=== PATIENT | male | born 1940 | race Caucasian/White ===

== ENCOUNTER 2016-12-10 05:56 | Day surgery (SDC) | payer MEDICARE, OTHER ==
[2016-12-10] MEDS ORDERED: Xopenex 1.25 MG/0.5 ML UD NEBULE IH ONE (06:27)
[2016-12-10] MEDS ORDERED: Sodium Chloride 3 ML UD NEBULES IH ONE (06:30)
[2016-12-10] MEDS ORDERED: Lactated Ringers 1,000 ML IV SCH (06:30)
[2016-12-10] MEDS ORDERED: Lactated Ringers 1,000 ML IV ONE (08:05)
[2016-12-10 08:39] VITALS: O2SAT 97
--- NOTE | 2016-12-10 09:14 | OP ---
SURGERY DATE/TIME: 12/10/2016 0700 PREOPERATIVE DIAGNOSIS: Heme-positive stool. POSTOPERATIVE DIAGNOSIS: 1) Normal EGD. 2) Colonoscopy with colon polyp removal x6 and biopsy of redundancy in splenic flexure. PROCEDURES: 1) EGD. 2) Colonoscopy. SURGEON: Carlos Rosa M.D. ANESTHESIA: MAC by Aidan Carpenter CRNA. ESTIMATED BLOOD LOSS: Minimal. SPECIMENS: Two hot snare polypectomies and four hot forceps polypectomies and two biopsies from the splenic flexure. DESCRIPTION OF PROCEDURE: After informed written consent was obtained, the patient was taken to the endoscopy suite. He underwent monitored anesthesia after a bite block was inserted. The endoscope was inserted in the posterior oropharynx. Under direct visualization the esophagus was traversed. Esophageal mucosa was normal in appearance. The gastroesophageal junction and gastric mucosa likewise were normal in appearance upon entering the stomach. The gastric antrum was free of any lesions or defects. The pylorus was traversed and the first and second portions of the duodenum were within normal limits. Upon withdrawal the mucosal structures appeared to be free of any lesions or defects. The scope was removed and the scopes were switched. A digital rectal exam showed normal sphincter tone and no internal lesions. The scope was inserted in the rectum and sequentially the entire colonic mucosa was traversed. The level of cecum was reached and verified with direct visualization of ileocecal valve. A large polyp was present in the pericecal region which was removed in piecemeal fashion with hot forceps with good removal and good hemostasis following removal. Upon withdrawal there were two large lesions in the transverse colon which were removed with snares with cautery with good hemostasis and removal of the entire lesion. There was another small polypoid lesion at the distal transverse colon which was removed with hot forceps as well. The splenic flexure was noted to have some redundancy and abnormal mucosal appearance, this was indistinct and broad based so two cold forceps biopsies were taken from security systems sales representative areas and sent for pathology testing. Pictures were also taken from this region. Upon further withdrawal there were two more small polypoid lesions in the descending colon which were removed with hot forceps in their entirety. The sigmoid colon and rectum were noted to be within normal limits upon withdrawal. No other lesions were encountered. Retroflexion showed no internal lesions. The scope was removed and the patient was transferred to the recovery room in excellent condition.
[2016-12-10 09:49] VITALS: BP 159/71; PULSE 66
[2016-12-10] MEDS ORDERED: Versed 2 MG/2 ML Injection IV ONE (14:30)
[2016-12-10] MEDS ORDERED: DIPRIVAN 200 MG/20 ML IV ONE (14:30)
[2016-12-10] MEDS ORDERED: SUBLIMAZE 100 MCG/2 ML IV ONE (14:30)
== END 2016-12-10 09:20 | disposition home or self-care (01) ==
LOC: SDC 05:56
PROVIDERS: ATTEND Family Medicine
PROC: 0DBL8ZX Excision of Transverse Colon, Via Natural or Artificial Opening Endoscopic, Diagnostic (ICD-10-PCS; principal; 2016-12-10)
PROC: 0DBH8ZX Excision of Cecum, Via Natural or Artificial Opening Endoscopic, Diagnostic (ICD-10-PCS; 2016-12-10)
PROC: 0DBM8ZX Excision of Descending Colon, Via Natural or Artificial Opening Endoscopic, Diagnostic (ICD-10-PCS; 2016-12-10)
DX: D12.3 Benign neoplasm of transverse colon (principal); D12.0 Benign neoplasm of cecum; R19.5 Other fecal abnormalities; E11.9 Type 2 diabetes mellitus without complications; I10 Essential (primary) hypertension
CPT/HCPCS: 00740; 00810; 36415; 82962; 88305; 94640; 99100; J2250; J2704; J3010

== ENCOUNTER 2019-02-03 16:26 | Emergency (ER) | payer MEDICARE ==
--- NOTE | 2019-02-03 16:31 | ERPHSYRPT ---
- History of Present Illness Time Seen by Provider: 02/03/19 16:30 Source: patient, family Exam Limitations: no limitations Physician History: 78 y/o diabeticv white male with h/o copd on neb tx with albuterol but does not use it, presents with coughing since last pm. pt wears a sleep apnea machine just at night. pt has noticed sinus drainage. denies cp. 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 cough is nonproductive. Timing/Duration: hour(s) (less than 24 hours) Cough Quality/Degree: mild, dry cough Possible Cause: occasional episodes Associated Symptoms: cough, nasal drainage, shortness of breath (mild with exertion), No fever, No chest pain/soreness Allergies/Adverse Reactions: gabapentin Allergy (Mild, Verified 12/10/16 06:17) Penicillins Allergy (Mild, Verified 12/10/16 06:17) Antihistamines - Alkylamine Allergy (Verified 12/10/16 06:17) pt unsure what antihistaine name was Antihistamines - Ethanolamine Allergy (Verified 12/10/16 06:17) pt unsure of name of antihistamine Antihistamines - Ethylenediamine Allergy (Verified 12/10/16 06:17) pt unsure of name of antihistamine Antihistamines - Piperazine Allergy (Verified 12/10/16 06:17) pt unsure of name of antihistamine Antihistamines - Piperidine Allergy (Verified 12/10/16 06:17) pt unsure of name of antihistamine Home Medications: Albuterol 2.5 mg/3 ml Neb [Proventil 2.5 mg/3 ml Neb] 2.5 mg IH QID [History] Aspirin EC 325 mg [Ecotrin 325 MG] 325 mg PO DAILY 07/11/13 [History] Gemfibrozil 600 mg [Lopid 600 mg] 600 mg PO BID 07/11/13 [History] Insulin Aspart [NovoLOG Insulin] 16 unit SQ TID 07/11/13 [History] Insulin Glargine [Lantus Insulin] 36 unit SQ HS 07/11/13 [History] Pantoprazole Sodium [Protonix] 40 mg PO DAILY 07/11/13 [History] Sotalol HCl [Betapace] 120 mg PO TID 07/11/13 [History] Verapamil HCl [Verapamil ER] 120 mg PO DAILY 07/11/13 [History] Albuterol 8 gm Mdi Hfa [Ventolin Hfa MDI] 8 gm IH UD PRN 07/12/13 [History ] Carvedilol 6.25 mg [Coreg 6.25 MG] 6.25 mg PO BID 11/16/13 [History] Atorvastatin Calcium 80 mg PO HS 12/04/16 [History] Glipizide 5 mg [Glucotrol 5 MG] 5 mg PO DAILY 12/04/16 [History] Potassium Chloride 20 Meq Tab [Potassium Chloride 20 MEQ TABLET] 20 meq PO DAILY 12/04/16 [History] Triamterene/Hydrochlorothiazid [Triamterene-Hctz 37.5-25 mg Tb] 1 each PO DAILY 12/04/16 [History] Hx Influenza Vaccination/Date Given: Yes (2012) Hx Pneumococcal Vaccination/Date Given: Yes (2007) - Review of Systems Constitutional: No Symptoms Eyes: No Symptoms Ears, Nose, & Throat: Sinus Drainage, No Stridor Respiratory: Cough, No Stridor, No Wheezing Cardiac: No Symptoms Abdominal/Gastrointestinal: No Symptoms Genitourinary Symptoms: No Symptoms Musculoskeletal: No Symptoms Skin: No Symptoms Neurological: No Symptoms Psychological: No Symptoms Endocrine: No Symptoms Hematologic/Lymphatic: No Symptoms Immunological/Allergic: No Symptoms All Other Systems: Reviewed and Negative - Past Medical History Pertinent Past Medical History: Yes Neurological History: TIA ENT History: No Pertinent History Cardiac History: Arrhythmia, Congestive Heart Failure, High Cholesterol, Hypertension Respiratory History: COPD, Sleep Apnea Endocrine Medical History: Diabetes Type II Musculoskeletal History: Arthritis GI Medical History: GERD History: No Pertinent History Psycho-Social History: No Pertinent History Male Reproductive Disorders: No Pertinent History Other Medical History: pt had 6 teeth extracted in 12/03/16 - Past Surgical History Past Surgical History: Yes Neuro Surgical History: No Pertinent History Cardiac: Cardiac Catheterization, Cardiac Stent, Pacemaker Respiratory: No Pertinent History Gastrointestinal: No Pertinent History Genitourinary: No Pertinent History Musculoskeletal: Orthopedic Surgery Male Surgical History: No Pertinent History Other Surgical History: toe reattached, lip cancer removed, 6 teeth extracted 1/ 02/2017 - Social History Smoking Status: Former smoker Exposure to second hand smoke: No Drug Use: none Patient Lives Alone: No Significant Family History: heart disease - Nursing Vital Signs Nursing Vital Signs: Initial Vital Signs Temperature 98.8 F 02/03/19 16:43 Pulse Rate 69 02/03/19 16:43 Respiratory Rate 20 02/03/19 16:43 Blood Pressure 139/67 02/03/19 16:43 O2 Sat by Pulse Oximetry 89 L 02/03/19 16:43 Pain Scale Pain Intensity 0 - Physical Exam General Appearance: no apparent distress, alert, anxiety Eye Exam: PERRL/EOMI, eyes nml inspection Ears, Nose, Throat Exam: normal ENT inspection, TMs normal, moist mucous membranes Neck Exam: normal inspection, non-tender, supple, full range of motion Respiratory Exam: airway intact, rhonchi (mild), No chest tenderness, No respiratory distress, No accessory muscle use, No wheezing, No stridor Cardiovascular Exam: regular rate/rhythm, normal heart sounds, normal peripheral pulses Gastrointestinal/Abdomen Exam: soft, normal bowel sounds, No tenderness, No guarding, No rebound Rectal Exam: not done Back Exam: normal inspection, normal range of motion, No CVA tenderness, No vertebral tenderness Extremity Exam: normal inspection, normal range of motion, pelvis stable Neurologic Exam: alert, oriented x 3, cooperative, chip drier II-XII nml as tested Skin Exam: normal color, warm, dry Lymphatic Exam: No adenopathy SpO2 Interpretation: borderline oxygenation - Course Nursing assessment & vital signs reviewed: Yes Ordered Tests: Active Orders 24 hr Category Date Time Status Slurry Plant Operator STAT Care 02/03/19 16:49 Active Pulse Oximetry (ED) STAT Care 02/03/19 16:48 Active CHEST 1 VIEW (PORTABLE) Stat Exams 02/03/19 16:48 Completed Peak Expiratory Flow Rate ONCE RT 02/03/19 16:54 Active Respiratory Nebulizer STAT RT 02/03/19 16:47 Completed Respiratory Therapy Assessment DAILY RT 02/03/19 16:47 Active Medication Summary Discontinued Medications Generic Name Dose Route Start Last Admin Trade Name Freq PRN Reason Stop Dose Admin Albuterol/Ipratropium Confirm 02/03/19 16:45 Duoneb 0.5-3 Mg/3 Ml Neb Administered 02/03/19 16:46 Dose 3 ml IH .STK-MED ONE Albuterol/Ipratropium 3 ml 02/03/19 16:46 02/03/19 16:50 Duoneb 0.5-3 Mg/3 Ml Neb IH 02/03/19 16:47 3 ml STAT ONE Administration Methylprednisolone Sodium Succinate 125 mg 02/03/19 16:48 02/03/19 16:57 Solu-Medrol 125 Mg IM 02/03/19 16:49 125 mg STAT ONE Administration Methylprednisolone Sodium Succinate Confirm 02/03/19 16:56 Solu-Medrol 125 Mg Administered 02/03/19 16:57 Dose 125 mg .ROUTE .STK-MED ONE - Progress Progress: improved, re-examined Air Movement: good Progress Note: 02/03/19 17:16 cxr-new right infrahilar infiltrate Blood Culture(s) Obtained: No Antibiotics given: Yes Counseled pt/family regarding: diagnosis, need for follow-up, rad results - Departure Time of Disposition: 17:17 Departure Disposition: Home Clinical Impression: Right pulmonary infiltrate on CXR Condition: Stable Critical Care Time: No Referrals: STEVIE KHAN [Primary Care Provider] - Additional Instructions: drink plenty of fluids. use your nebulizer every 4 hours while awake for next 48 hours. Prescriptions: Azithromycin 250 mg [Zithromax 250 MG TABLET] 250 mg PO ZPACK #6 tablet Hydrocodone Bit/Acetaminophen [Hydrocodone-Acetaminophen Soln] 10 ml PO Q6H # 120 ml
[2019-02-03] MEDS ORDERED: DUONEB 0.5-3 MG/3 ml Neb IH ONE ×2 (16:45→16:46)
[2019-02-03] MEDS ORDERED: solu-MEDROL 125 MG IM ONE (16:48)
[2019-02-03] MEDS ORDERED: solu-MEDROL 125 MG ONE (16:56)
[2019-02-03 16:59] VITALS: O2SAT 97
--- NOTE | 2019-02-03 17:12 | XRAY ---
Indication: Cough. Comparison: July 11, 2013. Portable chest demonstrates new right infrahilar infiltrate versus atelectasis. Remaining lungs clear. Stable cardiomegaly, left-sided dual-lead pacemaker, and left suprahilar calcified node. Bony thorax intact. Impression: New right infrahilar infiltrate/atelectasis. Correlate clinically. Stable cardiomegaly.
[2019-02-03] MEDS ORDERED: Levofloxacin 250MG Tablet PO ONE (17:26)
[2019-02-03] MEDS ORDERED: HYDROCODONE-ACETAMIN 2.5-108/5 ML SOLUTION PO STA (17:27)
[2019-02-03] MEDS ORDERED: HYDROCODONE-ACETAMIN 2.5-108/5 ML SOLUTION ONE (17:31)
[2019-02-03] MEDS ORDERED: Levofloxacin 500 MG Tablet ONE (17:31)
[2019-02-03 17:36] VITALS: BP 131/56; PULSE 64
== END 2019-02-03 17:43 | disposition home or self-care (01) ==
LOC: ED 16:26
DX: R91.8 Other nonspecific abnormal finding of lung field (principal); I50.9 Heart failure, unspecified; E78.00 Pure hypercholesterolemia, unspecified; I10 Essential (primary) hypertension; J44.9 Chronic obstructive pulmonary disease, unspecified; G47.30 Sleep apnea, unspecified; F51.9 Sleep disorder not due to a substance or known physiological condition, unspecified; Z95.0 Presence of cardiac pacemaker; K21.9 Gastro-esophageal reflux disease without esophagitis; M19.90 Unspecified osteoarthritis, unspecified site; Z79.899 Other long term (current) drug therapy
CPT/HCPCS: 71045; 93041; 94150; 94640; 94660; 96372; 99284; Z8673; J2930; A9270-GY

== ENCOUNTER 2019-03-25 14:58 | Emergency (ER) | payer MEDICARE ==
[2019-03-25] MEDS ORDERED: DUONEB 0.5-3 MG/3 ml Neb IH ONE ×4 (15:10→19:15)
[2019-03-25] MEDS ORDERED: solu-MEDROL 125 MG IV ONE (15:10)
[2019-03-25] MEDS ORDERED: Lasix 40 MG/4 ML IV ONE (15:12)
[2019-03-25] MEDS ORDERED: Lasix 40 MG/4 ML ONE (15:23)
[2019-03-25] MEDS ORDERED: solu-MEDROL 125 MG ONE (15:23)
[2019-03-25 15:36] LABS: BASOPHIL % 0.8 % (0.0-0.4); Basophil (Absolute #) 0.05 (0-0.4); Eosinophil % 4.4 % (0.00-5.0); Eosinophil (Absolute #) 0.26 (0-0.5); Granulocyte Absolute (ANC) 3.14 (1.4-6.9); Granulocytes % 53.2 % (36.0-66.0); Hematocrit 47.9 % (42-50); Hemoglobin 15.9 gm/dl (12.5-18.0); Lymphocyte (Absolute #) 1.29 (1.0-4.6); Lymphocytes % 21.9 % (24.0-44.0); Mean Cell Volume 100.6 fl (78-100); Mean Corpuscular Hemoglobin 33.4 pg (26-32); Mean Corpuscular Hgb Concent. 33.2 g/dl (32-36); Mean Platelet Volume 10.3 fl (6-9.5); Monocyte (Absolute #) 1.16 (0.0-1.3); Monocytes % 19.7 % (0.0-12.0); Platelet Count 176 K/mm3 (150-450); Red Blood Count 4.76 M/mm3 (4.1-5.6); Red Cell Distribution Width 13.5 % (11.5-14.0); White Blood Count 5.9 K/mm3 (4.0-10.5)
[2019-03-25 16:05] LABS: INFLUENZA A NEGATIVE (NEGATIVE); INFLUENZA B NEGATIVE (NEGATIVE); RESPIRATORY SYNCTIAL VIRUS NEGATIVE (Negative)
[2019-03-25 16:33] LABS: ALBUMIN 4.1 g/dL (3.5-5.0); ALKALINE PHOSPHATASE 80 U/L (38-126); ANION GAP 14.4 MEQ/L (5-15); BLOOD UREA NITROGEN 23 mg/dL (9-20); CHLORIDE 98 mmol/L (98-107); Calcium 9.3 mg/dL (8.4-10.2); Carbon Dioxide 30 mmol/L (22-30); Creatinine 1 1.11 mg/dL (0.66-1.25); Glucose 237 mg/dL (74-106); MAGNESIUM 1.9 mg/dL (1.6-2.3); NT PRO BNP 617 pg/mL (0-1800); Potassium 4.2 mmol/L (3.5-5.1); SGOT/AST 36 U/L (17-59); SGPT/ALT 25 U/L (0-50); SODIUM 139 mmol/L (137-145); Total Protein 7.7 g/dL (6.3-8.2)
[2019-03-25 19:32] VITALS: PULSE 68
--- NOTE | 2019-03-25 19:58 | ERPHSYRPT ---
- History of Present Illness Source: patient Exam Limitations: no limitations Patient Subjective Stated Complaint: shortness of breath, states that he has nasal drainage and that causes his throat to close off Triage Nursing Assessment: Pt presented to the ER with shortness of breath and a pulse ox of 86% on room air, placed on 3L NC and it is now 98%, cough, mild edema on bilateral lower extremities, expiratory wheeze Physician History: Pt is a 78 y/o male that presented to the ED, complaining of SOB. Pt states, had SOB for a couple of days, and got worse now. He is using only Albuterol neb at home. Had h/o CHF in the past, but states, he keeps low salt diet. Pt denies F/C/S. No sick contacts. No chest pain or palpitations. No N/V/D or abdominal pain. Timing/Duration: day(s) Activities at Onset: none Severity of Dyspnea-Max: mild Severity of Dyspnea-Current: none Possible Cause: occasional episodes Modifying Factors: Improves With: albuterol nebulizer, oxygen, rest Allergies/Adverse Reactions: gabapentin Allergy (Mild, Verified 03/25/19 15:15) Penicillins Allergy (Mild, Verified 03/25/19 15:15) Antihistamines - Alkylamine Allergy (Verified 03/25/19 15:15) pt unsure what antihistaine name was Antihistamines - Ethanolamine Allergy (Verified 03/25/19 15:15) pt unsure of name of antihistamine Antihistamines - Ethylenediamine Allergy (Verified 03/25/19 15:15) pt unsure of name of antihistamine Antihistamines - Piperazine Allergy (Verified 03/25/19 15:15) pt unsure of name of antihistamine Antihistamines - Piperidine Allergy (Verified 03/25/19 15:15) pt unsure of name of antihistamine Home Medications: Albuterol 2.5 mg/3 ml Neb [Proventil 2.5 mg/3 ml Neb] 2.5 mg IH QID [History] Aspirin EC 325 mg [Ecotrin 325 MG] 325 mg PO DAILY 07/11/13 [History] Gemfibrozil 600 mg [Lopid 600 mg] 600 mg PO BID 07/11/13 [History] Insulin Aspart [NovoLOG Insulin] 16 unit SQ TID 07/11/13 [History] Insulin Glargine [Lantus Insulin] 30 unit SQ HS 07/11/13 [History] Pantoprazole Sodium [Protonix] 40 mg PO DAILY 07/11/13 [History] Sotalol HCl [Betapace] 120 mg PO TID 07/11/13 [History] Verapamil HCl [Verapamil ER] 120 mg PO DAILY 07/11/13 [History] Carvedilol 6.25 mg [Coreg 6.25 MG] 6.25 mg PO BID 11/16/13 [History] Atorvastatin Calcium 80 mg PO HS 12/04/16 [History] Glipizide 5 mg [Glucotrol 5 MG] 5 mg PO DAILY 12/04/16 [History] Potassium Chloride 20 Meq Tab [Potassium Chloride 20 MEQ TABLET] 20 meq PO DAILY 12/04/16 [History] Triamterene/Hydrochlorothiazid [Triamterene-Hctz 37.5-25 mg Tb] 1 each PO DAILY 12/04/16 [History] Ipratropium/Albuterol Sulfate [Combivent Inhaler] 1 gm IH QID 03/25/19 [History] Hx Influenza Vaccination/Date Given: Yes (2012) Hx Pneumococcal Vaccination/Date Given: Yes (2007) - Review of Systems Constitutional: No Fever, No Chills Eyes: No Symptoms Ears, Nose, & Throat: No Symptoms Respiratory: Cough, Dyspnea, Dyspnea on Exertion (MANDEL), Wheezing Cardiac: No Chest Pain, No Edema, No Syncope Abdominal/Gastrointestinal: No Abdominal Pain, No Nausea, No Vomiting, No Diarrhea Genitourinary Symptoms: No Dysuria Musculoskeletal: No Back Pain, No Neck Pain Neurological: No Dizziness, No Focal Weakness, No Sensory Changes - Past Medical History Pertinent Past Medical History: Yes Neurological History: TIA ENT History: No Pertinent History Cardiac History: Arrhythmia, Congestive Heart Failure, High Cholesterol, Hypertension Respiratory History: COPD, Sleep Apnea Endocrine Medical History: Diabetes Type II Musculoskeletal History: Arthritis GI Medical History: GERD History: No Pertinent History Psycho-Social History: No Pertinent History Male Reproductive Disorders: No Pertinent History Other Medical History: pt had 6 teeth extracted in 12/03/16 - Past Surgical History Past Surgical History: Yes Neuro Surgical History: No Pertinent History Cardiac: Cardiac Catheterization, Cardiac Stent, Pacemaker Respiratory: No Pertinent History Gastrointestinal: No Pertinent History Genitourinary: No Pertinent History Musculoskeletal: Orthopedic Surgery Male Surgical History: No Pertinent History Other Surgical History: toe reattached, lip cancer removed, 6 teeth extracted 02/2017 - Social History Smoking Status: Former smoker Exposure to second hand smoke: No Drug Use: none Patient Lives Alone: No Significant Family History: heart disease - Nursing Vital Signs Nursing Vital Signs: Initial Vital Signs Temperature 98.6 F 03/25/19 15:00 Pulse Rate 65 03/25/19 15:00 Blood Pressure 160/56 03/25/19 15:00 O2 Sat by Pulse Oximetry 86 L 03/25/19 15:00 Pain Scale Pain Intensity 0 - Physical Exam General Appearance: mild distress Eye Exam: PERRL/EOMI Neck Exam: normal inspection, supple Respiratory Exam: prolonged expirations, crackles/rales, wheezing Cardiovascular/Chest Exam: normal heart sounds, regular rate/rhythm Abdominal/Gastrointestinal Exam: soft, No tenderness, No distention, No mass Extremity Exam: non-tender, normal range of motion, normal inspection, no calf tenderness, no pedal edema Neurologic Exam: alert, oriented x 3, cooperative, marketing finance manager II-XII nml as tested, sensation nml, No motor deficits Skin Exam: normal color, warm, No dry SpO2 Interpretation: hypoxic SpO2: 96 O2 Delivery: Nasal Cannula - Course Nursing assessment & vital signs reviewed: Yes EKG Interpreted by Me: Other (paced) - CT Exams Chest CT Interpretation: Negative (No PE. Cardiomegaly. Low density lesions in liver 1.2 and 1.8cm. Cholelithiasis), Tele-radiologist Report Ordered Tests: Active Orders 24 hr Category Date Time Status CHEST 2 VIEWS (PA AND LAT) Stat Exams 03/25/19 15:11 Taken CHEST WITH CONTRAST [CT] Stat Exams 03/25/19 17:11 Taken CBC W DIFF Stat Lab 03/25/19 15:15 Completed CMP Stat Lab 03/25/19 15:15 Completed D-DIMER QUANTITATION Stat Lab 03/25/19 15:15 Completed MAGNESIUM Stat Lab 03/25/19 15:15 Completed NT PRO BNP Stat Lab 03/25/19 15:15 Completed TROPONIN Q3H Lab 03/25/19 15:15 Completed TROPONIN Q3H Lab 03/25/19 18:31 Completed TROPONIN Q3H Lab 03/25/19 21:15 Ordered TROPONIN Q3H Lab 03/26/19 00:15 Ordered TROPONIN Q3H Lab 03/26/19 03:15 Ordered Peak Expiratory Flow Rate ONCE RT 03/25/19 15:24 Completed Respiratory Nebulizer STAT RT 03/25/19 19:11 Completed Respiratory Therapy Assessment ASORD RT 03/25/19 19:29 Completed Respiratory Therapy Assessment DAILY RT 03/25/19 15:23 Completed Medication Summary Discontinued Medications Generic Name Dose Route Start Last Admin Trade Name Freq PRN Reason Stop Dose Admin Albuterol/Ipratropium Confirm 03/25/19 15:10 Duoneb 0.5-3 Mg/3 Ml Neb Administered 03/25/19 15:11 Dose 3 ml IH .STK-MED ONE Albuterol/Ipratropium 3 ml 03/25/19 15:10 03/25/19 15:21 Duoneb 0.5-3 Mg/3 Ml Neb IH 03/25/19 15:11 3 ml STAT ONE Administration Albuterol/Ipratropium 3 ml 03/25/19 19:11 03/25/19 19:20 Duoneb 0.5-3 Mg/3 Ml Neb IH 03/25/19 19:12 3 ml STAT ONE Administration Albuterol/Ipratropium Confirm 03/25/19 19:15 Duoneb 0.5-3 Mg/3 Ml Neb Administered 03/25/19 19:16 Dose 3 ml IH .STK-MED ONE Furosemide 40 mg 03/25/19 15:12 03/25/19 15:26 Lasix 40 Mg/4 Ml IV 03/25/19 15:13 40 mg STAT ONE Administration Furosemide Confirm 03/25/19 15:23 Lasix 40 Mg/4 Ml Administered 03/25/19 15:24 Dose 40 mg .ROUTE .STK-MED ONE Methylprednisolone Sodium Succinate 125 mg 03/25/19 15:10 03/25/19 15:26 Solu-Medrol 125 Mg IV 03/25/19 15:11 125 mg STAT ONE Administration Methylprednisolone Sodium Succinate Confirm 03/25/19 15:23 Solu-Medrol 125 Mg Administered 03/25/19 15:24 Dose 125 mg .ROUTE .STK-MED ONE Lab/Rad Data: Laboratory Result Diagrams 03/25/19 15:15 03/25/19 15:15 Laboratory Results 03/25/19 03/25/19 03/25/19 Range/Units 18:31 15:15 15:15 WBC (4.0-10.5) K/mm3 RBC (4.1-5.6) M/mm3 Hgb (12.5-18.0) gm/dl Hct (42-50) % MCV (78-100) fl MCH (26-32) pg MCHC (32-36) g/dl RDW (11.5-14.0) % Plt Count (150-450) K/mm3 MPV (6-9.5) fl Gran % (36.0-66.0) % Eos # (Auto) (0-0.5) Absolute Lymphs (auto) (1.0-4.6) Absolute Monos (auto) (0.0-1.3) Lymphocytes % (24.0-44.0) % Monocytes % (0.0-12.0) % Eosinophils % (0.00-5.0) % Basophils % (0.0-0.4) % Absolute Granulocytes (1.4-6.9) Basophils # (0-0.4) D-Dimer (215-500) ng/mL Sodium (137-145) mmol/L Potassium (3.5-5.1) mmol/L Chloride (98-107) mmol/L Carbon Dioxide (22-30) mmol/L Anion Gap (5-15) MEQ/L BUN (9-20) mg/dL Creatinine (0.66-1.25) mg/dL Estimated GFR ML/MIN Glucose (74-106) mg/dL Calcium (8.4-10.2) mg/dL Magnesium (1.6-2.3) mg/dL Total Bilirubin (0.2-1.3) mg/dL AST (17-59) U/L ALT (0-50) U/L Alkaline Phosphatase (38-126) U/L Troponin I 0.042 H* 0.041 H* (0.000-0.034) ng/mL NT-Pro-B Natriuret Pep (0-1800) pg/mL Serum Total Protein (6.3-8.2) g/dL Albumin (3.5-5.0) g/dL Influenza Type A Ag NEGATIVE (NEGATIVE) Influenza Type B Ag NEGATIVE (NEGATIVE) RSV (PCR) NEGATIVE (Negative) 03/25/19 03/25/19 03/25/19 Range/Units 15:15 15:15 15:15 WBC 5.9 (4.0-10.5) K/mm3 RBC 4.76 (4.1-5.6) M/mm3 Hgb 15.9 (12.5-18.0) gm/dl Hct 47.9 (42-50) % MCV 100.6 H (78-100) fl MCH 33.4 H (26-32) pg MCHC 33.2 (32-36) g/dl RDW 13.5 (11.5-14.0) % Plt Count 176 (150-450) K/mm3 MPV 10.3 H (6-9.5) fl Gran % 53.2 (36.0-66.0) % Eos # (Auto) 0.26 (0-0.5) Absolute Lymphs (auto) 1.29 (1.0-4.6) Absolute Monos (auto) 1.16 (0.0-1.3) Lymphocytes % 21.9 L (24.0-44.0) % Monocytes % 19.7 H (0.0-12.0) % Eosinophils % 4.4 (0.00-5.0) % Basophils % 0.8 (0.0-0.4) % Absolute Granulocytes 3.14 (1.4-6.9) Basophils # 0.05 (0-0.4) D-Dimer 821 H* (215-500) ng/mL Sodium 139 (137-145) mmol/L Potassium 4.2 (3.5-5.1) mmol/L Chloride 98 (98-107) mmol/L Carbon Dioxide 30 (22-30) mmol/L Anion Gap 14.4 (5-15) MEQ/L BUN 23 H (9-20) mg/dL Creatinine 1.11 (0.66-1.25) mg/dL Estimated GFR > 60.0 ML/MIN Glucose 237 H (74-106) mg/dL Calcium 9.3 (8.4-10.2) mg/dL Magnesium 1.9 (1.6-2.3) mg/dL Total Bilirubin 0.70 (0.2-1.3) mg/dL AST 36 (17-59) U/L ALT 25 (0-50) U/L Alkaline Phosphatase 80 (38-126) U/L Troponin I (0.000-0.034) ng/mL NT-Pro-B Natriuret Pep 617 (0-1800) pg/mL Serum Total Protein 7.7 (6.3-8.2) g/dL Albumin 4.1 (3.5-5.0) g/dL Influenza Type A Ag (NEGATIVE) Influenza Type B Ag (NEGATIVE) RSV (PCR) (Negative) - Progress Progress: improved Air Movement: fair Progress Note: 03/25/19 20:[address] Pt [address] labs and CT for PE study done. He got Solu Medrol 125mg IV, 2 treatments with Duo nebs, and a dose of Lasix IV 40mg. Pt improved quickly. He has no PE, and does not show any emphysema or COPD. He does have Cardiomegaly. Pt should f/u with his Telephone Station Repairer for echo and evaluation of medical management. Blood Culture(s) Obtained: No Antibiotics given: No Discussed with : Rick Will see patient in: office Counseled pt/family regarding: need for follow-up - Departure Departure Disposition: Home Clinical Impression: CHF with unknown LVEF Condition: Stable Critical Care Time: No Referrals: STEVIE KHAN [Primary Care Provider] - Instructions: Heart Failure Additional Instructions: F/U with PCP next week, and with Telephone Station Repairer for Echo and evaluation of medical management.
[2019-03-25 20:16] VITALS: BP 148/72; O2SAT 92
--- NOTE | 2019-03-25 22:00 | XRAY ---
Indication: Short of breath. Elevated d-dimer. Bilateral lower extremity edema. Multiple contiguous axial images obtained through the chest using 80 cc Isovue 370 contrast and PE protocol. Comparison: None There is good opacification of the pulmonary arteries to include the lobar and segmental branches. No filling defect or pulmonary embolus. Heart is enlarged with left-sided dual-lead pacemaker. Thoracic aorta mildly arteriosclerotic without aneurysm/dissection. A few small mediastinal and left hilar calcified nodes. No pathologic mediastinal/hilar lymphadenopathy. Examination of the lung parenchyma demonstrates mild bilateral dependent atelectasis. No suspicious pulmonary mass, infiltrate, or effusion. Bony thorax intact with mild degenerative changes throughout the spine. Limited upper abdomen demonstrates fatty liver with 2 round low-density lesions either cysts versus hemangiomas, largest in the right lobe measuring 1.7 cm. Multiple tiny gallstones. Right upper pole renal cysts, largest 1.1 cm. Impression: 1. Negative pulmonary embolus. 2. Cardiomegaly. Negative acute pneumonic process or CHF. 3. Incidental fatty liver, hepatic cysts versus hemangiomas, right renal cysts, and gallstones. Comment: Preliminary interpretation was made by [facility]. No critical discrepancy. CTDI 23.69
--- NOTE | 2019-03-25 22:02 | XRAY ---
Indication: Short of breath. Comparison: February 03, 2019. PA/lateral chest is clear. Heart remains enlarged with left-sided dual-lead pacemaker. Bony thorax intact again with mild osteopenia and degenerative changes. Impression: Stable cardiomegaly. No new or acute findings.
== END 2019-03-25 20:20 | disposition home or self-care (01) ==
LOC: ED 14:58
DX: I50.9 Heart failure, unspecified (principal); Z79.899 Other long term (current) drug therapy
CPT/HCPCS: 36415; 71046; 71260; 80053; 83735; 83880; 84484; 85025; 85379; 87631; 94150; 94640; 96374; 96375; 99284; J1940; J2930; A9270-GY

== ENCOUNTER 2019-05-15 21:54 | Emergency (ER) | payer MEDICARE ==
[2019-05-15] MEDS ORDERED: DUONEB 0.5-3 MG/3 ml Neb IH ONE ×2 (22:11→22:17)
--- NOTE | 2019-05-15 22:17 | ERPHSYRPT ---
- History of Present Illness Time Seen by Provider: 05/15/19 22:04 Source: patient Exam Limitations: no limitations Patient Subjective Stated Complaint: pt is alert and oriented. pt comes in via wheelchair. pt is able to ambulate to the bed. pt comes in with c/o shortness of breath epigastric pain. pt states the pain started at 1400 after a big meal and it got "really bad" at 2000. pt has fine crackles in the left base of lung. pt denies n/v/d, lightheadedness, dizziness, diaphoresis. pt heart sounds strong. pt states the SOB is in his throat. no stridor noted. pt bowel sounds normoactive x4. pt radial pulses strong and equal. pt skin pwd. Triage Nursing Assessment: see above Physician History: C/o: upper abdominal pain, pressure since 14:00 PM, after meals, nausea and increasing SOB, denies productive cough, cold symptoms, no chest pain, fever, chills, sore throat, other complaints. He states, he took 325 mg Aspirin this morning. Timing/Duration: hour(s) (8) Activities at Onset: none Severity of Dyspnea-Max: moderate Severity of Dyspnea-Current: moderate Possible Cause: occasional episodes Modifying Factors: Improves With: nothing Associated Symptoms: loss of appetite, heaviness, No edema, No fever, No calf pain, No leg swelling Allergies/Adverse Reactions: gabapentin Allergy (Mild, Verified 03/25/19 15:15) Penicillins Allergy (Mild, Verified 03/25/19 15:15) Antihistamines - Alkylamine Allergy (Verified 03/25/19 15:15) pt unsure what antihistaine name was Antihistamines - Ethanolamine Allergy (Verified 03/25/19 15:15) pt unsure of name of antihistamine Antihistamines - Ethylenediamine Allergy (Verified 03/25/19 15:15) pt unsure of name of antihistamine Antihistamines - Piperazine Allergy (Verified 03/25/19 15:15) pt unsure of name of antihistamine Antihistamines - Piperidine Allergy (Verified 03/25/19 15:15) pt unsure of name of antihistamine Home Medications: Albuterol 2.5 mg/3 ml Neb [Proventil 2.5 mg/3 ml Neb] 2.5 mg IH QID [History] Aspirin EC 325 mg [Ecotrin 325 MG] 325 mg PO DAILY 07/11/13 [History] Gemfibrozil 600 mg [Lopid 600 mg] 600 mg PO BID 07/11/13 [History] Insulin Aspart [NovoLOG Insulin] 16 unit SQ TID 07/11/13 [History] Insulin Glargine [Lantus Insulin] 30 unit SQ HS 07/11/13 [History] Pantoprazole Sodium [Protonix] 40 mg PO DAILY 07/11/13 [History] Sotalol HCl [Betapace] 120 mg PO TID 07/11/13 [History] Verapamil HCl [Verapamil ER] 120 mg PO DAILY 07/11/13 [History] Carvedilol 6.25 mg [Coreg 6.25 MG] 6.25 mg PO BID 11/16/13 [History] Atorvastatin Calcium 80 mg PO HS 12/04/16 [History] Glipizide 5 mg [Glucotrol 5 MG] 5 mg PO DAILY 12/04/16 [History] Potassium Chloride 20 Meq Tab [Potassium Chloride 20 MEQ TABLET] 20 meq PO DAILY 12/04/16 [History] Triamterene/Hydrochlorothiazid [Triamterene-Hctz 37.5-25 mg Tb] 1 each PO DAILY 12/04/16 [History] Ipratropium/Albuterol Sulfate [Combivent Inhaler] 1 gm IH QID 03/25/19 [History] Hx Influenza Vaccination/Date Given: Yes (2012) Hx Pneumococcal Vaccination/Date Given: Yes (2007) Immunizations Up to Date: Yes - Review of Systems Constitutional: No Symptoms Ears, Nose, & Throat: No Symptoms Respiratory: Dyspnea Cardiac: No Chest Pain, No Edema Abdominal/Gastrointestinal: Abdominal Pain, Nausea, No Vomiting, No Diarrhea Skin: No Symptoms Neurological: No Symptoms All Other Systems: Reviewed and Negative - Past Medical History Pertinent Past Medical History: Yes Neurological History: TIA ENT History: No Pertinent History Cardiac History: Arrhythmia, Congestive Heart Failure, High Cholesterol, Hypertension Respiratory History: COPD, Sleep Apnea Endocrine Medical History: Diabetes Type II Musculoskeletal History: Arthritis GI Medical History: GERD History: No Pertinent History Psycho-Social History: No Pertinent History Male Reproductive Disorders: No Pertinent History Other Medical History: pt had 6 teeth extracted in 12/03/16 - Past Surgical History Past Surgical History: Yes Neuro Surgical History: No Pertinent History Cardiac: Cardiac Catheterization, Cardiac Stent, Pacemaker Respiratory: No Pertinent History Gastrointestinal: No Pertinent History Genitourinary: No Pertinent History Musculoskeletal: Orthopedic Surgery Male Surgical History: No Pertinent History Other Surgical History: toe reattached, lip cancer removed, 6 teeth extracted 02/2017 - Social History Smoking Status: Former smoker Exposure to second hand smoke: No Drug Use: none Patient Lives Alone: No Significant Family History: heart disease - Nursing Vital Signs Nursing Vital Signs: Initial Vital Signs Pulse Rate 70 05/15/19 22:02 Respiratory Rate 24 05/15/19 22:02 Blood Pressure 152/78 05/15/19 22:02 O2 Sat by Pulse Oximetry 95 05/15/19 22:02 Pain Scale Pain Intensity 6 - Physical Exam General Appearance: no apparent distress Eye Exam: eyes nml inspection Ears, Nose, Throat Exam: normal pharynx Neck Exam: normal inspection, non-tender, supple, No carotid bruit, No JVD Respiratory Exam: normal breath sounds, airway intact, No chest tenderness, No respiratory distress Cardiovascular/Chest Exam: normal heart sounds, regular rate/rhythm, normal peripheral pulses, No murmur, No edema, No JVD Abdominal/Gastrointestinal Exam: soft, normal bowel sounds, tenderness (diffuse , upper abdomen) Extremity Exam: non-tender, No no calf tenderness, No no pedal edema, No laura' s sign Peripheral Pulses Exam: dorsalis-pedis (R): 2+, dorsalis-pedis (L): 2+ Neurologic Exam: alert, oriented x 3, cooperative, normal mood/affect Skin Exam: normal color, warm, dry, No rash, No petechiae, No cyanosis Lymphatic Exam: No adenopathy SpO2 Interpretation: normal SpO2: 95 O2 Delivery: Room Air - Course Nursing assessment & vital signs reviewed: Yes EKG Interpreted by Me: RATE (78/min), Other (paced) - Radiology Exams Chest X-ray Interpretation: Interpreted by me, Negative, Other (cardiomegaly) Ordered Tests: Active Orders 24 hr Category Date Time Status Medical Technologist Generalist STAT Care 05/15/19 22:12 Active EKG-ER Only STAT Care 05/15/19 22:11 Active IV Insertion STAT Care 05/15/19 22:11 Active CHEST 2 VIEWS (PA AND LAT) Stat Exams 05/15/19 22:12 Taken CBC W DIFF Stat Lab 05/15/19 22:20 Completed CMP Stat Lab 05/15/19 22:20 Completed LIPASE Stat Lab 05/15/19 22:20 Completed Lactic Acid Stat Lab 05/15/19 22:17 Completed MAGNESIUM Stat Lab 05/15/19 22:20 Completed NT PRO BNP Stat Lab 05/15/19 22:20 Completed PROTIME WITH INR Stat Lab 05/15/19 22:20 Completed PTT Stat Lab 05/15/19 22:20 Completed TROPONIN Q3H Lab 05/15/19 22:20 Completed TROPONIN Q3H Lab 05/16/19 01:15 Ordered TROPONIN Q3H Lab 05/16/19 04:15 Ordered TROPONIN Q3H Lab 05/16/19 07:15 Ordered TROPONIN Q3H Lab 05/16/19 10:15 Ordered Peak Expiratory Flow Rate ONCE RT 05/15/19 22:31 Active Respiratory Therapy Assessment DAILY RT 05/15/19 22:31 Active Medication Summary Discontinued Medications Generic Name Dose Route Start Last Admin Trade Name Freq PRN Reason Stop Dose Admin Albuterol/Ipratropium 3 ml 05/15/19 22:11 05/15/19 22:25 Duoneb 0.5-3 Mg/3 Ml Neb IH 05/15/19 22:12 3 ml STAT ONE Administration Albuterol/Ipratropium Confirm 05/15/19 22:17 Duoneb 0.5-3 Mg/3 Ml Neb Administered 05/15/19 22:18 Dose 3 ml IH .STK-MED ONE Enoxaparin Sodium 120 mg 05/15/19 23:18 05/15/19 23:25 Enoxaparin Sodium SQ 05/15/19 23:19 120 mg STAT STA Administration Enoxaparin Sodium Confirm 05/15/19 23:24 Enoxaparin Sodium Administered 05/15/19 23:25 Dose 120 mg SQ .STK-MED ONE Nitroglycerin 1 gm 05/15/19 23:12 05/15/19 23:19 Nitro-Bid 2% Ud Packets TOP 05/15/19 23:13 1 gm STAT ONE Administration Nitroglycerin Confirm 05/15/19 23:19 Nitro-Bid 2% Ud Packets Administered 05/15/19 23:20 Dose 1 gm .ROUTE .STK-MED ONE Lab/Rad Data: Laboratory Result Diagrams 05/15/19 22:20 05/15/19 22:20 Laboratory Results 05/15/19 05/15/19 05/15/19 Range/Units 22:20 22:20 22:20 WBC (4.0-10.5) K/mm3 RBC (4.1-5.6) M/mm3 Hgb (12.5-18.0) gm/dl Hct (42-50) % MCV (78-100) fl MCH (26-32) pg MCHC (32-36) g/dl RDW (11.5-14.0) % Plt Count (150-450) K/mm3 MPV (6-9.5) fl Gran % (36.0-66.0) % Eos # (Auto) (0-0.5) Absolute Lymphs (auto) (1.0-4.6) Absolute Monos (auto) (0.0-1.3) Lymphocytes % (24.0-44.0) % Monocytes % (0.0-12.0) % Eosinophils % (0.00-5.0) % Basophils % (0.0-0.4) % Absolute Granulocytes (1.4-6.9) Basophils # (0-0.4) PT 12.8 (8.83-12.87) SECONDS INR 1.13 (0.8-3.0) APTT 33.1 (24.1-36.1) SECONDS Sodium 137 (137-145) mmol/L Potassium 4.2 (3.5-5.1) mmol/L Chloride 96 L (98-107) mmol/L Carbon Dioxide 30 (22-30) mmol/L Anion Gap 15.6 H (5-15) MEQ/L BUN 24 H (9-20) mg/dL Creatinine 1.12 (0.66-1.25) mg/dL Estimated GFR > 60.0 ML/MIN Glucose 244 H (74-106) mg/dL Lactic Acid (0.4-2.0) Calcium 9.3 (8.4-10.2) mg/dL Magnesium 1.8 (1.6-2.3) mg/dL Total Bilirubin 1.00 (0.2-1.3) mg/dL AST 36 (17-59) U/L ALT 25 (0-50) U/L Alkaline Phosphatase 93 (38-126) U/L Troponin I 0.040 H* (0.000-0.034) ng/mL NT-Pro-B Natriuret Pep 838 (0-1800) pg/mL Serum Total Protein 8.1 (6.3-8.2) g/dL Albumin 4.2 (3.5-5.0) g/dL Lipase 117 (23-300) U/L 05/15/19 05/15/19 Range/Units 22:20 22:17 WBC 12.2 H (4.0-10.5) K/mm3 RBC 5.00 (4.1-5.6) M/mm3 Hgb 16.7 (12.5-18.0) gm/dl Hct 49.4 (42-50) % MCV 98.8 (78-100) fl MCH 33.4 H (26-32) pg MCHC 33.8 (32-36) g/dl RDW 13.1 (11.5-14.0) % Plt Count 245 (150-450) K/mm3 MPV 10.3 H (6-9.5) fl Gran % 67.9 H (36.0-66.0) % Eos # (Auto) 0.28 (0-0.5) Absolute Lymphs (auto) 1.90 (1.0-4.6) Absolute Monos (auto) 1.68 H (0.0-1.3) Lymphocytes % 15.6 L (24.0-44.0) % Monocytes % 13.8 H (0.0-12.0) % Eosinophils % 2.3 (0.00-5.0) % Basophils % 0.4 (0.0-0.4) % Absolute Granulocytes 8.30 H (1.4-6.9) Basophils # 0.05 (0-0.4) PT (8.83-12.87) SECONDS INR (0.8-3.0) APTT (24.1-36.1) SECONDS Sodium (137-145) mmol/L Potassium (3.5-5.1) mmol/L Chloride (98-107) mmol/L Carbon Dioxide (22-30) mmol/L Anion Gap (5-15) MEQ/L BUN (9-20) mg/dL Creatinine (0.66-1.25) mg/dL Estimated GFR ML/MIN Glucose (74-106) mg/dL Lactic Acid 1.5 (0.4-2.0) Calcium (8.4-10.2) mg/dL Magnesium (1.6-2.3) mg/dL Total Bilirubin (0.2-1.3) mg/dL AST (17-59) U/L ALT (0-50) U/L Alkaline Phosphatase (38-126) U/L Troponin I (0.000-0.034) ng/mL NT-Pro-B Natriuret Pep (0-1800) pg/mL Serum Total Protein (6.3-8.2) g/dL Albumin (3.5-5.0) g/dL Lipase (23-300) U/L - Progress Progress: improved Air Movement: fair Progress Note: 05/15/19 23:42 Pt was given Duoneb treatment, Nitroglycerin ( he took regular ASA his morning ) 2 inches to cw. pain improved, no severe dyspnea or distress. After reviewing his labs and Chest X ray, called [facility] in [place], discussed his results and current condition, Dr Rodríguez accepted patient to be transferred there. Patient was informed, and agreed, he understood all risks and benefits of this transfer, and agreed. He has been stable for the transport. Blood Culture(s) Obtained: No Antibiotics given: No Counseled pt/family regarding: lab results, diagnosis, rad results - Departure Departure Disposition: Transfer ([facility]) Clinical Impression: Non-ST elevation (NSTEMI) myocardial infarction Condition: Stable Critical Care Time: No Referrals: STEVIE KHAN [Primary Care Provider] -
[2019-05-15 22:25] LABS: BASOPHIL % 0.4 % (0.0-0.4); Basophil (Absolute #) 0.05 (0-0.4); Eosinophil % 2.3 % (0.00-5.0); Eosinophil (Absolute #) 0.28 (0-0.5); Granulocytes % 67.9 % (36.0-66.0); Hematocrit 49.4 % (42-50); Hemoglobin 16.7 gm/dl (12.5-18.0); Lymphocytes % 15.6 % (24.0-44.0); Mean Cell Volume 98.8 fl (78-100); Mean Corpuscular Hemoglobin 33.4 pg (26-32); Mean Corpuscular Hgb Concent. 33.8 g/dl (32-36); Mean Platelet Volume 10.3 fl (6-9.5); Monocytes % 13.8 % (0.0-12.0); Platelet Count 245 K/mm3 (150-450); Red Cell Distribution Width 13.1 % (11.5-14.0); White Blood Count 12.2 K/mm3 (4.0-10.5)
[2019-05-15 22:31] LABS: INR 1.13 (0.8-3.0); PROTIME 12.8 SECONDS (8.83-12.87)
[2019-05-15 22:34] LABS: PTT 33.1 SECONDS (24.1-36.1)
[2019-05-15 22:44] LABS: ALBUMIN 4.2 g/dL (3.5-5.0); ALKALINE PHOSPHATASE 93 U/L (38-126); ANION GAP 15.6 MEQ/L (5-15); BLOOD UREA NITROGEN 24 mg/dL (9-20); CHLORIDE 96 mmol/L (98-107); Calcium 9.3 mg/dL (8.4-10.2); Carbon Dioxide 30 mmol/L (22-30); Creatinine 1 1.12 mg/dL (0.66-1.25); Glucose 244 mg/dL (74-106); LIPASE 117 U/L (23-300); MAGNESIUM 1.8 mg/dL (1.6-2.3); NT PRO BNP 838 pg/mL (0-1800); Potassium 4.2 mmol/L (3.5-5.1); SGOT/AST 36 U/L (17-59); SGPT/ALT 25 U/L (0-50); SODIUM 137 mmol/L (137-145); Total Protein 8.1 g/dL (6.3-8.2)
[2019-05-15] MEDS ORDERED: NITRO-BID 2% UD PACKETS TOP ONE (23:12)
[2019-05-15 23:14] VITALS: O2SAT 95
[2019-05-15] MEDS ORDERED: ENOXAPARIN SODIUM SQ STA (23:18)
[2019-05-15] MEDS ORDERED: NITRO-BID 2% UD PACKETS ONE (23:19)
[2019-05-15] MEDS ORDERED: ENOXAPARIN SODIUM SQ ONE (23:24)
[2019-05-15 23:41] VITALS: BP 136/75
[2019-05-16 00:02] VITALS: PULSE 69
--- NOTE | 2019-05-16 09:00 | XRAY ---
Indication: Dyspnea. Comparison: March 25, 2019. PA/lateral chest demonstrates minimal bibasilar atelectasis/scarring again with borderline cardiomegaly and left-sided dual-lead pacemaker. Remaining heart, lungs, and bony thorax unremarkable.
== END 2019-05-16 00:20 | disposition short-term general hospital (02) ==
LOC: ED 21:54
DX: I21.4 Non-ST elevation (NSTEMI) myocardial infarction (principal); I10 Essential (primary) hypertension; I50.9 Heart failure, unspecified; E78.00 Pure hypercholesterolemia, unspecified; J44.9 Chronic obstructive pulmonary disease, unspecified; E11.9 Type 2 diabetes mellitus without complications; Z79.4 Long term (current) use of insulin; G47.30 Sleep apnea, unspecified; K21.9 Gastro-esophageal reflux disease without esophagitis; M19.90 Unspecified osteoarthritis, unspecified site; Z86.73 Personal history of transient ischemic attack (TIA), and cerebral infarction without residual deficits; Z79.899 Other long term (current) drug therapy
CPT/HCPCS: 36000; 36415; 71046; 80053; 83605; 83690; 83735; 83880; 84484; 85025; 85610; 85730; 93005; 93041; 94150; 94640; 96372; 99285; J1650; A9270-GY

== ENCOUNTER 2021-06-13 09:44 | Emergency (ER) | payer MEDICARE ==
[2021-06-13] MEDS ORDERED: Racepinephrine INH Solution 2.25% IH ONE ×2 (09:55→09:57)
[2021-06-13] MEDS ORDERED: Sodium Chloride 3 ML UD NEBULES IH ONE (09:57)
--- NOTE | 2021-06-13 10:06 | ERPHSYRPT ---
- History of Present Illness Time Seen by Provider: 06/13/21 09:55 Source: patient, family Exam Limitations: no limitations Patient Subjective Stated Complaint: SOB x 3 days. hx with vocal cord stenosis - recieves botox to loosen them and open airway. Triage Nursing Assessment: pt to ED c/o SOB x 3-4 days. stridor noted and pt voice sounds tight when speaking. pt also has hx of CHF which caused him to be intubated years ago, complications from that caused his stenosis. pt denies pain now. difficulty with exertion and unable to lie flat at this time. Physician History: This is a 80-year-old white male who is a patient of Dr. Stevie Salcedo who presents with 3 to 4-day history of worsening shortness of breath. Patient is obese, he has insulin-dependent diabetes, hypertension, COPD, CHF, sleep apnea and atrial fibrillation. He is on Xarelto. His only diuretic is a combination hypertensive which contains hydrochlorothiazide. Patient has had a cardiac catheterization, cardiac stent placed and a pacemaker placed in the past. Patient has a history of vocal cord stenosis and receives Botox injections every 3 months. His last injection was on May 31, 2021. After this past injection, he did notice different sensation in the area of the vocal cords. Patient has an appointment with the physician who injected the Botox into his vocal cords tomorrow. Patient denies chest pain. Timing/Duration: day(s) (3 to 4) Activities at Onset: none Severity of Dyspnea-Max: mild Severity of Dyspnea-Current: mild Possible Cause: occasional episodes Modifying Factors: Improves With: activity Associated Symptoms: wheezing (Mild), ankle swelling (Swelling of bilateral feet and ankles), No chest pain/discomfort Allergies/Adverse Reactions: gabapentin Allergy (Mild, Verified 06/13/21 09:55) Penicillins Allergy (Mild, Verified 06/13/21 09:55) Antihistamines - Alkylamine Allergy (Verified 06/13/21 09:55) pt unsure what antihistaine name was Antihistamines - Ethanolamine Allergy (Verified 06/13/21 09:55) pt unsure of name of antihistamine Antihistamines - Ethylenediamine Allergy (Verified 06/13/21 09:55) pt unsure of name of antihistamine Antihistamines - Piperazine Allergy (Verified 06/13/21 09:55) pt unsure of name of antihistamine Antihistamines - Piperidine Allergy (Verified 06/13/21 09:55) pt unsure of name of antihistamine Home Medications: Albuterol 2.5 mg/3 ml Neb [Proventil 2.5 mg/3 ml Neb] 2.5 mg IH QID 07/11/13 [History] Gemfibrozil 600 mg [Lopid 600 mg] 600 mg PO BID 07/11/13 [History] Insulin Aspart [NovoLOG Insulin] 16 unit SQ TID 07/11/13 [History] Insulin Glargine [Lantus Insulin] 30 unit SQ HS 07/11/13 [History] Pantoprazole Sodium [Protonix] 40 mg PO DAILY 07/11/13 [History] Sotalol HCl [Betapace] 120 mg PO TID 07/11/13 [History] Verapamil HCl [Verapamil ER] 120 mg PO DAILY 07/11/13 [History] Carvedilol 6.25 mg [Coreg 6.25 MG] 6.25 mg PO BID 11/16/13 [History] Atorvastatin Calcium 80 mg PO HS 12/04/16 [History] Glipizide 5 mg [Glucotrol 5 MG] 5 mg PO DAILY 12/04/16 [History] Potassium Chloride 20 Meq Tab [Potassium Chloride 20 MEQ TABLET] 20 meq PO DAILY 12/04/16 [History] Triamterene/Hydrochlorothiazid [Triamterene-Hctz 37.5-25 mg Tb] 1 each PO DAILY 12/04/16 [History] Ipratropium/Albuterol Sulfate [Combivent Inhaler] 1 gm IH QID 03/25/19 [History] Rivaroxaban [Xarelto] 40 mg PO HS 06/13/21 [History] Hx Tetanus, Diphtheria Vaccination/Date Given: No Hx Influenza Vaccination/Date Given: Yes Hx Pneumococcal Vaccination/Date Given: No Immunizations Up to Date: Yes Travel Risk - International Travel Have you traveled outside of the country in past 3 weeks: No - Coronavirus Screening Are you exhibiting any of the following symptoms?: No Close contact with a COVID-19 positive Pt in past 14-21 Days: No - Vaccine Status Have you recieved a Covid-19 vaccination: Yes Solution Architect: Pfizer - Vaccination Dates Date of 2cond Vaccination (if applicable): Dec - Review of Systems Constitutional: No Symptoms Eyes: No Symptoms Ears, Nose, & Throat: No Symptoms Respiratory: Dyspnea on Exertion (MANDEL), Wheezing (Mild wheezing) Cardiac: Edema (Bilateral feet and ankles) Abdominal/Gastrointestinal: No Symptoms Genitourinary Symptoms: No Symptoms Musculoskeletal: No Symptoms Skin: No Symptoms Neurological: No Symptoms Psychological: No Symptoms Endocrine: No Symptoms Hematologic/Lymphatic: No Symptoms Immunological/Allergic: No Symptoms All Other Systems: Reviewed and Negative - Past Medical History Pertinent Past Medical History: Yes Neurological History: TIA ENT History: No Pertinent History Cardiac History: Arrhythmia, Congestive Heart Failure, High Cholesterol, Hypertension Respiratory History: COPD, Sleep Apnea Endocrine Medical History: Diabetes Type II Musculoskeletal History: Arthritis GI Medical History: GERD History: No Pertinent History Psycho-Social History: No Pertinent History Male Reproductive Disorders: No Pertinent History Other Medical History: pt had 6 teeth extracted in 12/03/16 - Past Surgical History Past Surgical History: Yes Neuro Surgical History: No Pertinent History Cardiac: Cardiac Catheterization, Cardiac Stent, Pacemaker Respiratory: No Pertinent History Gastrointestinal: No Pertinent History Genitourinary: No Pertinent History Musculoskeletal: Orthopedic Surgery Male Surgical History: No Pertinent History Other Surgical History: toe reattached, lip cancer removed, 6 teeth extracted 12/03/2016 - Social History Smoking Status: Former smoker Exposure to second hand smoke: No Drug Use: none Patient Lives Alone: No Significant Family History: heart disease - Nursing Vital Signs Nursing Vital Signs: Initial Vital Signs Temperature 98.3 F 06/13/21 09:45 Pulse Rate 70 06/13/21 09:45 Respiratory Rate 20 06/13/21 09:45 O2 Sat by Pulse Oximetry 93 L 06/13/21 09:45 Pain Scale Pain Intensity 0 - Physical Exam General Appearance: no apparent distress, alert, anxiety, obese Eye Exam: PERRL/EOMI, eyes nml inspection Ears, Nose, Throat Exam: hearing grossly normal, normal ENT inspection, normal pharynx Neck Exam: normal inspection, non-tender, supple, full range of motion, other (No stridor) Respiratory Exam: airway intact, wheezing (Mild upper airway bilateral expiratory wheezing), No chest tenderness, No respiratory distress, No stridor Cardiovascular/Chest Exam: normal heart sounds, regular rate/rhythm, normal peripheral pulses, No murmur Abdominal/Gastrointestinal Exam: soft, normal bowel sounds, No tenderness Rectal Exam: not done Extremity Exam: non-tender, normal range of motion, pedal edema (Bilateral feet and ankles) Neurologic Exam: alert, oriented x 3, cooperative, straightener hand II-XII nml as tested, normal mood/affect, nml cerebellar function, nml station & gait, sensation nml Skin Exam: normal color, warm, dry Lymphatic Exam: No adenopathy SpO2 Interpretation: normal SpO2: 95 O2 Delivery: Room Air - Course Nursing assessment & vital signs reviewed: Yes EKG Interpreted by Me: RATE (70), A-fib, NORMAL INTERVALS, Left Bundle Branch Block, NORMAL ST-T, Other (Today's EKG shows A. fib/a flutter. Comparison EKG (05/15/2019) showed a paced rhythm.) Ordered Tests: Active Orders 24 hr Category Date Time Status EKG-ER Only STAT Care 06/13/21 10:19 Active IV Insertion STAT Care 06/13/21 10:19 Active Pulse Oximetry (ED) STAT Care 06/13/21 10:19 Active CHEST 1 VIEW (PORTABLE) Stat Exams 06/13/21 10:20 Completed CBC W DIFF Stat Lab 06/13/21 10:00 Completed CMP Stat Lab 06/13/21 10:00 Completed D-DIMER QUANTITATIVE Stat Lab 06/13/21 10:00 Completed Lactic Acid Stat Lab 06/13/21 10:00 Completed MAGNESIUM Stat Lab 06/13/21 10:00 Completed NT PRO BNP Stat Lab 06/13/21 10:00 Completed POCT GLUCOSE Stat Lab 06/13/21 10:01 Completed POCT GLUCOSE Stat Lab 06/13/21 13:03 Completed PROTIME WITH INR Stat Lab 06/13/21 10:00 Completed TROPONIN Q3H Lab 06/13/21 10:00 Completed TROPONIN Q3H Lab 06/13/21 13:30 Ordered TROPONIN Q3H Lab 06/13/21 16:30 Ordered TROPONIN Q3H Lab 06/13/21 19:30 Ordered TROPONIN Q3H Lab 06/13/21 22:30 Ordered Respiratory Therapy Assessment ONCE RT 06/13/21 10:17 Completed Medication Summary Discontinued Medications Generic Name Dose Route Start Last Admin Trade Name Freq PRN Reason Stop Dose Admin Methylprednisolone Sodium 0 mg 06/13/21 10:23 06/13/21 10:29 Succinate 125 mg/ Sterile IV 06/13/21 10:24 125 mg Water 2 ml STAT ONE Administration Epinephrine Confirm 06/13/21 09:57 Racepinephrine Inh Solution 2.25% Administered 06/13/21 09:58 Dose 0.5 ml IH .STK-MED ONE Epinephrine 0.5 ml 06/13/21 09:55 06/13/21 10:22 Racepinephrine Inh Solution 2.25% IH 06/13/21 09:56 0.5 ml STAT ONE Administration Furosemide 40 mg 06/13/21 10:19 06/13/21 10:29 Lasix 40 Mg/4 Ml IV 06/13/21 10:20 40 mg STAT ONE Administration Furosemide Confirm 06/13/21 10:27 Lasix 40 Mg/4 Ml Administered 06/13/21 10:28 Dose 40 mg .ROUTE .STK-MED ONE Methylprednisolone Sodium Succinate Confirm 06/13/21 10:27 Solu-Medrol Administered 06/13/21 10:28 Dose 125 mg .ROUTE .STK-MED ONE Sodium Chloride Confirm 06/13/21 09:57 Sodium Chloride 3 Ml Ud Nebules Administered 06/13/21 09:58 Dose 3 ml IH .STK-MED ONE Sterile Water Confirm 06/13/21 10:27 Sterile H2o 10 Ml Administered 06/13/21 10:28 Dose 10 ml IJ .STK-MED ONE Lab/Rad Data: Laboratory Result Diagrams 06/13/21 10:00 06/13/21 10:00 Laboratory Results 06/13/21 06/13/21 06/13/21 Range/Units 13:03 10:01 10:00 WBC (4.0-10.5) K/mm3 RBC (4.1-5.6) M/mm3 Hgb (12.5-18.0) gm/dl Hct (42-50) % MCV (78-100) fl MCH (26-32) pg MCHC (32-36) g/dl RDW (11.5-14.0) % Plt Count (150-450) K/mm3 MPV (7.5-11.0) fl Gran % (36.0-66.0) % Eos # (Auto) (0-0.5) Absolute Lymphs (auto) (1.0-4.6) Absolute Monos (auto) (0.0-1.3) Lymphocytes % (24.0-44.0) % Monocytes % (0.0-12.0) % Eosinophils % (0.00-5.0) % Basophils % (0.0-0.4) % Absolute Granulocytes (1.4-6.9) Basophils # (0-0.4) PT (9.4-12.5) SECONDS INR (0.8-3.0) D-Dimer (215-500) ng/mL Sodium (137-145) mmol/L Potassium (3.5-5.1) mmol/L Chloride (98-107) mmol/L Carbon Dioxide (22-30) mmol/L Anion Gap (5-15) MEQ/L BUN (9-20) mg/dL Creatinine (0.66-1.25) mg/dL Estimated GFR ML/MIN Glucose (74-106) mg/dL POC Glucometer 104 111 H (74 to 106) mg/dL Lactic Acid (0.4-2.0) Calcium (8.4-10.2) mg/dL Magnesium (1.6-2.3) mg/dL Total Bilirubin (0.2-1.3) mg/dL AST (17-59) U/L ALT (0-50) U/L Alkaline Phosphatase (38-126) U/L Troponin I 0.038 H* (0.000-0.034) ng/mL NT-Pro-B Natriuret Pep (0-1800) pg/mL Serum Total Protein (6.3-8.2) g/dL Albumin (3.5-5.0) g/dL 06/13/21 06/13/21 06/13/21 Range/Units 10:00 10:00 10:00 WBC (4.0-10.5) K/mm3 RBC (4.1-5.6) M/mm3 Hgb (12.5-18.0) gm/dl Hct (42-50) % MCV (78-100) fl MCH (26-32) pg MCHC (32-36) g/dl RDW (11.5-14.0) % Plt Count (150-450) K/mm3 MPV (7.5-11.0) fl Gran % (36.0-66.0) % Eos # (Auto) (0-0.5) Absolute Lymphs (auto) (1.0-4.6) Absolute Monos (auto) (0.0-1.3) Lymphocytes % (24.0-44.0) % Monocytes % (0.0-12.0) % Eosinophils % (0.00-5.0) % Basophils % (0.0-0.4) % Absolute Granulocytes (1.4-6.9) Basophils # (0-0.4) PT 24.0 H (9.4-12.5) SECONDS INR 2.03 (0.8-3.0) D-Dimer < 215 L (215-500) ng/mL Sodium 141 (137-145) mmol/L Potassium 3.8 (3.5-5.1) mmol/L Chloride 98 (98-107) mmol/L Carbon Dioxide 38 H (22-30) mmol/L Anion Gap 9.3 (5-15) MEQ/L BUN 27 H (9-20) mg/dL Creatinine 1.20 (0.66-1.25) mg/dL Estimated GFR > 60.0 ML/MIN Glucose 108 H (74-106) mg/dL POC Glucometer (74 to 106) mg/dL Lactic Acid 1.6 (0.4-2.0) Calcium 8.8 (8.4-10.2) mg/dL Magnesium 2.1 (1.6-2.3) mg/dL Total Bilirubin 1.00 (0.2-1.3) mg/dL AST 29 (17-59) U/L ALT 13 (0-50) U/L Alkaline Phosphatase 77 (38-126) U/L Troponin I (0.000-0.034) ng/mL NT-Pro-B Natriuret Pep 2770 H (0-1800) pg/mL Serum Total Protein 7.0 (6.3-8.2) g/dL Albumin 3.7 (3.5-5.0) g/dL 06/13/21 Range/Units 10:00 WBC 8.1 (4.0-10.5) K/mm3 RBC 4.87 (4.1-5.6) M/mm3 Hgb 14.7 (12.5-18.0) gm/dl Hct 47.3 (42-50) % MCV 97.1 (78-100) fl MCH 30.2 (26-32) pg MCHC 31.1 L (32-36) g/dl RDW 15.2 H (11.5-14.0) % Plt Count 221 (150-450) K/mm3 MPV 10.8 (7.5-11.0) fl Gran % 68.3 H (36.0-66.0) % Eos # (Auto) 0.09 (0-0.5) Absolute Lymphs (auto) 1.38 (1.0-4.6) Absolute Monos (auto) 1.09 (0.0-1.3) Lymphocytes % 17.0 L (24.0-44.0) % Monocytes % 13.4 H (0.0-12.0) % Eosinophils % 1.1 (0.00-5.0) % Basophils % 0.2 (0.0-0.4) % Absolute Granulocytes 5.56 (1.4-6.9) Basophils # 0.02 (0-0.4) PT (9.4-12.5) SECONDS INR (0.8-3.0) D-Dimer (215-500) ng/mL Sodium (137-145) mmol/L Potassium (3.5-5.1) mmol/L Chloride (98-107) mmol/L Carbon Dioxide (22-30) mmol/L Anion Gap (5-15) MEQ/L BUN (9-20) mg/dL Creatinine (0.66-1.25) mg/dL Estimated GFR ML/MIN Glucose (74-106) mg/dL POC Glucometer (74 to 106) mg/dL Lactic Acid (0.4-2.0) Calcium (8.4-10.2) mg/dL Magnesium (1.6-2.3) mg/dL Total Bilirubin (0.2-1.3) mg/dL AST (17-59) U/L ALT (0-50) U/L Alkaline Phosphatase (38-126) U/L Troponin I (0.000-0.034) ng/mL NT-Pro-B Natriuret Pep (0-1800) pg/mL Serum Total Protein (6.3-8.2) g/dL Albumin (3.5-5.0) g/dL - Progress Progress: improved, re-examined Air Movement: good Progress Note: 06/13/21 10:34 Clinically, the patient states that after receiving the epinephrine medication/nebulizer treatment he is breathing better. His room air oxygenation went from 95% to 98%. 06/13/21 10:44 Chest x-ray shows borderline cardiomegaly. 06/13/21 12:[address] Jose Ramon Hurst who is the patient's customer operations manager. He evaluated the patient yesterday including doing a echocardiogram. Dr. Hurst stated to attempt to transfer the patient to [facility] in [place]. The patient does have an appointment to see Alton Perez his masticator. We contacted [facility] in [place]. There is a 5 to 7-day wait for transfer of patient to a specialist. 06/13/21 13:[address] Recio, the masticator at [facility]. She called back and we discussed this patient's history, complaint, physical findings, and results of the EKG and laboratory data. She is excepting this patient to be transferred to the emergency department where they will evaluate his vocal cords. They will also determine his final disposition regarding his cardiac issues. These were also discussed with her prior to transferring the patient. Phone number to give report is [phone] extension [phone] Blood Culture(s) Obtained: Yes Antibiotics given: No Counseled pt/family regarding: lab results, diagnosis, need for follow-up, rad results - Departure Departure Disposition: Transfer Clinical Impression: Throat tightness, Elevated troponin, Congestive heart failure Condition: Stable Critical Care Time: Yes Critical Care Time(excluding separately billable procedures): Critical 30-74 mins Referrals: STEVIE SALCEDO [Primary Care Provider] - Instructions: Heart Failure
[2021-06-13] MEDS ORDERED: Lasix 40 MG/4 ML IV ONE (10:19)
[2021-06-13] MEDS ORDERED: solu-MEDROL 125 MG, Sterile H2O 10 ml 2 ML IV ONE ×2 (10:23)
[2021-06-13] MEDS ORDERED: Sterile H2O 10 ml IJ ONE (10:27)
[2021-06-13] MEDS ORDERED: Lasix 40 MG/4 ML ONE (10:27)
[2021-06-13] MEDS ORDERED: solu-MEDROL ONE (10:27)
--- NOTE | 2021-06-13 10:42 | XRAY ---
Indication: Short of breath. Comparison: May 15, 2019. Portable apical lordotic chest again demonstrates borderline cardiomegaly obscuring left lung base. Stable minimal right base atelectasis/scarring and left dual-lead pacemaker. Bony thorax intact. No new cardiopulmonary abnormalities.
[2021-06-13 10:44] LABS: Absolute Neutrophil Ct (ANC) 5.56 (1.4-6.9); BASOPHIL % 0.2 % (0.0-0.4); Basophil (Absolute #) 0.02 (0-0.4); Eosinophil % 1.1 % (0.00-5.0); Eosinophil (Absolute #) 0.09 (0-0.5); Hematocrit 47.3 % (42-50); Hemoglobin 14.7 gm/dl (12.5-18.0); INR 2.03 (0.8-3.0); Lymphocyte (Absolute #) 1.38 (1.0-4.6); Mean Cell Volume 97.1 fl (78-100); Mean Corpuscular Hemoglobin 30.2 pg (26-32); Mean Corpuscular Hgb Concent. 31.1 g/dl (32-36); Mean Platelet Volume 10.8 fl (7.5-11.0); Monocyte (Absolute #) 1.09 (0.0-1.3); Monocytes % 13.4 % (0.0-12.0); Neutrophil % 68.3 % (36.0-66.0); Platelet Count 221 K/mm3 (150-450); Red Blood Count 4.87 M/mm3 (4.1-5.6); Red Cell Distribution Width 15.2 % (11.5-14.0); White Blood Count 8.1 K/mm3 (4.0-10.5)
[2021-06-13 10:59] LABS: D-DIMER QUANTITATIVE < 215 ng/mL (215-500)
[2021-06-13 11:06] LABS: ALBUMIN 3.7 g/dL (3.5-5.0); ALKALINE PHOSPHATASE 77 U/L (38-126); ANION GAP 9.3 MEQ/L (5-15); BLOOD UREA NITROGEN 27 mg/dL (9-20); CHLORIDE 98 mmol/L (98-107); Calcium 8.8 mg/dL (8.4-10.2); Carbon Dioxide 38 mmol/L (22-30); EST GLOMERULAR FILTRATION RATE > 60.0 ML/MIN; Glucose 108 mg/dL (74-106); MAGNESIUM 2.1 mg/dL (1.6-2.3); NT PRO BNP 2770 pg/mL (0-1800); Potassium 3.8 mmol/L (3.5-5.1); SGOT/AST 29 U/L (17-59); SGPT/ALT 13 U/L (0-50); SODIUM 141 mmol/L (137-145)
[2021-06-13 11:30] VITALS: PULSE 70
[2021-06-13 12:18] VITALS: O2SAT 95
[2021-06-13 13:48] VITALS: BP 138/73
== END 2021-06-13 13:48 ==
LOC: ED 09:44
DX: J39.2 Other diseases of pharynx (principal); I50.9 Heart failure, unspecified; E11.9 Type 2 diabetes mellitus without complications; R74.8 Abnormal levels of other serum enzymes; I10 Essential (primary) hypertension; J44.9 Chronic obstructive pulmonary disease, unspecified; I48.91 Unspecified atrial fibrillation; Z79.01 Long term (current) use of anticoagulants; G47.30 Sleep apnea, unspecified; M25.472 Effusion, left ankle; M25.471 Effusion, right ankle; Z79.899 Other long term (current) drug therapy
CPT/HCPCS: 36000; 36415; 71045; 80053; 82947; 83605; 83735; 83880; 84484; 85025; 85379; 85610; 93005; 94640; 94760; 96374; 99285; 99291; J1940; J2930

== ENCOUNTER 2021-06-30 23:42 | Observation (INO) | payer MEDICARE ==
[2021-07-01] MEDS ORDERED: Lasix 40 MG/4 ML IV ONE (00:06)
--- NOTE | 2021-07-01 00:06 | ERPHSYRPT ---
- History of Present Illness Time Seen by Provider: 06/30/21 23:44 Source: patient, EMS Exam Limitations: no limitations Physician History: 80 years old male with history of COPD, congestive heart failure, atrial fibrillation on Xarelto, pacemaker placement, diabetes mellitus insulin- dependent, vocal card malfunction needing Botox injection, morbidly obese who was recently admitted at [facility] for CHF exacerbation presented back with increasing shortness of breath for a couple of days with bilateral lower extremity swelling. Patient report initially shortness of breath with activity and now even at resting with some tightness and pressure in the center of the c hest which is aggravated with activity and partially relieved with rest. Patient oxygen saturation was in upper 90s, placed on 4 L oxygen and currently around 96%. Denies any fever or chills but has generalized weakness and fatigue. Did receive both Covid vaccine shots. Timing/Duration: day(s) (2), gradual onset, worse Activities at Onset: activity, rest Severity of Dyspnea-Max: severe Severity of Dyspnea-Current: severe Possible Cause: occasional episodes Modifying Factors: Improves With: oxygen. Worsens With: exertion Associated Symptoms: cough, chest pain/discomfort, edema, wheezing, ankle swelling, heaviness, leg swelling, tightness, No fever, No loss of appetite Allergies/Adverse Reactions: gabapentin Allergy (Mild, Verified 07/01/21 00:20) Penicillins Allergy (Mild, Verified 07/01/21 00:20) Antihistamines - Alkylamine Allergy (Verified 07/01/21 00:20) pt unsure what antihistaine name was Antihistamines - Ethanolamine Allergy (Verified 07/01/21 00:20) pt unsure of name of antihistamine Antihistamines - Ethylenediamine Allergy (Verified 07/01/21 00:20) pt unsure of name of antihistamine Antihistamines - Piperazine Allergy (Verified 07/01/21 00:20) pt unsure of name of antihistamine Antihistamines - Piperidine Allergy (Verified 07/01/21 00:20) pt unsure of name of antihistamine Home Medications: Albuterol 2.5 mg/3 ml Neb [Proventil 2.5 mg/3 ml Neb] 2.5 mg IH QID 07/11/13 [History] Gemfibrozil 600 mg [Lopid 600 mg] 600 mg PO BID 07/11/13 [History] Insulin Aspart [NovoLOG Insulin] 16 unit SQ TID 07/11/13 [History] Insulin Glargine [Lantus Insulin] 36 unit SQ HS 07/11/13 [History] Pantoprazole Sodium [Protonix] 40 mg PO DAILY 07/11/13 [History] Sotalol HCl [Betapace] 120 mg PO BID 07/11/13 [History] Carvedilol 6.25 mg [Coreg 6.25 MG] 6.25 mg PO BID 11/16/13 [History] Atorvastatin Calcium 80 mg PO HS 12/04/16 [History] Glipizide 5 mg [Glucotrol 5 MG] 5 mg PO DAILY 12/04/16 [History] Triamterene/Hydrochlorothiazid [Triamterene-Hctz 37.5-25 mg Tb] 37.5 mg PO DAILY 12/04/16 [History] Ipratropium/Albuterol Sulfate [Combivent Inhaler] 1 gm IH QID 03/25/19 [History] Rivaroxaban [Xarelto] 20 mg PO HS 06/13/21 [History] Aspirin EC 81 mg [Ecotrin 81 mg] 81 mg PO BID 07/01/21 [History] Multivitamin 1 tab PO DAILY 07/01/21 [History] Mv-Mn/Iron/Folic Acid/Herb 190 [Vitamin D3 Complete Caplet] 1 tablet PO DAILY 07/01/21 [History] Vitamin E 400 Units [Vitamin E 400 UNIT SOFTGEL] 1 cap PO DAILY 07/01/21 [History] Hx Tetanus, Diphtheria Vaccination/Date Given: No Hx Influenza Vaccination/Date Given: Yes Hx Pneumococcal Vaccination/Date Given: No Travel Risk - Vaccine Status Have you recieved a Covid-19 vaccination: Yes 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: [employer] - Vaccination Dates Date of 2cond Vaccination (if applicable): Dec - Review of Systems Constitutional: Fatigue, Weakness Eyes: No Symptoms Ears, Nose, & Throat: No Symptoms Respiratory: Cough, Dyspnea, Dyspnea on Exertion (MANDEL), Wheezing Cardiac: Edema, Orthopnea Abdominal/Gastrointestinal: No Symptoms Genitourinary Symptoms: No Symptoms Musculoskeletal: No Symptoms Skin: No Symptoms Psychological: No Symptoms Endocrine: No Symptoms Hematologic/Lymphatic: No Symptoms Immunological/Allergic: No Symptoms - Past Medical History Pertinent Past Medical History: Yes Neurological History: TIA ENT History: No Pertinent History Cardiac History: Arrhythmia, Congestive Heart Failure, High Cholesterol, Hypertension Respiratory History: COPD, Sleep Apnea Endocrine Medical History: Diabetes Type II Musculoskeletal History: Arthritis GI Medical History: GERD History: No Pertinent History Psycho-Social History: No Pertinent History Male Reproductive Disorders: No Pertinent History Other Medical History: pt had 6 teeth extracted in 12/03/16 - Past Surgical History Past Surgical History: Yes Neuro Surgical History: No Pertinent History Cardiac: Cardiac Catheterization, Cardiac Stent, Pacemaker Respiratory: No Pertinent History Gastrointestinal: No Pertinent History Genitourinary: No Pertinent History Musculoskeletal: Orthopedic Surgery Male Surgical History: No Pertinent History Other Surgical History: toe reattached, lip cancer removed, 6 teeth extracted 12/03/2016 - Social History Smoking Status: Former smoker Exposure to second hand smoke: No Drug Use: none Patient Lives Alone: No Significant Family History: heart disease - Nursing Vital Signs Nursing Vital Signs: Initial Vital Signs Temperature 97.8 F 06/30/21 23:54 Pulse Rate 70 06/30/21 23:54 Respiratory Rate 18 06/30/21 23:54 Blood Pressure 118/60 06/30/21 23:54 O2 Sat by Pulse Oximetry 96 06/30/21 23:54 Pain Scale Pain Intensity 0 - Physical Exam General Appearance: mild distress, alert Eye Exam: PERRL/EOMI, eyes nml inspection Ears, Nose, Throat Exam: hearing grossly normal, pharyngeal erythema Neck Exam: normal inspection, non-tender, full range of motion Respiratory Exam: diminished breath sounds, rhonchi, wheezing, No respiratory distress Cardiovascular/Chest Exam: normal heart sounds, regular rate/rhythm Abdominal/Gastrointestinal Exam: soft, normal bowel sounds, No tenderness Extremity Exam: non-tender, normal range of motion, normal inspection, pedal edema, swelling Neurologic Exam: alert, oriented x 3, cooperative, 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 Paced rhythm.) Ordered Tests: Active Orders 24 hr Category Date Time Status CBC W DIFF AM.LAB Lab 07/02/21 04:00 Completed CMP AM.LAB Lab 07/02/21 04:34 Completed TROPONIN Q3H Lab 07/01/21 12:15 Completed Medication Summary Generic Name Dose Route Start Last Admin Trade Name Freq PRN Reason Stop Dose Admin Acetaminophen 650 mg 07/01/21 05:09 Tylenol 325 Mg PO 07/31/21 05:08 Q4H PRN PRN PAIN AND/OR FEVER Albuterol/Ipratropium 3 ml 07/01/21 07:00 07/02/21 11:22 Duoneb 0.5-3 Mg/3 Ml Neb IH 07/31/21 06:59 3 ml QIDRT HONEY Administration Aspirin 81 mg 07/01/21 10:00 07/02/21 09:57 Ecotrin 81 Mg PO 07/31/21 09:59 81 mg BID HONEY Administration Carvedilol 6.25 mg 07/01/21 10:00 07/02/21 10:00 Coreg 6.25 Mg PO 07/31/21 09:59 6.25 mg BID HONEY Administration Famotidine 20 mg 07/01/21 10:00 07/02/21 09:58 Pepcid 20 Mg Vial IV 07/31/21 09:59 20 mg Q12HT HONEY Administration Furosemide 40 mg 07/01/21 10:00 07/02/21 09:59 Lasix 40 Mg/4 Ml IV 07/31/21 09:59 40 mg BID DIURETIC HONEY Administration Gemfibrozil 600 mg 07/01/21 10:00 07/02/21 10:01 Lopid 600 Mg PO 07/31/21 09:59 600 mg BID HONEY Administration Insulin Glargine 36 unit 07/01/21 22:00 07/01/21 21:46 Lantus Insulin SQ 07/31/21 21:59 36 unit HS HONEY Administration Insulin Human Lispro 0 unit 07/01/21 05:09 07/02/21 08:33 Humalog SQ 07/31/21 05:08 3 unit UD PRN Administration HYPERGLYCEMIA Morphine Sulfate 2 mg 07/01/21 05:09 Morphine Sulfate 2 Mg Inj IV 07/06/21 05:08 Q4H PRN PRN PAIN Multivitamins Therapeutic 1 tab 07/02/21 10:00 07/02/21 09:58 Theragran Multivitamin PO 08/01/21 09:59 1 tab DAILY HONEY Administration Ondansetron HCl 4 mg 07/01/21 05:09 Zofran 4 Mg/2 Ml Vial IV 07/31/21 05:08 Q6H PRN PRN NAUSEA/VOMITING Pantoprazole Sodium 40 mg 07/01/21 10:00 07/02/21 09:59 Protonix 40mg Tablet PO 07/31/21 09:59 40 mg DAILY HONEY Administration Potassium Chloride 20 meq 07/02/21 10:00 07/02/21 09:57 Klor Con 10 Meq PO 08/01/21 09:59 20 meq BID HONEY Administration Rivaroxaban 20 mg 07/01/21 22:00 07/01/21 21:39 Xarelto 10 Mg Tablet PO 07/31/21 21:59 20 mg HS HONEY Administration Simvastatin 40 mg 07/01/21 22:00 07/01/21 21:40 Zocor 20mg PO 07/31/21 21:59 40 mg HS HONEY Administration Sotalol HCl 120 mg 07/01/21 22:00 07/02/21 09:55 Betapace 80 Mg PO 07/31/21 21:59 120 mg BID HONEY Administration Triamterene/Hydrochlorothiazide 1 tab 07/01/21 11:00 07/02/21 09:56 Maxzide-25mg Tablet PO 07/31/21 10:59 1 tab DAILY HONEY Administration Discontinued Medications Generic Name Dose Route Start Last Admin Trade Name Freq PRN Reason Stop Dose Admin Albuterol Sulfate 2.5 mg 07/01/21 10:00 07/01/21 21:13 Proventil 2.5 Mg/3 Ml Neb IH 07/31/21 09:59 Not Given QIDRT HONEY Albuterol/Ipratropium 3 ml 07/01/21 00:00 07/01/21 00:18 Duoneb 0.5-3 Mg/3 Ml Neb IH 07/01/21 00:01 3 ml STAT ONE Administration Albuterol/Ipratropium Confirm 07/01/21 00:14 Duoneb 0.5-3 Mg/3 Ml Neb Administered 07/01/21 00:15 Dose 3 ml IH .STK-MED ONE Albuterol/Ipratropium 2 puff 07/01/21 10:00 Combivent Inhaler Common Canister IH 07/31/21 09:59 QID [facility] Albuterol/Ipratropium 2 puff 07/01/21 11:00 07/01/21 21:13 Combivent Inhaler Common Canister IH 07/31/21 09:59 Not Given QIDRT [facility] Aspirin 324 mg 07/01/21 10:00 07/01/21 01:56 Ecotrin 81 Mg PO 07/31/21 09:59 Not Given DAILY [facility] Aspirin 162 mg 07/01/21 01:56 07/01/21 01:57 Baby Aspirin 81 Mg Chew PO 07/01/21 01:57 162 mg STAT ONE Administration Aspirin 325 mg 07/01/21 10:00 Ecotrin 325 Mg PO 07/31/21 09:59 DAILY [facility] Methylprednisolone Sodium 0 mg 07/01/21 01:23 07/01/21 01:32 Succinate 125 mg/ Sterile IV 07/01/21 01:24 125 mg Water 2 ml STAT ONE Administration Furosemide 40 mg 07/01/21 00:06 07/01/21 00:22 Lasix 40 Mg/4 Ml IV 07/01/21 00:07 40 mg STAT ONE Administration Furosemide Confirm 07/01/21 00:21 Lasix 40 Mg/4 Ml Administered 07/01/21 00:22 Dose 40 mg .ROUTE .STK-MED ONE Levofloxacin/Dextrose 750 mg in 150 mls @ 100 mls/hr 07/01/21 01:23 07/01/21 02:13 Levofloxacin 750mg/150ml D5w IV 07/01/21 02:52 0 mls/hr STAT STA 0 mls/hr Infusion Levofloxacin/Dextrose Confirm 07/01/21 01:30 Levofloxacin 750mg/150ml D5w Administered 07/01/21 01:31 Dose 750 mg in 150 mls @ ud IV .STK-MED ONE Methylprednisolone Sodium Succinate Confirm 07/01/21 01:29 Solu-Medrol Administered 07/01/21 01:30 Dose 125 mg .ROUTE .STK-MED ONE Potassium Chloride 20 meq 07/01/21 10:00 07/01/21 09:59 Klor Con 10 Meq PO 07/31/21 09:59 20 meq DAILY HONEY Administration Sterile Water Confirm 07/01/21 01:30 Sterile H2o 10 Ml Administered 07/01/21 01:31 Dose 10 ml IJ .STK-MED ONE Triamterene/Hydrochlorothiazide 1 07/01/21 10:15 07/01/21 21:12 Maxzide 25mg PO 07/31/21 10:14 Not Given DAILY HONEY Lab/Rad Data: Laboratory Result Diagrams 07/01/21 00:30 07/01/21 00:30 Laboratory Results 07/01/21 07/01/21 07/01/21 Range/Units 03:18 02:47 01:05 WBC (4.0-10.5) K/mm3 RBC (4.1-5.6) M/mm3 Hgb (12.5-18.0) gm/dl Hct (42-50) % MCV (78-100) fl MCH (26-32) pg MCHC (32-36) g/dl RDW (11.5-14.0) % Plt Count (150-450) K/mm3 MPV (7.5-11.0) fl Gran % (36.0-66.0) % Eos # (Auto) (0-0.5) Absolute Lymphs (auto) (1.0-4.6) Absolute Monos (auto) (0.0-1.3) Lymphocytes % (24.0-44.0) % Monocytes % (0.0-12.0) % Eosinophils % (0.00-5.0) % Basophils % (0.0-0.4) % Absolute Granulocytes (1.4-6.9) Basophils # (0-0.4) Puncture Site pCO2 (35-45) mmHg pO2 (75-100) mmHg Base Excess (-2.0-2.0) O2 Saturation (94-100) g/dF ABG pH (7.35-7.45) ABG HCO3 (22-28) ABG O2 Sat (Measured) (95-100) % Jose Test A-a Gradient a/A Ratio Hemoglobin Carboxyhemoglobin (0.0-6.9) % THgb Methemoglobin (1.4-1.5) % Temperature C POC O2 Flow Rate % Sodium (137-145) mmol/L Potassium (3.5-5.1) mmol/L Chloride (98-107) mmol/L Carbon Dioxide (22-30) mmol/L Anion Gap (5-15) MEQ/L BUN (9-20) mg/dL Creatinine (0.66-1.25) mg/dL Estimated GFR ML/MIN Glucose (74-106) mg/dL Hemoglobin A1c (4.5-6.0) % Lactic Acid (0.4-2.0) Calcium (8.4-10.2) mg/dL Magnesium (1.6-2.3) mg/dL Total Bilirubin (0.2-1.3) mg/dL AST (17-59) U/L ALT (0-50) U/L Alkaline Phosphatase (38-126) U/L Troponin I 0.065 H* (0.000-0.034) ng/mL NT-Pro-B Natriuret Pep (0-1800) pg/mL Serum Total Protein (6.3-8.2) g/dL Albumin (3.5-5.0) g/dL Urine Color YELLOW (YELLOW) Urine Appearance CLEAR (CLEAR) Urine pH 5.0 (5-6) Ur Specific [place] 1.018 (1.005-1.025) Urine Protein NEGATIVE (Negative) Urine Ketones NEGATIVE (NEGATIVE) Urine Blood NEGATIVE (0-5) Andrew/ul Urine Nitrite NEGATIVE (NEGATIVE) Urine Bilirubin NEGATIVE (NEGATIVE) Urine Urobilinogen NEGATIVE (0-1) mg/dL Ur Leukocyte Esterase NEGATIVE (NEGATIVE) Urine WBC (Auto) NONE (0-5) /HPF Urine RBC (Auto) 0-2 (0-2) /HPF U Epithel Cells (Auto) NONE (FEW) /HPF Urine Bacteria (Auto) NONE (NEGATIVE) /HPF Urine Culture Reflexed NO (NO) Urine Glucose NEGATIVE (NEGATIVE) mg/dL SARS-CoV-2 (PCR) NEGATIVE (NEGATIVE) 07/01/21 07/01/21 07/01/21 Range/Units 00:31 00:30 00:30 WBC (4.0-10.5) K/mm3 RBC (4.1-5.6) M/mm3 Hgb (12.5-18.0) gm/dl Hct (42-50) % MCV (78-100) fl MCH (26-32) pg MCHC (32-36) g/dl RDW (11.5-14.0) % Plt Count (150-450) K/mm3 MPV (7.5-11.0) fl Gran % (36.0-66.0) % Eos # (Auto) (0-0.5) Absolute Lymphs (auto) (1.0-4.6) Absolute Monos (auto) (0.0-1.3) Lymphocytes % (24.0-44.0) % Monocytes % (0.0-12.0) % Eosinophils % (0.00-5.0) % Basophils % (0.0-0.4) % Absolute Granulocytes (1.4-6.9) Basophils # (0-0.4) Puncture Site LEFT BRACHIAL pCO2 49 H (35-45) mmHg pO2 138 H* (75-100) mmHg Base Excess 9.4 H (-2.0-2.0) O2 Saturation 95.5 (94-100) g/dF ABG pH 7.46 H (7.35-7.45) ABG HCO3 34.8 H* (22-28) ABG O2 Sat (Measured) 99.2 (95-100) % Jose Test NOT APPLICABLE A-a Gradient 0 a/A Ratio 1.00 Hemoglobin 14.0 Carboxyhemoglobin 3.0 (0.0-6.9) % THgb Methemoglobin 0.7 L (1.4-1.5) % Temperature 37.0 C POC O2 Flow Rate 28 % Sodium (137-145) mmol/L Potassium 4.0 (3.5-5.1) mmol/L Chloride (98-107) mmol/L Carbon Dioxide (22-30) mmol/L Anion Gap (5-15) MEQ/L BUN (9-20) mg/dL Creatinine (0.66-1.25) mg/dL Estimated GFR ML/MIN Glucose (74-106) mg/dL Hemoglobin A1c 6.94 H (4.5-6.0) % Lactic Acid 0.9 (0.4-2.0) Calcium (8.4-10.2) mg/dL Magnesium (1.6-2.3) mg/dL Total Bilirubin (0.2-1.3) mg/dL AST (17-59) U/L ALT (0-50) U/L Alkaline Phosphatase (38-126) U/L Troponin I 0.060 H* (0.000-0.034) ng/mL NT-Pro-B Natriuret Pep (0-1800) pg/mL Serum Total Protein (6.3-8.2) g/dL Albumin (3.5-5.0) g/dL Urine Color (YELLOW) Urine Appearance (CLEAR) Urine pH (5-6) Ur Specific [place] (1.005-1.025) Urine Protein (Negative) Urine Ketones (NEGATIVE) Urine Blood (0-5) Andrew/ul Urine Nitrite (NEGATIVE) Urine Bilirubin (NEGATIVE) Urine Urobilinogen (0-1) mg/dL Ur Leukocyte Esterase (NEGATIVE) Urine WBC (Auto) (0-5) /HPF Urine RBC (Auto) (0-2) /HPF U Epithel Cells (Auto) (FEW) /HPF Urine Bacteria (Auto) (NEGATIVE) /HPF Urine Culture Reflexed (NO) Urine Glucose (NEGATIVE) mg/dL SARS-CoV-2 (PCR) (NEGATIVE) 07/01/21 07/01/21 Range/Units 00:30 00:30 WBC 6.9 (4.0-10.5) K/mm3 RBC 4.51 (4.1-5.6) M/mm3 Hgb 13.9 (12.5-18.0) gm/dl Hct 42.8 (42-50) % MCV 94.9 (78-100) fl MCH 30.8 (26-32) pg MCHC 32.5 (32-36) g/dl RDW 14.9 H (11.5-14.0) % Plt Count 237 (150-450) K/mm3 MPV 10.5 (7.5-11.0) fl Gran % 57.5 (36.0-66.0) % Eos # (Auto) 0.22 (0-0.5) Absolute Lymphs (auto) 1.61 (1.0-4.6) Absolute Monos (auto) 1.07 (0.0-1.3) Lymphocytes % 23.4 L (24.0-44.0) % Monocytes % 15.5 H (0.0-12.0) % Eosinophils % 3.2 (0.00-5.0) % Basophils % 0.4 (0.0-0.4) % Absolute Granulocytes 3.96 (1.4-6.9) Basophils # 0.03 (0-0.4) Puncture Site pCO2 (35-45) mmHg pO2 (75-100) mmHg Base Excess (-2.0-2.0) O2 Saturation (94-100) g/dF ABG pH (7.35-7.45) ABG HCO3 (22-28) ABG O2 Sat (Measured) (95-100) % Jose Test A-a Gradient a/A Ratio Hemoglobin Carboxyhemoglobin (0.0-6.9) % THgb Methemoglobin (1.4-1.5) % Temperature C POC O2 Flow Rate % Sodium 136 L (137-145) mmol/L Potassium 4.1 (3.5-5.1) mmol/L Chloride 94 L (98-107) mmol/L Carbon Dioxide 34 H (22-30) mmol/L Anion Gap 11.9 (5-15) MEQ/L BUN 21 H (9-20) mg/dL Creatinine 1.15 (0.66-1.25) mg/dL Estimated GFR > 60.0 ML/MIN Glucose 210 H (74-106) mg/dL Hemoglobin A1c (4.5-6.0) % Lactic Acid (0.4-2.0) Calcium 8.5 (8.4-10.2) mg/dL Magnesium 1.9 (1.6-2.3) mg/dL Total Bilirubin 0.50 (0.2-1.3) mg/dL AST 38 (17-59) U/L ALT 24 (0-50) U/L Alkaline Phosphatase 77 (38-126) U/L Troponin I (0.000-0.034) ng/mL NT-Pro-B Natriuret Pep 1790 (0-1800) pg/mL Serum Total Protein 6.2 L (6.3-8.2) g/dL Albumin 3.3 L (3.5-5.0) g/dL Urine Color (YELLOW) Urine Appearance (CLEAR) Urine pH (5-6) Ur Specific [place] (1.005-1.025) Urine Protein (Negative) Urine Ketones (NEGATIVE) Urine Blood (0-5) Andrew/ul Urine Nitrite (NEGATIVE) Urine Bilirubin (NEGATIVE) Urine Urobilinogen (0-1) mg/dL Ur Leukocyte Esterase (NEGATIVE) Urine WBC (Auto) (0-5) /HPF Urine RBC (Auto) (0-2) /HPF U Epithel Cells (Auto) (FEW) /HPF Urine Bacteria (Auto) (NEGATIVE) /HPF Urine Culture Reflexed (NO) Urine Glucose (NEGATIVE) mg/dL SARS-CoV-2 (PCR) (NEGATIVE) - Progress Progress: improved Air Movement: fair Progress Note: 07/01/21 01:54 80 years old with multiple medical problems and cardiac issues is evaluated for increasing shortness of breath. Patient was initially on 5 L and then on 3 L oxygen while in the ER, given neb treatment and Lasix and also a dose of Solu- Medrol. Patient is feeling better on reevaluation but still on oxygen which he normally does not use at home. ABG did not show hypoxemia or acidosis. Patient is fully anticoagulated with Xarelto. Chest x-ray did not show any new findings but has some congestion which is probably chronic. EKG is paced rhythm and initial troponins are mildly elevated but with patient's longstanding history of CHF and increasing shortness of breath I believe it is from CHF causing strain on the heart. I have d/w , patient is admitted, will do diuresis, trend cardiac enzyme and gradually wean off from oxygen. Blood Culture(s) Obtained: Yes Antibiotics given: Yes Discussed with : Blair Will see patient in: hospital (observation) Counseled pt/family regarding: lab results, diagnosis, rad results - Departure Departure Disposition: Observation Clinical Impression: Non-ST elevation (NSTEMI) myocardial infarction Congestive heart failure Qualifiers: Heart failure type: unspecified Heart failure chronicity: acute on chronic Qualified Code(s): I50.9 - Heart failure, unspecified COPD (chronic obstructive pulmonary disease) Qualifiers: COPD type: unspecified COPD Qualified Code(s): J44.9 - Chronic obstructive p ulmonary disease, unspecified Condition: Stable Critical Care Time: No
[2021-07-01] MEDS ORDERED: DUONEB 0.5-3 MG/3 ml Neb IH ONE ×2 (00:14)
[2021-07-01] MEDS ORDERED: Lasix 40 MG/4 ML ONE (00:21)
[2021-07-01 00:39] LABS: A-aADO2 0; ARTERIAL BLD GAS O2 SATURATION 99.2 % (95-100); ARTERIAL BLOOD GAS BASE EXCESS 9.4 (-2.0-2.0); ARTERIAL BLOOD GAS FIO2 28 %; ARTERIAL BLOOD GAS PCO2 49 mmHg (35-45); ARTERIAL BLOOD GAS PO2 138 mmHg (75-100); ARTERIAL BLOOD GAS pH 7.46 (7.35-7.45); HCO3- 34.8 (22-28); HGB O2 SAT 95.5 g/dF (94-100); Lactic Acid 0.9 (0.4-2.0); Methhemoglobin 0.7 % (1.4-1.5)
[2021-07-01 00:40] LABS: ABG SITE LEFT BRACHIAL
[2021-07-01 00:51] LABS: Absolute Neutrophil Ct (ANC) 3.96 (1.4-6.9); BASOPHIL % 0.4 % (0.0-0.4); Basophil (Absolute #) 0.03 (0-0.4); Eosinophil % 3.2 % (0.00-5.0); Eosinophil (Absolute #) 0.22 (0-0.5); Hematocrit 42.8 % (42-50); Hemoglobin 13.9 gm/dl (12.5-18.0); Lymphocyte (Absolute #) 1.61 (1.0-4.6); Lymphocytes % 23.4 % (24.0-44.0); Mean Cell Volume 94.9 fl (78-100); Mean Corpuscular Hemoglobin 30.8 pg (26-32); Mean Corpuscular Hgb Concent. 32.5 g/dl (32-36); Mean Platelet Volume 10.5 fl (7.5-11.0); Monocyte (Absolute #) 1.07 (0.0-1.3); Monocytes % 15.5 % (0.0-12.0); Neutrophil % 57.5 % (36.0-66.0); Platelet Count 237 K/mm3 (150-450); Red Blood Count 4.51 M/mm3 (4.1-5.6); Red Cell Distribution Width 14.9 % (11.5-14.0); White Blood Count 6.9 K/mm3 (4.0-10.5)
[2021-07-01 01:09] LABS: ALBUMIN 3.3 g/dL (3.5-5.0); ALKALINE PHOSPHATASE 77 U/L (38-126); ANION GAP 11.9 MEQ/L (5-15); BLOOD UREA NITROGEN 21 mg/dL (9-20); CHLORIDE 94 mmol/L (98-107); Calcium 8.5 mg/dL (8.4-10.2); Carbon Dioxide 34 mmol/L (22-30); Creatinine 1 1.15 mg/dL (0.66-1.25); EST GLOMERULAR FILTRATION RATE > 60.0 ML/MIN; Glucose 210 mg/dL (74-106); MAGNESIUM 1.9 mg/dL (1.6-2.3); NT PRO BNP 1790 pg/mL (0-1800); Potassium 4.1 mmol/L (3.5-5.1); SGOT/AST 38 U/L (17-59); SGPT/ALT 24 U/L (0-50); SODIUM 136 mmol/L (137-145); Total Protein 6.2 g/dL (6.3-8.2)
[2021-07-01 01:15] LABS: Appearance CLEAR (CLEAR); Bilirubin NEGATIVE (NEGATIVE); Blood NEGATIVE Ery/ul (0-5); Glucose NEGATIVE (NEGATIVE); Ketones NEGATIVE (NEGATIVE); Leukocyte Esterase NEGATIVE (NEGATIVE); Nitrite NEGATIVE (NEGATIVE); Protein,Urine Dip NEGATIVE (Negative); RBC 0-2 /HPF (0-2); Specific Gravity 1.018 (1.005-1.025); Urobilinogen NEGATIVE mg/dL (0-1)
[2021-07-01] MEDS ORDERED: LEVOFLOXACIN 750MG/150ML D5W 750 MG/150 ML BAG IV STA (01:23)
[2021-07-01] MEDS ORDERED: solu-MEDROL 125 MG, Sterile H2O 10 ml 2 ML IV ONE ×2 (01:23)
[2021-07-01] MEDS ORDERED: solu-MEDROL ONE (01:29)
[2021-07-01] MEDS ORDERED: LEVOFLOXACIN 750MG/150ML D5W 750 MG/150 ML BAG IV ONE (01:30)
[2021-07-01] MEDS ORDERED: Sterile H2O 10 ml IJ ONE (01:30)
[2021-07-01] MEDS ORDERED: BABY ASPIRIN 81 MG CHEW PO ONE (01:56)
[2021-07-01] MEDS ORDERED: Zofran 4 MG/2 ML VIAL IV PRN (05:09)
[2021-07-01] MEDS ORDERED: TYLENOL 325 MG PO PRN (05:09)
[2021-07-01] MEDS ORDERED: MORPHINE SULFATE 2 MG INJ IV PRN (05:09)
[2021-07-01] MEDS: DUONEB 0.5-3 MG/3 ml Neb IH SCH ×4 (07:05→18:52)
--- NOTE | 2021-07-01 08:46 | PCM.HP ---
History of Present Illness - Chief Complaint Chief Complaint: chf, copd exacerbation, non STEMI History of Present Illness: is a 80 year old male with a history of a fib, CAD and is normally followed by Dr Pena and Dr Hurst, however I saw him last week in followup as his usual primary care physician was unavailable and apparently he has decided to follow with me, he also goes to the [place] clinic in [place], in any event he was recently in [facility] with chf, he was more short of breath so came to ER last night, he was admitted here in spite of a positive troponin, recent hospitalization at [facility] and plastics scientist in [place] does not consult here, he denies chest pain or palpitations. he is visibly short of breath talking this morning while eating biscuits and gravy and sausage, he is on oxygen here but does not wear it at home. he states he feels pretty good today in spite of visible dyspnea. - Review of Systems Constitutional: No Fever, No Chills Respiratory: Short Of Breath, No Cough Cardiac: Edema, No Chest Pain, No Palpitations, No Syncope Abdominal/Gastrointestinal: No Abdominal Pain, No Nausea, No Vomiting, No Diarrhea Genitourinary Symptoms: No Dysuria All Other Systems: Reviewed and Negative Medications & Allergies Home Medications: Home Medication List Albuterol 2.5 mg/3 ml Neb [Proventil 2.5 mg/3 ml Neb] 2.5 mg IH QID 07/11/13 [History Confirmed 07/01/21] Gemfibrozil 600 mg [Lopid 600 mg] 600 mg PO BID 07/11/13 [History Confirmed 07/01/21] Insulin Aspart [NovoLOG Insulin] 16 unit SQ TID 07/11/13 [History Confirmed 07/01/21] Insulin Glargine [Lantus Insulin] 36 unit SQ HS 07/11/13 [History Confirmed 07/01/21] Pantoprazole Sodium [Protonix] 40 mg PO DAILY 07/11/13 [History Confirmed 07/01/21] Sotalol HCl [Betapace] 120 mg PO BID 07/11/13 [History Confirmed 07/01/21] Carvedilol 6.25 mg [Coreg 6.25 MG] 6.25 mg PO BID 11/16/13 [History Confirmed 07/01/21] Atorvastatin Calcium 80 mg PO HS 12/04/16 [History Confirmed 07/01/21] Glipizide 5 mg [Glucotrol 5 MG] 5 mg PO DAILY 12/04/16 [History Confirmed 07/01/21] Triamterene/Hydrochlorothiazid [Triamterene-Hctz 37.5-25 mg Tb] 37.5 mg PO DAILY 12/04/16 [History Confirmed 07/01/21] Ipratropium/Albuterol Sulfate [Combivent Inhaler] 1 gm IH QID 03/25/19 [History Confirmed 07/01/21] Rivaroxaban [Xarelto] 20 mg PO HS 06/13/21 [History Confirmed 07/01/21] Aspirin EC 81 mg [Ecotrin 81 mg] 81 mg PO BID 07/01/21 [History Confirmed 07/01/21] Multivitamin 1 tab PO DAILY 07/01/21 [History Confirmed 07/01/21] Mv-Mn/Iron/Folic Acid/Herb 190 [Vitamin D3 Complete Caplet] 1 tablet PO DAILY 07/01/21 [History Confirmed 07/01/21] Vitamin E 400 Units [Vitamin E 400 UNIT SOFTGEL] 1 cap PO DAILY 07/01/21 [History Confirmed 07/01/21] Allergies/Adverse Reactions: Allergies Allergy/AdvReac Type Severity Reaction Status Date / Time gabapentin Allergy Mild Verified 07/01/21 00:20 Penicillins Allergy Mild Verified 07/01/21 00:20 Antihistamines - Alkylamine Allergy Verified 07/01/21 00:20 Antihistamines - Ethanolamine Allergy Verified 07/01/21 00:20 Antihistamines - Allergy Verified 07/01/21 00:20 Ethylenediamine Antihistamines - Piperazine Allergy Verified 07/01/21 00:20 Antihistamines - Piperidine Allergy Verified 07/01/21 00:20 - Past Medical History Past Medical History: Yes Neurological History: TIA ENT History: Other Cardiac History: Coronary Artery Disease, Hypertension, Myocardial Infarction ([place]) Respiratory History: CHF, COPD Endocrine Medical History: Diabetes Type I Musculoskelatal History: Arthritis GI Medical History: GERD History: No Pertinent History Pyscho-Social History: No Pertinent History Male Reproductive Disorders: No Pertinent History Comment: pt had 6 teeth extracted in 12/03/16 - Past Surgical History Past Surgical History: Yes Neuro Surgical History: No Pertinent History Cardiac History: Cardiac Catheterization, Cardiac Stent, Other Respiratory Surgery: No Pertinent History GI Surgical History: No Pertinent History Genitourinary Surgical Hx: No Pertinent History Musculskeletal Surgical Hx: No Pertinent History Male Surgical History: No Pertinent History Other Surgical History: toe reattached, lip cancer removed, 6 teeth extracted 12/03/2016 - Social History Smoking Status: Former smoker Exposure to second hand smoke: No Alcohol: None Drug Use: none Significant Family History: heart disease - Physical Exam Vital Signs: Vital Signs - 24 hr Temp Pulse Resp BP Pulse Ox 07/01/21 07:10 70 20 95 07/01/21 05:57 70 24 93 L 07/01/21 05:09 97.6 F 70 22 139/65 96 07/01/21 04:11 70 15 144/69 99 07/01/21 03:04 70 22 127/53 97 07/01/21 02:04 72 22 129/68 99 07/01/21 01:56 96 07/01/21 01:03 70 19 125/55 99 07/01/21 00:59 70 113/54 98 07/01/21 00:18 70 18 95 06/30/21 23:54 97.8 F 70 18 118/60 97 General Appearance: mild distress, obese Neurologic Exam: alert, oriented x 3 Respiratory Exam: crackles/rales Cardiovascular Exam: irregular, No murmur Gastrointestinal/Abdomen Exam: soft, normal bowel sounds, No tenderness, No mass Extremity Exam: pedal edema, swelling (2+ pitting edema BLE) Skin Exam: normal color, warm, dry, No rash Results - Labs Lab/Micro Results: Lab Results-Last 24 Hours 07/01/21 07/01/21 07/01/21 Range/Units 00:30 00:30 00:30 WBC 6.9 (4.0-10.5) K/mm3 RBC 4.51 (4.1-5.6) M/mm3 Hgb 13.9 (12.5-18.0) gm/dl Hct 42.8 (42-50) % MCV 94.9 (78-100) fl MCH 30.8 (26-32) pg MCHC 32.5 (32-36) g/dl RDW 14.9 H (11.5-14.0) % Plt Count 237 (150-450) K/mm3 MPV 10.5 (7.5-11.0) fl Gran % 57.5 (36.0-66.0) % Eos # (Auto) 0.22 (0-0.5) Absolute Lymphs (auto) 1.61 (1.0-4.6) Absolute Monos (auto) 1.07 (0.0-1.3) Lymphocytes % 23.4 L (24.0-44.0) % Monocytes % 15.5 H (0.0-12.0) % Eosinophils % 3.2 (0.00-5.0) % Basophils % 0.4 (0.0-0.4) % Absolute Granulocytes 3.96 (1.4-6.9) Basophils # 0.03 (0-0.4) Puncture Site pCO2 (35-45) mmHg pO2 (75-100) mmHg Base Excess (-2.0-2.0) O2 Saturation (94-100) g/dF ABG pH (7.35-7.45) ABG HCO3 (22-28) ABG O2 Sat (Measured) (95-100) % Jose Test A-a Gradient a/A Ratio Hemoglobin Carboxyhemoglobin (0.0-6.9) % THgb Methemoglobin (1.4-1.5) % Temperature C POC O2 Flow Rate % Sodium 136 L (137-145) mmol/L Potassium 4.1 (3.5-5.1) mmol/L Chloride 94 L (98-107) mmol/L Carbon Dioxide 34 H (22-30) mmol/L Anion Gap 11.9 (5-15) MEQ/L BUN 21 H (9-20) mg/dL Creatinine 1.15 (0.66-1.25) mg/dL Estimated GFR > 60.0 ML/MIN Glucose 210 H (74-106) mg/dL POC Glucometer (74 to 106) mg/dL Lactic Acid (0.4-2.0) Calcium 8.5 (8.4-10.2) mg/dL Magnesium 1.9 (1.6-2.3) mg/dL Total Bilirubin 0.50 (0.2-1.3) mg/dL AST 38 (17-59) U/L ALT 24 (0-50) U/L Alkaline Phosphatase 77 (38-126) U/L Troponin I 0.060 H* (0.000-0.034) ng/mL NT-Pro-B Natriuret Pep 1790 (0-1800) pg/mL Serum Total Protein 6.2 L (6.3-8.2) g/dL Albumin 3.3 L (3.5-5.0) g/dL Urine Color (YELLOW) Urine Appearance (CLEAR) Urine pH (5-6) Ur Specific [place] (1.005-1.025) Urine Protein (Negative) Urine Ketones (NEGATIVE) Urine Blood (0-5) Andrew/ul Urine Nitrite (NEGATIVE) Urine Bilirubin (NEGATIVE) Urine Urobilinogen (0-1) mg/dL Ur Leukocyte Esterase (NEGATIVE) Urine WBC (Auto) (0-5) /HPF Urine RBC (Auto) (0-2) /HPF U Epithel Cells (Auto) (FEW) /HPF Urine Bacteria (Auto) (NEGATIVE) /HPF Urine Culture Reflexed (NO) Urine Glucose (NEGATIVE) mg/dL SARS-CoV-2 (PCR) (NEGATIVE) 07/01/21 07/01/21 07/01/21 Range/Units 00:31 01:05 02:47 WBC (4.0-10.5) K/mm3 RBC (4.1-5.6) M/mm3 Hgb (12.5-18.0) gm/dl Hct (42-50) % MCV (78-100) fl MCH (26-32) pg MCHC (32-36) g/dl RDW (11.5-14.0) % Plt Count (150-450) K/mm3 MPV (7.5-11.0) fl Gran % (36.0-66.0) % Eos # (Auto) (0-0.5) Absolute Lymphs (auto) (1.0-4.6) Absolute Monos (auto) (0.0-1.3) Lymphocytes % (24.0-44.0) % Monocytes % (0.0-12.0) % Eosinophils % (0.00-5.0) % Basophils % (0.0-0.4) % Absolute Granulocytes (1.4-6.9) Basophils # (0-0.4) Puncture Site LEFT BRACHIAL pCO2 49 H (35-45) mmHg pO2 138 H* (75-100) mmHg Base Excess 9.4 H (-2.0-2.0) O2 Saturation 95.5 (94-100) g/dF ABG pH 7.46 H (7.35-7.45) ABG HCO3 34.8 H* (22-28) ABG O2 Sat (Measured) 99.2 (95-100) % Jose Test NOT APPLICABLE A-a Gradient 0 a/A Ratio 1.00 Hemoglobin 14.0 Carboxyhemoglobin 3.0 (0.0-6.9) % THgb Methemoglobin 0.7 L (1.4-1.5) % Temperature 37.0 C POC O2 Flow Rate 28 % Sodium (137-145) mmol/L Potassium 4.0 (3.5-5.1) mmol/L Chloride (98-107) mmol/L Carbon Dioxide (22-30) mmol/L Anion Gap (5-15) MEQ/L BUN (9-20) mg/dL Creatinine (0.66-1.25) mg/dL Estimated GFR ML/MIN Glucose (74-106) mg/dL POC Glucometer (74 to 106) mg/dL Lactic Acid 0.9 (0.4-2.0) Calcium (8.4-10.2) mg/dL Magnesium (1.6-2.3) mg/dL Total Bilirubin (0.2-1.3) mg/dL AST (17-59) U/L ALT (0-50) U/L Alkaline Phosphatase (38-126) U/L Troponin I (0.000-0.034) ng/mL NT-Pro-B Natriuret Pep (0-1800) pg/mL Serum Total Protein (6.3-8.2) g/dL Albumin (3.5-5.0) g/dL Urine Color YELLOW (YELLOW) Urine Appearance CLEAR (CLEAR) Urine pH 5.0 (5-6) Ur Specific [place] 1.018 (1.005-1.025) Urine Protein NEGATIVE (Negative) Urine Ketones NEGATIVE (NEGATIVE) Urine Blood NEGATIVE (0-5) Andrew/ul Urine Nitrite NEGATIVE (NEGATIVE) Urine Bilirubin NEGATIVE (NEGATIVE) Urine Urobilinogen NEGATIVE (0-1) mg/dL Ur Leukocyte Esterase NEGATIVE (NEGATIVE) Urine WBC (Auto) NONE (0-5) /HPF Urine RBC (Auto) 0-2 (0-2) /HPF U Epithel Cells (Auto) NONE (FEW) /HPF Urine Bacteria (Auto) NONE (NEGATIVE) /HPF Urine Culture Reflexed NO (NO) Urine Glucose NEGATIVE (NEGATIVE) mg/dL SARS-CoV-2 (PCR) NEGATIVE (NEGATIVE) 07/01/21 07/01/21 07/01/21 Range/Units 03:18 05:39 06:05 WBC (4.0-10.5) K/mm3 RBC (4.1-5.6) M/mm3 Hgb (12.5-18.0) gm/dl Hct (42-50) % MCV (78-100) fl MCH (26-32) pg MCHC (32-36) g/dl RDW (11.5-14.0) % Plt Count (150-450) K/mm3 MPV (7.5-11.0) fl Gran % (36.0-66.0) % Eos # (Auto) (0-0.5) Absolute Lymphs (auto) (1.0-4.6) Absolute Monos (auto) (0.0-1.3) Lymphocytes % (24.0-44.0) % Monocytes % (0.0-12.0) % Eosinophils % (0.00-5.0) % Basophils % (0.0-0.4) % Absolute Granulocytes (1.4-6.9) Basophils # (0-0.4) Puncture Site pCO2 (35-45) mmHg pO2 (75-100) mmHg Base Excess (-2.0-2.0) O2 Saturation (94-100) g/dF ABG pH (7.35-7.45) ABG HCO3 (22-28) ABG O2 Sat (Measured) (95-100) % Jose Test A-a Gradient a/A Ratio Hemoglobin Carboxyhemoglobin (0.0-6.9) % THgb Methemoglobin (1.4-1.5) % Temperature C POC O2 Flow Rate % Sodium (137-145) mmol/L Potassium (3.5-5.1) mmol/L Chloride (98-107) mmol/L Carbon Dioxide (22-30) mmol/L Anion Gap (5-15) MEQ/L BUN (9-20) mg/dL Creatinine (0.66-1.25) mg/dL Estimated GFR ML/MIN Glucose (74-106) mg/dL POC Glucometer 180 H (74 to 106) mg/dL Lactic Acid (0.4-2.0) Calcium (8.4-10.2) mg/dL Magnesium (1.6-2.3) mg/dL Total Bilirubin (0.2-1.3) mg/dL AST (17-59) U/L ALT (0-50) U/L Alkaline Phosphatase (38-126) U/L Troponin I 0.065 H* 0.065 H* (0.000-0.034) ng/mL NT-Pro-B Natriuret Pep (0-1800) pg/mL Serum Total Protein (6.3-8.2) g/dL Albumin (3.5-5.0) g/dL Urine Color (YELLOW) Urine Appearance (CLEAR) Urine pH (5-6) Ur Specific [place] (1.005-1.025) Urine Protein (Negative) Urine Ketones (NEGATIVE) Urine Blood (0-5) Andrew/ul Urine Nitrite (NEGATIVE) Urine Bilirubin (NEGATIVE) Urine Urobilinogen (0-1) mg/dL Ur Leukocyte Esterase (NEGATIVE) Urine WBC (Auto) (0-5) /HPF Urine RBC (Auto) (0-2) /HPF U Epithel Cells (Auto) (FEW) /HPF Urine Bacteria (Auto) (NEGATIVE) /HPF Urine Culture Reflexed (NO) Urine Glucose (NEGATIVE) mg/dL SARS-CoV-2 (PCR) (NEGATIVE) 07/01/21 Range/Units 08:17 WBC (4.0-10.5) K/mm3 RBC (4.1-5.6) M/mm3 Hgb (12.5-18.0) gm/dl Hct (42-50) % MCV (78-100) fl MCH (26-32) pg MCHC (32-36) g/dl RDW (11.5-14.0) % Plt Count (150-450) K/mm3 MPV (7.5-11.0) fl Gran % (36.0-66.0) % Eos # (Auto) (0-0.5) Absolute Lymphs (auto) (1.0-4.6) Absolute Monos (auto) (0.0-1.3) Lymphocytes % (24.0-44.0) % Monocytes % (0.0-12.0) % Eosinophils % (0.00-5.0) % Basophils % (0.0-0.4) % Absolute Granulocytes (1.4-6.9) Basophils # (0-0.4) Puncture Site pCO2 (35-45) mmHg pO2 (75-100) mmHg Base Excess (-2.0-2.0) O2 Saturation (94-100) g/dF ABG pH (7.35-7.45) ABG HCO3 (22-28) ABG O2 Sat (Measured) (95-100) % Jose Test A-a Gradient a/A Ratio Hemoglobin Carboxyhemoglobin (0.0-6.9) % THgb Methemoglobin (1.4-1.5) % Temperature C POC O2 Flow Rate % Sodium (137-145) mmol/L Potassium (3.5-5.1) mmol/L Chloride (98-107) mmol/L Carbon Dioxide (22-30) mmol/L Anion Gap (5-15) MEQ/L BUN (9-20) mg/dL Creatinine (0.66-1.25) mg/dL Estimated GFR ML/MIN Glucose (74-106) mg/dL POC Glucometer 246 H (74 to 106) mg/dL Lactic Acid (0.4-2.0) Calcium (8.4-10.2) mg/dL Magnesium (1.6-2.3) mg/dL Total Bilirubin (0.2-1.3) mg/dL AST (17-59) U/L ALT (0-50) U/L Alkaline Phosphatase (38-126) U/L Troponin I (0.000-0.034) ng/mL NT-Pro-B Natriuret Pep (0-1800) pg/mL Serum Total Protein (6.3-8.2) g/dL Albumin (3.5-5.0) g/dL Urine Color (YELLOW) Urine Appearance (CLEAR) Urine pH (5-6) Ur Specific [place] (1.005-1.025) Urine Protein (Negative) Urine Ketones (NEGATIVE) Urine Blood (0-5) Andrew/ul Urine Nitrite (NEGATIVE) Urine Bilirubin (NEGATIVE) Urine Urobilinogen (0-1) mg/dL Ur Leukocyte Esterase (NEGATIVE) Urine WBC (Auto) (0-5) /HPF Urine RBC (Auto) (0-2) /HPF U Epithel Cells (Auto) (FEW) /HPF Urine Bacteria (Auto) (NEGATIVE) /HPF Urine Culture Reflexed (NO) Urine Glucose (NEGATIVE) mg/dL SARS-CoV-2 (PCR) (NEGATIVE) - Radiology Impressions Radiology Exams & Impressions: Radiology Procedures Category Date Time Status CHEST 1 VIEW (PORTABLE) Stat Exams 07/01/21 00:01 Taken - Other Procedures and Tests Respiratory Therapy 07/01/21 00:23 Respiratory Therapy Assessment DAILY 07/01/21 05:09 Oxygen Nasal Cannula 2 lpm 07/01/21 07:03 BiPap/CPAP ROUTINE Assessment/Plan (1) Congestive heart failure Current Visit: Yes Status: Acute Qualifiers: Heart failure type: unspecified Heart failure chronicity: acute on chronic Qualified Code(s): I50.9 - Heart failure, unspecified Assessment & Plan: needs diuresed, continue xarelto and other home meds Code(s): I50.9 - HEART FAILURE, UNSPECIFIED (2) Elevated troponin Current Visit: Yes Status: Acute Assessment & Plan: strain from CHF, mild elevation is stable and not trending up Code(s): R77.8 - OTHER SPECIFIED ABNORMALITIES OF PLASMA PROTEINS (3) A-fib Current Visit: Yes Status: Acute Code(s): I48.91 - UNSPECIFIED ATRIAL FIBRILLATION (4) DM type 2 (diabetes mellitus, type 2) Current Visit: Yes Status: Acute
--- NOTE | 2021-07-01 09:15 | XRAY ---
Indication: Short of breath and chest pain. Comparison: June 13, 2021. Portable chest unchanged again demonstrating borderline cardiomegaly with left pacemaker and minimal right base atelectasis/scarring. Vascularity normal. No new/acute abnormalities.
[2021-07-01] MEDS ORDERED: SOTALOL HCL 120 MG PO SCH (10:00)
[2021-07-01] MEDS ORDERED: Combivent Inhaler COMMON CANISTER IH SCH (10:00)
[2021-07-01] MEDS ORDERED: Klor Con 10 MEQ PO SCH (10:00)
[2021-07-01] MEDS: Lasix 40 MG/4 ML IV SCH ×2 (10:00→16:59)
[2021-07-01] MEDS ORDERED: Ecotrin 325 MG PO SCH (10:00)
[2021-07-01] MEDS ORDERED: NON-FORMULARY ITEM (Multivitamin [Multivitamin] 1 TAB) PO SCH (10:00)
[2021-07-01] MEDS ORDERED: ECOTRIN 81 MG PO SCH (10:00)
[2021-07-01] MEDS: HUMALOG SQ PRN ×4 (10:10→21:45)
[2021-07-01] MEDS ORDERED: Maxzide 25MG PO SCH (10:15)
[2021-07-01] MEDS: Coreg 6.25 MG PO SCH ×2 (10:56→21:40)
[2021-07-01] MEDS: Maxzide-25MG Tablet PO SCH (10:56)
[2021-07-01] MEDS: Protonix 40MG Tablet PO SCH (10:56)
[2021-07-01] MEDS: ECOTRIN 81 MG PO SCH ×2 (10:56→21:40)
[2021-07-01] MEDS: LOPID 600 MG PO SCH ×2 (10:57→21:41)
[2021-07-01] MEDS: Pepcid 20 MG VIAL IV SCH ×2 (10:57→21:45)
[2021-07-01] MEDS: PROVENTIL 2.5 MG/3 ML NEB IH SCH ×2 (21:09→21:13)
[2021-07-01] MEDS: Combivent Inhaler COMMON CANISTER IH SCH ×2 (21:12→21:13)
[2021-07-01] MEDS: XARELTO 10 MG TABLET PO SCH (21:39)
[2021-07-01] MEDS: ZOCOR 20MG PO SCH (21:40)
[2021-07-01] MEDS: Betapace 80 MG PO SCH (21:41)
[2021-07-01] MEDS: Lantus Insulin SQ SCH (21:46)
[2021-07-01] MEDS ORDERED: NON-FORMULARY ITEM (Rivaroxaban [Xarelto] 20 MG) PO SCH (22:00)
[2021-07-01] MEDS ORDERED: NON-FORMULARY ITEM (Atorvastatin Calcium [Atorvastatin Calcium] 80 MG) PO SCH (22:00)
[2021-07-02 05:03] LABS: Absolute Neutrophil Ct (ANC) 8.31 (1.4-6.9); BASOPHIL % 0.2 % (0.0-0.4); Basophil (Absolute #) 0.02 (0-0.4); Eosinophil % 0.3 % (0.00-5.0); Eosinophil (Absolute #) 0.03 (0-0.5); Hematocrit 45.4 % (42-50); Hemoglobin 14.1 gm/dl (12.5-18.0); Lymphocyte (Absolute #) 1.52 (1.0-4.6); Lymphocytes % 13.2 % (24.0-44.0); Mean Cell Volume 96.6 fl (78-100); Mean Corpuscular Hgb Concent. 31.1 g/dl (32-36); Mean Platelet Volume 10.4 fl (7.5-11.0); Monocyte (Absolute #) 1.63 (0.0-1.3); Monocytes % 14.2 % (0.0-12.0); Neutrophil % 72.1 % (36.0-66.0); Platelet Count 263 K/mm3 (150-450); Red Cell Distribution Width 14.9 % (11.5-14.0); White Blood Count 11.5 K/mm3 (4.0-10.5)
[2021-07-02 05:32] LABS: Slide Review 1 YES
[2021-07-02 06:07] LABS: ALBUMIN 3.3 g/dL (3.5-5.0); ANION GAP 10.5 MEQ/L (5-15); BILIRUBIN,TOTAL 0.4 mg/dL (0.2-1.3); Calcium 8.2 mg/dL (8.4-10.2); Creatinine 1 1.27 mg/dL (0.66-1.25); EST GLOMERULAR FILTRATION RATE 58.3 ML/MIN; Potassium 3.4 mmol/L (3.5-5.1); Total Protein 6.2 g/dL (6.3-8.2)
[2021-07-02] MEDS: DUONEB 0.5-3 MG/3 ml Neb IH SCH ×4 (07:19→18:43)
--- NOTE | 2021-07-02 08:32 | PCM.NOTE ---
Date and Time: 07/02/21829 Subjective Assessment: Pt is still SOB and on 2L NC (not on O2 at home). Todd po. Would like heart healthy diet. - Review of Systems Constitutional: No Fever Respiratory: Short Of Breath Objective Exam General Appearance: no apparent distress, alert, obese Neurologic Exam: oriented x 3, cooperative Skin Exam: normal color, warm, dry, No rash Eye Exam: eyes nml inspection Ears, Nose, Throat Exam: moist mucous membranes Neck Exam: normal inspection Respiratory Exam: lungs clear, diminished breath sounds (good air exchange), No crackles/rales, No rhonchi, No wheezing Cardiovascular Exam: regular rate/rhythm, normal heart sounds, No murmur Extremity Exam: swelling (2+ pretibial edema LE bilat) Back Exam: normal inspection, No rash OBJECTIVE DATA Vital Signs: Vital Signs - 24 hr Temp Pulse Resp BP Pulse Ox 07/02/21 07:13 94 H 18 95 07/02/21 04:00 96.9 F 68 18 102/54 96 07/01/21 23:48 97.2 F 69 20 143/67 94 L 07/01/21 19:08 97.6 F 67 18 119/56 93 L 07/01/21 18:57 70 18 95 07/01/21 16:00 97.4 F 71 20 114/58 96 07/01/21 15:29 73 20 94 L 07/01/21 12:00 97.7 F 73 20 139/73 94 L Pain Assessment - Last Documented Pain Intensity 0 Intake and Output: Intake & Output 06/29/21 06/30/21 07/01/21 07/02/21 11:59 11:59 11:59 11:59 Intake Total 240 1080 Output Total 700 2550 Balance -460 -1470 Weight 123.2 kg 122.4 kg Lab Results: Lab Results-Last 24 Hours 07/01/21 07/01/21 07/01/21 Range/Units 00:30 09:04 11:35 WBC (4.0-10.5) K/mm3 RBC (4.1-5.6) M/mm3 Hgb (12.5-18.0) gm/dl Hct (42-50) % MCV (78-100) fl MCH (26-32) pg MCHC (32-36) g/dl RDW (11.5-14.0) % Plt Count (150-450) K/mm3 MPV (7.5-11.0) fl Gran % (36.0-66.0) % Eos # (Auto) (0-0.5) Absolute Lymphs (auto) (1.0-4.6) Absolute Monos (auto) (0.0-1.3) Lymphocytes % (24.0-44.0) % Monocytes % (0.0-12.0) % Eosinophils % (0.00-5.0) % Basophils % (0.0-0.4) % Absolute Granulocytes (1.4-6.9) Basophils # (0-0.4) Sodium (137-145) mmol/L Potassium (3.5-5.1) mmol/L Chloride (98-107) mmol/L Carbon Dioxide (22-30) mmol/L Anion Gap (5-15) MEQ/L BUN (9-20) mg/dL Creatinine (0.66-1.25) mg/dL Estimated GFR ML/MIN Glucose (74-106) mg/dL POC Glucometer 306 H (74 to 106) mg/dL Hemoglobin A1c 6.94 H (4.5-6.0) % Calcium (8.4-10.2) mg/dL Total Bilirubin (0.2-1.3) mg/dL AST (17-59) U/L ALT (0-50) U/L Alkaline Phosphatase (38-126) U/L Troponin I 0.047 H* (0.000-0.034) ng/mL NT-Pro-B Natriuret Pep (0-1800) pg/mL Serum Total Protein (6.3-8.2) g/dL Albumin (3.5-5.0) g/dL Slides for Path Review 07/01/21 07/01/21 07/01/21 Range/Units 12:15 16:01 20:31 WBC (4.0-10.5) K/mm3 RBC (4.1-5.6) M/mm3 Hgb (12.5-18.0) gm/dl Hct (42-50) % MCV (78-100) fl MCH (26-32) pg MCHC (32-36) g/dl RDW (11.5-14.0) % Plt Count (150-450) K/mm3 MPV (7.5-11.0) fl Gran % (36.0-66.0) % Eos # (Auto) (0-0.5) Absolute Lymphs (auto) (1.0-4.6) Absolute Monos (auto) (0.0-1.3) Lymphocytes % (24.0-44.0) % Monocytes % (0.0-12.0) % Eosinophils % (0.00-5.0) % Basophils % (0.0-0.4) % Absolute Granulocytes (1.4-6.9) Basophils # (0-0.4) Sodium (137-145) mmol/L Potassium (3.5-5.1) mmol/L Chloride (98-107) mmol/L Carbon Dioxide (22-30) mmol/L Anion Gap (5-15) MEQ/L BUN (9-20) mg/dL Creatinine (0.66-1.25) mg/dL Estimated GFR ML/MIN Glucose (74-106) mg/dL POC Glucometer 328 H 342 H (74 to 106) mg/dL Hemoglobin A1c (4.5-6.0) % Calcium (8.4-10.2) mg/dL Total Bilirubin (0.2-1.3) mg/dL AST (17-59) U/L ALT (0-50) U/L Alkaline Phosphatase (38-126) U/L Troponin I 0.038 H* (0.000-0.034) ng/mL NT-Pro-B Natriuret Pep (0-1800) pg/mL Serum Total Protein (6.3-8.2) g/dL Albumin (3.5-5.0) g/dL Slides for Path Review 07/02/21 07/02/21 07/02/21 Range/Units 04:00 04:34 04:34 WBC 11.5 H (4.0-10.5) K/mm3 RBC 4.70 (4.1-5.6) M/mm3 Hgb 14.1 (12.5-18.0) gm/dl Hct 45.4 (42-50) % MCV 96.6 (78-100) fl MCH 30.0 (26-32) pg MCHC 31.1 L (32-36) g/dl RDW 14.9 H (11.5-14.0) % Plt Count 263 (150-450) K/mm3 MPV 10.4 (7.5-11.0) fl Gran % 72.1 H (36.0-66.0) % Eos # (Auto) 0.03 (0-0.5) Absolute Lymphs (auto) 1.52 (1.0-4.6) Absolute Monos (auto) 1.63 H (0.0-1.3) Lymphocytes % 13.2 L (24.0-44.0) % Monocytes % 14.2 H (0.0-12.0) % Eosinophils % 0.3 (0.00-5.0) % Basophils % 0.2 (0.0-0.4) % Absolute Granulocytes 8.31 H (1.4-6.9) Basophils # 0.02 (0-0.4) Sodium 136 L (137-145) mmol/L Potassium 3.4 L (3.5-5.1) mmol/L Chloride 93 L (98-107) mmol/L Carbon Dioxide 36 H (22-30) mmol/L Anion Gap 10.5 (5-15) MEQ/L BUN 33 H (9-20) mg/dL Creatinine 1.27 H (0.66-1.25) mg/dL Estimated GFR 58.3 ML/MIN Glucose 234 H (74-106) mg/dL POC Glucometer (74 to 106) mg/dL Hemoglobin A1c (4.5-6.0) % Calcium 8.2 L (8.4-10.2) mg/dL Total Bilirubin 0.40 (0.2-1.3) mg/dL AST 36 (17-59) U/L ALT 23 (0-50) U/L Alkaline Phosphatase 77 (38-126) U/L Troponin I (0.000-0.034) ng/mL NT-Pro-B Natriuret Pep 2640 H (0-1800) pg/mL Serum Total Protein 6.2 L (6.3-8.2) g/dL Albumin 3.3 L (3.5-5.0) g/dL Slides for Path Review YES 07/02/21 Range/Units 07:24 WBC (4.0-10.5) K/mm3 RBC (4.1-5.6) M/mm3 Hgb (12.5-18.0) gm/dl Hct (42-50) % MCV (78-100) fl MCH (26-32) pg MCHC (32-36) g/dl RDW (11.5-14.0) % Plt Count (150-450) K/mm3 MPV (7.5-11.0) fl Gran % (36.0-66.0) % Eos # (Auto) (0-0.5) Absolute Lymphs (auto) (1.0-4.6) Absolute Monos (auto) (0.0-1.3) Lymphocytes % (24.0-44.0) % Monocytes % (0.0-12.0) % Eosinophils % (0.00-5.0) % Basophils % (0.0-0.4) % Absolute Granulocytes (1.4-6.9) Basophils # (0-0.4) Sodium (137-145) mmol/L Potassium (3.5-5.1) mmol/L Chloride (98-107) mmol/L Carbon Dioxide (22-30) mmol/L Anion Gap (5-15) MEQ/L BUN (9-20) mg/dL Creatinine (0.66-1.25) mg/dL Estimated GFR ML/MIN Glucose (74-106) mg/dL POC Glucometer 170 H (74 to 106) mg/dL Hemoglobin A1c (4.5-6.0) % Calcium (8.4-10.2) mg/dL Total Bilirubin (0.2-1.3) mg/dL AST (17-59) U/L ALT (0-50) U/L Alkaline Phosphatase (38-126) U/L Troponin I (0.000-0.034) ng/mL NT-Pro-B Natriuret Pep (0-1800) pg/mL Serum Total Protein (6.3-8.2) g/dL Albumin (3.5-5.0) g/dL Slides for Path Review Radiology Exams: Radiology Procedures Category Date Time Status CHEST 1 VIEW (PORTABLE) Stat Exams 07/01/21 00:01 Completed Assessment/Plan (1) Congestive heart failure Current Visit: Yes Status: Acute Qualifiers: Heart failure type: unspecified Heart failure chronicity: acute on chronic Qualified Code(s): I50.9 - Heart failure, unspecified Assessment & Plan: some improvement, still on O2 with LE edema. Continue diuresis. Code(s): I50.9 - HEART FAILURE, UNSPECIFIED (2) A-fib Current Visit: Yes Status: Chronic Code(s): I48.91 - UNSPECIFIED ATRIAL FIBRILLATION (3) DM type 2 (diabetes mellitus, type 2) Current Visit: Yes Status: Chronic (4) Elevated troponin Current Visit: Yes Status: Acute Assessment & Plan: was trending down when last checked Code(s): R77.8 - OTHER SPECIFIED ABNORMALITIES OF PLASMA PROTEINS
[2021-07-02] MEDS: HUMALOG SQ PRN ×4 (08:33→21:11)
[2021-07-02] MEDS: Betapace 80 MG PO SCH ×2 (09:55→21:10)
[2021-07-02] MEDS: Maxzide-25MG Tablet PO SCH (09:56)
[2021-07-02] MEDS: Klor Con 10 MEQ PO SCH ×2 (09:57→21:10)
[2021-07-02] MEDS: ECOTRIN 81 MG PO SCH ×2 (09:57→21:10)
[2021-07-02] MEDS: THERAGRAN MULTIVITAMIN PO SCH (09:58)
[2021-07-02] MEDS: Pepcid 20 MG VIAL IV SCH ×2 (09:58→21:11)
[2021-07-02] MEDS: Lasix 40 MG/4 ML IV SCH ×2 (09:59→16:48)
[2021-07-02] MEDS: Protonix 40MG Tablet PO SCH (09:59)
[2021-07-02] MEDS: Coreg 6.25 MG PO SCH ×2 (10:00→21:10)
[2021-07-02] MEDS: LOPID 600 MG PO SCH ×2 (10:01→21:11)
[2021-07-02] MEDS: XARELTO 10 MG TABLET PO SCH (21:10)
[2021-07-02] MEDS: ZOCOR 20MG PO SCH (21:11)
[2021-07-02] MEDS: Lantus Insulin SQ SCH (21:11)
[2021-07-03] MEDS: DUONEB 0.5-3 MG/3 ml Neb IH SCH (06:40)
[2021-07-03] MEDS: HUMALOG SQ PRN (07:33)
[2021-07-03 07:59] VITALS: BP 117/54; PULSE 91; O2SAT 92
[2021-07-03] MEDS: Betapace 80 MG PO SCH (09:25)
[2021-07-03] MEDS: Maxzide-25MG Tablet PO SCH (09:30)
[2021-07-03] MEDS: Klor Con 10 MEQ PO SCH (09:31)
[2021-07-03] MEDS: ECOTRIN 81 MG PO SCH (09:32)
[2021-07-03] MEDS: THERAGRAN MULTIVITAMIN PO SCH (09:32)
[2021-07-03] MEDS: Protonix 40MG Tablet PO SCH (09:32)
[2021-07-03] MEDS: Coreg 6.25 MG PO SCH (09:33)
--- NOTE | 2021-07-03 09:35 | PCM.DS ---
Discharge Summary Date of Admission: 07/01/21 05:03 Admitting Physician: ADELE GREEN Primary Care Provider: MARIELOS SMALL Allergies Allergies gabapentin Allergy (Mild, Verified 07/01/21 00:20) Penicillins Allergy (Mild, Verified 07/01/21 00:20) Antihistamines - Alkylamine Allergy (Verified 07/01/21 00:20) pt unsure what antihistaine name was Antihistamines - Ethanolamine Allergy (Verified 07/01/21 00:20) pt unsure of name of antihistamine Antihistamines - Ethylenediamine Allergy (Verified 07/01/21 00:20) pt unsure of name of antihistamine Antihistamines - Piperazine Allergy (Verified 07/01/21 00:20) pt unsure of name of antihistamine Antihistamines - Piperidine Allergy (Verified 07/01/21 00:20) pt unsure of name of antihistamine Hospital Summary - Hospital Course Hospital Course: patient was admitted with acute on chronic heart failure, he is now on room air. 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 he has some swelling in lower legs but is able to ambulate to the restroom and care for himself. - Vitals & Intake/Output Vital Signs: Vital Signs Temperature 97.6 F 07/03/21 07:58 Pulse Rate 91 H 07/03/21 07:58 Respiratory Rate 18 07/03/21 07:58 Blood Pressure 117/54 07/03/21 07:58 O2 Sat by Pulse Oximetry 92 L 07/03/21 07:58 Intake & Output: Intake & Output 06/30/21 07/01/21 07/02/21 07/03/21 11:59 11:59 11:59 11:59 Intake Total 240 1080 540 Output Total 700 2550 1800 Balance -460 -7960 -1260 Weight 123.2 kg 122.4 kg 122.6 kg - Lab Result Diagrams: 07/02/21 04:00 07/02/21 04:34 Lab Results-Last 24 Hrs: Lab Results-Last 24 Hours 07/02/21 07/02/21 07/02/21 Range/Units 11:43 15:55 21:03 POC Glucometer 217 H 164 H 208 H (74 to 106) mg/dL 07/03/21 Range/Units 07:07 POC Glucometer 161 H (74 to 106) mg/dL Micro Results-Entire Visit: Microbiology 07/01/21 00:35 Blood Culture - Preliminary Blood NO GROWTH TO DATE 07/01/21 00:30 Blood Culture - Preliminary Blood NO GROWTH TO DATE Accuchecks Date 07/03/21 Date 07/02/21 Time 12:24 - Procedures and Test Procedures and Tests throughout Hospitalization: Therapy Orders & Screens 07/01/21 00:23 Respiratory Therapy Assessment DAILY Comment: 07/01/21 05:09 Oxygen Nasal Cannula 2 lpm Comment: 07/01/21 07:02 Oxygen Nasal Cannula 2 lpm Comment: Diagnosis: chf, copd exacerbation, non STEMI 07/01/21 07:03 BiPap/CPAP ROUTINE Comment: Diagnosis: chf, copd exacerbation, non STEMI 07/02/21 09:13 RT Miscellaneous Order ROUTINE Comment: Physician Instructions: Reason For Exam: Diagnosis: chf, copd exacerbation, non STEMI Discharge Exam General Appearance: no apparent distress, obese Neurologic Exam: alert, oriented x 3 Respiratory Exam: lungs clear Cardiovascular Exam: regular rate/rhythm, normal heart sounds Gastrointestinal/Abdomen Exam: soft, No tenderness, No mass Extremity Exam: pedal edema, swelling Final Diagnosis/Problem List - Final Discharge Diagnosis/Problem (1) Congestive heart failure Current Visit: Yes Status: Acute Code(s): I50.9 - HEART FAILURE, UNSPECIFIED (2) Elevated troponin Current Visit: Yes Status: Acute Code(s): R77.8 - OTHER SPECIFIED ABNORMALITIES OF PLASMA PROTEINS (3) A-fib Current Visit: Yes Status: Chronic Code(s): I48.91 - UNSPECIFIED ATRIAL FIBR ILLATION (4) DM type 2 (diabetes mellitus, type 2) Current Visit: Yes Status: Chronic - Discharge Disposition: Home, Self-Care Condition: Stable Prescriptions: New Furosemide 40 mg [Lasix 40 MG] 40 mg PO DAILY #30 tablet Potassium Chloride 20 meq PO DAILY #30 tab.er.prt Continue Pantoprazole Sodium [Protonix] 40 mg PO DAILY Insulin Glargine [Lantus Insulin] 36 unit SQ HS Gemfibrozil 600 mg [Lopid 600 mg] 600 mg PO BID Sotalol HCl [Betapace] 120 mg PO BID Insulin Aspart [NovoLOG Insulin] 16 unit SQ TID Albuterol 2.5 mg/3 ml Neb [Proventil 2.5 mg/3 ml Neb] 2.5 mg IH QID Carvedilol 6.25 mg [Coreg 6.25 MG] 6.25 mg PO BID Triamterene/Hydrochlorothiazid [Triamterene-Hctz 37.5-25 mg Tb] 37.5 mg PO DAILY Glipizide 5 mg [Glucotrol 5 MG] 5 mg PO DAILY Atorvastatin Calcium 80 mg PO HS Ipratropium/Albuterol Sulfate [Combivent Inhaler] 1 gm IH QID Rivaroxaban [Xarelto] 20 mg PO HS Multivitamin 1 tab PO DAILY Aspirin EC 81 mg [Ecotrin 81 mg] 81 mg PO BID Vitamin E 400 Units [Vitamin E 400 UNIT SOFTGEL] 1 cap PO DAILY Mv-Mn/Iron/Folic Acid/Herb 190 [Vitamin D3 Complete Caplet] 1 tablet PO DAILY Outpatient Orders: BMP Time Frame: 1 Week, Facility: [facility], Location: LABORATORY Additional Instructions: take meds as directed, have bmp drawn in 1 week. see cardiology at [facility] as directed Follow up with: MARIELOS SMALL MD [Primary Care Provider] -
[2021-07-03] MEDS: LOPID 600 MG PO SCH (09:36)
[2021-07-03] MEDS: Lasix 40 MG/4 ML IV SCH (09:37)
[2021-07-03] MEDS: Pepcid 20 MG VIAL IV SCH (09:42)
== END 2021-07-03 10:35 | disposition home or self-care (01) ==
LOC: ED 23:42 → MED SURG 07-01 05:03
PROVIDERS: ADMIT General Practice; ATTEND Family Medicine
DX: I11.0 Hypertensive heart disease with heart failure (principal); I50.9 Heart failure, unspecified; I48.91 Unspecified atrial fibrillation; E11.9 Type 2 diabetes mellitus without complications; R77.8 Other specified abnormalities of plasma proteins; J38.3 Other diseases of vocal cords; Z79.01 Long term (current) use of anticoagulants; Z79.899 Other long term (current) drug therapy; R53.1 Weakness; R53.83 Other fatigue; E78.00 Pure hypercholesterolemia, unspecified; Z20.828 Contact with and (suspected) exposure to other viral communicable diseases; J44.9 Chronic obstructive pulmonary disease, unspecified; G47.30 Sleep apnea, unspecified
CPT/HCPCS: 36000; 36415; 36600; 71045; 80053; 81001; 82375; 82803; 82947; 83036; 83605; 83735; 83880; 84484; 85025; 87040; 93005; 93041; 93268; 94640; 94760; 96365; 96374; 96375; 99285; G0378; U0003; J1817; J1940; J1956; J2930; A9270-GY

== ENCOUNTER 2021-11-25 11:26 | Emergency (ER) | payer MEDICARE, OTHER ==
--- NOTE | 2021-11-25 11:31 | ERPHSYRPT ---
- History of Present Illness Time Seen by Provider: 11/25/21 11:30 Source: patient Exam Limitations: no limitations Physician History: This is a 80-year-old obese white male patient of Dr. Small who presents with 1 week history of cough congestion runny nose decreased appetite, muscle aches and pains and shortness of breath. Patient denies chest pain. He has no abdominal pain. He has no nausea vomiting or diarrhea. Patient has a history of hypertension, insulin-dependent diabetes, peripheral neuropathy, congestive heart failure, coronary artery disease, TIAs, elevated cholesterol, COPD. He has a history of pacemaker placed in the past, cardiac catheterization with cardiac stents. Patient uses BiPAP machine for sleep apnea. Patient was hypoxic upon entrance into the emergency room with a room air oxygenation of 88%. Timing/Duration: week(s) (1) Severity of Dyspnea-Max: moderate Severity of Dyspnea-Current: mild Possible Cause: occasional episodes (To moderate) Modifying Factors: Improves With: coughing, oxygen Associated Symptoms: cough, loss of appetite, wheezing, weakness, productive cough Allergies/Adverse Reactions: gabapentin Allergy (Mild, Verified 11/25/21 11:37) Penicillins Allergy (Mild, Verified 11/25/21 11:37) Antihistamines - Alkylamine Allergy (Verified 11/25/21 11:37) pt unsure what antihistaine name was Antihistamines - Ethanolamine Allergy (Verified 11/25/21 11:37) pt unsure of name of antihistamine Antihistamines - Ethylenediamine Allergy (Verified 11/25/21 11:37) pt unsure of name of antihistamine Antihistamines - Piperazine Allergy (Verified 11/25/21 11:37) pt unsure of name of antihistamine Antihistamines - Piperidine Allergy (Verified 11/25/21 11:37) pt unsure of name of antihistamine Home Medications: Albuterol 2.5 mg/3 ml Neb [Proventil 2.5 mg/3 ml Neb] 2.5 mg IH QID 06/30 01/12 [History] Gemfibrozil 600 mg [Lopid 600 mg] 600 mg PO BID 07/11/13 [History] Insulin Aspart [NovoLOG Insulin] 16 unit SQ TID 07/11/13 [History] Insulin Glargine [Lantus Insulin] 36 unit SQ HS 07/11/13 [History] Pantoprazole Sodium [Protonix] 40 mg PO DAILY 07/11/13 [History] Sotalol HCl [Betapace] 120 mg PO BID 07/11/13 [History] Atorvastatin Calcium 80 mg PO HS 12/04/16 [History] Glipizide 5 mg [Glucotrol 5 MG] 5 mg PO DAILY 12/04/16 [History] Triamterene/Hydrochlorothiazid [Triamterene-Hctz 37.5-25 mg Tb] 37.5 mg PO DAILY 12/04/16 [History] Ipratropium/Albuterol Sulfate [Combivent Inhaler] 1 gm IH QID 03/25/19 [History] Rivaroxaban [Xarelto] 20 mg PO HS 06/13/21 [History] Aspirin EC 81 mg [Ecotrin 81 mg] 81 mg PO BID 07/01/21 [History] Multivitamin 1 tab PO DAILY 07/01/21 [History] Mv-Mn/Iron/Folic Acid/Herb 190 [Vitamin D3 Complete Caplet] 1 tablet PO DAILY 07/01/21 [History] Vitamin E 400 Units [Vitamin E 400 UNIT SOFTGEL] 1 cap PO DAILY 07/01/21 [History] Hx Tetanus, Diphtheria Vaccination/Date Given: No Hx Influenza Vaccination/Date Given: Yes Hx Pneumococcal Vaccination/Date Given: No Travel Risk - International Travel Have you traveled outside of the country in past 3 weeks: No - Coronavirus Screening Are you exhibiting any of the following symptoms?: Yes Symptoms: Cough: New Onset, Shortness of Breath, Headaches/Body Aches/Fatigue Close contact with a COVID-19 positive Pt in past 14-21 Days: No - Vaccine Status Have you recieved a Covid-19 vaccination: Yes 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: [email or web address] - Vaccination Dates Date of 2cond Vaccination (if applicable): Dec - Review of Systems Constitutional: Weakness Eyes: No Symptoms Ears, Nose, & Throat: No Symptoms Respiratory: Cough, Dyspnea Cardiac: No Symptoms Abdominal/Gastrointestinal: No Symptoms Genitourinary Symptoms: No Symptoms Musculoskeletal: Arthralgias, Myalgias Skin: No Symptoms Neurological: No Symptoms Psychological: No Symptoms Endocrine: No Symptoms Hematologic/Lymphatic: No Symptoms Immunological/Allergic: No Symptoms All Other Systems: Reviewed and Negative - Past Medical History Pertinent Past Medical History: Yes Neurological History: Peripheral Neuropathy, TIA ENT History: No Pertinent History Cardiac History: Arrhythmia, Congestive Heart Failure, Coronary Artery Disease, High Cholesterol, Hypertension Respiratory History: CHF, COPD, Sleep Apnea Endocrine Medical History: Diabetes Type II Musculoskeletal History: No Pertinent History GI Medical History: GERD History: No Pertinent History Psycho-Social History: No Pertinent History Male Reproductive Disorders: No Pertinent History Other Medical History: GERD. SX HX: PACEMAKER 2010, CARDIAC STENTS X 2 1996 AND 2007. USES BIPAP - Past Surgical History Past Surgical History: Yes Neuro Surgical History: No Pertinent History Cardiac: Cardiac Catheterization, Cardiac Stent, Pacemaker Respiratory: No Pertinent History Gastrointestinal: No Pertinent History Genitourinary: No Pertinent History Musculoskeletal: Orthopedic Surgery Male Surgical History: No Pertinent History Other Surgical History: toe reattached, lip cancer removed, 6 teeth extracted 12/03/2016 - Social History Smoking Status: Former smoker Exposure to second hand smoke: No Drug Use: none Patient Lives Alone: No Significant Family History: heart disease - Nursing Vital Signs Nursing Vital Signs: Initial Vital Signs Temperature 96.9 F 11/25/21 11:27 Pulse Rate 70 11/25/21 11:27 Respiratory Rate 24 11/25/21 11:27 Blood Pressure 123/45 11/25/21 11:27 O2 Sat by Pulse Oximetry 87 L 11/25/21 11:27 Pain Scale Pain Intensity 0 - Physical Exam General Appearance: mild distress, alert, anxiety, obese Eye Exam: PERRL/EOMI, eyes nml inspection Ears, Nose, Throat Exam: hearing grossly normal, normal ENT inspection, normal pharynx Neck Exam: normal inspection, non-tender, supple, full range of motion Respiratory Exam: airway intact, wheezing, No respiratory distress, No accessory muscle use, No stridor Cardiovascular/Chest Exam: normal heart sounds, regular rate/rhythm, normal peripheral pulses Abdominal/Gastrointestinal Exam: soft, normal bowel sounds, No tenderness Rectal Exam: not done Extremity Exam: non-tender, normal range of motion, normal inspection, no calf tenderness, pelvis stable Neurologic Exam: alert, oriented x 3, cooperative, ginning operator II-XII nml as tested, normal mood/affect, sensation nml Skin Exam: normal color, warm, dry Lymphatic Exam: No adenopathy SpO2 Interpretation: hypoxic O2 Delivery: Room Air - Course Nursing assessment & vital signs reviewed: Yes EKG Interpreted by Me: RATE (70), A-fib (/Flutter ventricularly paced rhythm. No acute ischemic changes. There are no changes when compared to EKG dated 07/01/2021) Ordered Tests: Active Orders 24 hr Category Date Time Status EKG-ER Only STAT Care 11/25/21 11:37 Active IV Insertion STAT Care 11/25/21 11:37 Active Oxygen-ED Only Nasal Cannula 2 lpm Care 11/25/21 11:58 Active Pulse Oximetry (ED) STAT Care 11/25/21 11:37 Active CHEST 1 VIEW (PORTABLE) Stat Exams 11/25/21 11:38 Completed BLOOD CULTURE Stat Lab 11/25/21 12:05 Received CBC W DIFF Stat Lab 11/25/21 12:05 Completed CMP Stat Lab 11/25/21 12:05 Completed D-DIMER QUANTITATIVE Stat Lab 11/25/21 12:05 Completed INFLUENZA A+B ABNER Stat Lab 11/25/21 12:05 Completed MAGNESIUM Stat Lab 11/25/21 12:05 Completed NT PRO BNP Stat Lab 11/25/21 12:05 Completed POCT GLUCOSE Stat Lab 11/25/21 15:56 Completed PROTIME WITH INR Stat Lab 11/25/21 12:05 Completed TROPONIN Q3H Lab 11/25/21 12:05 Completed TROPONIN Q3H Lab 11/25/21 14:57 Completed TROPONIN Q3H Lab 11/25/21 17:45 Ordered TROPONIN Q3H Lab 11/25/21 20:45 Ordered TROPONIN Q3H Lab 11/25/21 23:45 Ordered Respiratory Therapy Assessment DAILY RT 11/25/21 16:15 Active Transfer Order Routine Transfer 11/25/21 Ordered Medication Summary Discontinued Medications Generic Name Dose Route Start Last Admin Trade Name Freq PRN Reason Stop Dose Admin Hydrocodone Bitart/Acetaminophen 10 ml 11/25/21 12:19 11/25/21 12:29 Hydrocodone/Acetaminophen 5 Ml Udcup PO 11/25/21 12:20 10 ml STAT STA Administration Albuterol/Ipratropium 3 ml 11/25/21 16:12 11/25/21 16:14 Ipratropium/Albuterol Sulfate 3 Ml Ampul.Neb IH 11/25/21 16:13 3 ml STAT ONE Administration Albuterol/Ipratropium Confirm 11/25/21 16:13 Ipratropium/Albuterol Sulfate 3 Ml Ampul.Neb Administered 11/25/21 16:14 Dose 3 ml IH .STK-MED ONE Methylprednisolone Sodium 0 mg 11/25/21 12:19 11/25/21 12:22 Succinate 125 mg/ Sterile IV 11/25/21 12:20 125 mg Water 2 ml STAT ONE Administration Furosemide 40 mg 11/25/21 12:57 11/25/21 13:42 Furosemide 40 Mg/4 Ml Vial IV 11/25/21 12:58 40 mg STAT ONE Administration Furosemide Confirm 11/25/21 13:41 Furosemide 40 Mg/4 Ml Vial Administered 11/25/21 13:42 Dose 40 mg .ROUTE .STK-MED ONE Methylprednisolone Sodium Succinate Confirm 11/25/21 12:21 Methylprednis Sod Succ 125 Mg/2 Ml Vial Administered 11/25/21 12:22 Dose 125 mg .ROUTE .STK-MED ONE Lab/Rad Data: Laboratory Result Diagrams 11/25/21 12:05 11/25/21 12:05 Laboratory Results 11/25/21 11/25/21 11/25/21 Range/Units 16:15 15:56 14:57 WBC (4.0-10.5) K/mm3 RBC (4.1-5.6) M/mm3 Hgb (12.5-18.0) gm/dl Hct (42-50) % MCV (78-100) fl MCH (26-32) pg MCHC (32-36) g/dl RDW (11.5-14.0) % Plt Count (150-450) K/mm3 MPV (7.5-11.0) fl Gran % (36.0-66.0) % Eos # (Auto) (0-0.5) Absolute Lymphs (auto) (1.0-4.6) Absolute Monos (auto) (0.0-1.3) Lymphocytes % (24.0-44.0) % Monocytes % (0.0-12.0) % Eosinophils % (0.00-5.0) % Basophils % (0.0-0.4) % Absolute Granulocytes (1.4-6.9) Basophils # (0-0.4) PT (9.4-12.5) SECONDS INR (0.8-3.0) D-Dimer (215-500) ng/mL Sodium (137-145) mmol/L Potassium (3.5-5.1) mmol/L Chloride (98-107) mmol/L Carbon Dioxide (22-30) mmol/L Anion Gap (5-15) MEQ/L BUN (9-20) mg/dL Creatinine (0.66-1.25) mg/dL Estimated GFR ML/MIN Glucose (74-106) mg/dL POC Glucometer 113 H (74 to 106) mg/dL Calcium (8.4-10.2) mg/dL Magnesium (1.6-2.3) mg/dL Total Bilirubin (0.2-1.3) mg/dL AST (17-59) U/L ALT (0-50) U/L Alkaline Phosphatase (38-126) U/L Troponin I 0.058 H* (0.000-0.034) ng/mL NT-Pro-B Natriuret Pep (0-1800) pg/mL Serum Total Protein (6.3-8.2) g/dL Albumin (3.5-5.0) g/dL Influenza Type A Ag NEGATIVE (NEGATIVE) Influenza Type B Ag NEGATIVE (NEGATIVE) RSV (PCR) POSITIVE (Negative) SARS-CoV-2 (PCR) NEGATIVE (NEGATIVE) 11/25/21 11/25/21 11/25/21 Range/Units 12:05 12:05 12:05 WBC (4.0-10.5) K/mm3 RBC (4.1-5.6) M/mm3 Hgb (12.5-18.0) gm/dl Hct (42-50) % MCV (78-100) fl MCH (26-32) pg MCHC (32-36) g/dl RDW (11.5-14.0) % Plt Count (150-450) K/mm3 MPV (7.5-11.0) fl Gran % (36.0-66.0) % Eos # (Auto) (0-0.5) Absolute Lymphs (auto) (1.0-4.6) Absolute Monos (auto) (0.0-1.3) Lymphocytes % (24.0-44.0) % Monocytes % (0.0-12.0) % Eosinophils % (0.00-5.0) % Basophils % (0.0-0.4) % Absolute Granulocytes (1.4-6.9) Basophils # (0-0.4) PT 19.8 H (9.4-12.5) SECONDS INR 1.68 (0.8-3.0) D-Dimer 229 (215-500) ng/mL Sodium (137-145) mmol/L Potassium (3.5-5.1) mmol/L Chloride (98-107) mmol/L Carbon Dioxide (22-30) mmol/L Anion Gap (5-15) MEQ/L BUN (9-20) mg/dL Creatinine (0.66-1.25) mg/dL Estimated GFR ML/MIN Glucose (74-106) mg/dL POC Glucometer (74 to 106) mg/dL Calcium (8.4-10.2) mg/dL Magnesium (1.6-2.3) mg/dL Total Bilirubin (0.2-1.3) mg/dL AST (17-59) U/L ALT (0-50) U/L Alkaline Phosphatase (38-126) U/L Troponin I 0.052 H* (0.000-0.034) ng/mL NT-Pro-B Natriuret Pep (0-1800) pg/mL Serum Total Protein (6.3-8.2) g/dL Albumin (3.5-5.0) g/dL Influenza Type A Ag NEGATIVE (NEGATIVE) Influenza Type B Ag NEGATIVE (NEGATIVE) RSV (PCR) (Negative) SARS-CoV-2 (PCR) (NEGATIVE) 11/25/21 11/25/21 Range/Units 12:05 12:05 WBC 6.1 (4.0-10.5) K/mm3 RBC 4.75 (4.1-5.6) M/mm3 Hgb 13.8 (12.5-18.0) gm/dl Hct 45.7 (42-50) % MCV 96.2 (78-100) fl MCH 29.1 (26-32) pg MCHC 30.2 L (32-36) g/dl RDW 15.5 H (11.5-14.0) % Plt Count 233 (150-450) K/mm3 MPV 10.7 (7.5-11.0) fl Gran % 59.2 (36.0-66.0) % Eos # (Auto) 0.16 (0-0.5) Absolute Lymphs (auto) 1.03 (1.0-4.6) Absolute Monos (auto) 1.25 (0.0-1.3) Lymphocytes % 16.9 L (24.0-44.0) % Monocytes % 20.5 H (0.0-12.0) % Eosinophils % 2.6 (0.00-5.0) % Basophils % 0.8 (0.0-0.4) % Absolute Granulocytes 3.62 (1.4-6.9) Basophils # 0.05 (0-0.4) PT (9.4-12.5) SECONDS INR (0.8-3.0) D-Dimer (215-500) ng/mL Sodium 137 (137-145) mmol/L Potassium 3.8 (3.5-5.1) mmol/L Chloride 93 L (98-107) mmol/L Carbon Dioxide 35 H (22-30) mmol/L Anion Gap 13.0 (5-15) MEQ/L BUN 32 H (9-20) mg/dL Creatinine 1.48 H (0.66-1.25) mg/dL Estimated GFR 48.9 ML/MIN Glucose 126 H (74-106) mg/dL POC Glucometer (74 to 106) mg/dL Calcium 8.7 (8.4-10.2) mg/dL Magnesium 2.2 (1.6-2.3) mg/dL Total Bilirubin 0.50 (0.2-1.3) mg/dL AST 36 (17-59) U/L ALT 16 (0-50) U/L Alkaline Phosphatase 103 (38-126) U/L Troponin I (0.000-0.034) ng/mL NT-Pro-B Natriuret Pep 2140 H (0-1800) pg/mL Serum Total Protein 6.7 (6.3-8.2) g/dL Albumin 3.6 (3.5-5.0) g/dL Influenza Type A Ag (NEGATIVE) Influenza Type B Ag (NEGATIVE) RSV (PCR) (Negative) SARS-CoV-2 (PCR) (NEGATIVE) - Progress Progress: improved, re-examined Air Movement: fair Progress Note: 11/25/21 12:42 Chest x-ray shows chronic degenerative changes. There is no acute cardio pulmonary process. 11/25/21 16:11 Medical decision making: This patient presented to the emergency department with shortness of breath and was hypoxic on room air. His work-up shows that he has COPD exacerbation, congestive heart failure, elevated troponin, renal insufficiency and hypoxia. The patient has chronically elevated troponin levels ranging between 0.038 and 0.065. Patient has no complaints of any chest pain at this time. The [facility] is not excepting any emergency room tra nsfers. [facility] emergency room is boarding approximately 20 patients and there is a list 7 patient's long. I spoke with Dr. Small explained to him the situation and he agrees that we can place this patient in observation and follow serial troponin levels and provide the patient with diuretics oxygen supplementation, respiratory therapy evaluation and management as well as steroids and nebulizer treatments. Blood Culture(s) Obtained: Yes Discussed with .: Maribel Will see patient in: hospital (observation) Counseled pt/family regarding: lab results, diagnosis, need for follow-up, rad results - Departure Departure Disposition: Observation Clinical Impression: COPD exacerbation, CHF (congestive heart failure), Bronchitis, Elevated troponin, Acute renal insufficiency, Hypoxia Condition: Fair Critical Care Time: Yes Critical Care Time(excluding separately billable procedures): Critical 30-74 mins (45) Referrals: MARIELOS SMALL MD [Primary Care Provider] - Follow up/PCP as directed Instructions: Heart Failure, Chronic Obstructive Pulmonary Disease
[2021-11-25] MEDS ORDERED: solu-MEDROL 125 MG, Sterile H2O 10 ml 2 ML IV ONE ×2 (12:19)
[2021-11-25] MEDS ORDERED: HYDROCODONE-ACETAMIN 2.5-108/5 ML SOLUTION PO STA (12:19)
[2021-11-25] MEDS ORDERED: solu-MEDROL ONE (12:21)
[2021-11-25 12:25] LABS: Absolute Neutrophil Ct (ANC) 3.62 (1.4-6.9); Basophil (Absolute #) 0.05 (0-0.4); Eosinophil % 2.6 % (0.00-5.0); Eosinophil (Absolute #) 0.16 (0-0.5); Hematocrit 45.7 % (42-50); Hemoglobin 13.8 gm/dl (12.5-18.0); Lymphocyte (Absolute #) 1.03 (1.0-4.6); Lymphocytes % 16.9 % (24.0-44.0); Mean Cell Volume 96.2 fl (78-100); Mean Corpuscular Hemoglobin 29.1 pg (26-32); Mean Corpuscular Hgb Concent. 30.2 g/dl (32-36); Mean Platelet Volume 10.7 fl (7.5-11.0); Monocyte (Absolute #) 1.25 (0.0-1.3); Monocytes % 20.5 % (0.0-12.0); Neutrophil % 59.2 % (36.0-66.0); Platelet Count 233 K/mm3 (150-450); Red Blood Count 4.75 M/mm3 (4.1-5.6); Red Cell Distribution Width 15.5 % (11.5-14.0); White Blood Count 6.1 K/mm3 (4.0-10.5)
[2021-11-25 12:28] LABS: INR 1.68 (0.8-3.0); PROTIME 19.8 SECONDS (9.4-12.5)
--- NOTE | 2021-11-25 12:34 | XRAY ---
Indication: Cough and short of breath. Comparison: July 01, 2021. Portable chest clear. Heart not enlarged with again left pacemaker. Bony thorax intact again with mild osteopenia and degenerative changes. No new/acute findings.
[2021-11-25] MEDS ORDERED: Lasix 40 MG/4 ML IV ONE (12:57)
[2021-11-25 13:02] LABS: INFLUENZA A NEGATIVE (NEGATIVE); INFLUENZA B NEGATIVE (NEGATIVE)
[2021-11-25 13:08] LABS: BILIRUBIN,TOTAL 0.5 mg/dL (0.2-1.3); Calcium 8.7 mg/dL (8.4-10.2); Creatinine 1 1.48 mg/dL (0.66-1.25); EST GLOMERULAR FILTRATION RATE 48.9 ML/MIN; MAGNESIUM 2.2 mg/dL (1.6-2.3); Potassium 3.8 mmol/L (3.5-5.1); Total Protein 6.7 g/dL (6.3-8.2)
[2021-11-25 13:10] LABS: ALBUMIN 3.6 g/dL (3.5-5.0)
[2021-11-25] MEDS ORDERED: Lasix 40 MG/4 ML ONE (13:41)
[2021-11-25] MEDS ORDERED: DUONEB 0.5-3 MG/3 ml Neb IH ONE ×2 (16:12→16:13)
[2021-11-25 16:59] LABS: INFLUENZA A NEGATIVE (NEGATIVE); INFLUENZA B NEGATIVE (NEGATIVE); SARS-CoV-2 Xpert Express NEGATIVE (NEGATIVE)
[2021-11-25 17:03] LABS: RESPIRATORY SYNCTIAL VIRUS POSITIVE (Negative)
[2021-11-25] MEDS ORDERED: TYLENOL 325 MG PO PRN (18:08)
[2021-11-25] MEDS: DUONEB 0.5-3 MG/3 ml Neb IH SCH (18:48)
[2021-11-25] MEDS ORDERED: ZOCOR 20MG PO ONE (20:00)
[2021-11-25] MEDS ORDERED: XARELTO 10 MG TABLET PO ONE (20:00)
[2021-11-25] MEDS ORDERED: Lantus Insulin SQ ONE (20:00)
[2021-11-25] MEDS ORDERED: LOPID 600 MG PO ONE (20:00)
[2021-11-25] MEDS ORDERED: Betapace 80 MG PO ONE (20:00)
[2021-11-25] MEDS ORDERED: ECOTRIN 81 MG PO ONE (20:00)
[2021-11-25] MEDS ORDERED: Klor Con 10 MEQ PO ONE (20:02)
[2021-11-25] MEDS: HYDROCODONE-CHLORPHEN ER SUSP PO PRN (20:28)
[2021-11-25] MEDS ORDERED: solu-MEDROL 125 MG, Sterile H2O 10 ml 2 ML IV SCH ×2 (22:00)
[2021-11-25] MEDS: solu-MEDROL IV SCH (22:00)
[2021-11-25] MEDS: HUMALOG SQ PRN (23:03)
[2021-11-25] MEDS: Lasix 40 MG/4 ML IV SCH (23:22)
[2021-11-26 06:04] LABS: Absolute Neutrophil Ct (ANC) 4.93 (1.4-6.9); Basophil (Absolute #) 0 (0-0.4); Eosinophil (Absolute #) 0 (0-0.5); Hemoglobin 13.7 gm/dl (12.5-18.0); Lymphocyte (Absolute #) 0.57 (1.0-4.6); Lymphocytes % 9.7 % (24.0-44.0); Mean Cell Volume 93.9 fl (78-100); Mean Corpuscular Hemoglobin 28.6 pg (26-32); Mean Corpuscular Hgb Concent. 30.4 g/dl (32-36); Mean Platelet Volume 10.6 fl (7.5-11.0); Monocyte (Absolute #) 0.39 (0.0-1.3); Monocytes % 6.6 % (0.0-12.0); Neutrophil % 83.7 % (36.0-66.0); Platelet Count 265 K/mm3 (150-450); Red Blood Count 4.79 M/mm3 (4.1-5.6); Red Cell Distribution Width 15.5 % (11.5-14.0); White Blood Count 5.9 K/mm3 (4.0-10.5)
[2021-11-26 06:34] LABS: ANION GAP 14.7 MEQ/L (5-15); BILIRUBIN,TOTAL 0.6 mg/dL (0.2-1.3); Calcium 8.5 mg/dL (8.4-10.2); Creatinine 1 1.52 mg/dL (0.66-1.25); EST GLOMERULAR FILTRATION RATE 47.4 ML/MIN; Potassium 3.7 mmol/L (3.5-5.1); Total Protein 7.5 g/dL (6.3-8.2)
[2021-11-26] MEDS: DUONEB 0.5-3 MG/3 ml Neb IH SCH ×4 (07:00→18:47)
[2021-11-26 07:05] LABS: Slide Review 1 YES
[2021-11-26] MEDS: HUMALOG SQ PRN ×4 (08:24→21:35)
--- NOTE | 2021-11-26 10:23 | PCM.HP ---
History of Present Illness - Chief Complaint Chief Complaint: CHF, RSV+ History of Present Illness: is a 80 year old male who presented to the ER with increasing shortness of breath with orthopnea, he has a longstanding history of chf and has had multiple admissions for exacerbation, he is currently on room air but still feels more short of breath than usual, he does have some cough, was rsv+. no chest pain, mild swelling in feet. - Review of Systems Constitutional: No Fever, No Chills Respiratory: No Cough, No Short Of Breath Cardiac: Orthopnea Abdominal/Gastrointestinal: No Abdominal Pain, No Nausea, No Vomiting, No Diarrhea Genitourinary Symptoms: No Dysuria Skin: No Rash All Other Systems: Reviewed and Negative Medications & Allergies Home Medications: Home Medication List Albuterol 2.5 mg/3 ml Neb [Proventil 2.5 mg/3 ml Neb] 2.5 mg IH QHS 07/11/13 [History Confirmed 11/25/21] Gemfibrozil 600 mg [Lopid 600 mg] 600 mg PO BID 07/11/13 [History Confirmed 11/25/21] Insulin Aspart [NovoLOG Insulin] 16 unit SQ TID 07/11/13 [History Confirmed 11/25/21] Insulin Glargine [Lantus Insulin] 36 unit SQ HS 07/11/13 [History Confirmed 11/25/21] Pantoprazole Sodium [Protonix] 40 mg PO DAILY 07/11/13 [History Confirmed 11/25/21] Sotalol HCl [Betapace] 120 mg PO BID 07/11/13 [History Confirmed 11/25/21] Atorvastatin Calcium 80 mg PO HS 12/04/16 [History Confirmed 11/25/21] Glipizide 5 mg [Glucotrol 5 MG] 5 mg PO DAILY 12/04/16 [History Confirmed 11/25/21] Triamterene/Hydrochlorothiazid [Triamterene-Hctz 37.5-25 mg Tb] 37.5 mg PO DAILY 12/04/16 [History Confirmed 11/25/21] Ipratropium/Albuterol Sulfate [Combivent Inhaler] 1 gm IH QID 03/25/19 [History Confirmed 11/25/21] Rivaroxaban [Xarelto] 20 mg PO HS 06/13/21 [History Confirmed 11/25/21] Aspirin EC 81 mg [Ecotrin 81 mg] 81 mg PO BID 07/01/21 [History Confirmed 11/25/21] Mv-Mn/Iron/Folic Acid/Herb 190 [Vitamin D3 Complete Caplet] 1 tablet PO DAILY 07/01/21 [History Confirmed 11/25/21] Vitamin E 400 Units [Vitamin E 400 UNIT SOFTGEL] 1 cap PO DAILY 07/01/21 [History Confirmed 11/25/21] Furosemide 40 mg [Lasix 40 MG] 40 mg PO DAILY #30 tablet 07/03/21 [Rx Confirmed 11/25/21] Potassium Chloride 20 meq PO DAILY #30 tab.er.prt 07/03/21 [Rx Confirmed 11/25/21] Potassium Chloride [Klor-Con 10] 10 meq PO QHS 11/25/21 [History Confirmed 11/25/21] Propylene Glycol/Peg 400 [Systane 0.3-0.4% Eye Drops] 1 drop OP QID 11/25/21 [History Confirmed 11/25/21] Allergies/Adverse Reactions: Allergies Allergy/AdvReac Type Severity Reaction Status Date / Time gabapentin Allergy Mild Verified 11/25/21 11:37 Penicillins Allergy Mild Verified 11/25/21 11:37 Antihistamines - Alkylamine Allergy Verified 11/25/21 11:37 Antihistamines - Ethanolamine Allergy Verified 11/25/21 11:37 Antihistamines - Allergy Verified 11/25/21 11:37 Ethylenediamine Antihistamines - Piperazine Allergy Verified 11/25/21 11:37 Antihistamines - Piperidine Allergy Verified 11/25/21 11:37 - Past Medical History Past Medical History: Yes Neurological History: Peripheral Neuropathy, TIA ENT History: No Pertinent History Cardiac History: Arrhythmia, Congestive Heart Failure, Coronary Artery Disease, High Cholesterol, Hypertension Respiratory History: CHF, COPD, Sleep Apnea Endocrine Medical History: Diabetes Type II Musculoskelatal History: No Pertinent History GI Medical History: GERD History: No Pertinent History Pyscho-Social History: No Pertinent History Male Reproductive Disorders: No Pertinent History Comment: GERD. SX HX: PACEMAKER 2010, CARDIAC STENTS X 2 1996 AND 2007. USES BIPAP - Past Surgical History Past Surgical History: Yes Neuro Surgical History: No Pertinent History Cardiac History: Cardiac Catheterization, Cardiac Stent, Pacemaker Respiratory Surgery: No Pertinent History GI Surgical History: No Pertinent History Genitourinary Surgical Hx: No Pertinent History Musculskeletal Surgical Hx: Orthopedic Surgery Male Surgical History: No Pertinent History Other Surgical History: toe reattached, lip cancer removed, 6 teeth extracted 12/03/2016 - Social History Smoking Status: Former smoker Exposure to second hand smoke: No Alcohol: None Drug Use: none Significant Family History: heart disease - Physical Exam Vital Signs: Vital Signs - 24 hr Temp Pulse Resp BP Pulse Ox 11/26/21 07:57 98.4 F 88 20 136/76 98 11/26/21 04:00 97.7 F 82 17 136/69 95 11/25/21 23:54 97.3 F 70 18 142/74 93 L 11/25/21 19:53 97.6 F 70 20 133/68 82 L 11/25/21 18:36 97.6 F 70 20 133/68 82 L 11/25/21 18:35 70 18 92 L 11/25/21 17:00 70 18 96/64 94 L 11/25/21 16:16 70 20 92 L 11/25/21 15:00 70 18 117/68 95 11/25/21 14:00 70 22 139/51 93 L 11/25/21 13:18 70 20 135/55 96 11/25/21 12:25 70 20 103/62 97 11/25/21 11:57 88 L 11/25/21 11:27 96.9 F 70 24 123/45 87 L General Appearance: no apparent distress, alert, obese Neurologic Exam: alert, oriented x 3, cooperative Respiratory Exam: crackles/rales Cardiovascular Exam: regular rate/rhythm, normal heart sounds, normal peripheral pulses Gastrointestinal/Abdomen Exam: soft, normal bowel sounds, No tenderness, No mass Extremity Exam: swelling Skin Exam: normal color, warm, dry, No rash Results - Labs Lab/Micro Results: Lab Results-Last 24 Hours 11/25/21 11/25/21 11/25/21 Range/Units 12:05 12:05 12:05 WBC 6.1 (4.0-10.5) K/mm3 RBC 4.75 (4.1-5.6) M/mm3 Hgb 13.8 (12.5-18.0) gm/dl Hct 45.7 (42-50) % MCV 96.2 (78-100) fl MCH 29.1 (26-32) pg MCHC 30.2 L (32-36) g/dl RDW 15.5 H (11.5-14.0) % Plt Count 233 (150-450) K/mm3 MPV 10.7 (7.5-11.0) fl Gran % 59.2 (36.0-66.0) % Eos # (Auto) 0.16 (0-0.5) Absolute Lymphs (auto) 1.03 (1.0-4.6) Absolute Monos (auto) 1.25 (0.0-1.3) Lymphocytes % 16.9 L (24.0-44.0) % Monocytes % 20.5 H (0.0-12.0) % Eosinophils % 2.6 (0.00-5.0) % Basophils % 0.8 (0.0-0.4) % Absolute Granulocytes 3.62 (1.4-6.9) Basophils # 0.05 (0-0.4) PT 19.8 H (9.4-12.5) SECONDS INR 1.68 (0.8-3.0) D-Dimer 229 (215-500) ng/mL Sodium 137 (137-145) mmol/L Potassium 3.8 (3.5-5.1) mmol/L Chloride 93 L (98-107) mmol/L Carbon Dioxide 35 H (22-30) mmol/L Anion Gap 13.0 (5-15) MEQ/L BUN 32 H (9-20) mg/dL Creatinine 1.48 H (0.66-1.25) mg/dL Estimated GFR 48.9 ML/MIN Glucose 126 H (74-106) mg/dL POC Glucometer (74 to 106) mg/dL Calcium 8.7 (8.4-10.2) mg/dL Magnesium 2.2 (1.6-2.3) mg/dL Total Bilirubin 0.50 (0.2-1.3) mg/dL AST 36 (17-59) U/L ALT 16 (0-50) U/L Alkaline Phosphatase 103 (38-126) U/L Troponin I (0.000-0.034) ng/mL NT-Pro-B Natriuret Pep 2140 H (0-1800) pg/mL Serum Total Protein 6.7 (6.3-8.2) g/dL Albumin 3.6 (3.5-5.0) g/dL Influenza Type A Ag (NEGATIVE) Influenza Type B Ag (NEGATIVE) RSV (PCR) (Negative) SARS-CoV-2 (PCR) (NEGATIVE) Slides for Path Review 11/25/21 11/25/21 11/25/21 Range/Units 12:05 12:05 14:57 WBC (4.0-10.5) K/mm3 RBC (4.1-5.6) M/mm3 Hgb (12.5-18.0) gm/dl Hct (42-50) % MCV (78-100) fl MCH (26-32) pg MCHC (32-36) g/dl RDW (11.5-14.0) % Plt Count (150-450) K/mm3 MPV (7.5-11.0) fl Gran % (36.0-66.0) % Eos # (Auto) (0-0.5) Absolute Lymphs (auto) (1.0-4.6) Absolute Monos (auto) (0.0-1.3) Lymphocytes % (24.0-44.0) % Monocytes % (0.0-12.0) % Eosinophils % (0.00-5.0) % Basophils % (0.0-0.4) % Absolute Granulocytes (1.4-6.9) Basophils # (0-0.4) PT (9.4-12.5) SECONDS INR (0.8-3.0) D-Dimer (215-500) ng/mL Sodium (137-145) mmol/L Potassium (3.5-5.1) mmol/L Chloride (98-107) mmol/L Carbon Dioxide (22-30) mmol/L Anion Gap (5-15) MEQ/L BUN (9-20) mg/dL Creatinine (0.66-1.25) mg/dL Estimated GFR ML/MIN Glucose (74-106) mg/dL POC Glucometer (74 to 106) mg/dL Calcium (8.4-10.2) mg/dL Magnesium (1.6-2.3) mg/dL Total Bilirubin (0.2-1.3) mg/dL AST (17-59) U/L ALT (0-50) U/L Alkaline Phosphatase (38-126) U/L Troponin I 0.052 H* 0.058 H* (0.000-0.034) ng/mL NT-Pro-B Natriuret Pep (0-1800) pg/mL Serum Total Protein (6.3-8.2) g/dL Albumin (3.5-5.0) g/dL Influenza Type A Ag NEGATIVE (NEGATIVE) Influenza Type B Ag NEGATIVE (NEGATIVE) RSV (PCR) (Negative) SARS-CoV-2 (PCR) (NEGATIVE) Slides for Path Review 11/25/21 11/25/21 11/25/21 Range/Units 15:56 16:15 17:58 WBC (4.0-10.5) K/mm3 RBC (4.1-5.6) M/mm3 Hgb (12.5-18.0) gm/dl Hct (42-50) % MCV (78-100) fl MCH (26-32) pg MCHC (32-36) g/dl RDW (11.5-14.0) % Plt Count (150-450) K/mm3 MPV (7.5-11.0) fl Gran % (36.0-66.0) % Eos # (Auto) (0-0.5) Absolute Lymphs (auto) (1.0-4.6) Absolute Monos (auto) (0.0-1.3) Lymphocytes % (24.0-44.0) % Monocytes % (0.0-12.0) % Eosinophils % (0.00-5.0) % Basophils % (0.0-0.4) % Absolute Granulocytes (1.4-6.9) Basophils # (0-0.4) PT (9.4-12.5) SECONDS INR (0.8-3.0) D-Dimer (215-500) ng/mL Sodium (137-145) mmol/L Potassium (3.5-5.1) mmol/L Chloride (98-107) mmol/L Carbon Dioxide (22-30) mmol/L Anion Gap (5-15) MEQ/L BUN (9-20) mg/dL Creatinine (0.66-1.25) mg/dL Estimated GFR ML/MIN Glucose (74-106) mg/dL POC Glucometer 113 H (74 to 106) mg/dL Calcium (8.4-10.2) mg/dL Magnesium (1.6-2.3) mg/dL Total Bilirubin (0.2-1.3) mg/dL AST (17-59) U/L ALT (0-50) U/L Alkaline Phosphatase (38-126) U/L Troponin I 0.049 H* (0.000-0.034) ng/mL NT-Pro-B Natriuret Pep (0-1800) pg/mL Serum Total Protein (6.3-8.2) g/dL Albumin (3.5-5.0) g/dL Influenza Type A Ag NEGATIVE (NEGATIVE) Influenza Type B Ag NEGATIVE (NEGATIVE) RSV (PCR) POSITIVE (Negative) SARS-CoV-2 (PCR) NEGATIVE (NEGATIVE) Slides for Path Review 11/25/21 11/25/21 11/25/21 Range/Units 20:45 22:04 23:45 WBC (4.0-10.5) K/mm3 RBC (4.1-5.6) M/mm3 Hgb (12.5-18.0) gm/dl Hct (42-50) % MCV (78-100) fl MCH (26-32) pg MCHC (32-36) g/dl RDW (11.5-14.0) % Plt Count (150-450) K/mm3 MPV (7.5-11.0) fl Gran % (36.0-66.0) % Eos # (Auto) (0-0.5) Absolute Lymphs (auto) (1.0-4.6) Absolute Monos (auto) (0.0-1.3) Lymphocytes % (24.0-44.0) % Monocytes % (0.0-12.0) % Eosinophils % (0.00-5.0) % Basophils % (0.0-0.4) % Absolute Granulocytes (1.4-6.9) Basophils # (0-0.4) PT (9.4-12.5) SECONDS INR (0.8-3.0) D-Dimer (215-500) ng/mL Sodium (137-145) mmol/L Potassium (3.5-5.1) mmol/L Chloride (98-107) mmol/L Carbon Dioxide (22-30) mmol/L Anion Gap (5-15) MEQ/L BUN (9-20) mg/dL Creatinine (0.66-1.25) mg/dL Estimated GFR ML/MIN Glucose (74-106) mg/dL POC Glucometer 313 H (74 to 106) mg/dL Calcium (8.4-10.2) mg/dL Magnesium (1.6-2.3) mg/dL Total Bilirubin (0.2-1.3) mg/dL AST (17-59) U/L ALT (0-50) U/L Alkaline Phosphatase (38-126) U/L Troponin I 0.045 H* 0.045 H* (0.000-0.034) ng/mL NT-Pro-B Natriuret Pep (0-1800) pg/mL Serum Total Protein (6.3-8.2) g/dL Albumin (3.5-5.0) g/dL Influenza Type A Ag (NEGATIVE) Influenza Type B Ag (NEGATIVE) RSV (PCR) (Negative) SARS-CoV-2 (PCR) (NEGATIVE) Slides for Path Review 11/26/21 11/26/21 11/26/21 Range/Units 05:50 05:50 07:26 WBC 5.9 (4.0-10.5) K/mm3 RBC 4.79 (4.1-5.6) M/mm3 Hgb 13.7 (12.5-18.0) gm/dl Hct 45.0 (42-50) % MCV 93.9 (78-100) fl MCH 28.6 (26-32) pg MCHC 30.4 L (32-36) g/dl RDW 15.5 H (11.5-14.0) % Plt Count 265 (150-450) K/mm3 MPV 10.6 (7.5-11.0) fl Gran % 83.7 H (36.0-66.0) % Eos # (Auto) 0 (0-0.5) Absolute Lymphs (auto) 0.57 L (1.0-4.6) Absolute Monos (auto) 0.39 (0.0-1.3) Lymphocytes % 9.7 L (24.0-44.0) % Monocytes % 6.6 (0.0-12.0) % Eosinophils % 0.0 (0.00-5.0) % Basophils % 0.0 (0.0-0.4) % Absolute Granulocytes 4.93 (1.4-6.9) Basophils # 0 (0-0.4) PT (9.4-12.5) SECONDS INR (0.8-3.0) D-Dimer (215-500) ng/mL Sodium 135 L (137-145) mmol/L Potassium 3.7 (3.5-5.1) mmol/L Chloride 91 L (98-107) mmol/L Carbon Dioxide 33 H (22-30) mmol/L Anion Gap 14.7 (5-15) MEQ/L BUN 44 H (9-20) mg/dL Creatinine 1.52 H (0.66-1.25) mg/dL Estimated GFR 47.4 ML/MIN Glucose 282 H (74-106) mg/dL POC Glucometer 275 H (74 to 106) mg/dL Calcium 8.5 (8.4-10.2) mg/dL Magnesium (1.6-2.3) mg/dL Total Bilirubin 0.60 (0.2-1.3) mg/dL AST 37 (17-59) U/L ALT 17 (0-50) U/L Alkaline Phosphatase 104 (38-126) U/L Troponin I (0.000-0.034) ng/mL NT-Pro-B Natriuret Pep 2750 H (0-1800) pg/mL Serum Total Protein 7.5 (6.3-8.2) g/dL Albumin 4.0 (3.5-5.0) g/dL Influenza Type A Ag (NEGATIVE) Influenza Type B Ag (NEGATIVE) RSV (PCR) (Negative) SARS-CoV-2 (PCR) (NEGATIVE) Slides for Path Review YES Microbiology 11/25/21 12:05 Blood Culture - Preliminary Blood NO GROWTH TO DATE 11/25/21 11:55 Blood Culture - Preliminary Blood NO GROWTH TO DATE Accuchecks Date 11/25/21 Time 22:15 - Radiology Impressions Radiology Exams & Impressions: Radiology Procedures Category Date Time Status CHEST 1 VIEW (PORTABLE) Stat Exams 11/25/21 11:38 Completed - Other Procedures and Tests Respiratory Therapy 11/25/21 18:08 Oxygen Nasal Cannula 2 lpm 11/25/21 18:48 Respiratory Therapy Assessment DAILY 11/25/21 23:36 BiPap/CPAP ROUTINE Assessment/Plan (1) Congestive heart failure Current Visit: Yes Status: Acute Assessment & Plan: diurese, currently stable on room air. continue lasix 40mg IV q12 hrs Code(s): I50.9 - HEART FAILURE, UNSPECIFIED (2) COPD (chronic obstructive pulmonary disease) Current Visit: No Status: Acute Assessment & Plan: stable, no wheezing. d/c steroids (3) A-fib Current Visit: No Status: Chronic Code(s): I48.91 - UNSPECIFIED ATRIAL FIBRILLATION (4) DM type 2 (diabetes mellitus, type 2) Current Visit: No Status: Chronic (5) Bronchitis Current Visit: Yes Status: Acute Assessment & Plan: rsv+ treat symptoms at this time. Code(s): J40 - BRONCHITIS, NOT SPECIFIED ACUTE OR CHRONIC
[2021-11-26] MEDS: Klor Con 10 MEQ PO SCH ×2 (11:29→21:37)
[2021-11-26] MEDS: THERAGRAN MULTIVITAMIN PO SCH (11:29)
[2021-11-26] MEDS: Maxzide-25MG Tablet PO SCH (11:29)
[2021-11-26] MEDS: Betapace 80 MG PO SCH ×2 (11:29→21:36)
[2021-11-26] MEDS: ECOTRIN 81 MG PO SCH ×2 (11:29→21:37)
[2021-11-26] MEDS: Protonix 40MG Tablet PO SCH (11:29)
[2021-11-26] MEDS: Vitamin E 400 UNIT SOFTGEL PO SCH (11:31)
[2021-11-26] MEDS: Lasix 40 MG/4 ML IV SCH ×2 (11:32→22:20)
[2021-11-26] MEDS: LOPID 600 MG PO SCH ×2 (11:32→21:38)
[2021-11-26] MEDS: HUMALOG SQ SCH ×2 (11:46→16:33)
[2021-11-26] MEDS: Artificial Tears 15 ML OP SCH ×3 (11:48→21:34)
[2021-11-26] MEDS ORDERED: NON-FORMULARY ITEM (Propylene Glycol/Peg 400 [Systane 0.3-0.4% Eye Drops] 15 ML Drops) OP SCH (13:00)
[2021-11-26] MEDS: HYDROCODONE-CHLORPHEN ER SUSP PO PRN (14:18)
[2021-11-26] MEDS ORDERED: NON-FORMULARY ITEM (Insulin Aspart** [Novolog Insulin**] 1 UNIT Unit) SQ SCH (15:00)
[2021-11-26] MEDS: solu-MEDROL IV SCH (16:47)
[2021-11-26] MEDS: Lantus Insulin SQ SCH (21:35)
[2021-11-26] MEDS: ZOCOR 20MG PO SCH (21:37)
[2021-11-26] MEDS: XARELTO 10 MG TABLET PO SCH (21:37)
[2021-11-26] MEDS ORDERED: NON-FORMULARY ITEM (Atorvastatin Calcium [Atorvastatin Calcium] 80 MG Tablet) PO SCH (22:00)
[2021-11-26] MEDS ORDERED: PROVENTIL 2.5 MG/3 ML NEB IH SCH (22:00)
[2021-11-26] MEDS ORDERED: NON-FORMULARY ITEM (Rivaroxaban [Xarelto] 20 MG Tablet) PO SCH (22:00)
[2021-11-26] MEDS ORDERED: SOTALOL HCL 120 MG PO SCH (22:00)
[2021-11-27] MEDS: HYDROCODONE-CHLORPHEN ER SUSP PO PRN (02:18)
[2021-11-27 06:28] LABS: Absolute Neutrophil Ct (ANC) 8.88 (1.4-6.9); Basophil (Absolute #) 0.05 (0-0.4); Eosinophil % 0.2 % (0.00-5.0); Eosinophil (Absolute #) 0.02 (0-0.5); Hematocrit 50.5 % (42-50); Hemoglobin 15.2 gm/dl (12.5-18.0); Lymphocyte (Absolute #) 1.09 (1.0-4.6); Mean Cell Volume 94.9 fl (78-100); Mean Corpuscular Hemoglobin 28.6 pg (26-32); Mean Corpuscular Hgb Concent. 30.1 g/dl (32-36); Mean Platelet Volume 10.7 fl (7.5-11.0); Monocytes % 17.3 % (0.0-12.0); Neutrophil % 73.1 % (36.0-66.0); Platelet Count 274 K/mm3 (150-450); Red Blood Count 5.32 M/mm3 (4.1-5.6); Red Cell Distribution Width 15.9 % (11.5-14.0); White Blood Count 12.1 K/mm3 (4.0-10.5)
[2021-11-27] MEDS: DUONEB 0.5-3 MG/3 ml Neb IH SCH ×4 (06:44→19:26)
[2021-11-27 06:54] LABS: ANION GAP 16.6 MEQ/L (5-15); Calcium 8.9 mg/dL (8.4-10.2); Creatinine 1 1.78 mg/dL (0.66-1.25); EST GLOMERULAR FILTRATION RATE 39.5 ML/MIN; MAGNESIUM 2.4 mg/dL (1.6-2.3); Potassium 3.5 mmol/L (3.5-5.1)
[2021-11-27 08:21] LABS: Slide Review 1 YES
[2021-11-27] MEDS: HUMALOG SQ SCH ×3 (08:23→16:45)
[2021-11-27] MEDS ORDERED: DULCOLAX 5 MG PO PRN (08:35)
--- NOTE | 2021-11-27 08:35 | PCM.NOTE ---
Date and Time: 11/27/21833 Subjective Assessment: patient is feeling some better, currently requiring oxygen. does not wear oxygen at home Objective Exam General Appearance: no apparent distress, obese Neurologic Exam: alert, oriented x 3 Respiratory Exam: rhonchi Cardiovascular Exam: regular rate/rhythm, normal heart sounds Gastrointestinal/Abdomen Exam: soft, No tenderness, No mass Extremity Exam: normal inspection, normal range of motion OBJECTIVE DATA Vital Signs: Vital Signs - 24 hr Temp Pulse Resp BP Pulse Ox 11/27/21 07:56 97.9 F 93 H 24 120/86 94 L 11/27/21 06:52 70 16 94 L 11/27/21 03:56 97.7 F 70 20 153/73 94 L 11/27/21 03:49 97.7 F 70 20 153/73 94 L 11/26/21 23:46 97.7 F 70 20 141/57 92 L 11/26/21 19:55 98.6 F 70 18 115/56 94 L 11/26/21 18:55 96 11/26/21 18:53 71 24 96 11/26/21 17:26 95 11/26/21 16:30 88 L 11/26/21 16:00 98.4 F 56 L 19 134/76 93 L 11/26/21 15:06 88 20 97 11/26/21 12:00 98.2 F 89 20 149/89 98 11/26/21 11:21 70 18 91 L Pain Assessment - Last Documented Pain Intensity 0 Pain Scale Used 0-10 Pain Scale Intake and Output: Intake & Output 11/24/21 11/25/21 11/26/21 11/27/21 11:59 11:59 11:59 11:59 Intake Total 360 Output Total 400 900 Balance -400 -540 Weight 118.5 kg 119.4 kg 120.1 kg Lab Results: Lab Results-Last 24 Hours 11/26/21 11/26/21 11/26/21 Range/Units 11:37 16:18 21:06 WBC (4.0-10.5) K/mm3 RBC (4.1-5.6) M/mm3 Hgb (12.5-18.0) gm/dl Hct (42-50) % MCV (78-100) fl MCH (26-32) pg MCHC (32-36) g/dl RDW (11.5-14.0) % Plt Count (150-450) K/mm3 MPV (7.5-11.0) fl Gran % (36.0-66.0) % Eos # (Auto) (0-0.5) Absolute Lymphs (auto) (1.0-4.6) Absolute Monos (auto) (0.0-1.3) Lymphocytes % (24.0-44.0) % Monocytes % (0.0-12.0) % Eosinophils % (0.00-5.0) % Basophils % (0.0-0.4) % Absolute Granulocytes (1.4-6.9) Basophils # (0-0.4) Sodium (137-145) mmol/L Potassium (3.5-5.1) mmol/L Chloride (98-107) mmol/L Carbon Dioxide (22-30) mmol/L Anion Gap (5-15) MEQ/L BUN (9-20) mg/dL Creatinine (0.66-1.25) mg/dL Estimated GFR ML/MIN Glucose (74-106) mg/dL POC Glucometer 256 H 202 H 240 H (74 to 106) mg/dL Calcium (8.4-10.2) mg/dL Magnesium (1.6-2.3) mg/dL NT-Pro-B Natriuret Pep (0-1800) pg/mL Slides for Path Review 11/27/21 11/27/21 11/27/21 Range/Units 06:00 06:00 07:13 WBC 12.1 H (4.0-10.5) K/mm3 RBC 5.32 (4.1-5.6) M/mm3 Hgb 15.2 (12.5-18.0) gm/dl Hct 50.5 H (42-50) % MCV 94.9 (78-100) fl MCH 28.6 (26-32) pg MCHC 30.1 L (32-36) g/dl RDW 15.9 H (11.5-14.0) % Plt Count 274 (150-450) K/mm3 MPV 10.7 (7.5-11.0) fl Gran % 73.1 H (36.0-66.0) % Eos # (Auto) 0.02 (0-0.5) Absolute Lymphs (auto) 1.09 (1.0-4.6) Absolute Monos (auto) 2.10 H (0.0-1.3) Lymphocytes % 9.0 L (24.0-44.0) % Monocytes % 17.3 H (0.0-12.0) % Eosinophils % 0.2 (0.00-5.0) % Basophils % 0.4 (0.0-0.4) % Absolute Granulocytes 8.88 H (1.4-6.9) Basophils # 0.05 (0-0.4) Sodium 137 (137-145) mmol/L Potassium 3.5 (3.5-5.1) mmol/L Chloride 89 L (98-107) mmol/L Carbon Dioxide 36 H (22-30) mmol/L Anion Gap 16.6 H (5-15) MEQ/L BUN 56 H (9-20) mg/dL Creatinine 1.78 H (0.66-1.25) mg/dL Estimated GFR 39.5 ML/MIN Glucose 118 H (74-106) mg/dL POC Glucometer 102 (74 to 106) mg/dL Calcium 8.9 (8.4-10.2) mg/dL Magnesium 2.4 H (1.6-2.3) mg/dL NT-Pro-B Natriuret Pep 2410 H (0-1800) pg/mL Slides for Path Review YES Radiology Exams: Radiology Procedures Category Date Time Status CHEST 1 VIEW (PORTABLE) Stat Exams 11/25/21 11:38 Completed Assessment/Plan (1) Congestive heart failure Current Visit: Yes Status: Acute Assessment & Plan: diuresing some, appears close to euvolemic at this time, discussed likely home tomorrow. might need qualified for home oxygen Code(s): I50.9 - HEART FAILURE, UNSPECIFIED (2) COPD (chronic obstructive pulmonary disease) Current Visit: No Status: Acute (3) A-fib Current Visit: No Status: Chronic Code(s): I48.91 - UNSPECIFIED ATRIAL FIBRILLATION (4) DM type 2 (diabetes mellitus, type 2) Current Visit: No Status: Chronic (5) Bronchitis Current Visit: Yes Status: Acute Code(s): J40 - BRONCHITIS, NOT SPECIFIED ACUTE OR CHRONIC
[2021-11-27] MEDS: Artificial Tears 15 ML OP SCH ×4 (09:25→21:25)
[2021-11-27] MEDS: Betapace 80 MG PO SCH ×2 (09:32→21:26)
[2021-11-27] MEDS: ECOTRIN 81 MG PO SCH ×2 (09:33→21:27)
[2021-11-27] MEDS: Klor Con 10 MEQ PO SCH ×2 (09:34→21:27)
[2021-11-27] MEDS: LOPID 600 MG PO SCH ×2 (09:34→21:28)
[2021-11-27] MEDS: Maxzide-25MG Tablet PO SCH (09:35)
[2021-11-27] MEDS: THERAGRAN MULTIVITAMIN PO SCH (09:37)
[2021-11-27] MEDS: Vitamin E 400 UNIT SOFTGEL PO SCH (09:37)
[2021-11-27] MEDS: Protonix 40MG Tablet PO SCH (09:37)
[2021-11-27] MEDS ORDERED: NON-FORMULARY ITEM (Mv-Mn/Iron/Folic Acid/Herb 190 [Vitamin D3 Complete Caplet] 1 EACH Tab PO SCH (10:00)
[2021-11-27] MEDS ORDERED: NON-FORMULARY ITEM (Potassium Chloride [Potassium Chloride] 20 MEQ Tab.Er.Prt) PO SCH (10:00)
[2021-11-27] MEDS: Lasix 40 MG/4 ML IV SCH ×2 (10:54→21:29)
[2021-11-27] MEDS: XARELTO 10 MG TABLET PO SCH (21:28)
[2021-11-27] MEDS: ZOCOR 20MG PO SCH (21:28)
[2021-11-27] MEDS: Lantus Insulin SQ SCH (21:48)
[2021-11-28 05:47] LABS: Absolute Neutrophil Ct (ANC) 6.44 (1.4-6.9); Basophil (Absolute #) 0.03 (0-0.4); Eosinophil % 0.3 % (0.00-5.0); Eosinophil (Absolute #) 0.03 (0-0.5); Hematocrit 46.3 % (42-50); Hemoglobin 14.3 gm/dl (12.5-18.0); Lymphocyte (Absolute #) 1.45 (1.0-4.6); Lymphocytes % 14.5 % (24.0-44.0); Mean Cell Volume 93.3 fl (78-100); Mean Corpuscular Hemoglobin 28.8 pg (26-32); Mean Corpuscular Hgb Concent. 30.9 g/dl (32-36); Mean Platelet Volume 10.3 fl (7.5-11.0); Monocyte (Absolute #) 2.03 (0.0-1.3); Monocytes % 20.3 % (0.0-12.0); Neutrophil % 64.6 % (36.0-66.0); Platelet Count 237 K/mm3 (150-450); Red Blood Count 4.96 M/mm3 (4.1-5.6); Red Cell Distribution Width 15.8 % (11.5-14.0)
[2021-11-28 07:12] LABS: Slide Review 1 YES
[2021-11-28] MEDS: DUONEB 0.5-3 MG/3 ml Neb IH SCH ×2 (07:25→10:40)
[2021-11-28] MEDS: HUMALOG SQ SCH (08:17)
[2021-11-28 08:26] VITALS: BP 148/67
--- NOTE | 2021-11-28 08:44 | PCM.DS ---
Discharge Summary Date of Admission: 11/25/21 18:05 Admitting Physician: MARIELOS SMALL Primary Care Provider: MARIELOS SMALL Allergies Allergies gabapentin Allergy (Mild, Verified 11/25/21 11:37) Penicillins Allergy (Mild, Verified 11/25/21 11:37) Antihistamines - Alkylamine Allergy (Verified 11/25/21 11:37) pt unsure what antihistaine name was Antihistamines - Ethanolamine Allergy (Verified 11/25/21 11:37) pt unsure of name of antihistamine Antihistamines - Ethylenediamine Allergy (Verified 11/25/21 11:37) pt unsure of name of antihistamine Antihistamines - Piperazine Allergy (Verified 11/25/21 11:37) pt unsure of name of antihistamine Antihistamines - Piperidine Allergy (Verified 11/25/21 11:37) pt unsure of name of antihistamine Hospital Summary - Hospital Course Hospital Course: patient admitted with cough and increasing shortness of breath, mild exacerbation of chf and rsv bronchitis noted. he has diuresed and is doing well. still requires oxygen so will qualify for home oxygen at 2L, patient agrees. - Vitals & Intake/Output Vital Signs: Vital Signs Temperature 98.9 F 11/28/21 08:00 Pulse Rate 70 11/28/21 08:30 Respiratory Rate 20 11/28/21 08:30 Blood Pressure 148/67 11/28/21 08:00 O2 Sat by Pulse Oximetry 91 L 11/28/21 08:30 Intake & Output: Intake & Output 11/25/21 11/26/21 11/27/21 11/28/21 11:59 11:59 11:59 11:59 Intake Total 360 340 Output Total 400 900 500 Balance -400 -540 -160 Weight 118.5 kg 119.4 kg 120.1 kg - Lab Result Diagrams: 11/28/21 05:25 11/27/21 06:00 Lab Results-Last 24 Hrs: Lab Results-Last 24 Hours 11/27/21 11/27/21 11/27/21 Range/Units 11:45 16:23 21:38 WBC (4.0-10.5) K/mm3 RBC (4.1-5.6) M/mm3 Hgb (12.5-18.0) gm/dl Hct (42-50) % MCV (78-100) fl MCH (26-32) pg MCHC (32-36) g/dl RDW (11.5-14.0) % Plt Count (150-450) K/mm3 MPV (7.5-11.0) fl Gran % (36.0-66.0) % Eos # (Auto) (0-0.5) Absolute Lymphs (auto) (1.0-4.6) Absolute Monos (auto) (0.0-1.3) Lymphocytes % (24.0-44.0) % Monocytes % (0.0-12.0) % Eosinophils % (0.00-5.0) % Basophils % (0.0-0.4) % Absolute Granulocytes (1.4-6.9) Basophils # (0-0.4) POC Glucometer 109 H 103 150 H (74 to 106) mg/dL Slides for Path Review 11/28/21 11/28/21 Range/Units 05:25 07:34 WBC 10.0 (4.0-10.5) K/mm3 RBC 4.96 (4.1-5.6) M/mm3 Hgb 14.3 (12.5-18.0) gm/dl Hct 46.3 (42-50) % MCV 93.3 (78-100) fl MCH 28.8 (26-32) pg MCHC 30.9 L (32-36) g/dl RDW 15.8 H (11.5-14.0) % Plt Count 237 (150-450) K/mm3 MPV 10.3 (7.5-11.0) fl Gran % 64.6 (36.0-66.0) % Eos # (Auto) 0.03 (0-0.5) Absolute Lymphs (auto) 1.45 (1.0-4.6) Absolute Monos (auto) 2.03 H (0.0-1.3) Lymphocytes % 14.5 L (24.0-44.0) % Monocytes % 20.3 H (0.0-12.0) % Eosinophils % 0.3 (0.00-5.0) % Basophils % 0.3 (0.0-0.4) % Absolute Granulocytes 6.44 (1.4-6.9) Basophils # 0.03 (0-0.4) POC Glucometer 183 H (74 to 106) mg/dL Slides for Path Review YES Micro Results-Entire Visit: Microbiology 11/25/21 12:05 Blood Culture - Preliminary Blood NO GROWTH TO DATE 11/25/21 11:55 Blood Culture - Preliminary Blood NO GROWTH TO DATE Accuchecks Date 11/27/21 Time 21:45 - Procedures and Test Procedures and Tests throughout Hospitalization: Therapy Orders & Screens 11/25/21 16:15 Respiratory Therapy Assessment DAILY Comment: 11/25/21 18:08 EKG REPEAT IN AM Comment: Oxygen Nasal Cannula 2 lpm Comment: Respiratory Therapy Consult ROUTINE Comment: Reason For Exam: 11/25/21 18:48 Respiratory Therapy Assessment DAILY Comment: 11/25/21 18:51 RT Screen per Nursing Assess ONCE Comment: Protocol Order Physician Instructions: Greater than 3 points order RT Admission Screen Reason For Exam: Triggered on Admission Diagnosis: CHF, RSV+ Diagnosis: CHF, RSV+ Pneumonia: No Home O2: No Asthma: No CHF: Yes Home CPAP/BIPAP: Yes Home Nebs/MDI: Yes Total Points: 13 11/25/21 23:36 BiPap/CPAP ROUTINE Comment: Diagnosis: CHF, RSV+ Discharge Exam General Appearance: no apparent distress, obese Neurologic Exam: alert, oriented x 3, cooperative Respiratory Exam: crackles/rales, rhonchi, No respiratory distress, No accessory muscle use Cardiovascular Exam: regular rate/rhythm, normal heart sounds Gastrointestinal/Abdomen Exam: soft, No tenderness, No mass Extremity Exam: normal inspection, normal range of motion Final Diagnosis/Problem List - Final Discharge Diagnosis/Problem (1) Congestive heart failure Current Visit: Yes Status: Acute Assessment & Plan: home on usual meds, qualify for home oxygen and will need to 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 Code(s): I50.9 - HEART FAILURE, UNSPECIFIED (2) COPD (chronic obstructive pulmonary disease) Current Visit: No Status: Acute (3) A-fib Current Visit: No Status: Chronic Code(s): I48.91 - UNSPECIFIED ATRIAL FIBRILLATION (4) DM type 2 (diabetes mellitus, type 2) Current Visit: No Status: Chronic (5) Hypoxemia requiring supplemental oxygen Current Visit: Yes Status: Acute Code(s): R09.02 - HYPOXEMIA; Z99.81 - DEPENDENCE ON SUPPLEMENTAL OXYGEN - Discharge Disposition: Home, Self-Care Condition: Fair Prescriptions: Continue Pantoprazole Sodium [Protonix] 40 mg PO DAILY Insulin Glargine [Lantus Insulin] 36 unit SQ HS Gemfibrozil 600 mg [Lopid 600 mg] 600 mg PO BID Sotalol HCl [Betapace] 120 mg PO BID Insulin Aspart [NovoLOG Insulin] 16 unit SQ TID Albuterol 2.5 mg/3 ml Neb [Proventil 2.5 mg/3 ml Neb] 2.5 mg IH QHS Triamterene/Hydrochlorothiazid [Triamterene-Hctz 37.5-25 mg Tb] 37.5 mg PO DAILY Glipizide 5 mg [Glucotrol 5 MG] 5 mg PO DAILY Atorvastatin Calcium 80 mg PO HS Ipratropium/Albuterol Sulfate [Combivent Inhaler] 1 gm IH QID Rivaroxaban [Xarelto] 20 mg PO HS Aspirin EC 81 mg [Ecotrin 81 mg] 81 mg PO BID Vitamin E 400 Units [Vitamin E 400 UNIT SOFTGEL] 1 cap PO DAILY Mv-Mn/Iron/Folic Acid/Herb 190 [Vitamin D3 Complete Caplet] 1 tablet PO DAILY Furosemide 40 mg [Lasix 40 MG] 40 mg PO DAILY #30 tablet Potassium Chloride 20 meq PO DAILY #30 tab.er.prt Potassium Chloride [Klor-Con 10] 10 meq PO QHS Propylene Glycol/Peg 400 [Systane 0.3-0.4% Eye Drops] 1 drop OP QID Follow up with: MARIELOS SMALL MD [Primary Care Provider] - MARÍA VANESSA [CONSULTING PHYSICIAN] - Call for Appointment
[2021-11-28 09:24] LABS: ANION GAP 13.4 MEQ/L (5-15); Calcium 8.4 mg/dL (8.4-10.2); Creatinine 1 1.68 mg/dL (0.66-1.25); EST GLOMERULAR FILTRATION RATE 42.2 ML/MIN; Potassium 3.1 mmol/L (3.5-5.1)
[2021-11-28] MEDS: THERAGRAN MULTIVITAMIN PO SCH (10:24)
[2021-11-28] MEDS: Klor Con 10 MEQ PO SCH (10:24)
[2021-11-28] MEDS: Protonix 40MG Tablet PO SCH (10:24)
[2021-11-28] MEDS: Betapace 80 MG PO SCH (10:24)
[2021-11-28] MEDS: ECOTRIN 81 MG PO SCH (10:24)
[2021-11-28] MEDS: Maxzide-25MG Tablet PO SCH (10:24)
[2021-11-28] MEDS: Vitamin E 400 UNIT SOFTGEL PO SCH (10:25)
[2021-11-28] MEDS: LOPID 600 MG PO SCH (10:25)
[2021-11-28] MEDS: Artificial Tears 15 ML OP SCH (10:25)
[2021-11-28] MEDS: Lasix 40 MG/4 ML IV SCH (10:28)
[2021-11-28 11:19] VITALS: PULSE 73; O2SAT 93
== END 2021-11-28 12:20 | disposition home or self-care (01) ==
LOC: ED 11:26 → ICU 18:05 → MED SURG 11-27 16:20
PROVIDERS: ADMIT Family Medicine; ATTEND Family Medicine
DX: I11.0 Hypertensive heart disease with heart failure (principal); I50.9 Heart failure, unspecified; J44.9 Chronic obstructive pulmonary disease, unspecified; I48.91 Unspecified atrial fibrillation; E11.9 Type 2 diabetes mellitus without complications; R09.02 Hypoxemia; E78.00 Pure hypercholesterolemia, unspecified; I25.10 Atherosclerotic heart disease of native coronary artery without angina pectoris; J20.5 Acute bronchitis due to respiratory syncytial virus; R77.8 Other specified abnormalities of plasma proteins; R60.9 Edema, unspecified; E66.9 Obesity, unspecified; Z99.81 Dependence on supplemental oxygen; Z79.899 Other long term (current) drug therapy; Z20.828 Contact with and (suspected) exposure to other viral communicable diseases
CPT/HCPCS: 0241U; 36000; 36415; 71045; 80048; 80053; 82947; 83735; 83880; 84484; 85025; 85379; 85610; 87040; 87400; 93005; 93268; 94640; 94760; 94762; 96374; 96375; 99285; 99291; G0378; J1817; J1940; J2930; A9270-GY

== ENCOUNTER 2022-03-27 15:01 | Emergency (ER) | payer MEDICARE ==
--- NOTE | 2022-03-27 15:06 | ERPHSYRPT ---
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 He states he definitely does not want to have to fight off pneumonia again. Therefore, he had contacted EMS service who brought him into the emergency department and asked that he be evaluated with a chest x-ray. He has no chest pain. He is not short of breath. He has no abdominal pain. Timing/Duration: day(s) (A few days prior) Severity: mild Associated Symptoms: other (Mild aspiration today.) Allergies/Adverse Reactions: gabapentin Allergy (Mild, Verified 03/27/22 15:23) Penicillins Allergy (Mild, Verified 03/27/22 15:23) Antihistamines - Alkylamine Allergy (Verified 03/27/22 15:23) pt unsure what antihistaine name was Antihistamines - Ethanolamine Allergy (Verified 03/27/22 15:23) pt unsure of name of antihistamine Antihistamines - Ethylenediamine Allergy (Verified 03/27/22 15:23) pt unsure of name of antihistamine Antihistamines - Piperazine Allergy (Verified 03/27/22 15:23) pt unsure of name of antihistamine Antihistamines - Piperidine Allergy (Verified 03/27/22 15:23) pt unsure of name of antihistamine Home Medications: Albuterol 2.5 mg/3 ml Neb [Proventil 2.5 mg/3 ml Neb] 2.5 mg IH Q6HPRN PRN 07/11/13 [History] Gemfibrozil 600 mg [Lopid 600 mg] 600 mg PEG BID 07/11/13 [History] Insulin Aspart [NovoLOG Insulin] 0 unit SQ TID 07/11/13 [History] Insulin Glargine [Lantus Insulin] 36 unit SQ HS 07/11/13 [History] Pantoprazole Sodium [Protonix] 40 mg PEG DAILY 07/11/13 [History] Sotalol HCl [Betapace] 120 mg PEG BID 07/11/13 [History] Atorvastatin Calcium 80 mg PEG HS 12/04/16 [History] Glipizide 5 mg [Glucotrol 5 MG] 5 mg PEG DAILY 12/04/16 [History] Triamterene/Hydrochlorothiazid [Triamterene-Hctz 37.5-25 mg Tb] 37.5 mg PEG DAILY 12/04/16 [History] Ipratropium/Albuterol Sulfate [Combivent Inhaler] 1 gm IH QID 03/25/19 [History] Rivaroxaban [Xarelto] 20 mg PEG HS 06/13/21 [History] Aspirin EC 81 mg [Ecotrin 81 mg] 81 mg PEG BID 07/01/21 [History] Potassium Chloride [Klor-Con 10] 10 meq PEG QHS 11/25/21 [History] Propylene Glycol/Peg 400 [Systane 0.3-0.4% Eye Drops] 1 drop OP QID 11/25/21 [History] Furosemide 40 mg [Lasix 40 MG] 40 mg PEG DAILY 03/27/22 [History] Potassium Chloride 20 meq PEG DAILY 03/27/22 [History] Hx Tetanus, Diphtheria Vaccination/Date Given: No Hx Influenza Vaccination/Date Given: Yes Hx Pneumococcal Vaccination/Date Given: No Travel Risk - International Travel Have you traveled outside of the country in past 3 weeks: No - Coronavirus Screening Are you exhibiting any of the following symptoms?: No Close contact with a COVID-19 positive Pt in past 14-21 Days: No - Vaccine Status Have you recieved a Covid-19 vaccination: Yes 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[employer] - Vaccination Dates Date of 2cond Vaccination (if applicable): Dec - Review of Systems Constitutional: No Symptoms Eyes: No Symptoms Ears, Nose, & Throat: No Symptoms Respiratory: Cough Cardiac: No Symptoms Abdominal/Gastrointestinal: No Symptoms Genitourinary Symptoms: No Symptoms Musculoskeletal: No Symptoms Skin: No Symptoms Neurological: No Symptoms Psychological: No Symptoms Endocrine: No Symptoms Hematologic/Lymphatic: No Symptoms Immunological/Allergic: No Symptoms All Other Systems: Reviewed and Negative - Past Medical History Pertinent Past Medical History: Yes Neurological History: Peripheral Neuropathy, TIA ENT History: No Pertinent History Cardiac History: Arrhythmia, Congestive Heart Failure, Coronary Artery Disease, High Cholesterol, Hypertension Respiratory History: CHF, COPD, Sleep Apnea Endocrine Medical History: Diabetes Type II Musculoskeletal History: No Pertinent History GI Medical History: GERD History: No Pertinent History Psycho-Social History: No Pertinent History Male Reproductive Disorders: No Pertinent History Other Medical History: GERD. SX HX: PACEMAKER 2010, CARDIAC STENTS X 2 1996 AND 2007. USES BIPAP - Past Surgical History Past Surgical History: Yes Neuro Surgical History: No Pertinent History Cardiac: Cardiac Catheterization, Cardiac Stent, Pacemaker Respiratory: No Pertinent History Gastrointestinal: No Pertinent History Genitourinary: No Pertinent History Musculoskeletal: Orthopedic Surgery Male Surgical History: No Pertinent History Other Surgical History: toe reattached, lip cancer removed, 6 teeth extracted 12/03/2016 - Social History Smoking Status: Former smoker Exposure to second hand smoke: No Drug Use: none Patient Lives Alone: No Significant Family History: heart disease - Nursing Vital Signs Nursing Vital Signs: Initial Vital Signs Temperature 97.5 F 03/27/22 15:03 Pulse Rate 60 03/27/22 15:03 Respiratory Rate 13 03/27/22 15:03 Blood Pressure 91/59 03/27/22 15:03 O2 Sat by Pulse Oximetry 94 L 03/27/22 15:03 Pain Scale Pain Intensity 0 - Physical Exam General Appearance: no apparent distress, alert, obese Eye Exam: PERRL/EOMI, eyes nml inspection Ears, Nose, Throat Exam: normal ENT inspection, moist mucous membranes, other (Tracheostomy site is intact without evidence of infection or drainage present) Neck Exam: normal inspection, non-tender, supple, full range of motion Respiratory Exam: normal breath sounds, lungs clear, airway intact, No chest tenderness, No respiratory distress Cardiovascular Exam: regular rate/rhythm, normal heart sounds, normal peripheral pulses Gastrointestinal/Abdomen Exam: soft, normal bowel sounds, No tenderness Rectal Exam: not done Back Exam: normal inspection, normal range of motion, No CVA tenderness, No vertebral tenderness Extremity Exam: normal inspection, normal range of motion, pelvis stable Neurologic Exam: alert, oriented x 3, 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, 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, normal mood/affect, nml cerebellar function, nml station & gait, sensation nml Skin Exam: normal color, warm, dry Lymphatic Exam: No adenopathy SpO2 Interpretation: normal O2 Delivery: Room Air - Course Nursing assessment & vital signs reviewed: Yes Ordered Tests: Active Orders 24 hr Category Date Time Status CHEST 1 VIEW (PORTABLE) Stat Exams 03/27/22 15:10 Taken - Progress Progress: unchanged Counseled pt/family regarding: diagnosis, need for follow-up, rad results - Departure Departure Disposition: Home Clinical Impression: Aspiration pneumonia due to food (regurgitated) Condition: Stable Critical Care Time: No Referrals: MARIELOS SMALL MD [Primary Care Provider] - Follow up/PCP as directed Additional Instructions: take medications per feeding tube. Prescriptions: Clindamycin Palmitate HCl [Clindamycin Pediatric] 300 mg PEG QID #560 ml
[2022-03-27] MEDS ORDERED: Cleocin Phosphate IV 600 MG/4 ML IM ONE (15:49)
[2022-03-27] MEDS ORDERED: Cleocin Phosphate IV 600 MG/4 ML ONE (16:04)
[2022-03-27 16:13] VITALS: BP 106/57; PULSE 62; O2SAT 94
--- NOTE | 2022-03-27 16:21 | XRAY ---
Indication: Coughing and choking on food. Comparison: November 25, 2021. Portable chest demonstrates new mild left base infiltrate/atelectasis/effusion silhouetting hemidiaphragm and new tracheostomy cannula. Remaining heart and right lung unremarkable again with left pacemaker. Bony thorax intact again with osteopenia and degenerative changes.
== END 2022-03-27 16:36 | disposition home or self-care (01) ==
LOC: ED 15:01
DX: J69.0 Pneumonitis due to inhalation of food and vomit (principal); J95.09 Other tracheostomy complication; R05.9 Cough, unspecified; E78.5 Hyperlipidemia, unspecified; I11.0 Hypertensive heart disease with heart failure; I50.9 Heart failure, unspecified; J44.9 Chronic obstructive pulmonary disease, unspecified; E11.42 Type 2 diabetes mellitus with diabetic polyneuropathy; Z79.4 Long term (current) use of insulin; Z79.01 Long term (current) use of anticoagulants; Z79.899 Other long term (current) drug therapy
CPT/HCPCS: 71045; 96372; 99284

== ENCOUNTER 2022-04-22 11:05 | Emergency (ER) | payer MEDICARE ==
--- NOTE | 2022-04-22 11:12 | ERPHSYRPT ---
- History of Present Illness Time Seen by Provider: 04/22/22 11:05 Source: patient Exam Limitations: no limitations Physician History: Patient is a 81-year-old male presents to the emergency department via EMS for evaluation of increased mucus production coming from his trach. Patient has had his trach for approximately 6 years. Patient also has a PEG tube. Patient states the trach was inserted 6 years ago at which time he was intubated for CHF exacerbation. Patient's normally cares for his trach but states that there was an excessive amount of mucus this morning and wanted him evaluated. Patient otherwise feels well. No chest pain. No shortness of breath. No nausea or vomiting or diaphoresis. Symptoms are mild in intensity. No specific worsening or improving factors. Patient voices no other complaints or concerns at this time. Timing/Duration: today Severity: mild Modifying Factors: Improves With: nothing Associated Symptoms: denies symptoms Allergies/Adverse Reactions: gabapentin Allergy (Mild, Verified 03/27/22 15:23) Penicillins Allergy (Mild, Verified 03/27/22 15:23) Antihistamines - Alkylamine Allergy (Verified 03/27/22 15:23) pt unsure what antihistaine name was Antihistamines - Ethanolamine Allergy (Verified 03/27/22 15:23) pt unsure of name of antihistamine Antihistamines - Ethylenediamine Allergy (Verified 03/27/22 15:23) pt unsure of name of antihistamine Antihistamines - Piperazine Allergy (Verified 03/27/22 15:23) pt unsure of name of antihistamine Antihistamines - Piperidine Allergy (Verified 03/27/22 15:23) pt unsure of name of antihistamine Home Medications: Albuterol 2.5 mg/3 ml Neb [Proventil 2.5 mg/3 ml Neb] 2.5 mg IH Q6HPRN PRN 07/11/13 [History] Gemfibrozil [Lopid] 600 mg PEG BID 07/11/13 [History] Insulin Aspart [NovoLOG Insulin] 0 unit SQ TID 07/11/13 [History] Insulin Glargine [Lantus Insulin] 36 unit SQ HS 07/11/13 [History] Pantoprazole Sodium [Protonix] 40 mg PEG DAILY 07/11/13 [History] Sotalol HCl [Betapace] 120 mg PEG BID 07/11/13 [History] Atorvastatin Calcium 80 mg PEG HS 12/04/16 [History] Glipizide 5 mg [Glucotrol 5 MG] 5 mg PEG DAILY 12/04/16 [History] Triamterene/Hydrochlorothiazid [Triamterene-Hctz 37.5-25 mg Tb] 37.5 mg PEG DAILY 12/04/16 [History] Ipratropium/Albuterol Sulfate [Combivent Inhaler] 1 gm IH QID 03/25/19 [History] Rivaroxaban [Xarelto] 20 mg PEG HS 06/13/21 [History] Aspirin EC 81 mg [Ecotrin 81 mg] 81 mg PEG BID 07/01/21 [History] Potassium Chloride [Klor-Con 10] 10 meq PEG QHS 11/25/21 [History] Propylene Glycol/Peg 400 [Systane 0.3-0.4% Eye Drops] 1 drop OP QID 11/25/21 [History] Furosemide 40 mg [Lasix 40 MG] 40 mg PEG DAILY 03/27/22 [History] Potassium Chloride 20 meq PEG DAILY 03/27/22 [History] Hx Tetanus, Diphtheria Vaccination/Date Given: No Hx Influenza Vaccination/Date Given: Yes Hx Pneumococcal Vaccination/Date Given: No Travel Risk - Vaccine Status Have you recieved a Covid-19 vaccination: Yes 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[employer] - Vaccination Dates Date of 2cond Vaccination (if applicable): Dec - Review of Systems Constitutional: No Symptoms, No Fever, No Chills Eyes: No Symptoms Ears, Nose, & Throat: No Symptoms Respiratory: No Symptoms, No Cough, No Dyspnea Cardiac: No Symptoms, No Chest Pain, No Edema, No Syncope Abdominal/Gastrointestinal: No Symptoms, No Abdominal Pain, No Nausea, No Vomiting, No Diarrhea Genitourinary Symptoms: No Symptoms, No Dysuria Musculoskeletal: No Symptoms, No Back Pain, No Neck Pain Skin: No Symptoms, No Rash Neurological: No Symptoms, No Dizziness, No Focal Weakness, No Sensory Changes Psychological: No Symptoms Endocrine: No Symptoms Hematologic/Lymphatic: No Symptoms Immunological/Allergic: No Symptoms All Other Systems: Reviewed and Negative - Past Medical History Pertinent Past Medical History: Yes Neurological History: Peripheral Neuropathy, TIA ENT History: No Pertinent History Cardiac History: Arrhythmia, Congestive Heart Failure, Coronary Artery Disease, High Cholesterol, Hypertension Respiratory History: CHF, COPD, Sleep Apnea Endocrine Medical History: Diabetes Type II Musculoskeletal History: No Pertinent History GI Medical History: GERD History: No Pertinent History Psycho-Social History: No Pertinent History Male Reproductive Disorders: No Pertinent History Other Medical History: GERD. SX HX: PACEMAKER 2010, CARDIAC STENTS X 2 1996 AND 2007. USES BIPAP - Past Surgical History Past Surgical History: Yes Neuro Surgical History: No Pertinent History Cardiac: Cardiac Catheterization, Cardiac Stent, Pacemaker Respiratory: No Pertinent History Gastrointestinal: No Pertinent History Genitourinary: No Pertinent History Musculoskeletal: Orthopedic Surgery Male Surgical History: No Pertinent History Other Surgical History: toe reattached, lip cancer removed, 6 teeth extracted 12/03/2016 - Social History Smoking Status: Former smoker Exposure to second hand smoke: No Drug Use: none Patient Lives Alone: No Significant Family History: heart disease - Nursing Vital Signs Nursing Vital Signs: Initial Vital Signs Temperature 97.7 F 04/22/22 11:06 Pulse Rate 61 04/22/22 11:06 Respiratory Rate 24 04/22/22 11:06 Blood Pressure 125/60 04/22/22 11:06 O2 Sat by Pulse Oximetry 94 L 04/22/22 11:06 Pain Scale Pain Intensity 0 - Physical Exam General Appearance: no apparent distress, alert Eye Exam: PERRL/EOMI, eyes nml inspection Ears, Nose, Throat Exam: normal ENT inspection, TMs normal, pharynx normal, moist mucous membranes Neck Exam: normal inspection, non-tender, supple, full range of motion Respiratory Exam: normal breath sounds, lungs clear, airway intact, No respiratory distress Cardiovascular Exam: regular rate/rhythm, normal heart sounds, normal peripheral pulses Gastrointestinal/Abdomen Exam: soft, normal bowel sounds, No tenderness, No mass Back Exam: normal inspection, normal range of motion, No CVA tenderness, No vertebral tenderness Extremity Exam: normal inspection, normal range of motion, pelvis stable Neurologic Exam: alert, oriented x 3, cooperative, normal mood/affect, nml cerebellar function, nml station & gait, sensation nml, No motor deficits Skin Exam: normal color, warm, dry, No rash Lymphatic Exam: No adenopathy SpO2 Interpretation: normal SpO2: 98 O2 Delivery: Room Air - Course Nursing assessment & vital signs reviewed: Yes - Radiology Exams Chest X-ray Interpretation: Teleradiologist Report (Left base infiltrate atelectasis or effusion somewhat worse. Mitral valve calcification. Left pacemaker and tracheostomy cannula observed) Ordered Tests: Active Orders 24 hr Category Date Time Status CHEST 1 VIEW (PORTABLE) Stat Exams 04/22/22 11:08 Completed - Progress Progress: improved Progress Note: Patient reassessed. He feels much better. Patient states he is ready for discharge. Plan of care discussed with respiratory therapy who agrees that patient is ready for discharge. Chest x-ray reveals possible infiltrate. We will treat patient with azithromycin. Patient agrees to follow-up with primary care doctor within 48 hours for evaluation. Portions of this note were created with voice recognition technology. There may be grammatical, spelling, punctuation or sound alike errors 04/22/22 12:28 Counseled pt/family regarding: diagnosis, need for follow-up, rad results - Departure Departure Disposition: Home Clinical Impression: Tracheostomy care, Possible lung infiltrate Condition: Stable Critical Care Time: No Referrals: MARIELOS SMALL MD [Primary Care Provider] - Follow up/PCP as directed Instructions: How to Care for a Tracheostomy Additional Instructions: Discharge/Care Plan LUKE EASON was seen on 04/22/22 in the Emergency Room. The patient was counseled regarding Diagnosis,Lab results, Imaging studies, need for follow up and when to return to the Emergency Room. Prescriptions given: Discharge Note I have spoken with the patient and/or caregivers. I have explained the patient's condition, diagnosis and treatment plan based on the information available to me at this time. I have answered the patient's and/or caregiver's questions and addressed any concerns. The patient and/or caregivers have as good understanding of the patient's diagnosis, condition and treatment plan as can be expected at this point. The vital signs have been stable. The patient's condition is stable and appropriate for discharge from the emergency department. The patient will pursue further outpatient evaluation with the primary care physician or other designated or consulting physician as outlined in the discharge instructions. The patient and/or caregivers are agreeable to this plan of care and follow-up instructions have been explained in detail. The patient and/or caregivers have received these instruction. The patient/and or caregivers are aware that any significant change in condition or worsening of symptoms should prompt an immediate return to this or the closest emergency department or call 911. Prescriptions: Doxycycline Hyclate 100 mg [Vibramycin 100 MG] 100 mg PO BID 7 Days #14 tab
--- NOTE | 2022-04-22 12:02 | XRAY ---
Indication: Pneumonia. Comparison: March 27, 2022. Portable chest demonstrates minimally worsening left base infiltrate/atelectasis/effusion. Remaining heart and lungs unremarkable again with incidental mitral valve calcifications, left pacemaker, and tracheostomy cannula.
[2022-04-22 12:10] VITALS: BP 124/52; PULSE 60
[2022-04-22 12:19] VITALS: O2SAT 98
== END 2022-04-22 12:41 | disposition home or self-care (01) ==
LOC: ED 11:05
DX: Z43.0 Encounter for attention to tracheostomy (principal); R91.8 Other nonspecific abnormal finding of lung field; E78.5 Hyperlipidemia, unspecified; I11.0 Hypertensive heart disease with heart failure; I50.9 Heart failure, unspecified; J44.9 Chronic obstructive pulmonary disease, unspecified; E11.42 Type 2 diabetes mellitus with diabetic polyneuropathy; Z79.01 Long term (current) use of anticoagulants; Z79.4 Long term (current) use of insulin; Z79.899 Other long term (current) drug therapy
CPT/HCPCS: 71045; 99283

== ENCOUNTER 2022-04-23 11:05 | Emergency (ER) | payer MEDICARE ==
[2022-04-23 11:11] VITALS: BP 127/60; PULSE 62; O2SAT 97
--- NOTE | 2022-04-23 11:43 | ERPHSYRPT ---
- History of Present Illness Time Seen by Provider: 04/23/22 11:10 Source: patient, family, EMS Exam Limitations: no limitations Patient Subjective Stated Complaint: PT states "My feeding tube came out at 1030 this morning." Triage Nursing Assessment: Pt presented alert and oriented X 3, skin pwd Pt able to speak in clear full sentences pt in no apparent respiratory distress. Pt 18 telugu feeding tube out, Dr. Larose put in a 20 telugu feeding tube. Physician History: Patient is a 81-year-old male who presents with a feeding tube that has dislodged. Apparently he was at and was intubated at some point and managed to remove his ET tube while the cuff was inflated causing damage and has had a feeding tube since that time. He has had the feeding tube and a tracheostomy for several months. He expects that he will have to go back to to get his swallowing test done. Timing/Duration: today Modifying Factors: Improves With: nothing Allergies/Adverse Reactions: gabapentin Allergy (Mild, Verified 03/27/22 15:23) Penicillins Allergy (Mild, Verified 03/27/22 15:23) Antihistamines - Alkylamine Allergy (Verified 03/27/22 15:23) pt unsure what antihistaine name was Antihistamines - Ethanolamine Allergy (Verified 03/27/22 15:23) pt unsure of name of antihistamine Antihistamines - Ethylenediamine Allergy (Verified 03/27/22 15:23) pt unsure of name of antihistamine Antihistamines - Piperazine Allergy (Verified 03/27/22 15:23) pt unsure of name of antihistamine Antihistamines - Piperidine Allergy (Verified 03/27/22 15:23) pt unsure of name of antihistamine Home Medications: Albuterol 2.5 mg/3 ml Neb [Proventil 2.5 mg/3 ml Neb] 2.5 mg IH Q6HPRN PRN 07/11/13 [History] Gemfibrozil [Lopid] 600 mg PEG BID 07/11/13 [History] Insulin Aspart [NovoLOG Insulin] 0 unit SQ TID 07/11/13 [History] Insulin Glargine [Lantus Insulin] 36 unit SQ HS 07/11/13 [History] Pantoprazole Sodium [Protonix] 40 mg PEG DAILY 07/11/13 [History] Sotalol HCl [Betapace] 120 mg PEG BID 07/11/13 [History] Atorvastatin Calcium 80 mg PEG HS 12/04/16 [History] Glipizide 5 mg [Glucotrol 5 MG] 5 mg PEG DAILY 12/04/16 [History] Triamterene/Hydrochlorothiazid [Triamterene-Hctz 37.5-25 mg Tb] 37.5 mg PEG DAILY 12/04/16 [History] Ipratropium/Albuterol Sulfate [Combivent Inhaler] 1 gm IH QID 03/25/19 [History] Rivaroxaban [Xarelto] 20 mg PEG HS 06/13/21 [History] Aspirin EC 81 mg [Ecotrin 81 mg] 81 mg PEG BID 07/01/21 [History] Potassium Chloride [Klor-Con 10] 10 meq PEG QHS 11/25/21 [History] Propylene Glycol/Peg 400 [Systane 0.3-0.4% Eye Drops] 1 drop OP QID 11/25/21 [History] Furosemide 40 mg [Lasix 40 MG] 40 mg PEG DAILY 03/27/22 [History] Potassium Chloride 20 meq PEG DAILY 03/27/22 [History] Hx Tetanus, Diphtheria Vaccination/Date Given: No Hx Influenza Vaccination/Date Given: Yes Hx Pneumococcal Vaccination/Date Given: No Immunizations Up to Date: Yes Travel Risk - International Travel Have you traveled outside of the country in past 3 weeks: No - Coronavirus Screening Are you exhibiting any of the following symptoms?: No Close contact with a COVID-19 positive Pt in past 14-21 Days: No - Vaccine Status Have you recieved a Covid-19 vaccination: Yes 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[employer] - Vaccination Dates Date of 2cond Vaccination (if applicable): Dec - Review of Systems Constitutional: No Fever, No Chills Eyes: No Symptoms Ears, Nose, & Throat: No Symptoms Respiratory: No Cough, No Dyspnea Cardiac: No Chest Pain, No Edema, No Syncope Abdominal/Gastrointestinal: No Abdominal Pain, No Nausea, No Vomiting, No Diarrhea Genitourinary Symptoms: No Dysuria Musculoskeletal: No Back Pain, No Neck Pain Skin: No Rash Neurological: No Dizziness, No Focal Weakness, No Sensory Changes Psychological: No Symptoms Endocrine: No Symptoms All Other Systems: Reviewed and Negative - Past Medical History Pertinent Past Medical History: Yes Neurological History: Peripheral Neuropathy, TIA ENT History: No Pertinent History Cardiac History: Arrhythmia, Congestive Heart Failure, Coronary Artery Disease, High Cholesterol, Hypertension Respiratory History: CHF, COPD, Sleep Apnea Endocrine Medical History: Diabetes Type II Musculoskeletal History: No Pertinent History GI Medical History: GERD History: No Pertinent History Psycho-Social History: No Pertinent History Male Reproductive Disorders: No Pertinent History Other Medical History: GERD. SX HX: PACEMAKER 2010, CARDIAC STENTS X 2 1996 AND 2007. USES BIPAP - Past Surgical History Past Surgical History: Yes Neuro Surgical History: No Pertinent History Cardiac: Cardiac Catheterization, Cardiac Stent, Pacemaker Respiratory: No Pertinent History Gastrointestinal: No Pertinent History Genitourinary: No Pertinent History Musculoskeletal: Orthopedic Surgery Male Surgical History: No Pertinent History Other Surgical History: toe reattached, lip cancer removed, 6 teeth extracted 12/03/2016 - Social History Smoking Status: Former smoker Exposure to second hand smoke: No Drug Use: none Patient Lives Alone: No Significant Family History: heart disease - Nursing Vital Signs Nursing Vital Signs: Initial Vital Signs Temperature 97.4 F 04/23/22 11:06 Pulse Rate 62 04/23/22 11:06 Respiratory Rate 20 04/23/22 11:06 Blood Pressure 127/60 04/23/22 11:06 O2 Sat by Pulse Oximetry 97 04/23/22 11:06 Pain Scale Pain Intensity 0 - Physical Exam General Appearance: no apparent distress, alert Eye Exam: PERRL/EOMI, eyes nml inspection Ears, Nose, Throat Exam: normal ENT inspection, TMs normal, pharynx normal, moist mucous membranes Neck Exam: normal inspection, non-tender, supple, full range of motion, other (Tracheostomy is noted) Respiratory Exam: normal breath sounds, lungs clear, No respiratory distress Cardiovascular Exam: regular rate/rhythm, normal heart sounds, normal peripheral pulses Gastrointestinal/Abdomen Exam: soft, normal bowel sounds, other (Feeding tube is dislodged replaced with a 20 Armenian balloon inflated to 20 mL without difficulty), No tenderness, No mass Back Exam: normal inspection, normal range of motion, No CVA tenderness, No vertebral tenderness Extremity Exam: normal inspection, normal range of motion, pelvis stable Neurologic Exam: alert, oriented x 3, cooperative, normal mood/affect, nml cerebellar function, nml station & gait, sensation nml, No motor deficits Skin Exam: normal color, warm, dry, No rash Lymphatic Exam: No adenopathy SpO2: 97 - Course Nursing assessment & vital signs reviewed: Yes - Progress Progress: improved Progress Note: 04/23/22 11:41 Feeding tube replaced without difficulty - Departure Departure Disposition: Home Clinical Impression: Encounter for feeding tube placement Condition: Stable Critical Care Time: No Referrals: MARIELOS SMALL MD [Primary Care Provider] - Follow up/PCP as directed Instructions: Enteral Feeding, Gastrostomy, Permanent and Temporary (DC)
== END 2022-04-23 12:04 | disposition home or self-care (01) ==
LOC: ED 11:05
DX: Z46.59 Encounter for fitting and adjustment of other gastrointestinal appliance and device (principal); Z43.0 Encounter for attention to tracheostomy; E78.5 Hyperlipidemia, unspecified; I11.0 Hypertensive heart disease with heart failure; I50.9 Heart failure, unspecified; J44.9 Chronic obstructive pulmonary disease, unspecified; E11.42 Type 2 diabetes mellitus with diabetic polyneuropathy; Z79.01 Long term (current) use of anticoagulants; Z79.4 Long term (current) use of insulin; Z79.899 Other long term (current) drug therapy
CPT/HCPCS: 99283

== ENCOUNTER 2022-04-27 22:42 | Emergency (ER) | payer MEDICARE, OTHER ==
[2022-04-27] MEDS ORDERED: Sodium Chloride 3 ML UD NEBULES IH ONE (23:01)
--- NOTE | 2022-04-27 23:06 | ERPHSYRPT ---
- History of Present Illness Time Seen by Provider: 04/27/22 23:05 Source: patient, EMS Exam Limitations: no limitations Physician History: pt had mucous plug in trach and did eventually get it out, but wants recheck - he has no symptoms now . will do CXR and have resp suction trach and recheck. Timing/Duration: today Severity: moderate Associated Symptoms: denies symptoms Allergies/Adverse Reactions: gabapentin Allergy (Mild, Verified 04/27/22 23:13) Penicillins Allergy (Mild, Verified 04/27/22 23:13) Antihistamines - Alkylamine Allergy (Verified 04/27/22 23:13) pt unsure what antihistaine name was Antihistamines - Ethanolamine Allergy (Verified 04/27/22 23:13) pt unsure of name of antihistamine Antihistamines - Ethylenediamine Allergy (Verified 04/27/22 23:13) pt unsure of name of antihistamine Antihistamines - Piperazine Allergy (Verified 04/27/22 23:13) pt unsure of name of antihistamine Antihistamines - Piperidine Allergy (Verified 04/27/22 23:13) pt unsure of name of antihistamine Home Medications: Albuterol 2.5 mg/3 ml Neb [Proventil 2.5 mg/3 ml Neb] 2.5 mg IH Q6HPRN PRN 07/11/13 [History] Gemfibrozil [Lopid] 600 mg PEG BID 07/11/13 [History] Insulin Aspart [NovoLOG Insulin] 0 unit SQ TID 07/11/13 [History] Insulin Glargine [Lantus Insulin] 36 unit SQ HS 07/11/13 [History] Pantoprazole Sodium [Protonix] 40 mg PEG DAILY 07/11/13 [History] Sotalol HCl [Betapace] 120 mg PEG BID 07/11/13 [History] Atorvastatin Calcium 80 mg PEG HS 12/04/16 [History] Glipizide 5 mg [Glucotrol 5 MG] 5 mg PEG DAILY 12/04/16 [History] Triamterene/Hydrochlorothiazid [Triamterene-Hctz 37.5-25 mg Tb] 37.5 mg PEG DAILY 12/04/16 [History] Ipratropium/Albuterol Sulfate [Combivent Inhaler] 1 gm IH QID 03/25/19 [History] Rivaroxaban [Xarelto] 20 mg PEG HS 06/13/21 [History] Aspirin EC 81 mg [Ecotrin 81 mg] 81 mg PEG BID 07/01/21 [History] Potassium Chloride [Klor-Con 10] 10 meq PEG QHS 11/25/21 [History] Propylene Glycol/Peg 400 [Systane 0.3-0.4% Eye Drops] 1 drop OP QID 11/25/21 [History] Furosemide 40 mg [Lasix 40 MG] 40 mg PEG DAILY 03/27/22 [History] Potassium Chloride 20 meq PEG DAILY 03/27/22 [History] Hx Tetanus, Diphtheria Vaccination/Date Given: No Hx Influenza Vaccination/Date Given: Yes Hx Pneumococcal Vaccination/Date Given: No Travel Risk - Vaccine Status Have you recieved a Covid-19 vaccination: Yes 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[employer] - Vaccination Dates Date of 2cond Vaccination (if applicable): Dec - Review of Systems Constitutional: No Fever, No Chills Eyes: No Symptoms Ears, Nose, & Throat: No Symptoms Respiratory: No Cough, No Dyspnea Cardiac: No Chest Pain, No Edema, No Syncope Abdominal/Gastrointestinal: No Abdominal Pain, No Nausea, No Vomiting, No Diarrhea Genitourinary Symptoms: No Dysuria Musculoskeletal: No Back Pain, No Neck Pain Skin: No Rash Neurological: No Dizziness, No Focal Weakness, No Sensory Changes Psychological: No Symptoms Endocrine: No Symptoms All Other Systems: Reviewed and Negative - Past Medical History Pertinent Past Medical History: Yes Neurological History: Peripheral Neuropathy, TIA ENT History: No Pertinent History Cardiac History: Arrhythmia, Congestive Heart Failure, Coronary Artery Disease, High Cholesterol, Hypertension Respiratory History: CHF, COPD, Sleep Apnea Endocrine Medical History: Diabetes Type II Musculoskeletal History: No Pertinent History GI Medical History: GERD History: No Pertinent History Psycho-Social History: No Pertinent History Male Reproductive Disorders: No Pertinent History Other Medical History: GERD. SX HX: PACEMAKER 2010, CARDIAC STENTS X 2 1996 AND 2007. USES BIPAP - Past Surgical History Past Surgical History: Yes Neuro Surgical History: No Pertinent History Cardiac: Cardiac Catheterization, Cardiac Stent, Pacemaker Respiratory: No Pertinent History Gastrointestinal: No Pertinent History Genitourinary: No Pertinent History Musculoskeletal: Orthopedic Surgery Male Surgical History: No Pertinent History Other Surgical History: toe reattached, lip cancer removed, 6 teeth extracted 12/03/2016 - Social History Smoking Status: Former smoker Exposure to second hand smoke: No Drug Use: none Patient Lives Alone: No Significant Family History: heart disease - Nursing Vital Signs Nursing Vital Signs: Initial Vital Signs Temperature 97.4 F 04/27/22 22:45 Pulse Rate 62 04/27/22 22:45 Respiratory Rate 18 04/27/22 22:45 Blood Pressure 113/42 04/27/22 22:45 O2 Sat by Pulse Oximetry 96 04/27/22 22:45 Pain Scale Pain Intensity 0 - Physical Exam General Appearance: no apparent distress, alert Eye Exam: PERRL/EOMI, eyes nml inspection Ears, Nose, Throat Exam: normal ENT inspection, TMs normal, pharynx normal, moist mucous membranes Neck Exam: normal inspection, non-tender, supple, full range of motion Respiratory Exam: normal breath sounds, lungs clear, No respiratory distress Cardiovascular Exam: regular rate/rhythm, normal heart sounds, normal peripheral pulses Gastrointestinal/Abdomen Exam: soft, normal bowel sounds, No tenderness, No mass Rectal Exam: deferred Back Exam: normal inspection, normal range of motion, No CVA tenderness, No vertebral tenderness Extremity Exam: normal inspection, normal range of motion, pelvis stable Neurologic Exam: alert, oriented x 3, cooperative, normal mood/affect, nml cerebellar function, nml station & gait, sensation nml, No motor deficits Skin Exam: normal color, warm, dry, No rash Lymphatic Exam: No adenopathy - Course Nursing assessment & vital signs reviewed: Yes - Radiology Exams Chest X-ray Interpretation: Reviewed by me, Infiltrates, Other (pacer) Ordered Tests: Active Orders 24 hr Category Date Time Status CHEST 2 VIEWS (PA AND LAT) Stat Exams 04/27/22 22:56 Taken Respiratory Therapy Assessment STAT RT 04/27/22 22:57 Active Medication Summary Discontinued Medications Generic Name Dose Route Start Last Admin Trade Name Freq PRN Reason Stop Dose Admin Sodium Chloride Confirm 04/27/22 23:01 Sodium Cl For Inhalation 3 Ml Ud Nebule Administered 04/27/22 23:02 Dose 3 ml IH .STK-MED ONE - Progress Progress: improved, re-examined Progress Note: 04/28/22 00:41 got large plug out by resp therapy suction and pt feel better. Counseled pt/family regarding: diagnosis, need for follow-up - Departure Departure Disposition: Home Clinical Impression: Multiple tracheobronchial mucus plugs Condition: Good Critical Care Time: No Referrals: MARIELOS SMALL MD [Primary Care Provider] - Follow up/PCP as directed Instructions: Exacerbation of COPD (DC) Additional Instructions: continue tracheal cleaning/suctioning. plenty of fluids follow-up with your Dr. return meantime if any concerns.
[2022-04-28 00:59] VITALS: BP 150/70; PULSE 64; O2SAT 97
--- NOTE | 2022-04-28 07:58 | XRAY ---
Indication: Short of breath and coughing. Mucus plugging tracheostomy cannula. Comparison: April 22, 2022. PA/lateral chest better inflated with new mild right infrahilar interstitial alveolar opacities. Remaining heart and lungs unremarkable again with incidental left pacemaker and tracheostomy cannula. Bony thorax intact again with mild osteopenia and degenerative changes.
== END 2022-04-28 01:00 | disposition home or self-care (01) ==
LOC: ED 22:42
DX: J95.03 Malfunction of tracheostomy stoma (principal); E78.5 Hyperlipidemia, unspecified; I11.0 Hypertensive heart disease with heart failure; I50.9 Heart failure, unspecified; J44.9 Chronic obstructive pulmonary disease, unspecified; E11.42 Type 2 diabetes mellitus with diabetic polyneuropathy; Z79.4 Long term (current) use of insulin; Z79.899 Other long term (current) drug therapy
CPT/HCPCS: 71046; 99284

== ENCOUNTER 2022-04-29 17:59 | Emergency (ER) | payer OTHER ==
[2022-04-29 18:10] VITALS: BP 109/62; PULSE 100; O2SAT 94
--- NOTE | 2022-04-29 18:17 | ERPHSYRPT ---
- History of Present Illness Time Seen by Provider: 04/29/22 18:17 Source: patient Exam Limitations: no limitations Patient Subjective Stated Complaint: PT states "My feeding tube came out again." Triage Nursing Assessment: Pt presented alert and oriented X 3, skin pwd. Pt ambulates with assistance, able to speak in clear full sentences pt in no apaprent respiratory distress. Physician History: This is a 81-year-old white male who has a feeding gastrostomy tube in place and just prior to arrival the tube caught on the patient's shirt and was pulled out accidentally. Timing/Duration: today Severity: mild Associated Symptoms: denies symptoms Allergies/Adverse Reactions: gabapentin Allergy (Mild, Verified 04/27/22 23:13) Penicillins Allergy (Mild, Verified 04/27/22 23:13) Antihistamines - Alkylamine Allergy (Verified 04/27/22 23:13) pt unsure what antihistaine name was Antihistamines - Ethanolamine Allergy (Verified 04/27/22 23:13) pt unsure of name of antihistamine Antihistamines - Ethylenediamine Allergy (Verified 04/27/22 23:13) pt unsure of name of antihistamine Antihistamines - Piperazine Allergy (Verified 04/27/22 23:13) pt unsure of name of antihistamine Antihistamines - Piperidine Allergy (Verified 04/27/22 23:13) pt unsure of name of antihistamine Home Medications: Albuterol 2.5 mg/3 ml Neb [Proventil 2.5 mg/3 ml Neb] 2.5 mg IH Q6HPRN PRN 07/11/13 [History] Gemfibrozil [Lopid] 600 mg PEG BID 07/11/13 [History] Insulin Aspart [NovoLOG Insulin] 0 unit SQ TID 07/11/13 [History] Insulin Glargine [Lantus Insulin] 36 unit SQ HS 07/11/13 [History] Pantoprazole Sodium [Protonix] 40 mg PEG DAILY 07/11/13 [History] Sotalol HCl [Betapace] 120 mg PEG BID 07/11/13 [History] Atorvastatin Calcium 80 mg PEG HS 12/04/16 [History] Glipizide 5 mg [Glucotrol 5 MG] 5 mg PEG DAILY 12/04/16 [History] Triamterene/Hydrochlorothiazid [Triamterene-Hctz 37.5-25 mg Tb] 37.5 mg PEG DAILY 12/04/16 [History] Ipratropium/Albuterol Sulfate [Combivent Inhaler] 1 gm IH QID 03/25/19 [History] Rivaroxaban [Xarelto] 20 mg PEG HS 06/13/21 [History] Aspirin EC 81 mg [Ecotrin 81 mg] 81 mg PEG BID 07/01/21 [History] Potassium Chloride [Klor-Con 10] 10 meq PEG QHS 11/25/21 [History] Propylene Glycol/Peg 400 [Systane 0.3-0.4% Eye Drops] 1 drop OP QID 11/25/21 [History] Furosemide 40 mg [Lasix 40 MG] 40 mg PEG DAILY 03/27/22 [History] Potassium Chloride 20 meq PEG DAILY 03/27/22 [History] Hx Tetanus, Diphtheria Vaccination/Date Given: No Hx Influenza Vaccination/Date Given: Yes Hx Pneumococcal Vaccination/Date Given: No Immunizations Up to Date: Yes Travel Risk - International Travel Have you traveled outside of the country in past 3 weeks: No - Coronavirus Screening Are you exhibiting any of the following symptoms?: No Close contact with a COVID-19 positive Pt in past 14-21 Days: No - Vaccine Status Have you recieved a Covid-19 vaccination: Yes 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[employer] - Vaccination Dates Date of 2cond Vaccination (if applicable): Dec - Review of Systems Constitutional: No Symptoms Eyes: No Symptoms Ears, Nose, & Throat: No Symptoms Respiratory: No Symptoms Cardiac: No Symptoms Abdominal/Gastrointestinal: Other Genitourinary Symptoms: No Symptoms (Eating tube fell out) Musculoskeletal: No Symptoms Skin: No Symptoms Neurological: No Symptoms Psychological: No Symptoms Endocrine: No Symptoms Hematologic/Lymphatic: No Symptoms Immunological/Allergic: No Symptoms All Other Systems: Reviewed and Negative - Past Medical History Pertinent Past Medical History: Yes Neurological History: Peripheral Neuropathy, TIA ENT History: No Pertinent History Cardiac History: Arrhythmia, Congestive Heart Failure, Coronary Artery Disease, High Cholesterol, Hypertension Respiratory History: CHF, COPD, Sleep Apnea Endocrine Medical History: Diabetes Type II Musculoskeletal History: No Pertinent History GI Medical History: GERD History: No Pertinent History Psycho-Social History: No Pertinent History Male Reproductive Disorders: No Pertinent History Other Medical History: GERD. SX HX: PACEMAKER 2010, CARDIAC STENTS X 2 1996 AND 2007. USES BIPAP - Past Surgical History Past Surgical History: Yes Neuro Surgical History: No Pertinent History Cardiac: Cardiac Catheterization, Cardiac Stent, Pacemaker Respiratory: No Pertinent History Gastrointestinal: No Pertinent History Genitourinary: No Pertinent History Musculoskeletal: Orthopedic Surgery Male Surgical History: No Pertinent History Other Surgical History: toe reattached, lip cancer removed, 6 teeth extracted 12/03/2016 - Social History Smoking Status: Former smoker Exposure to second hand smoke: No Drug Use: none Patient Lives Alone: No Significant Family History: heart disease - Nursing Vital Signs Nursing Vital Signs: Initial Vital Signs Temperature 97.6 F 04/29/22 18:06 Pulse Rate 100 H 04/29/22 18:06 Respiratory Rate 04/29/22 18:06 Blood Pressure 109/62 04/29/22 18:06 O2 Sat by Pulse Oximetry 94 L 04/29/22 18:06 Pain Scale Pain Intensity 0 - Physical Exam General Appearance: no apparent distress, alert Eye Exam: PERRL/EOMI, eyes nml inspection Ears, Nose, Throat Exam: normal ENT inspection, moist mucous membranes Neck Exam: normal inspection, non-tender, supple, full range of motion Respiratory Exam: airway intact, No chest tenderness, No respiratory distress Gastrointestinal/Abdomen Exam: soft, normal bowel sounds, other (Ostomy open not draining. 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 The balloon was inflated with 20 mL of normal saline. No complications. - Course Nursing assessment & vital signs reviewed: Yes - Progress Progress: improved - Departure Departure Disposition: Home Clinical Impression: Visit for feeding tube placement Condition: Stable Critical Care Time: No Referrals: MARIELOS SMALL MD [Primary Care Provider] - Follow up/PCP as directed
== END 2022-04-29 18:56 | disposition home or self-care (01) ==
LOC: ED 17:59
DX: Z43.1 Encounter for attention to gastrostomy (principal); I11.0 Hypertensive heart disease with heart failure; I50.9 Heart failure, unspecified; J44.9 Chronic obstructive pulmonary disease, unspecified; E11.42 Type 2 diabetes mellitus with diabetic polyneuropathy; Z79.4 Long term (current) use of insulin; Z79.01 Long term (current) use of anticoagulants; Z79.899 Other long term (current) drug therapy
CPT/HCPCS: 99283

== ENCOUNTER 2022-05-01 04:17 | Emergency (ER) | payer OTHER ==
--- NOTE | 2022-05-01 04:20 | ERPHSYRPT ---
- History of Present Illness Time Seen by Provider: 05/01/22 04:19 Source: patient, EMS Exam Limitations: no limitations Physician History: This is a 81-year-old white male who has a tracheostomy in place. He has had several visits in the last week for various issues with cough, shortness of breath and tracheostomy issues. Early this morning he had a coughing spell and coughed up, on 2 different occasions, some blood-tinged sputum. He is concerned because he is on anticoagulation therapy. He denies shortness of breath. He denies chest pain. He recently was in this emergency department for suctioning out of mucous plugs from the tracheostomy tube. Timing/Duration: today Severity: mild Associated Symptoms: denies symptoms Allergies/Adverse Reactions: gabapentin Allergy (Mild, Verified 05/01/22 04:28) Penicillins Allergy (Mild, Verified 05/01/22 04:28) Antihistamines - Alkylamine Allergy (Verified 05/01/22 04:28) pt unsure what antihistaine name was Antihistamines - Ethanolamine Allergy (Verified 05/01/22 04:28) pt unsure of name of antihistamine Antihistamines - Ethylenediamine Allergy (Verified 05/01/22 04:28) pt unsure of name of antihistamine Antihistamines - Piperazine Allergy (Verified 05/01/22 04:28) pt unsure of name of antihistamine Antihistamines - Piperidine Allergy (Verified 05/01/22 04:28) pt unsure of name of antihistamine Home Medications: Albuterol 2.5 mg/3 ml Neb [Proventil 2.5 mg/3 ml Neb] 2.5 mg IH Q6HPRN PRN 07/11/13 [History] Gemfibrozil [Lopid] 600 mg PEG BID 07/11/13 [History] Insulin Aspart [NovoLOG Insulin] 0 unit SQ TID 07/11/13 [History] Insulin Glargine [Lantus Insulin] 36 unit SQ HS 07/11/13 [History] Pantoprazole Sodium [Protonix] 40 mg PEG DAILY 07/11/13 [History] Sotalol HCl [Betapace] 120 mg PEG BID 07/11/13 [History] Atorvastatin Calcium 80 mg PEG HS 12/04/16 [History] Glipizide 5 mg [Glucotrol 5 MG] 5 mg PEG DAILY 12/04/16 [History] Triamterene/Hydrochlorothiazid [Triamterene-Hctz 37.5-25 mg Tb] 37.5 mg PEG DAILY 12/04/16 [History] Ipratropium/Albuterol Sulfate [Combivent Inhaler] 1 gm IH QID 03/25/19 [History] Rivaroxaban [Xarelto] 20 mg PEG HS 06/13/21 [History] Aspirin EC 81 mg [Ecotrin 81 mg] 81 mg PEG BID 07/01/21 [History] Potassium Chloride [Klor-Con 10] 10 meq PEG QHS 11/25/21 [History] Propylene Glycol/Peg 400 [Systane 0.3-0.4% Eye Drops] 1 drop OP QID 11/25/21 [History] Furosemide 40 mg [Lasix 40 MG] 40 mg PEG DAILY 03/27/22 [History] Potassium Chloride 20 meq PEG DAILY 03/27/22 [History] Hx Tetanus, Diphtheria Vaccination/Date Given: No Hx Influenza Vaccination/Date Given: Yes Hx Pneumococcal Vaccination/Date Given: No Travel Risk - International Travel Have you traveled outside of the country in past 3 weeks: No - Coronavirus Screening Are you exhibiting any of the following symptoms?: No Close contact with a COVID-19 positive Pt in past 14-21 Days: No - Vaccine Status Have you recieved a Covid-19 vaccination: Yes 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[employer] - Vaccination Dates Date of 2cond Vaccination (if applicable): Dec - Review of Systems Constitutional: No Symptoms Eyes: No Symptoms Ears, Nose, & Throat: No Symptoms Respiratory: Cough Cardiac: No Symptoms Abdominal/Gastrointestinal: No Symptoms Genitourinary Symptoms: No Symptoms Musculoskeletal: No Symptoms Skin: No Symptoms Neurological: No Symptoms Psychological: No Symptoms Endocrine: No Symptoms Hematologic/Lymphatic: No Symptoms Immunological/Allergic: No Symptoms All Other Systems: Reviewed and Negative - Past Medical History Pertinent Past Medical History: Yes Neurological History: Peripheral Neuropathy, TIA ENT History: No Pertinent History Cardiac History: Arrhythmia, Congestive Heart Failure, Coronary Artery Disease, High Cholesterol, Hypertension Respiratory History: CHF, COPD, Sleep Apnea Endocrine Medical History: Diabetes Type II Musculoskeletal History: No Pertinent History GI Medical History: GERD History: No Pertinent History Psycho-Social History: No Pertinent History Male Reproductive Disorders: No Pertinent History Other Medical History: GERD. SX HX: PACEMAKER 2010, CARDIAC STENTS X 2 1996 AND 2007. USES BIPAP - Past Surgical History Past Surgical History: Yes Neuro Surgical History: No Pertinent History Cardiac: Cardiac Catheterization, Cardiac Stent, Pacemaker Respiratory: No Pertinent History Gastrointestinal: No Pertinent History Genitourinary: No Pertinent History Musculoskeletal: Orthopedic Surgery Male Surgical History: No Pertinent History Other Surgical History: toe reattached, lip cancer removed, 6 teeth extracted 12/03/2016 - Social History Smoking Status: Former smoker Exposure to second hand smoke: No Drug Use: none Patient Lives Alone: No Significant Family History: heart disease - Nursing Vital Signs Nursing Vital Signs: Initial Vital Signs Temperature 97.5 F 05/01/22 04:19 Pulse Rate 62 05/01/22 04:19 Respiratory Rate 24 05/01/22 04:19 Blood Pressure 101/52 05/01/22 04:19 O2 Sat by Pulse Oximetry 96 05/01/22 04:19 Pain Scale Pain Intensity 0 - Physical Exam General Appearance: no apparent distress, alert, anxiety Eye Exam: PERRL/EOMI, eyes nml inspection Ears, Nose, Throat Exam: normal ENT inspection, moist mucous membranes Neck Exam: non-tender, supple, full range of motion, other (Colostomy tube site shows no active bleeding present.) Respiratory Exam: airway intact, rhonchi (Mild bilateral), No chest tenderness, No respiratory distress, No accessory muscle use Cardiovascular Exam: regular rate/rhythm, normal heart sounds, normal peripheral pulses Gastrointestinal/Abdomen Exam: soft, normal bowel sounds, No tenderness Back Exam: normal inspection, normal range of motion, No CVA tenderness, No vertebral tenderness Extremity Exam: normal inspection, normal range of motion, pelvis stable Neurologic Exam: alert, oriented x 3, cooperative, 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 Counseled pt/family regarding: diagnosis, need for follow-up, rad results - Departure Departure Disposition: Home Clinical Impression: Atelectasis of left lung, Cough with hemoptysis, Mucus plugging of bronchi Condition: Stable Critical Care Time: No Referrals: MARIELOS SMALL MD [Primary Care Provider] - Follow up/PCP as directed Additional Instructions: Take all your medications as prescribed except hold your Xarelto (blood thinning) medication until the evening of 05/02/2022.
[2022-05-01 05:19] VITALS: BP 126/58; PULSE 60; O2SAT 97
[2022-05-01] MEDS ORDERED: Rocephin 1000 MG INJ IM ONE (05:26)
[2022-05-01] MEDS ORDERED: Rocephin 1000 MG INJ ONE (05:30)
[2022-05-01] MEDS ORDERED: XYLOCAINE 1% HCL 20 ML MDV ONE (05:33)
--- NOTE | 2022-05-01 09:07 | XRAY ---
Indication: Hemoptysis. Rhonchi. Comparison: April 27, 2022. Portable apical lordotic chest demonstrates new mild left base infiltrate/atelectasis/effusion. Remaining heart and right lung unremarkable again with incidental left pacemaker and tracheotomy cannula. Comment: Preliminary interpretation made by [facility]. No critical discrepancy.
== END 2022-05-01 05:47 | disposition home or self-care (01) ==
LOC: ED 04:17
DX: J98.11 Atelectasis (principal); R04.2 Hemoptysis; T17.590A Other foreign object in bronchus causing asphyxiation, initial encounter; Z93.0 Tracheostomy status; E78.5 Hyperlipidemia, unspecified; I11.0 Hypertensive heart disease with heart failure; I50.9 Heart failure, unspecified; J44.9 Chronic obstructive pulmonary disease, unspecified; E11.42 Type 2 diabetes mellitus with diabetic polyneuropathy; Z79.4 Long term (current) use of insulin; Z79.01 Long term (current) use of anticoagulants; Z79.899 Other long term (current) drug therapy
CPT/HCPCS: 71045; 87070; 87077; 87186; 96372; 99284; J0696

== ENCOUNTER 2022-05-10 13:47 | Emergency (ER) | payer OTHER ==
--- NOTE | 2022-05-10 14:17 | ERPHSYRPT ---
- History of Present Illness Time Seen by Provider: 05/10/22 14:11 Source: patient, family Exam Limitations: no limitations Patient Subjective Stated Complaint: Pt states "I slipped and fell over and hit my head on the door. I am on xarelto." Triage Nursing Assessment: pt presented alert and oriented X3, skin pwd. pt ambulates with a slow upright gait. pt resting comfortably on the bed. Pt has no swelling or tenderness noted to the right side of his head where he hit the door. Physician History: Pt states "I slipped and fell over and hit my head on the door. I am on xarelto." Pt has no swelling or tenderness noted to the right side of his head where he hit the door. Occurred: just prior to arrival Reason for Fall: tripped Injuries/Pain Location: head Loss of Consciousness: no loss of consciousness Severity of Pain-Max: mild Severity of Pain-Current: mild Modifying Factors: Improves With: nothing Allergies/Adverse Reactions: gabapentin Allergy (Mild, Verified 05/01/22 04:28) Penicillins Allergy (Mild, Verified 05/01/22 04:28) Antihistamines - Alkylamine Allergy (Verified 05/01/22 04:28) pt unsure what antihistaine name was Antihistamines - Ethanolamine Allergy (Verified 05/01/22 04:28) pt unsure of name of antihistamine Antihistamines - Ethylenediamine Allergy (Verified 05/01/22 04:28) pt unsure of name of antihistamine Antihistamines - Piperazine Allergy (Verified 05/01/22 04:28) pt unsure of name of antihistamine Antihistamines - Piperidine Allergy (Verified 05/01/22 04:28) pt unsure of name of antihistamine Home Medications: Albuterol 2.5 mg/3 ml Neb [Proventil 2.5 mg/3 ml Neb] 2.5 mg IH Q6HPRN PRN 07/11/13 [History] Gemfibrozil [Lopid] 600 mg PEG BID 07/11/13 [History] Insulin Aspart [NovoLOG Insulin] 0 unit SQ TID 07/11/13 [History] Insulin Glargine [Lantus Insulin] 36 unit SQ HS 07/11/13 [History] Pantoprazole Sodium [Protonix] 40 mg PEG DAILY 07/11/13 [History] Sotalol HCl [Betapace] 120 mg PEG BID 07/11/13 [History] Atorvastatin Calcium 80 mg PEG HS 12/04/16 [History] Glipizide 5 mg [Glucotrol 5 MG] 5 mg PEG DAILY 12/04/16 [History] Triamterene/Hydrochlorothiazid [Triamterene-Hctz 37.5-25 mg Tb] 37.5 mg PEG DAILY 12/04/16 [History] Ipratropium/Albuterol Sulfate [Combivent Inhaler] 1 gm IH QID 03/25/19 [History] Rivaroxaban [Xarelto] 20 mg PEG HS 06/13/21 [History] Aspirin EC 81 mg [Ecotrin 81 mg] 81 mg PEG BID 07/01/21 [History] Potassium Chloride [Klor-Con 10] 10 meq PEG QHS 11/25/21 [History] Propylene Glycol/Peg 400 [Systane 0.3-0.4% Eye Drops] 1 drop OP QID 11/25/21 [History] Furosemide 40 mg [Lasix 40 MG] 40 mg PEG DAILY 03/27/22 [History] Potassium Chloride 20 meq PEG DAILY 03/27/22 [History] Hx Tetanus, Diphtheria Vaccination/Date Given: No Hx Influenza Vaccination/Date Given: Yes Hx Pneumococcal Vaccination/Date Given: No Immunizations Up to Date: Yes Travel Risk - International Travel Have you traveled outside of the country in past 3 weeks: No - Coronavirus Screening Are you exhibiting any of the following symptoms?: No Close contact with a COVID-19 positive Pt in past 14-21 Days: No - Vaccine Status Have you recieved a Covid-19 vaccination: Yes 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: [employer] - Vaccination Dates Date of 2cond Vaccination (if applicable): Dec - Review of Systems Constitutional: No Fever, No Chills Eyes: No Symptoms Ears, Nose, & Throat: No Symptoms Respiratory: No Cough, No Dyspnea Cardiac: No Chest Pain, No Edema, No Syncope Abdominal/Gastrointestinal: No Abdominal Pain, No Nausea, No Vomiting, No Diarrhea Genitourinary Symptoms: No Dysuria Musculoskeletal: No Back Pain, No Neck Pain Skin: No Rash Neurological: No Dizziness, No Focal Weakness, No Sensory Changes Psychological: No Symptoms Endocrine: No Symptoms All Other Systems: Reviewed and Negative - Past Medical History Pertinent Past Medical History: Yes Neurological History: Peripheral Neuropathy, TIA ENT History: No Pertinent History Cardiac History: Arrhythmia, Congestive Heart Failure, Coronary Artery Disease, High Cholesterol, Hypertension Respiratory History: CHF, COPD, Sleep Apnea Endocrine Medical History: Diabetes Type II Musculoskeletal History: No Pertinent History GI Medical History: GERD History: No Pertinent History Psycho-Social History: No Pertinent History Male Reproductive Disorders: No Pertinent History Other Medical History: GERD. SX HX: PACEMAKER 2010, CARDIAC STENTS X 2 1996 AND 2007. USES BIPAP - Past Surgical History Past Surgical History: Yes Neuro Surgical History: No Pertinent History Cardiac: Cardiac Catheterization, Cardiac Stent, Pacemaker Respiratory: No Pertinent History Gastrointestinal: No Pertinent History Genitourinary: No Pertinent History Musculoskeletal: Orthopedic Surgery Male Surgical History: No Pertinent History Other Surgical History: toe reattached, lip cancer removed, 6 teeth extracted 12/03/2016 - Social History Smoking Status: Former smoker Exposure to second hand smoke: No Drug Use: none Patient Lives Alone: No Significant Family History: heart disease - Nursing Vital Signs Nursing Vital Signs: Initial Vital Signs Temperature 97.6 F 05/10/22 13:53 Pulse Rate 60 05/10/22 13:53 Respiratory Rate 20 05/10/22 13:53 Blood Pressure 114/41 05/10/22 13:53 O2 Sat by Pulse Oximetry 94 L 05/10/22 13:53 Pain Scale Pain Intensity 0 - Lauren Coma Score Best Eye Response (Lauren): (4) open spontaneously Best Verbal Response ([place]): (5) oriented Best Motor Response ([place]): (6) obeys commands Lauren Total: 15 - Physical Exam General Appearance: no apparent distress, alert Head Injury: no evidence of injury Eye Exam: PERRL/EOMI ENT Exam: airway nml Neck Exam: normal inspection, No tenderness Respiratory/Chest Exam: normal breath sounds, No chest tenderness, No respiratory distress Cardiovascular Exam: normal heart sounds, regular rate/rhythm Gastrointestinal Exam: soft, No tenderness, No distention, No guarding, No ecchymosis Back Exam: normal inspection, No vertebral tenderness Extremity Exam: normal inspection, normal range of motion, pelvis stable, No deformities Neurologic Exam: alert, oriented x 3, cooperative, sensation nml, No motor deficits Skin Exam: normal color, warm, dry SpO2: 94 - Course Nursing assessment & vital signs reviewed: Yes - CT Exams Head CT Interpretation: Tele-radiologist Report Ordered Tests: Active Orders 24 hr Category Date Time Status HEAD WITHOUT CONTRAST [CT] Stat Exams 05/10/22 14:05 Taken POCT GLUCOSE Stat Lab 05/10/22 13:56 Completed Lab/Rad Data: Laboratory Results 05/10/22 Range/Units 13:56 POC Glucometer 106 (74 to 106) mg/dL - Departure Departure Disposition: Home Clinical Impression: Fall (on) (from) other stairs and steps, initial encounter Head injury due to trauma Qualifiers: Encounter type: initial encounter Qualified Code(s): S09.90XA - Unspecified injury of head, initial encounter Condition: Stable Critical Care Time: Yes Critical Care Time(excluding separately billable procedures): Critical 30-74 mins Referrals: MARIELOS SMALL MD [Primary Care Provider] - Follow Up with PCP/3 days Instructions: Minor Head Injury (DC), Preventing Falls ED Additional Instructions: Discharge/Care Plan YUMILUKE DOMINGO was seen on 05/10/22 in the Emergency Room. The patient was counseled regarding Diagnosis,Lab results, Imaging studies, need for follow up and when to return to the Emergency Room. Prescriptions given: Discharge Note I have spoken with the patient and/or caregivers. I have explained the patient's condition, diagnosis and treatment plan based on the information available to me at this time. I have answered the patient's and/or caregiver's questions and addressed any concerns. The patient and/or caregivers have as good understanding of the patient's diagnosis, condition and treatment plan as can be expected at this point. The vital signs have been stable. The patient's condition is stable and appropriate for discharge from the emergency department. The patient will pursue further outpatient evaluation with the primary care physician or other designated or consulting physician as outlined in the discharge instructions. The patient and/or caregivers are agreeable to this plan of care and follow-up instructions have been explained in detail. The patient and/or caregivers have received these instruction. The patient/and or caregivers are aware that any significant change in condition or worsening of symptoms should prompt an immediate return to this or the closest emergency department or call 911. LUKE EASON was seen on 05/10/22 n the Emergency Room. At that time you were treated for an emergent condition, during your visit Laboratory, Radiology and/or other procedures may have been ordered. It is very important that you follow-up with your Primary Care Physician MARIELOS SMALL within the next 24- 48 hours to review your Emergency Room visit and the final results of testing that was ordered. Some test results such as Urine Cultures, Blood Cultures, and other cultures if ordered will not be finalized for 24-48 hours. If you do not have a Primary Care Provider please call the medical records department at [phone] ext [phone] to obtain a copy of your results or you may sign into our patient portal to obtain these results by visiting us @ [email or web address] and completing the following steps: 1. Click on the Patient Portal link 2. Click the Patient Self Enrollment Link to complete the enrollment form and entering your 3. Once the enrollment form is completed you will receive an email with a temporary ID and password at the email address you provided. 4. Next choose a user name and password. Your user name must be at least 4 characters long and your password must be at least 4 characters long. 5. Choose a security question from the list and provide your answer to the question. If you already have signed into the Health Portal you may access your Health Care Information 22/06 by the following steps: 1. Login to our website @ [email or web address] 2. Enter your original user name and password. FAQS The [facility] Health Portal is an online tool that contains your Lab Results, Radiology Reports, Visit History, Discharge Instructions and Health Summary Lab and Radiology Results will not be available for 72 hours on the portal. The Portal is a secure site, passwords are encryted and URLs are re-written so they cannot be copied and pasted. You and authorized family members are the only ones who can access your Portal. Also there is a timeout feature that protects your information if you leave the Portal page open. If you have technical difficulty please use the Contact Us link on the page this will allow you to submit any questions you have regarding the Portal or you may contact the Medical Record Department at [phone] ext [phone].
[2022-05-10 14:51] VITALS: BP 130/60
[2022-05-10 15:03] VITALS: PULSE 64
[2022-05-10 15:05] VITALS: O2SAT 94
--- NOTE | 2022-05-10 20:01 | XRAY ---
Indication: Head injury following fall. Blood thinner therapy. Multiple contiguous axial images obtained through the head without contrast. Comparison: None Age-appropriate global atrophy and moderate periventricular degenerative micro-ischemia bilaterally. Small bifrontal lobe remote infarcts. No acute intracranial hemorrhage, hydrocephalus, or mass effect. Fourth ventricle is midline. Bony calvarium intact. Near-complete opacification right maxillary sinus. Remaining paranasal sinuses and mastoid air cells are clear. Impression: 1. 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 2. Right maxillary sinus disease. Comment: Preliminary interpretation made by [facility]. No critical discrepancy.
== END 2022-05-10 15:15 | disposition home or self-care (01) ==
LOC: ED 13:47
DX: S09.90XA Unspecified injury of head, initial encounter (principal); W10.9XXA Fall (on) (from) unspecified stairs and steps, initial encounter; I11.0 Hypertensive heart disease with heart failure; I50.9 Heart failure, unspecified; E78.5 Hyperlipidemia, unspecified; J44.9 Chronic obstructive pulmonary disease, unspecified; E11.42 Type 2 diabetes mellitus with diabetic polyneuropathy; Z79.4 Long term (current) use of insulin; Z79.01 Long term (current) use of anticoagulants
CPT/HCPCS: 70450; 82947; 99283

== ENCOUNTER 2022-05-17 11:58 | Emergency (ER) | payer OTHER ==
--- NOTE | 2022-05-17 12:29 | ERPHSYRPT ---
- History of Present Illness Source: patient Exam Limitations: no limitations Patient Subjective Stated Complaint: Back pain-fall Triage Nursing Assessment: Patient brought back to ED per w/c and transferred to bed per self. Patient A+O X 3. Patient's skin pink, warm and dry. Patient complains of fall while ambulating to restroom while using walker. Patient currently denies pain while sitting, but has pain when moving. Patient denies hitting head. No visible injuries or bruising noted. Physician History: 81 yo debilitated WM w Lumbar pain after losing his balance and falling. He denies LOC/head injury/Cervical pain/chest pain/abdominal pain/New hip pain/Upper or LE pain. He did not have syncope, chest pain, or dyspnea before the fall. Pt has frequent falls. Occurred: this morning Reason for Fall: lost balance Loss of Consciousness: no loss of consciousness Quality: aching Severity of Pain-Max: moderate Severity of Pain-Current: moderate Modifying Factors: Improves With: movement Associated Symptoms (Fall): back pain, No abdominal pain, No confusion, No chest pain, No dizziness, No extremity injury, No headache, No lightheadedness, No muscle spasms, No nausea, No neck pain, No ringing in ears, No seizures, No shortness of breath, No slurred speech, No trouble walking, No vomiting, No vision changes Allergies/Adverse Reactions: gabapentin Allergy (Mild, Verified 05/17/22 12:13) Penicillins Allergy (Mild, Verified 05/17/22 12:13) Antihistamines - Alkylamine Allergy (Verified 05/17/22 12:13) pt unsure what antihistaine name was Antihistamines - Ethanolamine Allergy (Verified 05/17/22 12:13) pt unsure of name of antihistamine Antihistamines - Ethylenediamine Allergy (Verified 05/17/22 12:13) pt unsure of name of antihistamine Antihistamines - Piperazine Allergy (Verified 05/17/22 12:13) pt unsure of name of antihistamine Antihistamines - Piperidine Allergy (Verified 05/17/22 12:13) pt unsure of name of antihistamine Home Medications: Albuterol 2.5 mg/3 ml Neb [Proventil 2.5 mg/3 ml Neb] 2.5 mg IH Q6HPRN PRN 07/11/13 [History] Gemfibrozil [Lopid] 600 mg PEG BID 07/11/13 [History] Insulin Aspart [NovoLOG Insulin] 0 unit SQ TID 07/11/13 [History] Insulin Glargine [Lantus Insulin] 36 unit SQ HS 07/11/13 [History] Pantoprazole Sodium [Protonix] 40 mg PEG DAILY 07/11/13 [History] Sotalol HCl [Betapace] 120 mg PEG BID 07/11/13 [History] Atorvastatin Calcium 80 mg PEG HS 12/04/16 [History] Glipizide 5 mg [Glucotrol 5 MG] 5 mg PEG DAILY 12/04/16 [History] Triamterene/Hydrochlorothiazid [Triamterene-Hctz 37.5-25 mg Tb] 37.5 mg PEG DAILY 12/04/16 [History] Ipratropium/Albuterol Sulfate [Combivent Inhaler] 1 gm IH QID 03/25/19 [History] Rivaroxaban [Xarelto] 20 mg PEG HS 06/13/21 [History] Aspirin EC 81 mg [Ecotrin 81 mg] 81 mg PEG BID 07/01/21 [History] Potassium Chloride [Klor-Con 10] 10 meq PEG QHS 11/25/21 [History] Propylene Glycol/Peg 400 [Systane 0.3-0.4% Eye Drops] 1 drop OP QID 11/25/21 [Hi story] Furosemide 40 mg [Lasix 40 MG] 40 mg PEG DAILY 03/27/22 [History] Potassium Chloride 20 meq PEG DAILY 03/27/22 [History] Hx Tetanus, Diphtheria Vaccination/Date Given: No Hx Influenza Vaccination/Date Given: Yes Hx Pneumococcal Vaccination/Date Given: No Immunizations Up to Date: Yes Travel Risk - International Travel Have you traveled outside of the country in past 3 weeks: No - Coronavirus Screening Are you exhibiting any of the following symptoms?: No Close contact with a COVID-19 positive Pt in past 14-21 Days: No - Vaccine Status Have you recieved a Covid-19 vaccination: Yes 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[employer] - Vaccination Dates Date of 2cond Vaccination (if applicable): 2020 - Review of Systems Constitutional: No Symptoms Eyes: No Symptoms Ears, Nose, & Throat: No Symptoms Respiratory: No Symptoms Cardiac: No Symptoms Abdominal/Gastrointestinal: No Symptoms Musculoskeletal: No Symptoms, Back Pain Skin: No Symptoms Neurological: No Symptoms Psychological: No Symptoms Endocrine: No Symptoms Hematologic/Lymphatic: No Symptoms Immunological/Allergic: No Symptoms - Past Medical History Pertinent Past Medical History: Yes Neurological History: Peripheral Neuropathy, TIA ENT History: No Pertinent History Cardiac History: Arrhythmia, Congestive Heart Failure, Coronary Artery Disease, High Cholesterol, Hypertension Respiratory History: CHF, COPD, Sleep Apnea Endocrine Medical History: Diabetes Type II Musculoskeletal History: No Pertinent History GI Medical History: GERD History: No Pertinent History Psycho-Social History: No Pertinent History Male Reproductive Disorders: No Pertinent History Other Medical History: GERD. SX HX: PACEMAKER 2010, CARDIAC STENTS X 2 1996 AND 2007. USES BIPAP - Past Surgical History Past Surgical History: Yes Neuro Surgical History: No Pertinent History Cardiac: Cardiac Catheterization, Cardiac Stent, Pacemaker Respiratory: No Pertinent History Gastrointestinal: No Pertinent History Genitourinary: No Pertinent History Musculoskeletal: Orthopedic Surgery Male Surgical History: No Pertinent History Other Surgical History: toe reattached, lip cancer removed, 6 teeth extracted 12/03/2016 - Social History Smoking Status: Former smoker Exposure to second hand smoke: No Drug Use: none Patient Lives Alone: No Significant Family History: heart disease - Nursing Vital Signs Nursing Vital Signs: Initial Vital Signs Temperature 97.8 F 05/17/22 12:14 Pulse Rate 57 L 05/17/22 12:14 Respiratory Rate 19 05/17/22 12:14 Blood Pressure 112/40 05/17/22 12:14 O2 Sat by Pulse Oximetry 97 05/17/22 12:14 Pain Scale Pain Intensity 4 Mild bradycardia - Lauren Coma Score Best Eye Response (Lauren): (4) open spontaneously Best Verbal Response (Lauren): (5) oriented Best Motor Response (Lauren): (6) obeys commands [place] Total: 15 - Physical Exam General Appearance: no apparent distress Head Injury: no evidence of injury Eye Exam: PERRL/EOMI, eyes nml inspection ENT Exam: other (+ trach/airway good), No evidence of ENT injury Neck Exam: supple, trachea midline, full range of motion, normal inspection (C- spine NTTP) Respiratory/Chest Exam: normal breath sounds, No chest tenderness, No respiratory distress, No decreased breath sounds Cardiovascular Exam: murmur (2/6 RENATO), bradycardia Gastrointestinal Exam: soft, normal bowel sounds, No tenderness Back Exam: vertebral tenderness (L-spine TTP), No CVA tenderness Extremity Exam: normal inspection, normal range of motion, capillary refill <3 sec, pelvis stable Peripheral Pulses: carotid (R): 2+, carotid (L): 2+ Neurologic Exam: alert, oriented x 3, 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, 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, normal mood/affect, sensation nml Skin Exam: normal color, warm, dry SpO2 Interpretation: normal SpO2: 97 O2 Delivery: Room Air - Course Nursing assessment & vital signs reviewed: Yes - CT Exams Lumbar Spine CT Interpretation: Tele-radiologist Report (Superior L3 endplate fx) Ordered Tests: Active Orders 24 hr Category Date Time Status LUMBAR SPINE W/O [CT] Stat Exams 05/17/22 13:24 Taken POCT GLUCOSE Stat Lab 05/17/22 13:31 Completed Medication Summary Discontinued Medications Generic Name Dose Route Start Last Admin Trade Name Terrance PRN Reason Stop Dose Admin Ketorolac Tromethamine 15 mg 05/17/22 12:45 05/17/22 12:52 Ketorolac Tromethamine 30 Mg/Ml Inj IM 05/17/22 12:46 15 mg STAT ONE Administration Ketorolac Tromethamine Confirm 05/17/22 12:50 Ketorolac Tromethamine 30 Mg/Ml Inj Administered 05/17/22 12:51 Dose 30 mg .ROUTE .STK-MED ONE Lab/Rad Data: Laboratory Results 05/17/22 Range/Units 13:31 POC Glucometer 52 L (74 to 106) mg/dL - Progress Progress: improved Progress Note: 05/17/22 13:45 15mg IM Toradol Counseled pt/family regarding: diagnosis, need for follow-up, rad results - Departure Departure Disposition: Home Clinical Impression: Compression fracture Condition: Stable Critical Care Time: No Referrals: MARIELOS SMALL MD [Primary Care Provider] - Follow up/PCP as directed Instructions: Low Back Pain (DC), Vertebral Compression Fracture (DC) Additional Instructions: Ice to back for 12-24 hours Pain meds as needed Use a stool softener with pain meds Follow up with your family MD for continued pain Prescriptions: Hydrocodone/Acetaminophen [Hydrocodone-Acetamin 5-325 mg] 1 tab PO Q6HPRN PRN #7 tablet MDD 4 PRN Reason: Pain
[2022-05-17] MEDS ORDERED: TORAdol 30 mg Injection IM ONE (12:45)
[2022-05-17] MEDS ORDERED: TORAdol 30 mg Injection ONE (12:50)
[2022-05-17 13:50] VITALS: O2SAT 97
[2022-05-17 14:10] VITALS: BP 104/47; PULSE 76
--- NOTE | 2022-05-17 20:31 | XRAY ---
Indication: Low back pain following fall. Multiple contiguous axial images obtained through the lumbar spine. Sagittal and coronal reformatted images obtained. Comparison: None Osseous structures are demineralized consistent with patient's age. L3 superior endplate demonstrates acute fracture with less than 25% height loss. No spinal canal or foraminal encroachment. Moderate L5-S1 degenerative disc bulge with vacuum disc phenomena. Remaining levels demonstrates minimal/mild multilevel anterior endplate spurring. 8 mm L1 sclerotic lesion, probable bone island. Sagittal and coronal reformatted images demonstrates normal alignment with L5-S1 disc space loss. Remaining visualized noncontrasted soft tissues demonstrates nonobstructing left renal punctate calculus and moderate aortoiliac calcifications. Impression: 1. L3 superior endplate acute fracture as detailed. 2. Osteopenia, multilevel degenerative changes, probable L1 bone island, not inserting left renal micro-calculus, and arteriosclerotic disease. Comment: Preliminary interpretation made by C. No critical discrepancy.
== END 2022-05-17 14:10 | disposition home or self-care (01) ==
LOC: ED 11:58
DX: S32.030A Wedge compression fracture of third lumbar vertebra, initial encounter for closed fracture (principal); W18.39XA Other fall on same level, initial encounter; Z91.81 History of falling; Y93.01 Activity, walking, marching and hiking; M54.50 Low back pain, unspecified; I11.0 Hypertensive heart disease with heart failure; I50.9 Heart failure, unspecified; E78.5 Hyperlipidemia, unspecified; J44.9 Chronic obstructive pulmonary disease, unspecified; E11.42 Type 2 diabetes mellitus with diabetic polyneuropathy; Z79.4 Long term (current) use of insulin; Z79.84 Long term (current) use of oral hypoglycemic drugs; Z79.01 Long term (current) use of anticoagulants; Z79.899 Other long term (current) drug therapy; Z79.891 Long term (current) use of opiate analgesic
CPT/HCPCS: 72131; 82947; 96372; 99284; J1885

== ENCOUNTER 2022-07-20 20:59 | Emergency (ER) | payer MEDICARE, OTHER ==
[2022-07-20] MEDS ORDERED: TYLENOL EXTRA STRENGTH 500 MG PO STA (21:16)
[2022-07-20] MEDS ORDERED: TYLENOL EXTRA STRENGTH 500 MG ONE (21:21)
--- NOTE | 2022-07-20 21:38 | ERPHSYRPT ---
- History of Present Illness Time Seen by Provider: 07/20/22 20:59 Source: patient, EMS Exam Limitations: no limitations Patient Subjective Stated Complaint: fall around 2014 Triage Nursing Assessment: Pt presents to ED via [facility] from [facility]. Per EMS & pt, pt fell attempting to get out of bed to go to the bathroom. Pt reports he stood up, "lost balance", and fell. States hit L ear & head. Small abrasions noted L ear. No active bleeding. Ear cleaned with gauze & saline. No injuries noted to head, pt takes Xarelto. C/o R hip pain. States this is a chronic issue, no worsened pain since the fall. Denies any other injuries. Denies LOC, nausea, dizziness, or vision changes. Skin PWD. VSS. Reports pain 5/10 to R hip. Denies pain to head/ear. Small skin tear noted to top of R wrist. 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 No active bleeding. Pt denies pain to the site. Pt has trach, is on RA. A &Ox3, answers questions appropriately. Physician History: Patient here with fall. States that he is usually off balance and usually needs someone to help him to the bathroom. Tonight he stated he try to go to the bathroom by himself. He lost his balance and fell. Patient has a left head contusion, left auricle hematoma. Therefore, brought to the emergency department. He is on Xarelto for his A. fib. He has no chest pain. Patient has some abrasions over his right hand. He has chronic right hip tenderness. With no new or different pain there. Timing/Duration: today Severity: mild Modifying Factors: Improves With: nothing Associated Symptoms: denies symptoms Allergies/Adverse Reactions: gabapentin Allergy (Mild, Verified 07/20/22 21:17) Penicillins Allergy (Mild, Verified 07/20/22 21:17) Antihistamines - Alkylamine Allergy (Verified 07/20/22 21:17) pt unsure what antihistaine name was Antihistamines - Ethanolamine Allergy (Verified 07/20/22 21:17) pt unsure of name of antihistamine Antihistamines - Ethylenediamine Allergy (Verified 07/20/22 21:17) pt unsure of name of antihistamine Antihistamines - Piperazine Allergy (Verified 07/20/22 21:17) pt unsure of name of antihistamine Antihistamines - Piperidine Allergy (Verified 07/20/22 21:17) pt unsure of name of antihistamine Home Medications: Albuterol 2.5 mg/3 ml Neb [Proventil 2.5 mg/3 ml Neb] 2.5 mg IH Q6HPRN PRN 07/11/13 [History] Gemfibrozil [Lopid] 600 mg PEG BID 07/11/13 [History] Insulin Aspart [NovoLOG Insulin] 0 unit SQ TID 07/11/13 [History] Insulin Glargine [Lantus Insulin] 36 unit SQ HS 07/11/13 [History] Pantoprazole Sodium [Protonix] 40 mg PEG DAILY 07/11/13 [History] Sotalol HCl [Betapace] 120 mg PEG BID 07/11/13 [History] Atorvastatin Calcium 80 mg PEG HS 12/04/16 [History] Glipizide 5 mg [Glucotrol 5 MG] 5 mg PEG DAILY 12/04/16 [History] Triamterene/Hydrochlorothiazid [Triamterene-Hctz 37.5-25 mg Tb] 37.5 mg PEG DAILY 12/04/16 [History] Ipratropium/Albuterol Sulfate [Combivent Inhaler] 1 gm IH QID 03/25/19 [History] Rivaroxaban [Xarelto] 20 mg PEG HS 06/13/21 [History] Aspirin EC 81 mg [Ecotrin 81 mg] 81 mg PEG BID 07/01/21 [History] Potassium Chloride [Klor-Con 10] 10 meq PEG QHS 11/25/21 [History] Propylene Glycol/Peg 400 [Systane 0.3-0.4% Eye Drops] 1 drop OP QID 11/25/21 [H istory] Furosemide 40 mg [Lasix 40 MG] 40 mg PEG DAILY 03/27/22 [History] Potassium Chloride 20 meq PEG DAILY 03/27/22 [History] Hx Tetanus, Diphtheria Vaccination/Date Given: No Hx Influenza Vaccination/Date Given: Yes Hx Pneumococcal Vaccination/Date Given: No Travel Risk - International Travel Have you traveled outside of the country in past 3 weeks: No - Coronavirus Screening Are you exhibiting any of the following symptoms?: No - Vaccine Status Have you recieved a Covid-19 vaccination: Yes 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 - Vaccination Dates Date of 2cond Vaccination (if applicable): unknown - Review of Systems Constitutional: Other (Left head contusion), No Fever, No Chills Eyes: No Symptoms Ears, Nose, & Throat: No Symptoms, Other (Left ear hematoma.) Respiratory: No Cough, No Dyspnea Cardiac: No Chest Pain, No Edema, No Syncope Abdominal/Gastrointestinal: No Abdominal Pain, No Nausea, No Vomiting, No Diarrhea Genitourinary Symptoms: No Dysuria Musculoskeletal: No Back Pain, No Neck Pain Skin: No Rash Neurological: No Dizziness, No Focal Weakness, No Sensory Changes Psychological: No Symptoms Endocrine: No Symptoms All Other Systems: Reviewed and Negative - Past Medical History Pertinent Past Medical History: Yes Neurological History: Peripheral Neuropathy, TIA ENT History: No Pertinent History Cardiac History: Arrhythmia, Congestive Heart Failure, Coronary Artery Disease, High Cholesterol, Hypertension Respiratory History: CHF, COPD, Sleep Apnea Endocrine Medical History: Diabetes Type II Musculoskeletal History: No Pertinent History GI Medical History: GERD History: No Pertinent History Psycho-Social History: No Pertinent History Male Reproductive Disorders: No Pertinent History Other Medical History: GERD. SX HX: PACEMAKER 2010, CARDIAC STENTS X 2 1996 AND 2007. USES BIPAP - Past Surgical History Past Surgical History: Yes Neuro Surgical History: No Pertinent History Cardiac: Cardiac Catheterization, Cardiac Stent, Pacemaker Respiratory: No Pertinent History Gastrointestinal: No Pertinent History Genitourinary: No Pertinent History Musculoskeletal: Orthopedic Surgery Male Surgical History: No Pertinent History Other Surgical History: toe reattached, lip cancer removed, 6 teeth extracted 12/03/2016 - Social History Smoking Status: Former smoker Exposure to second hand smoke: No Drug Use: none Patient Lives Alone: No Significant Family History: heart disease - Nursing Vital Signs Nursing Vital Signs: Initial Vital Signs Temperature 97.9 F 07/20/22 21:01 Pulse Rate 82 07/20/22 21:01 Respiratory Rate 18 07/20/22 21:01 Blood Pressure 117/54 07/20/22 21:01 O2 Sat by Pulse Oximetry 93 L 07/20/22 21:01 Pain Scale Pain Intensity 5 - Physical Exam General Appearance: no apparent distress, alert, other (Left scalp hematoma, contusion. Slight abrasion. No laceration.) Eye Exam: PERRL/EOMI, eyes nml inspection Ears, Nose, Throat Exam: normal ENT inspection, TMs normal, pharynx normal, moist mucous membranes, other (Left auricular hematoma over antihelix) Neck Exam: normal inspection, non-tender, supple, full range of motion Respiratory Exam: normal breath sounds, lungs clear, No respiratory distress Cardiovascular Exam: regular rate/rhythm, normal heart sounds, normal peripheral pulses Gastrointestinal/Abdomen Exam: soft, normal bowel sounds, No tenderness, No mass Back Exam: normal inspection, normal range of motion, No CVA tenderness, No vertebral tenderness Extremity Exam: normal inspection, normal range of motion, pelvis stable Neurologic Exam: alert, oriented x 3, cooperative, normal mood/affect, nml cerebellar function, nml station & gait, sensation nml, No motor deficits Skin Exam: normal color, warm, dry, No rash Lymphatic Exam: No adenopathy SpO2: 93 Comments: 07/20/22 21:40 Patient has some abrasions over his right hand. 2+ pulses, full range of motion. No tenderness. No active bleeding. Chronic right hip tenderness. Full range of motion without pain at this point time. Otherwise trauma exam is negative. No C-spine, T-spine, L-spine tenderness or step-offs. - Course Nursing assessment & vital signs reviewed: Yes Ordered Tests: Active Orders 24 hr Category Date Time Status HEAD WITHOUT CONTRAST [CT] Stat Exams 07/20/22 21:12 Taken Medication Summary Discontinued Medications Generic Name Dose Route Start Last Admin Trade Name Terrance PRN Reason Stop Dose Admin Acetaminophen 1,000 mg 07/20/22 21:16 07/20/22 21:22 Acetaminophen 500 Mg Tablet PO 07/20/22 21:17 1,000 mg STAT STA Administration Acetaminophen Confirm 07/20/22 21:21 Acetaminophen 500 Mg Tablet Administered 07/20/22 21:22 Dose 1,000 mg .ROUTE .STK-MED ONE - Progress Progress: improved Progress Note: 07/20/22 21:[address] given head contusion. I will not attempt to drain his auricular hematoma secondary to being on Eliquis and age. I do believe it will heal on its own with some development of firm cartilage. 07/20/22 22:[address] demonstrates no brain bleed, skull fractures. Plan for discharge home. Concussion protocol given. Will return here for new or changing symptoms. Should have reexam with PCP in 24 to 48 hours. I discussed all this with the patient and the patient's spouse who is at bedside. They state their understanding. We will follow-up as described. Counseled pt/family regarding: diagnosis, need for follow-up - Departure Departure Disposition: Home Clinical Impression: Contusion of head, Ear hematoma, left Condition: Stable Critical Care Time: No Referrals: MARIELOS SMALL MD [Primary Care Provider] - Follow up/PCP as directed Instructions: Contusion (DC), Preventing Falls in Older Adults
[2022-07-20 22:36] VITALS: BP 109/59; PULSE 80; O2SAT 95
--- NOTE | 2022-07-21 22:09 | XRAY ---
Exam: CT of the head without IV contrast from 07/20/2022. CTDI: 53.92 mGy Comparison: CT of the head without IV contrast from 05/10/2022. Indication: 81-year-old male fell and complains of pain/headache; struck left side of head. Technique: Non-IV contrast axial images were obtained through the brain. Reconstructed coronal and sagittal images were created and reviewed. Findings: The ventricles are again mildly prominent in a diffuse manner. There is also prominence of the cortical sulci and sylvian fissures consistent with generalized atrophy. Moderate bilateral periventricular and subcortical white matter changes are seen representing no significant change. This is most likely due to chronic small vessel ischemic white matter disease. 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 A new low attenuation infarct is not seen. Structures of the posterior fossa appear unremarkable. Vascular calcification is seen within the left vertebral artery. I see no focal mass effect or midline shift. No acute intracranial bleed or abnormal extra-axial fluid collection is seen. The patient's head is slightly tilted in the CT gantry. There is marked opacification of the right maxillary sinus with only a small amount of aeration remaining. I also note some mild mucosal thickening at the inferior aspect of the left maxillary sinus, the right ethmoid sinus, and the anterior right aspect of the sphenoid sinus. The latter findings are new from 05/10/2022 and are consistent with chronic sinus disease/sinusitis. Mastoid air cells are clear without effusion. The middle ear cavities appear unremarkable. I believe there is cerumen within both external auditory canals. The orbits appear grossly unremarkable. The calvarium of the skull appears intact without fracture. I see no definite scalp hematoma. Impression: 1. Mild generalized atrophy and evidence of moderate bilateral periventricular and subcortical white matter changes likely due to chronic small vessel ischemic disease. 2. In addition, I note a small area of encephalomalacia within each frontal lobe representing no change from 05/10/2022. 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 A definite new infarct is not seen. 3. No acute intracranial bleed or other acute brain process is seen. 4. Mild worsening of chronic paranasal sinus disease/sinusitis, as described above.
== END 2022-07-20 22:52 | disposition home or self-care (01) ==
LOC: ED 20:59
DX: S00.03XA Contusion of scalp, initial encounter (principal); S00.432A Contusion of left ear, initial encounter; W18.30XA Fall on same level, unspecified, initial encounter; Z91.81 History of falling; Y92.002 Bathroom of unspecified non-institutional (private) residence as the place of occurrence of the external cause; I11.0 Hypertensive heart disease with heart failure; I50.9 Heart failure, unspecified; E78.5 Hyperlipidemia, unspecified; J44.9 Chronic obstructive pulmonary disease, unspecified; E11.9 Type 2 diabetes mellitus without complications; Z79.01 Long term (current) use of anticoagulants; Z79.4 Long term (current) use of insulin; Z79.84 Long term (current) use of oral hypoglycemic drugs; Z79.899 Other long term (current) drug therapy
CPT/HCPCS: 70450; 99283; A9270-GY

== ENCOUNTER 2022-08-10 05:42 | Observation (INO) | payer OTHER ==
--- NOTE | 2022-08-10 06:24 | ERPHSYRPT ---
- History of Present Illness Source: patient, family Exam Limitations: no limitations Patient Subjective Stated Complaint: pt states he has been having difficulty breathing for last 2 days. states he has increased cough Triage Nursing Assessment: pt alert and oriented, answers questions approp. pt back per wheelchair and transfers to stretcher with assist of 1. respirations nonlabored, coarse lung sounds to rt side. skin dry and intact. Timing/Duration: day(s) (1 to 2 days) Activities at Onset: none Severity of Dyspnea-Max: mild (To moderate) Severity of Dyspnea-Current: mild Possible Cause: occasional episodes Modifying Factors: Improves With: activity, coughing Associated Symptoms: cough, ankle swelling, heaviness, No chest pain/discomfort Hx Tetanus, Diphtheria Vaccination/Date Given: Yes Hx Influenza Vaccination/Date Given: Yes Hx Pneumococcal Vaccination/Date Given: No Immunizations Up to Date: Yes <TULIO GUPTA - Last Filed: 08/10/22 06:36> <EMMA MOYA - Last Filed: 08/10/22 08:17> - History of Present Illness Time Seen by Provider: 08/10/22 06:10 Physician History: This is a 81-year-old obese white male patient of Dr. Rosa who has a permanent tracheostomy tube in place. Patient states over the last 1 to 2 days he has noticed increasing in his cough and shortness of breath. Patient arrives to the emergency department from home in no significant distress and his room air oxygenation level is running between 93 and 98% on room air. Patient states that at home, he has tried suctioning out the tracheostomy tube. However after the initial removal of mucus, there still is a sensation of mucus present and this may be contributing to his shortness of breath per his report. Patient denies chest pain. He does feel mild pressure in his neck. Patient has an appointment to see Dr. Rosa tomorrow patient has a history of arrhythmia on Xarelto, CHF, COPD, sleep apnea, coronary artery disease, diabetes, hyperlipidemia, hypertension and gastroesophageal reflux disease. (TULIO GUPTA) Allergies/Adverse Reactions: gabapentin Allergy (Mild, Verified 08/10/22 06:12) Penicillins Allergy (Mild, Verified 08/10/22 06:12) Antihistamines - Alkylamine Allergy (Verified 08/10/22 06:12) pt unsure what antihistaine name was Antihistamines - Ethanolamine Allergy (Verified 08/10/22 06:12) pt unsure of name of antihistamine Antihistamines - Ethylenediamine Allergy (Verified 08/10/22 06:12) pt unsure of name of antihistamine Antihistamines - Piperazine Allergy (Verified 08/10/22 06:12) pt unsure of name of antihistamine Antihistamines - Piperidine Allergy (Verified 08/10/22 06:12) pt unsure of name of antihistamine Home Medications: Albuterol 2.5 mg/3 ml Neb [Proventil 2.5 mg/3 ml Neb] 2.5 mg IH Q6HPRN PRN 07/11/13 [History] Gemfibrozil [Lopid] 600 mg PEG BID 07/11/13 [History] Insulin Aspart [NovoLOG Insulin] 0 unit SQ TID 07/11/13 [History] Insulin Glargine [Lantus Insulin] 36 unit SQ HS 07/11/13 [History] Pantoprazole Sodium [Protonix] 40 mg PEG DAILY 07/11/13 [History] Sotalol HCl [Betapace] 120 mg PEG BID 07/11/13 [History] Atorvastatin Calcium 80 mg PEG HS 12/04/16 [History] Glipizide 5 mg [Glucotrol 5 MG] 5 mg PEG DAILY 12/04/16 [History] Triamterene/Hydrochlorothiazid [Triamterene-Hctz 37.5-25 mg Tb] 37.5 mg PEG DAILY 12/04/16 [History] Ipratropium/Albuterol Sulfate [Combivent Inhaler] 1 gm IH QID 03/25/19 [History] Rivaroxaban [Xarelto] 20 mg PEG HS 06/13/21 [History] Aspirin EC 81 mg [Ecotrin 81 mg] 81 mg PEG BID 07/01/21 [History] Potassium Chloride [Klor-Con 10] 10 meq PEG QHS 11/25/21 [History] Propylene Glycol/Peg 400 [Systane 0.3-0.4% Eye Drops] 1 drop OP QID 11/25/21 [History] Furosemide 40 mg [Lasix 40 MG] 40 mg PEG DAILY 03/27/22 [History] Potassium Chloride 20 meq PEG DAILY 03/27/22 [History] Travel Risk - International Travel Have you traveled outside of the country in past 3 weeks: No - Coronavirus Screening Are you exhibiting any of the following symptoms?: Yes Symptoms: Cough: New Onset, Shortness of Breath Close contact with a COVID-19 positive Pt in past 14-21 Days: No - Vaccine Status Have you recieved a Covid-19 vaccination: Yes 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: [employer] - Vaccination Dates Date of 2cond Vaccination (if applicable): nov 2020 <TULIO GUPTA - Last Filed: 08/10/22 06:36> - Review of Systems Constitutional: No Symptoms Eyes: No Symptoms Ears, Nose, & Throat: No Symptoms Respiratory: Cough, Dyspnea Cardiac: No Symptoms Abdominal/Gastrointestinal: No Symptoms Genitourinary Symptoms: No Symptoms Musculoskeletal: No Symptoms Skin: No Symptoms Neurological: No Symptoms Psychological: No Symptoms Endocrine: No Symptoms Hematologic/Lymphatic: No Symptoms Immunological/Allergic: No Symptoms All Other Systems: Reviewed and Negative <TULIO GUPTA - Last Filed: 08/10/22 06:36> - Past Medical History Pertinent Past Medical History: Yes Neurological History: Peripheral Neuropathy, TIA ENT History: No Pertinent History Cardiac History: Arrhythmia, Congestive Heart Failure, Coronary Artery Disease, High Cholesterol, Hypertension Respiratory History: CHF, COPD, Sleep Apnea Endocrine Medical History: Diabetes Type II Musculoskeletal History: No Pertinent History GI Medical History: GERD History: No Pertinent History Psycho-Social History: No Pertinent History Male Reproductive Disorders: No Pertinent History Other Medical History: GERD. SX HX: PACEMAKER 2010, CARDIAC STENTS X 2 1996 AND 2007 - Past Surgical History Past Surgical History: Yes Neuro Surgical History: No Pertinent History Cardiac: Cardiac Catheterization, Cardiac Stent, Pacemaker Respiratory: No Pertinent History Gastrointestinal: No Pertinent History Genitourinary: No Pertinent History Musculoskeletal: Orthopedic Surgery Male Surgical History: No Pertinent History Other Surgical History: toe reattached, lip cancer removed, 6 teeth extracted 12/03/2016 - Social History Smoking Status: Former smoker Exposure to second hand smoke: No Drug Use: none Patient Lives Alone: No Significant Family History: heart disease <TULIO GUPTA - Last Filed: 08/10/22 06:36> - Physical Exam General Appearance: no apparent distress, alert, anxiety, obese Eye Exam: PERRL/EOMI, eyes nml inspection Ears, Nose, Throat Exam: hearing grossly normal, normal ENT inspection, normal pharynx Neck Exam: non-tender, supple, full range of motion, other (Permanent tracheostomy in place) Respiratory Exam: crackles/rales (Bilateral at the bases), rhonchi (Left side), No chest tenderness Cardiovascular/Chest Exam: normal heart sounds, regular rate/rhythm, normal peripheral pulses, edema (Bilateral feet and ankles) Abdominal/Gastrointestinal Exam: soft, normal bowel sounds, No tenderness Rectal Exam: not done Extremity Exam: pedal edema (Bilateral feet and ankles) Neurologic Exam: alert, oriented x 3, cooperative, ortho rn II-XII nml as tested, normal mood/affect, nml cerebellar function, nml station & gait, sensation nml Skin Exam: normal color, warm, dry Lymphatic Exam: No adenopathy SpO2 Interpretation: normal SpO2: 96 O2 Delivery: Room Air <TULIO GUPTA - Last Filed: 08/10/22 06:36> - Nursing Vital Signs Nursing Vital Signs: Initial Vital Signs Temperature 97.1 F 08/10/22 05:54 Pulse Rate 60 08/10/22 05:54 Respiratory Rate 20 08/10/22 05:54 Blood Pressure 120/52 08/10/22 05:54 O2 Sat by Pulse Oximetry 96 08/10/22 05:54 Pain Scale Pain Intensity 0 - Course Nursing assessment & vital signs reviewed: Yes <TULIO GUPTA - Last Filed: 08/10/22 06:36> Ordered Tests: Active Orders 24 hr Category Date Time Status Fisher Dip Net STAT Care 08/10/22 06:26 Active EKG-ER Only STAT Care 08/10/22 06:26 Active IV Insertion STAT Care 08/10/22 06:26 Active Pulse Oximetry (ED) STAT Care 08/10/22 06:26 Active CHEST 1 VIEW (PORTABLE) Stat Exams 08/10/22 06:26 Taken CHEST WITH CONTRAST [CT] Stat Exams 08/10/22 07:29 Stop Req BLOOD CULTURE Stat Lab 08/10/22 06:50 Received CBC W DIFF Stat Lab 08/10/22 06:45 Completed CMP Stat Lab 08/10/22 06:45 Completed D-DIMER QUANTITATIVE Stat Lab 08/10/22 06:45 Completed NT PRO BNP Stat Lab 08/10/22 06:45 Completed TROPONIN Q4H Lab 08/10/22 06:45 Completed TROPONIN Q4H Lab 08/10/22 10:30 Ordered TROPONIN Q4H Lab 08/10/22 14:30 Ordered Medication Summary Generic Name Dose Route Start Last Admin Trade Name Freq PRN Reason Stop Dose Admin Ceftriaxone Sodium/Dextrose 1 g in 50 mls @ 100 mls/hr 08/10/22 08:11 08/10/22 08:15 Rocephin 1 Gm-D5w 50 Ml Bag IV 08/10/22 08:40 100 mls/hr STAT STA 100 mls/hr Administration Doxycycline Hyclate 100 mg/ 100 mls @ 100 mls/hr 08/10/22 10:00 Dextrose IV 09/09/22 09:59 Q12HT HONEY Discontinued Medications Generic Name Dose Route Start Last Admin Trade Name Freq PRN Reason Stop Dose Admin Potassium Chloride 40 meq 08/10/22 07:29 08/10/22 07:46 Potassium Chloride Tab 10 Meq Tab PO 08/10/22 07:30 40 meq STAT ONE Administration Potassium Chloride Confirm 08/10/22 07:46 Potassium Chloride Tab 10 Meq Tab Administered 08/10/22 07:47 Dose 40 meq PO .STK-MED ONE Lab/Rad Data: Laboratory Result Diagrams 08/10/22 06:45 08/10/22 06:45 Laboratory Results 08/10/22 08/10/22 08/10/22 Range/Units 06:45 06:45 06:45 WBC (4.0-10.5) x10^3/uL RBC (4.1-5.6) x10^6/uL Hgb (12.5-18.0) g/dL Hct (42-50) % MCV (78-100) fL MCH (26-32) pg MCHC (32-36) g/dL RDW (11.5-14.0) % Plt Count (150-450) x10^3/uL MPV (7.5-11.0) fL Gran % (36.0-66.0) % Immature Gran % (Auto) (0.00-0.4) % Nucleat RBC Rel Count (0.00-0.1) % Eos # (Auto) (0-0.5) x10^3/uL Immature Gran # (Auto) (0.00-0.03) x10^3u/L Absolute Lymphs (auto) (1.0-4.6) x10^3/uL Absolute Monos (auto) (0.0-1.3) x10^3/uL Absolute Nucleated RBC (0.00-0.01) x10^3u/L Lymphocytes % (24.0-44.0) % Monocytes % (0.0-12.0) % Eosinophils % (0.00-5.0) % Basophils % (0.0-0.4) % Absolute Granulocytes (1.4-6.9) x10^3/uL Basophils # (0-0.4) x10^3/uL D-Dimer 1.05 H* (0.0-0.50) mg/L Sodium 133 L (137-145) mmol/L Potassium 3.0 L* (3.5-5.1) mmol/L Chloride 88 L (98-107) mmol/L Carbon Dioxide 38 H (22-30) mmol/L Anion Gap 9.6 (5-15) MEQ/L BUN 47 H (9-20) mg/dL Creatinine 1.48 H (0.66-1.25) mg/dL Estimated GFR 48.7 ML/MIN Glucose 126 H (74-106) mg/dL Calcium 8.1 L (8.4-10.2) mg/dL Total Bilirubin 0.60 (0.2-1.3) mg/dL AST 28 (17-59) U/L ALT 13 (0-50) U/L Alkaline Phosphatase 144 H (38-126) U/L Troponin I 0.077 H* (0.000-0.034) ng/mL NT-Pro-B Natriuret Pep 2370 H (0-1800) pg/mL Serum Total Protein 7.2 (6.3-8.2) g/dL Albumin 3.5 (3.5-5.0) g/dL 08/10/22 Range/Units 06:45 WBC 8.3 (4.0-10.5) x10^3/uL RBC 3.39 L (4.1-5.6) x10^6/uL Hgb 7.9 L (12.5-18.0) g/dL Hct 27.4 L (42-50) % MCV 80.8 (78-100) fL MCH 23.3 L (26-32) pg MCHC 28.8 L (32-36) g/dL RDW 18.5 H (11.5-14.0) % Plt Count 326 (150-450) x10^3/uL MPV 10.3 (7.5-11.0) fL Gran % 64.1 (36.0-66.0) % Immature Gran % (Auto) 0.2 (0.00-0.4) % Nucleat RBC Rel Count 0.0 (0.00-0.1) % Eos # (Auto) 0.26 (0-0.5) x10^3/uL Immature Gran # (Auto) 0.02 (0.00-0.03) x10^3u/L Absolute Lymphs (auto) 1.50 (1.0-4.6) x10^3/uL Absolute Monos (auto) 1.11 (0.0-1.3) x10^3/uL Absolute Nucleated RBC 0.00 (0.00-0.01) x10^3u/L Lymphocytes % 18.2 L (24.0-44.0) % Monocytes % 13.5 H (0.0-12.0) % Eosinophils % 3.2 (0.00-5.0) % Basophils % 0.8 (0.0-0.4) % Absolute Granulocytes 5.29 (1.4-6.9) x10^3/uL Basophils # 0.07 (0-0.4) x10^3/uL D-Dimer (0.0-0.50) mg/L Sodium (137-145) mmol/L Potassium (3.5-5.1) mmol/L Chloride (98-107) mmol/L Carbon Dioxide (22-30) mmol/L Anion Gap (5-15) MEQ/L BUN (9-20) mg/dL Creatinine (0.66-1.25) mg/dL Estimated GFR ML/MIN Glucose (74-106) mg/dL Calcium (8.4-10.2) mg/dL Total Bilirubin (0.2-1.3) mg/dL AST (17-59) U/L ALT (0-50) U/L Alkaline Phosphatase (38-126) U/L Troponin I (0.000-0.034) ng/mL NT-Pro-B Natriuret Pep (0-1800) pg/mL Serum Total Protein (6.3-8.2) g/dL Albumin (3.5-5.0) g/dL - Progress Progress: improved Air Movement: good Blood Culture(s) Obtained: Yes Counseled pt/family regarding: lab results, diagnosis, need for follow-up, rad r esults <TULIO GUPTA - Last Filed: 08/10/22 06:36> - Progress Progress: re-examined Antibiotics given: Yes Discussed with : Parris <EMMA MOYA - Last Filed: 08/10/22 08:17> - Progress Progress Note: 08/10/22 06:36 The care of this patient is being transferred to Dr. Moya at shift change. He will follow-up on the results of the test and make final disposition. (TULIO GUPTA) 08/10/22 08:13 Patient is checked out to me at shift change from Dr. Gupta with pending work-up. Patient presented with shortness of breath. On my evaluation patient is feeling much better and on room air around 96%. Has bilateral increasing lower extremity swelling and chest x-ray showed questionable bilateral infiltrative process with some congestion. EKG is paced rhythm and initial tr oponins are mildly elevated 0.077 but review of records show he always have elevation in troponins. Patient is on Xarelto and has elevated D-dimers, patient's renal functions are borderline and him being on Xarelto I do not think the need for doing a CTA at this point. Patient has a drop of hemoglobin from 14 in October last year to 7.9 today and he denies any epigastric discomfort, dark stool or taking NSAIDs. We will get stool occult done. I have discussed with patient about the need for transfusion if has further drop in hemoglobin, went over risk and benefits of transfusion and he agreed to go ahead with it. We will type and crossmatch 2 units and will hold them. I have also started him on antibiotics. Patient blood pressure is also borderline in low 100s and will hold off on Lasix for now. Patient symptoms are a combination of CHF exacerbation/infiltrative process. Discussed with Dr. Pena and patient is being admitted. Has mild hypokalemia and given replacement orally. (EMMA MOYA) - Departure Departure Disposition: Home Critical Care Time: No <TULIO GUPTA - Last Filed: 08/10/22 06:36> - Departure Departure Disposition: Observation <EMMA MOYA - Last Filed: 08/10/22 08:17> - Departure Clinical Impression: Shortness of breath, Congestive heart failure, Elevated troponin, Pneumonia, Hypokalemia, Anemia Condition: Stable Referrals: MARIELOS ROSA MD [Primary Care Provider] - Follow up/PCP as directed Instructions: Heart Failure
[2022-08-10 07:05] LABS: Absolute Neutrophil Ct (ANC) 5.29 x10^3/uL (1.4-6.9); Basophil (Absolute #) 0.07 x10^3/uL (0-0.4); Eosinophil % 3.2 % (0.00-5.0); Eosinophil (Absolute #) 0.26 x10^3/uL (0-0.5); Hematocrit 27.4 % (42-50); Hemoglobin 7.9 g/dL (12.5-18.0); Lymphocytes % 18.2 % (24.0-44.0); Mean Cell Volume 80.8 fL (78-100); Mean Corpuscular Hemoglobin 23.3 pg (26-32); Mean Corpuscular Hgb Concent. 28.8 g/dL (32-36); Mean Platelet Volume 10.3 fL (7.5-11.0); Monocyte (Absolute #) 1.11 x10^3/uL (0.0-1.3); Monocytes % 13.5 % (0.0-12.0); Neutrophil % 64.1 % (36.0-66.0); Platelet Count 326 x10^3/uL (150-450); Red Blood Count 3.39 x10^6/uL (4.1-5.6); Red Cell Distribution Width 18.5 % (11.5-14.0); White Blood Count 8.3 x10^3/uL (4.0-10.5)
[2022-08-10 07:25] LABS: ALBUMIN 3.5 g/dL (3.5-5.0); ANION GAP 9.6 MEQ/L (5-15); BILIRUBIN,TOTAL 0.6 mg/dL (0.2-1.3); Calcium 8.1 mg/dL (8.4-10.2); Creatinine 1 1.48 mg/dL (0.66-1.25); EST GLOMERULAR FILTRATION RATE 48.7 ML/MIN; Total Protein 7.2 g/dL (6.3-8.2)
[2022-08-10] MEDS ORDERED: Klor Con PO ONE ×2 (07:29→07:46)
[2022-08-10 07:40] LABS: INFLUENZA A NEGATIVE (NEGATIVE); INFLUENZA B NEGATIVE (NEGATIVE); RESPIRATORY SYNCTIAL VIRUS NEGATIVE (Negative); SARS-CoV-2 Xpert Express NEGATIVE (NEGATIVE)
[2022-08-10] MEDS ORDERED: ROCEPHIN 1 Gm-D5w 50 ml Bag** 1 G/50 ML IVPB IV STA (08:11)
[2022-08-10] MEDS ORDERED: ROCEPHIN 1 Gm-D5w 50 ml Bag** 1 G/50 ML IVPB IV ONE (08:14)
--- NOTE | 2022-08-10 09:19 | XRAY ---
Indication: Dyspnea. Comparison: May 01, 2022 Portable apical lordotic chest now underinflated with grossly stable left base infiltrate/atelectasis/effusion and incidental tracheostomy cannula. New mild right base infiltrate/atelectasis. Heart borderline enlarged again with left pacemaker. Bony thorax intact.
[2022-08-10] MEDS ORDERED: Zofran 4 MG/2 ML VIAL IV PRN (09:20)
[2022-08-10] MEDS ORDERED: HUMALOG SQ PRN (09:20)
[2022-08-10] MEDS ORDERED: VIBRAMYCIN 100 MG*** 100 MG in Dextrose 5%/Water IV Soln. 100ML PLUS BAG 100 ML IV SCH ×4 (10:00)
[2022-08-10] MEDS ORDERED: Sodium Chloride 0.9% 1000 ML 1,000 ML ONE (10:14)
[2022-08-10 10:16] LABS: ABO TYPING B; Antibody Screen NEGATIVE (NEGATIVE); RH TYPING POSITIVE
[2022-08-10 10:20] LABS: CROSS MATCH (PRBC) COMPATIBLE (COMPATIBLE)
[2022-08-10 11:34] LABS: Slide Review 1 YES
[2022-08-10] MEDS: VENTOLIN COMMON CANISTER IH SCH ×3 (11:42→19:56)
[2022-08-10] MEDS ORDERED: PROVENTIL 2.5 MG/3 ML NEB IH PRN (12:31)
[2022-08-10] MEDS ORDERED: NON-FORMULARY ITEM (Propylene Glycol/Peg 400 [Systane 0.3-0.4% Eye Drops] 15 ML Drops) OP SCH (13:00)
[2022-08-10] MEDS ORDERED: DUONEB 0.5-3 MG/3 ml Neb IH SCH (13:00)
[2022-08-10] MEDS: Pepcid 20 MG VIAL IV SCH ×2 (14:28→21:17)
[2022-08-10] MEDS: Artificial Tears 15 ML OP SCH ×4 (14:33→21:14)
[2022-08-10] MEDS: Betapace 80 MG PO SCH ×2 (14:35→21:16)
[2022-08-10] MEDS: Klor Con PO SCH ×2 (14:38→21:17)
[2022-08-10] MEDS: Coreg PO SCH ×2 (14:38→21:15)
[2022-08-10] MEDS: LOPID PO SCH ×2 (14:38→21:16)
[2022-08-10] MEDS: ECOTRIN 81 MG PO SCH ×2 (14:38→21:15)
[2022-08-10] MEDS: Maxzide-25MG Tablet PO SCH (14:39)
[2022-08-10] MEDS: Protonix 40MG Tablet PO SCH (14:39)
[2022-08-10 15:50] LABS: Hematocrit 32.2 % (42-50); Hemoglobin 9.3 g/dL (12.5-18.0)
--- NOTE | 2022-08-10 16:39 | PCM.HP ---
History of Present Illness - Chief Complaint Chief Complaint: anemia, hpokalemia, pneumonia, History of Present Illness: Late entry for 08/10/22 approx 1300. is a 81 year old male pt of Dr. Sanon from [facility] in [place] with Trachostomy, CHF, afib, and pacemaker who was brought to the ER and dx with COPD exacerbation, anemia, and CHF exacerbation. In ER he had crackles in bilat lung bases. O2 sat was 90-93%, but after suctioning the tracheostomy his sats improved to 96-97%. Apparentlly he was sick x 2-3d with SOB and cough. Had Bilat LE edema. Denies melena and does not take NSAIDs. Has been on xarelto.. In ER, had bilat infiltrates on chest xray and was started on rocephin and zithromax. Hgb 7.9 (in Oct 2021 was 14). He apparently got his trach in January 2022; went to ER for cHF exacerbation, was intubated and ended up extubating himself. 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 He was on xarelto for hx of afib, but had an ablation in January 2022. Last colonoscopy about 7 years ago, he thinks, at [facility] with Dr. Pat. - Review of Systems Respiratory: Cough, Short Of Breath, Other (tracheostomy present) Cardiac: Edema Skin: Skin Lesions (blister RLE) All Other Systems: Reviewed and Negative Medications & Allergies Home Medications: Home Medication List Albuterol 2.5 mg/3 ml Neb [Proventil 2.5 mg/3 ml Neb] 2.5 mg IH Q6HPRN PRN 07/11/13 [History Confirmed 08/10/22] Gemfibrozil [Lopid] 600 mg PO BID 07/11/13 [History Confirmed 08/10/22] Insulin Aspart [NovoLOG Insulin] 0 unit SQ TID 07/11/13 [History Confirmed 08/10/22] Insulin Glargine [Lantus Insulin] 20 unit SQ HS 07/11/13 [History Confirmed 08/10/22] Pantoprazole Sodium [Protonix] 40 mg PO DAILY 07/11/13 [History Confirmed 08/10/22] Sotalol HCl [Betapace] 120 mg PO BID 07/11/13 [History Confirmed 08/10/22] Atorvastatin Calcium 80 mg PO HS 12/04/16 [History Confirmed 08/10/22] Glipizide 5 mg [Glucotrol 5 MG] 5 mg PO DAILY 12/04/16 [History Confirmed 08/10/22] Triamterene/Hydrochlorothiazid [Triamterene-Hctz 37.5-25 mg Tb] 37.5 mg PO DAILY 12/04/16 [History Confirmed 08/10/22] Ipratropium/Albuterol Sulfate [Combivent Inhaler] 1 gm IH QID 03/25/19 [History Confirmed 08/10/22] Rivaroxaban [Xarelto] 20 mg PO HS 06/13/21 [History Confirmed 08/10/22] Aspirin EC 81 mg [Ecotrin 81 mg] 81 mg PO BID 07/01/21 [History Confirmed 08/10/22] Potassium Chloride [Klor-Con 10] 10 meq PO QHS 11/25/21 [History Confirmed 08/10/22] Propylene Glycol/Peg 400 [Systane 0.3-0.4% Eye Drops] 1 drop OP QID 11/25/21 [History Confirmed 08/10/22] Furosemide 40 mg [Lasix 40 MG] 40 mg PO DAILY 03/27/22 [History Confirmed 08/10/22] Potassium Chloride 20 meq PO DAILY 03/27/22 [History Confirmed 08/10/22] Carvedilol 3.125 mg [Coreg 3.125 MG] 6.25 mg PO BID 08/10/22 [History Confirmed 08/10/22] Fluoxetine HCl 10 mg [Prozac 10 mg] 10 mg PO HS 08/10/22 [History Confirmed 08/10/22] Allergies/Adverse Reactions: Allergies Allergy/AdvReac Type Severity Reaction Status Date / Time gabapentin Allergy Mild Verified 08/10/22 06:12 Penicillins Allergy Mild Verified 08/10/22 06:12 Antihistamines - Alkylamine Allergy Verified 08/10/22 06:12 Antihistamines - Ethanolamine Allergy Verified 08/10/22 06:12 Antihistamines - Allergy Verified 08/10/22 06:12 Ethylenediamine Antihistamines - Piperazine Allergy Verified 08/10/22 06:12 Antihistamines - Piperidine Allergy Verified 08/10/22 06:12 - Past Medical History Past Medical History: Yes Neurological History: Peripheral Neuropathy, TIA ENT History: No Pertinent History Cardiac History: Arrhythmia, Congestive Heart Failure, Coronary Artery Disease, High Cholesterol, Hypertension Respiratory History: CHF, COPD, Sleep Apnea Endocrine Medical History: Diabetes Type II Musculoskelatal History: No Pertinent History GI Medical History: GERD History: No Pertinent History Pyscho-Social History: No Pertinent History Male Reproductive Disorders: No Pertinent History Comment: GERD. SX HX: PACEMAKER 2010, CARDIAC STENTS X 2 1996 AND 2007 - Past Surgical History Past Surgical History: Yes Neuro Surgical History: No Pertinent History Cardiac History: Cardiac Catheterization, Cardiac Stent, Pacemaker Respiratory Surgery: No Pertinent History GI Surgical History: No Pertinent History Genitourinary Surgical Hx: No Pertinent History Musculskeletal Surgical Hx: Orthopedic Surgery Male Surgical History: No Pertinent History Other Surgical History: toe reattached, lip cancer removed, 6 teeth extracted 12/03/2016 - Social History Smoking Status: Former smoker How long have you smoked: 30 yrs Exposure to second hand smoke: No Alcohol: None Drug Use: none Significant Family History: heart disease - Physical Exam Vital Signs: Vital Signs - 24 hr Temp Pulse Resp BP Pulse Ox 08/10/22 15:31 66 20 95 08/10/22 12:28 62 20 93 L 08/10/22 12:00 97.7 F 61 22 119/52 95 08/10/22 09:22 97.5 F 62 20 132/58 97 08/10/22 09:03 61 18 116/45 96 08/10/22 08:04 60 20 121/48 98 08/10/22 07:51 57 L 20 109/48 95 08/10/22 06:55 62 20 109/48 99 08/10/22 06:37 96 08/10/22 06:28 95 08/10/22 05:54 97.1 F 60 20 120/52 96 General Appearance: no apparent distress, alert, other (eating lunch) Neurologic Exam: oriented x 3, cooperative, normal mood/affect Eye Exam: eyes nml inspection Ears, Nose, Throat Exam: moist mucous membranes Neck Exam: non-tender, other (tracheostomy present), No lymphadenopathy Respiratory Exam: normal breath sounds, lungs clear, No crackles/rales, No rhonchi, No wheezing Cardiovascular Exam: normal heart sounds, tachycardia (mild), No murmur Gastrointestinal/Abdomen Exam: soft, normal bowel sounds, No tenderness, No distention, No mass, No guarding, No rebound Extremity Exam: normal inspection, swelling (1+ pretibial edema on L. R lower leg wrapped; superior to this (just distal to knee) is trace edema.) Skin Exam: normal color, warm, dry, No rash Results - Labs Lab/Micro Results: Lab Results-Last 24 Hours 08/10/22 08/10/22 08/10/22 Range/Units 06:45 06:45 06:45 WBC 8.3 (4.0-10.5) x10^3/uL RBC 3.39 L (4.1-5.6) x10^6/uL Hgb 7.9 L (12.5-18.0) g/dL Hct 27.4 L (42-50) % MCV 80.8 (78-100) fL MCH 23.3 L (26-32) pg MCHC 28.8 L (32-36) g/dL RDW 18.5 H (11.5-14.0) % Plt Count 326 (150-450) x10^3/uL MPV 10.3 (7.5-11.0) fL Gran % 64.1 (36.0-66.0) % Immature Gran % (Auto) 0.2 (0.00-0.4) % Nucleat RBC Rel Count 0.0 (0.00-0.1) % Eos # (Auto) 0.26 (0-0.5) x10^3/uL Immature Gran # (Auto) 0.02 (0.00-0.03) x10^3u/L Absolute Lymphs (auto) 1.50 (1.0-4.6) x10^3/uL Absolute Monos (auto) 1.11 (0.0-1.3) x10^3/uL Absolute Nucleated RBC 0.00 (0.00-0.01) x10^3u/L Lymphocytes % 18.2 L (24.0-44.0) % Monocytes % 13.5 H (0.0-12.0) % Eosinophils % 3.2 (0.00-5.0) % Basophils % 0.8 (0.0-0.4) % Absolute Granulocytes 5.29 (1.4-6.9) x10^3/uL Basophils # 0.07 (0-0.4) x10^3/uL D-Dimer 1.05 H* (0.0-0.50) mg/L Sodium 133 L (137-145) mmol/L Potassium 3.0 L* (3.5-5.1) mmol/L Chloride 88 L (98-107) mmol/L Carbon Dioxide 38 H (22-30) mmol/L Anion Gap 9.6 (5-15) MEQ/L BUN 47 H (9-20) mg/dL Creatinine 1.48 H (0.66-1.25) mg/dL Estimated GFR 48.7 ML/MIN Glucose 126 H (74-106) mg/dL POC Glucometer (74 to 106) mg/dL Hemoglobin A1c (4.5-6.0) % Calcium 8.1 L (8.4-10.2) mg/dL Total Bilirubin 0.60 (0.2-1.3) mg/dL AST 28 (17-59) U/L ALT 13 (0-50) U/L Alkaline Phosphatase 144 H (38-126) U/L Troponin I (0.000-0.034) ng/mL NT-Pro-B Natriuret Pep 2370 H (0-1800) pg/mL Serum Total Protein 7.2 (6.3-8.2) g/dL Albumin 3.5 (3.5-5.0) g/dL Prealbumin (17.6-36.0) mg/dL Stl Occult Blood (IFOB) (NEGATIVE) Influenza Type A Ag (NEGATIVE) Influenza Type B Ag (NEGATIVE) RSV (PCR) (Negative) SARS-CoV-2 (PCR) (NEGATIVE) Slides for Path Review YES ABO Group Rh Factor Antibody Screen (NEGATIVE) Crossmatch (COMPATIBLE) 08/10/22 08/10/22 08/10/22 Range/Units 06:45 06:45 06:50 WBC (4.0-10.5) x10^3/uL RBC (4.1-5.6) x10^6/uL Hgb (12.5-18.0) g/dL Hct (42-50) % MCV (78-100) fL MCH (26-32) pg MCHC (32-36) g/dL RDW (11.5-14.0) % Plt Count (150-450) x10^3/uL MPV (7.5-11.0) fL Gran % (36.0-66.0) % Immature Gran % (Auto) (0.00-0.4) % Nucleat RBC Rel Count (0.00-0.1) % Eos # (Auto) (0-0.5) x10^3/uL Immature Gran # (Auto) (0.00-0.03) x10^3u/L Absolute Lymphs (auto) (1.0-4.6) x10^3/uL Absolute Monos (auto) (0.0-1.3) x10^3/uL Absolute Nucleated RBC (0.00-0.01) x10^3u/L Lymphocytes % (24.0-44.0) % Monocytes % (0.0-12.0) % Eosinophils % (0.00-5.0) % Basophils % (0.0-0.4) % Absolute Granulocytes (1.4-6.9) x10^3/uL Basophils # (0-0.4) x10^3/uL D-Dimer (0.0-0.50) mg/L Sodium (137-145) mmol/L Potassium (3.5-5.1) mmol/L Chloride (98-107) mmol/L Carbon Dioxide (22-30) mmol/L Anion Gap (5-15) MEQ/L BUN (9-20) mg/dL Creatinine (0.66-1.25) mg/dL Estimated GFR ML/MIN Glucose (74-106) mg/dL POC Glucometer (74 to 106) mg/dL Hemoglobin A1c (4.5-6.0) % Calcium (8.4-10.2) mg/dL Total Bilirubin (0.2-1.3) mg/dL AST (17-59) U/L ALT (0-50) U/L Alkaline Phosphatase (38-126) U/L Troponin I 0.077 H* (0.000-0.034) ng/mL NT-Pro-B Natriuret Pep (0-1800) pg/mL Serum Total Protein (6.3-8.2) g/dL Albumin (3.5-5.0) g/dL Prealbumin 14.78 L (17.6-36.0) mg/dL Stl Occult Blood (IFOB) (NEGATIVE) Influenza Type A Ag NEGATIVE (NEGATIVE) Influenza Type B Ag NEGATIVE (NEGATIVE) RSV (PCR) NEGATIVE (Negative) SARS-CoV-2 (PCR) NEGATIVE (NEGATIVE) Slides for Path Review ABO Group Rh Factor Antibody Screen (NEGATIVE) Crossmatch (COMPATIBLE) 08/10/22 08/10/22 08/10/22 Range/Units 07:25 08:24 08:34 WBC (4.0-10.5) x10^3/uL RBC (4.1-5.6) x10^6/uL Hgb (12.5-18.0) g/dL Hct (42-50) % MCV (78-100) fL MCH (26-32) pg MCHC (32-36) g/dL RDW (11.5-14.0) % Plt Count (150-450) x10^3/uL MPV (7.5-11.0) fL Gran % (36.0-66.0) % Immature Gran % (Auto) (0.00-0.4) % Nucleat RBC Rel Count (0.00-0.1) % Eos # (Auto) (0-0.5) x10^3/uL Immature Gran # (Auto) (0.00-0.03) x10^3u/L Absolute Lymphs (auto) (1.0-4.6) x10^3/uL Absolute Monos (auto) (0.0-1.3) x10^3/uL Absolute Nucleated RBC (0.00-0.01) x10^3u/L Lymphocytes % (24.0-44.0) % Monocytes % (0.0-12.0) % Eosinophils % (0.00-5.0) % Basophils % (0.0-0.4) % Absolute Granulocytes (1.4-6.9) x10^3/uL Basophils # (0-0.4) x10^3/uL D-Dimer (0.0-0.50) mg/L Sodium (137-145) mmol/L Potassium (3.5-5.1) mmol/L Chloride (98-107) mmol/L Carbon Dioxide (22-30) mmol/L Anion Gap (5-15) MEQ/L BUN (9-20) mg/dL Creatinine (0.66-1.25) mg/dL Estimated GFR ML/MIN Glucose (74-106) mg/dL POC Glucometer (74 to 106) mg/dL Hemoglobin A1c 6.64 H (4.5-6.0) % Calcium (8.4-10.2) mg/dL Total Bilirubin (0.2-1.3) mg/dL AST (17-59) U/L ALT (0-50) U/L Alkaline Phosphatase (38-126) U/L Troponin I (0.000-0.034) ng/mL NT-Pro-B Natriuret Pep (0-1800) pg/mL Serum Total Protein (6.3-8.2) g/dL Albumin (3.5-5.0) g/dL Prealbumin (17.6-36.0) mg/dL Stl Occult Blood (IFOB) (NEGATIVE) Influenza Type A Ag (NEGATIVE) Influenza Type B Ag (NEGATIVE) RSV (PCR) (Negative) SARS-CoV-2 (PCR) (NEGATIVE) Slides for Path Review ABO Group B Rh Factor POSITIVE Antibody Screen NEGATIVE (NEGATIVE) Crossmatch COMPATIBLE (COMPATIBLE) 08/10/22 08/10/22 08/10/22 Range/Units 08:34 09:55 11:35 WBC (4.0-10.5) x10^3/uL RBC (4.1-5.6) x10^6/uL Hgb (12.5-18.0) g/dL Hct (42-50) % MCV (78-100) fL MCH (26-32) pg MCHC (32-36) g/dL RDW (11.5-14.0) % Plt Count (150-450) x10^3/uL MPV (7.5-11.0) fL Gran % (36.0-66.0) % Immature Gran % (Auto) (0.00-0.4) % Nucleat RBC Rel Count (0.00-0.1) % Eos # (Auto) (0-0.5) x10^3/uL Immature Gran # (Auto) (0.00-0.03) x10^3u/L Absolute Lymphs (auto) (1.0-4.6) x10^3/uL Absolute Monos (auto) (0.0-1.3) x10^3/uL Absolute Nucleated RBC (0.00-0.01) x10^3u/L Lymphocytes % (24.0-44.0) % Monocytes % (0.0-12.0) % Eosinophils % (0.00-5.0) % Basophils % (0.0-0.4) % Absolute Granulocytes (1.4-6.9) x10^3/uL Basophils # (0-0.4) x10^3/uL D-Dimer (0.0-0.50) mg/L Sodium (137-145) mmol/L Potassium (3.5-5.1) mmol/L Chloride (98-107) mmol/L Carbon Dioxide (22-30) mmol/L Anion Gap (5-15) MEQ/L BUN (9-20) mg/dL Creatinine (0.66-1.25) mg/dL Estimated GFR ML/MIN Glucose (74-106) mg/dL POC Glucometer 239 H (74 to 106) mg/dL Hemoglobin A1c (4.5-6.0) % Calcium (8.4-10.2) mg/dL Total Bilirubin (0.2-1.3) mg/dL AST (17-59) U/L ALT (0-50) U/L Alkaline Phosphatase (38-126) U/L Troponin I 0.063 H* (0.000-0.034) ng/mL NT-Pro-B Natriuret Pep (0-1800) pg/mL Serum Total Protein (6.3-8.2) g/dL Albumin (3.5-5.0) g/dL Prealbumin (17.6-36.0) mg/dL Stl Occult Blood (IFOB) (NEGATIVE) Influenza Type A Ag (NEGATIVE) Influenza Type B Ag (NEGATIVE) RSV (PCR) (Negative) SARS-CoV-2 (PCR) (NEGATIVE) Slides for Path Review ABO Group Rh Factor Antibody Screen (NEGATIVE) Crossmatch COMPATIBLE (COMPATIBLE) 08/10/22 08/10/22 08/10/22 Range/Units 13:55 14:14 15:00 WBC (4.0-10.5) x10^3/uL RBC (4.1-5.6) x10^6/uL Hgb (12.5-18.0) g/dL Hct (42-50) % MCV (78-100) fL MCH (26-32) pg MCHC (32-36) g/dL RDW (11.5-14.0) % Plt Count (150-450) x10^3/uL MPV (7.5-11.0) fL Gran % (36.0-66.0) % Immature Gran % (Auto) (0.00-0.4) % Nucleat RBC Rel Count (0.00-0.1) % Eos # (Auto) (0-0.5) x10^3/uL Immature Gran # (Auto) (0.00-0.03) x10^3u/L Absolute Lymphs (auto) (1.0-4.6) x10^3/uL Absolute Monos (auto) (0.0-1.3) x10^3/uL Absolute Nucleated RBC (0.00-0.01) x10^3u/L Lymphocytes % (24.0-44.0) % Monocytes % (0.0-12.0) % Eosinophils % (0.00-5.0) % Basophils % (0.0-0.4) % Absolute Granulocytes (1.4-6.9) x10^3/uL Basophils # (0-0.4) x10^3/uL D-Dimer (0.0-0.50) mg/L Sodium (137-145) mmol/L Potassium (3.5-5.1) mmol/L Chloride (98-107) mmol/L Carbon Dioxide (22-30) mmol/L Anion Gap (5-15) MEQ/L BUN (9-20) mg/dL Creatinine (0.66-1.25) mg/dL Estimated GFR ML/MIN Glucose (74-106) mg/dL POC Glucometer 286 H (74 to 106) mg/dL Hemoglobin A1c (4.5-6.0) % Calcium (8.4-10.2) mg/dL Total Bilirubin (0.2-1.3) mg/dL AST (17-59) U/L ALT (0-50) U/L Alkaline Phosphatase (38-126) U/L Troponin I 0.048 H* (0.000-0.034) ng/mL NT-Pro-B Natriuret Pep (0-1800) pg/mL Serum Total Protein (6.3-8.2) g/dL Albumin (3.5-5.0) g/dL Prealbumin (17.6-36.0) mg/dL Stl Occult Blood (IFOB) POSITIVE A (NEGATIVE) Influenza Type A Ag (NEGATIVE) Influenza Type B Ag (NEGATIVE) RSV (PCR) (Negative) SARS-CoV-2 (PCR) (NEGATIVE) Slides for Path Review ABO Group Rh Factor Antibody Screen (NEGATIVE) Crossmatch (COMPATIBLE) 08/10/22 Range/Units 15:00 WBC (4.0-10.5) x10^3/uL RBC (4.1-5.6) x10^6/uL Hgb 9.3 L (12.5-18.0) g/dL Hct 32.2 L (42-50) % MCV (78-100) fL MCH (26-32) pg MCHC (32-36) g/dL RDW (11.5-14.0) % Plt Count (150-450) x10^3/uL MPV (7.5-11.0) fL Gran % (36.0-66.0) % Immature Gran % (Auto) (0.00-0.4) % Nucleat RBC Rel Count (0.00-0.1) % Eos # (Auto) (0-0.5) x10^3/uL Immature Gran # (Auto) (0.00-0.03) x10^3u/L Absolute Lymphs (auto) (1.0-4.6) x10^3/uL Absolute Monos (auto) (0.0-1.3) x10^3/uL Absolute Nucleated RBC (0.00-0.01) x10^3u/L Lymphocytes % (24.0-44.0) % Monocytes % (0.0-12.0) % Eosinophils % (0.00-5.0) % Basophils % (0.0-0.4) % Absolute Granulocytes (1.4-6.9) x10^3/uL Basophils # (0-0.4) x10^3/uL D-Dimer (0.0-0.50) mg/L Sodium (137-145) mmol/L Potassium (3.5-5.1) mmol/L Chloride (98-107) mmol/L Carbon Dioxide (22-30) mmol/L Anion Gap (5-15) MEQ/L BUN (9-20) mg/dL Creatinine (0.66-1.25) mg/dL Estimated GFR ML/MIN Glucose (74-106) mg/dL POC Glucometer (74 to 106) mg/dL Hemoglobin A1c (4.5-6.0) % Calcium (8.4-10.2) mg/dL Total Bilirubin (0.2-1.3) mg/dL AST (17-59) U/L ALT (0-50) U/L Alkaline Phosphatase (38-126) U/L Troponin I (0.000-0.034) ng/mL NT-Pro-B Natriuret Pep (0-1800) pg/mL Serum Total Protein (6.3-8.2) g/dL Albumin (3.5-5.0) g/dL Prealbumin (17.6-36.0) mg/dL Stl Occult Blood (IFOB) (NEGATIVE) Influenza Type A Ag (NEGATIVE) Influenza Type B Ag (NEGATIVE) RSV (PCR) (Negative) SARS-CoV-2 (PCR) (NEGATIVE) Slides for Path Review ABO Group Rh Factor Antibody Screen (NEGATIVE) Crossmatch (COMPATIBLE) - Radiology Impressions Radiology Exams & Impressions: Radiology Procedures Category Date Time Status CHEST 1 VIEW (PORTABLE) Stat Exams 08/10/22 06:26 Completed - Other Procedures and Tests Respiratory Therapy 08/10/22 10:08 Respiratory Therapy Assessment DAILY Assessment/Plan (1) Pneumonia Current Visit: Yes Status: Acute Qualifiers: Pneumonia type: due to unspecified organism Laterality: bilateral Lung location: lower lobe of lung Qualified Code(s): J18.9 - Pneumonia, unspecified organism Assessment & Plan: on rocephin and zitrhomax day #1. Code(s): J18.9 - PNEUMONIA, UNSPECIFIED ORGANISM (2) Chronic renal insufficiency Current Visit: Yes Status: Acute Qualifiers: Chronic kidney disease stage: stage 3 (moderate) Chronic kidney disease stage 3 subtype: stage 3a (GFR 45-59) Qualified Code(s): N18.31 - Chronic kidney disease, stage 3a Code(s): N18.9 - CHRONIC KIDNEY DISEASE, UNSPECIFIED (3) Anemia Current Visit: Yes Status: Acute Qualifiers: Anemia type: unspecified type Qualified Code(s): D64.9 - Anemia, unspecified Assessment & Plan: Recheck hgb in a.m. stopping xarelto, as his afib is presumably resolved with his ablation (has been NSR here). On telemetry. Will consult surgery tomorrow for possible EGD/colonoscopy. Put records from last colonoscopy on the chart, pls. Code(s): D64.9 - ANEMIA, UNSPECIFIED (4) Congestive heart failure Current Visit: Yes Status: Acute Qualifiers: Heart failure type: unspecified Heart failure chronicity: acute on chronic Qualified Code(s): I50.9 - Heart failure, unspecified Code(s): I50.9 - HEART FAILURE, UNSPECIFIED (5) Elevated troponin Current Visit: Yes Status: Acute Assessment & Plan: Initially mildly elevated, has trended down. Code(s): R77.8 - OTHER SPECIFIED ABNORMALITIES OF PLASMA PROTEINS (6) Hypokalemia Current Visit: Yes Status: Acute Assessment & Plan: mild, K+ 3.2. on oral potassium. Code(s): E87.6 - HYPOKALEMIA
[2022-08-10] MEDS: VIBRAMYCIN 100 MG*** 100 MG in Dextrose 5%/Water IV Soln. 100ML PLUS BAG 100 ML IV SCH (18:53)
[2022-08-10] MEDS ORDERED: Golytely Solution 4000 ML PO ONE (19:15)
[2022-08-10] MEDS ORDERED: PEROXIDE 3% ONE (19:59)
[2022-08-10] MEDS: ZOCOR 20MG PO SCH (21:16)
[2022-08-10] MEDS: Lantus Insulin SQ SCH (21:17)
[2022-08-10] MEDS: PROZAC 10 MG PO SCH (21:17)
[2022-08-10] MEDS: TYLENOL 325 MG PO PRN (21:27)
[2022-08-10] MEDS ORDERED: NON-FORMULARY ITEM (Potassium Chloride [Klor-Con 10] 10 MEQ Tablet.Er) PO SCH (22:00)
[2022-08-10] MEDS ORDERED: NON-FORMULARY ITEM (Atorvastatin Calcium [Atorvastatin Calcium] 80 MG Tablet) PO SCH (22:00)
[2022-08-10] MEDS ORDERED: NON-FORMULARY ITEM (Rivaroxaban [Xarelto] 20 MG Tablet) PO SCH (22:00)
[2022-08-10] MEDS ORDERED: XARELTO 10 MG TABLET PO SCH (22:00)
[2022-08-10] MEDS ORDERED: SOTALOL HCL 120 MG PO SCH (22:00)
[2022-08-11] MEDS ORDERED: VENTOLIN COMMON CANISTER IH PRN (01:42)
[2022-08-11 05:23] LABS: Absolute Neutrophil Ct (ANC) 4.28 x10^3/uL (1.4-6.9); Basophil (Absolute #) 0.05 x10^3/uL (0-0.4); Eosinophil % 2.4 % (0.00-5.0); Eosinophil (Absolute #) 0.16 x10^3/uL (0-0.5); Hemoglobin 8.4 g/dL (12.5-18.0); Lymphocytes % 17.8 % (24.0-44.0); Mean Cell Volume 81.5 fL (78-100); Mean Corpuscular Hemoglobin 23.6 pg (26-32); Mean Platelet Volume 10.1 fL (7.5-11.0); Monocyte (Absolute #) 1.03 x10^3/uL (0.0-1.3); Monocytes % 15.3 % (0.0-12.0); Neutrophil % 63.5 % (36.0-66.0); Platelet Count 276 x10^3/uL (150-450); Red Blood Count 3.56 x10^6/uL (4.1-5.6); Red Cell Distribution Width 17.9 % (11.5-14.0); White Blood Count 6.7 x10^3/uL (4.0-10.5)
[2022-08-11] MEDS: VIBRAMYCIN 100 MG*** 100 MG in Dextrose 5%/Water IV Soln. 100ML PLUS BAG 100 ML IV SCH ×2 (06:18→17:54)
[2022-08-11 06:28] LABS: ALBUMIN 3.1 g/dL (3.5-5.0); BILIRUBIN,TOTAL 0.6 mg/dL (0.2-1.3); Calcium 8.1 mg/dL (8.4-10.2); Creatinine 1 1.29 mg/dL (0.66-1.25); EST GLOMERULAR FILTRATION RATE 57.1 ML/MIN; Potassium 3.3 mmol/L (3.5-5.1); Total Protein 6.3 g/dL (6.3-8.2)
[2022-08-11] MEDS: VENTOLIN COMMON CANISTER IH SCH ×4 (06:53→20:19)
[2022-08-11 07:04] LABS: ANION GAP 10.3 MEQ/L (5-15)
--- NOTE | 2022-08-11 08:08 | PCM.NOTE ---
Date and Time: 08/11/22805 Subjective Assessment: patient is stable but still has cough and weakness, he is diuresing and his h/h are stable since admission Objective Exam General Appearance: no apparent distress Neurologic Exam: alert, oriented x 3 Neck Exam: supple, other (trach present) Respiratory Exam: crackles/rales, rhonchi Cardiovascular Exam: regular rate/rhythm, normal heart sounds Gastrointestinal/Abdomen Exam: soft, No tenderness, No mass Extremity Exam: normal inspection, normal range of motion OBJECTIVE DATA Vital Signs: Vital Signs - 24 hr Temp Pulse Resp BP Pulse Ox 08/11/22 06:53 61 21 91 L 08/11/22 03:58 97.5 F 65 24 121/56 98 08/11/22 01:11 69 24 98 08/10/22 23:35 97.7 F 67 24 117/55 99 08/10/22 20:00 97.8 F 62 20 103/55 97 08/10/22 19:56 65 26 H 93 L 08/10/22 16:00 98.0 F 64 26 H 134/59 93 L 08/10/22 15:31 66 20 95 08/10/22 12:28 62 20 93 L 08/10/22 12:00 97.7 F 61 22 119/52 95 08/10/22 09:22 97.5 F 62 20 132/58 97 08/10/22 09:03 61 18 116/45 96 Pain Assessment - Last Documented Pain Intensity 7 Pain Scale Used 0-10 Pain Scale Intake and Output: Intake & Output 08/08/22 08/09/22 08/10/22 08/11/22 11:59 11:59 11:59 11:59 Intake Total 4900 Output Total 500 Balance 4400 Weight 109.4 kg Lab Results: Lab Results-Last 24 Hours 08/10/22 08/10/22 08/10/22 Range/Units 06:45 06:45 06:50 WBC (4.0-10.5) x10^3/uL RBC (4.1-5.6) x10^6/uL Hgb (12.5-18.0) g/dL Hct (42-50) % MCV (78-100) fL MCH (26-32) pg MCHC (32-36) g/dL RDW (11.5-14.0) % Plt Count (150-450) x10^3/uL MPV (7.5-11.0) fL Gran % (36.0-66.0) % Immature Gran % (Auto) (0.00-0.4) % Nucleat RBC Rel Count (0.00-0.1) % Eos # (Auto) (0-0.5) x10^3/uL Immature Gran # (Auto) (0.00-0.03) x10^3u/L Absolute Lymphs (auto) (1.0-4.6) x10^3/uL Absolute Monos (auto) (0.0-1.3) x10^3/uL Absolute Nucleated RBC (0.00-0.01) x10^3u/L Lymphocytes % (24.0-44.0) % Monocytes % (0.0-12.0) % Eosinophils % (0.00-5.0) % Basophils % (0.0-0.4) % Absolute Granulocytes (1.4-6.9) x10^3/uL Basophils # (0-0.4) x10^3/uL Sodium (137-145) mmol/L Potassium (3.5-5.1) mmol/L Chloride (98-107) mmol/L Carbon Dioxide (22-30) mmol/L Anion Gap (5-15) MEQ/L BUN (9-20) mg/dL Creatinine (0.66-1.25) mg/dL Estimated GFR ML/MIN Glucose (74-106) mg/dL POC Glucometer (74 to 106) mg/dL Hemoglobin A1c (4.5-6.0) % Calcium (8.4-10.2) mg/dL Total Bilirubin (0.2-1.3) mg/dL AST (17-59) U/L ALT (0-50) U/L Alkaline Phosphatase (38-126) U/L Troponin I (0.000-0.034) ng/mL Serum Total Protein (6.3-8.2) g/dL Albumin (3.5-5.0) g/dL Prealbumin 14.78 L (17.6-36.0) mg/dL Stl Occult Blood (IFOB) (NEGATIVE) Influenza Type A Ag NEGATIVE (NEGATIVE) Influenza Type B Ag NEGATIVE (NEGATIVE) RSV (PCR) NEGATIVE (Negative) SARS-CoV-2 (PCR) NEGATIVE (NEGATIVE) Slides for Path Review YES ABO Group Rh Factor Antibody Screen (NEGATIVE) Crossmatch (COMPATIBLE) 08/10/22 08/10/22 08/10/22 Range/Units 07:25 08:24 08:34 WBC (4.0-10.5) x10^3/uL RBC (4.1-5.6) x10^6/uL Hgb (12.5-18.0) g/dL Hct (42-50) % MCV (78-100) fL MCH (26-32) pg MCHC (32-36) g/dL RDW (11.5-14.0) % Plt Count (150-450) x10^3/uL MPV (7.5-11.0) fL Gran % (36.0-66.0) % Immature Gran % (Auto) (0.00-0.4) % Nucleat RBC Rel Count (0.00-0.1) % Eos # (Auto) (0-0.5) x10^3/uL Immature Gran # (Auto) (0.00-0.03) x10^3u/L Absolute Lymphs (auto) (1.0-4.6) x10^3/uL Absolute Monos (auto) (0.0-1.3) x10^3/uL Absolute Nucleated RBC (0.00-0.01) x10^3u/L Lymphocytes % (24.0-44.0) % Monocytes % (0.0-12.0) % Eosinophils % (0.00-5.0) % Basophils % (0.0-0.4) % Absolute Granulocytes (1.4-6.9) x10^3/uL Basophils # (0-0.4) x10^3/uL Sodium (137-145) mmol/L Potassium (3.5-5.1) mmol/L Chloride (98-107) mmol/L Carbon Dioxide (22-30) mmol/L Anion Gap (5-15) MEQ/L BUN (9-20) mg/dL Creatinine (0.66-1.25) mg/dL Estimated GFR ML/MIN Glucose (74-106) mg/dL POC Glucometer (74 to 106) mg/dL Hemoglobin A1c 6.64 H (4.5-6.0) % Calcium (8.4-10.2) mg/dL Total Bilirubin (0.2-1.3) mg/dL AST (17-59) U/L ALT (0-50) U/L Alkaline Phosphatase (38-126) U/L Troponin I (0.000-0.034) ng/mL Serum Total Protein (6.3-8.2) g/dL Albumin (3.5-5.0) g/dL Prealbumin (17.6-36.0) mg/dL Stl Occult Blood (IFOB) (NEGATIVE) Influenza Type A Ag (NEGATIVE) Influenza Type B Ag (NEGATIVE) RSV (PCR) (Negative) SARS-CoV-2 (PCR) (NEGATIVE) Slides for Path Review ABO Group B Rh Factor POSITIVE Antibody Screen NEGATIVE (NEGATIVE) Crossmatch COMPATIBLE (COMPATIBLE) 08/10/22 08/10/22 08/10/22 Range/Units 08:34 09:55 11:35 WBC (4.0-10.5) x10^3/uL RBC (4.1-5.6) x10^6/uL Hgb (12.5-18.0) g/dL Hct (42-50) % MCV (78-100) fL MCH (26-32) pg MCHC (32-36) g/dL RDW (11.5-14.0) % Plt Count (150-450) x10^3/uL MPV (7.5-11.0) fL Gran % (36.0-66.0) % Immature Gran % (Auto) (0.00-0.4) % Nucleat RBC Rel Count (0.00-0.1) % Eos # (Auto) (0-0.5) x10^3/uL Immature Gran # (Auto) (0.00-0.03) x10^3u/L Absolute Lymphs (auto) (1.0-4.6) x10^3/uL Absolute Monos (auto) (0.0-1.3) x10^3/uL Absolute Nucleated RBC (0.00-0.01) x10^3u/L Lymphocytes % (24.0-44.0) % Monocytes % (0.0-12.0) % Eosinophils % (0.00-5.0) % Basophils % (0.0-0.4) % Absolute Granulocytes (1.4-6.9) x10^3/uL Basophils # (0-0.4) x10^3/uL Sodium (137-145) mmol/L Potassium (3.5-5.1) mmol/L Chloride (98-107) mmol/L Carbon Dioxide (22-30) mmol/L Anion Gap (5-15) MEQ/L BUN (9-20) mg/dL Creatinine (0.66-1.25) mg/dL Estimated GFR ML/MIN Glucose (74-106) mg/dL POC Glucometer 239 H (74 to 106) mg/dL Hemoglobin A1c (4.5-6.0) % Calcium (8.4-10.2) mg/dL Total Bilirubin (0.2-1.3) mg/dL AST (17-59) U/L ALT (0-50) U/L Alkaline Phosphatase (38-126) U/L Troponin I 0.063 H* (0.000-0.034) ng/mL Serum Total Protein (6.3-8.2) g/dL Albumin (3.5-5.0) g/dL Prealbumin (17.6-36.0) mg/dL Stl Occult Blood (IFOB) (NEGATIVE) Influenza Type A Ag (NEGATIVE) Influenza Type B Ag (NEGATIVE) RSV (PCR) (Negative) SARS-CoV-2 (PCR) (NEGATIVE) Slides for Path Review ABO Group Rh Factor Antibody Screen (NEGATIVE) Crossmatch COMPATIBLE (COMPATIBLE) 08/10/22 08/10/22 08/10/22 Range/Units 13:55 14:14 15:00 WBC (4.0-10.5) x10^3/uL RBC (4.1-5.6) x10^6/uL Hgb (12.5-18.0) g/dL Hct (42-50) % MCV (78-100) fL MCH (26-32) pg MCHC (32-36) g/dL RDW (11.5-14.0) % Plt Count (150-450) x10^3/uL MPV (7.5-11.0) fL Gran % (36.0-66.0) % Immature Gran % (Auto) (0.00-0.4) % Nucleat RBC Rel Count (0.00-0.1) % Eos # (Auto) (0-0.5) x10^3/uL Immature Gran # (Auto) (0.00-0.03) x10^3u/L Absolute Lymphs (auto) (1.0-4.6) x10^3/uL Absolute Monos (auto) (0.0-1.3) x10^3/uL Absolute Nucleated RBC (0.00-0.01) x10^3u/L Lymphocytes % (24.0-44.0) % Monocytes % (0.0-12.0) % Eosinophils % (0.00-5.0) % Basophils % (0.0-0.4) % Absolute Granulocytes (1.4-6.9) x10^3/uL Basophils # (0-0.4) x10^3/uL Sodium (137-145) mmol/L Potassium (3.5-5.1) mmol/L Chloride (98-107) mmol/L Carbon Dioxide (22-30) mmol/L Anion Gap (5-15) MEQ/L BUN (9-20) mg/dL Creatinine (0.66-1.25) mg/dL Estimated GFR ML/MIN Glucose (74-106) mg/dL POC Glucometer 286 H (74 to 106) mg/dL Hemoglobin A1c (4.5-6.0) % Calcium (8.4-10.2) mg/dL Total Bilirubin (0.2-1.3) mg/dL AST (17-59) U/L ALT (0-50) U/L Alkaline Phosphatase (38-126) U/L Troponin I 0.048 H* (0.000-0.034) ng/mL Serum Total Protein (6.3-8.2) g/dL Albumin (3.5-5.0) g/dL Prealbumin (17.6-36.0) mg/dL Stl Occult Blood (IFOB) POSITIVE A (NEGATIVE) Influenza Type A Ag (NEGATIVE) Influenza Type B Ag (NEGATIVE) RSV (PCR) (Negative) SARS-CoV-2 (PCR) (NEGATIVE) Slides for Path Review ABO Group Rh Factor Antibody Screen (NEGATIVE) Crossmatch (COMPATIBLE) 08/10/22 08/10/22 08/10/22 Range/Units 15:00 16:39 22:00 WBC (4.0-10.5) x10^3/uL RBC (4.1-5.6) x10^6/uL Hgb 9.3 L (12.5-18.0) g/dL Hct 32.2 L (42-50) % MCV (78-100) fL MCH (26-32) pg MCHC (32-36) g/dL RDW (11.5-14.0) % Plt Count (150-450) x10^3/uL MPV (7.5-11.0) fL Gran % (36.0-66.0) % Immature Gran % (Auto) (0.00-0.4) % Nucleat RBC Rel Count (0.00-0.1) % Eos # (Auto) (0-0.5) x10^3/uL Immature Gran # (Auto) (0.00-0.03) x10^3u/L Absolute Lymphs (auto) (1.0-4.6) x10^3/uL Absolute Monos (auto) (0.0-1.3) x10^3/uL Absolute Nucleated RBC (0.00-0.01) x10^3u/L Lymphocytes % (24.0-44.0) % Monocytes % (0.0-12.0) % Eosinophils % (0.00-5.0) % Basophils % (0.0-0.4) % Absolute Granulocytes (1.4-6.9) x10^3/uL Basophils # (0-0.4) x10^3/uL Sodium (137-145) mmol/L Potassium (3.5-5.1) mmol/L Chloride (98-107) mmol/L Carbon Dioxide (22-30) mmol/L Anion Gap (5-15) MEQ/L BUN (9-20) mg/dL Creatinine (0.66-1.25) mg/dL Estimated GFR ML/MIN Glucose (74-106) mg/dL POC Glucometer 228 H 169 H (74 to 106) mg/dL Hemoglobin A1c (4.5-6.0) % Calcium (8.4-10.2) mg/dL Total Bilirubin (0.2-1.3) mg/dL AST (17-59) U/L ALT (0-50) U/L Alkaline Phosphatase (38-126) U/L Troponin I (0.000-0.034) ng/mL Serum Total Protein (6.3-8.2) g/dL Albumin (3.5-5.0) g/dL Prealbumin (17.6-36.0) mg/dL Stl Occult Blood (IFOB) (NEGATIVE) Influenza Type A Ag (NEGATIVE) Influenza Type B Ag (NEGATIVE) RSV (PCR) (Negative) SARS-CoV-2 (PCR) (NEGATIVE) Slides for Path Review ABO Group Rh Factor Antibody Screen (NEGATIVE) Crossmatch (COMPATIBLE) 08/11/22 08/11/22 08/11/22 Range/Units 04:30 04:30 07:51 WBC 6.7 (4.0-10.5) x10^3/uL RBC 3.56 L (4.1-5.6) x10^6/uL Hgb 8.4 L (12.5-18.0) g/dL Hct 29.0 L (42-50) % MCV 81.5 (78-100) fL MCH 23.6 L (26-32) pg MCHC 29.0 L (32-36) g/dL RDW 17.9 H (11.5-14.0) % Plt Count 276 (150-450) x10^3/uL MPV 10.1 (7.5-11.0) fL Gran % 63.5 (36.0-66.0) % Immature Gran % (Auto) 0.3 (0.00-0.4) % Nucleat RBC Rel Count 0.0 (0.00-0.1) % Eos # (Auto) 0.16 (0-0.5) x10^3/uL Immature Gran # (Auto) 0.02 (0.00-0.03) x10^3u/L Absolute Lymphs (auto) 1.20 (1.0-4.6) x10^3/uL Absolute Monos (auto) 1.03 (0.0-1.3) x10^3/uL Absolute Nucleated RBC 0.00 (0.00-0.01) x10^3u/L Lymphocytes % 17.8 L (24.0-44.0) % Monocytes % 15.3 H (0.0-12.0) % Eosinophils % 2.4 (0.00-5.0) % Basophils % 0.7 (0.0-0.4) % Absolute Granulocytes 4.28 (1.4-6.9) x10^3/uL Basophils # 0.05 (0-0.4) x10^3/uL Sodium 136 L (137-145) mmol/L Potassium 3.3 L (3.5-5.1) mmol/L Chloride 93 L (98-107) mmol/L Carbon Dioxide 36 H (22-30) mmol/L Anion Gap 10.3 (5-15) MEQ/L BUN 38 H (9-20) mg/dL Creatinine 1.29 H (0.66-1.25) mg/dL Estimated GFR 57.1 ML/MIN Glucose 135 H (74-106) mg/dL POC Glucometer 130 H (74 to 106) mg/dL Hemoglobin A1c (4.5-6.0) % Calcium 8.1 L (8.4-10.2) mg/dL Total Bilirubin 0.60 (0.2-1.3) mg/dL AST 24 (17-59) U/L ALT 12 (0-50) U/L Alkaline Phosphatase 132 H (38-126) U/L Troponin I (0.000-0.034) ng/mL Serum Total Protein 6.3 (6.3-8.2) g/dL Albumin 3.1 L (3.5-5.0) g/dL Prealbumin (17.6-36.0) mg/dL Stl Occult Blood (IFOB) (NEGATIVE) Influenza Type A Ag (NEGATIVE) Influenza Type B Ag (NEGATIVE) RSV (PCR) (Negative) SARS-CoV-2 (PCR) (NEGATIVE) Slides for Path Review ABO Group Rh Factor Antibody Screen (NEGATIVE) Crossmatch (COMPATIBLE) Radiology Exams: Radiology Procedures Category Date Time Status CHEST 1 VIEW (PORTABLE) Stat Exams 08/10/22 06:26 Completed Multi-Disciplinary Progress Notes: Multi-Disciplinary Progress Notes 08/10/22 15:32 Respiratory Note by Joselyn Diaz TRACH CARE DONE WITHPT. INTER CANNULA CHANGED AND NEW DRAIN GAUZE ADDED. PT TOLERATED IT WELL. TRACH AREA LOOKS CLEAN Initialized on 08/10/22 15:32 - END OF NOTE Assessment/Plan (1) Pneumonia Current Visit: Yes Status: Acute Qualifiers: Pneumonia type: due to unspecified organism Laterality: bilateral Lung location: lower lobe of lung Qualified Code(s): J18.9 - Pneumonia, unspecified organism Assessment & Plan: on rocephin and doxycycline, currently on room air and stable Code(s): J18.9 - PNEUMONIA, UNSPECIFIED ORGANISM (2) Anemia Current Visit: Yes Status: Acute Qualifiers: Anemia type: unspecified type Qualified Code(s): D64.9 - Anemia, unspecified Assessment & Plan: surgery scheduled for egd/colonoscopy Code(s): D64.9 - ANEMIA, UNSPECIFIED (3) Congestive heart failure Current Visit: Yes Status: Acute Qualifiers: Heart failure type: unspecified Heart failure chronicity: acute on chronic Qualified Code(s): I50.9 - Heart failure, unspecified Assessment & Plan: appears euvolemic at present Code(s): I50.9 - HEART FAILURE, UNSPECIFIED
[2022-08-11] MEDS: Pepcid 20 MG VIAL IV SCH ×2 (09:43→21:26)
[2022-08-11] MEDS: Artificial Tears 15 ML OP SCH ×4 (09:43→21:23)
[2022-08-11] MEDS: ROCEPHIN 1 Gm-D5w 50 ml Bag** 1 G/50 ML IVPB IV SCH (09:44)
[2022-08-11] MEDS ORDERED: NON-FORMULARY ITEM (Potassium Chloride [Potassium Chloride] 20 MEQ Tab.Er.Prt) PO SCH (10:00)
[2022-08-11] MEDS: TYLENOL 325 MG PO PRN ×2 (12:13→21:03)
[2022-08-11] MEDS ORDERED: Lactated Ringers 1,000 ML IV ONE (12:58)
[2022-08-11] MEDS ORDERED: DIPRIVAN 200 MG/20 ML IV ONE ×2 (13:50→14:50)
[2022-08-11] MEDS: ECOTRIN 81 MG PO SCH (16:55)
[2022-08-11] MEDS: Betapace 80 MG PO SCH ×2 (17:05→21:25)
[2022-08-11] MEDS: Klor Con PO SCH ×2 (17:06→21:28)
[2022-08-11] MEDS: Protonix 40MG Tablet PO SCH ×2 (17:06→21:26)
[2022-08-11] MEDS: Maxzide-25MG Tablet PO SCH (17:07)
[2022-08-11] MEDS: Coreg PO SCH ×2 (17:07→21:29)
[2022-08-11] MEDS: LOPID PO SCH ×2 (17:07→21:11)
[2022-08-11] MEDS: Carafate 1 GM PO SCH (17:54)
[2022-08-11] MEDS: Lantus Insulin SQ SCH (21:10)
[2022-08-11] MEDS: ZOCOR 20MG PO SCH (21:27)
[2022-08-11] MEDS: PROZAC 10 MG PO SCH (21:27)
[2022-08-12] MEDS: TYLENOL 325 MG PO PRN (04:43)
[2022-08-12 05:27] LABS: Absolute Neutrophil Ct (ANC) 4.57 x10^3/uL (1.4-6.9); Basophil (Absolute #) 0.07 x10^3/uL (0-0.4); Eosinophil % 2.3 % (0.00-5.0); Eosinophil (Absolute #) 0.16 x10^3/uL (0-0.5); Hematocrit 30.9 % (42-50); Hemoglobin 8.7 g/dL (12.5-18.0); Lymphocyte (Absolute #) 1.05 x10^3/uL (1.0-4.6); Lymphocytes % 15.1 % (24.0-44.0); Mean Cell Volume 83.1 fL (78-100); Mean Corpuscular Hemoglobin 23.4 pg (26-32); Mean Corpuscular Hgb Concent. 28.2 g/dL (32-36); Mean Platelet Volume 10.4 fL (7.5-11.0); Monocyte (Absolute #) 1.07 x10^3/uL (0.0-1.3); Monocytes % 15.4 % (0.0-12.0); Neutrophil % 65.8 % (36.0-66.0); Platelet Count 297 x10^3/uL (150-450); Red Blood Count 3.72 x10^6/uL (4.1-5.6); Red Cell Distribution Width 18.2 % (11.5-14.0)
[2022-08-12] MEDS: Carafate 1 GM PO SCH ×2 (06:31→17:03)
[2022-08-12] MEDS: VIBRAMYCIN 100 MG*** 100 MG in Dextrose 5%/Water IV Soln. 100ML PLUS BAG 100 ML IV SCH ×2 (06:31→17:57)
[2022-08-12] MEDS: VENTOLIN COMMON CANISTER IH SCH ×4 (07:24→18:15)
[2022-08-12 07:31] LABS: Slide Review 1 YES
--- NOTE | 2022-08-12 08:47 | PCM.NOTE ---
Date and Time: 08/12/22 0844 Subjective Assessment: patient tolerating clears, complaining that he wants food. has pain in the right hip, no other pain. no obvious bleeding overnight. h/h is stable Objective Exam General Appearance: no apparent distress, obese Neurologic Exam: alert, oriented x 3 Respiratory Exam: normal breath sounds, lungs clear, No respiratory distress Cardiovascular Exam: regular rate/rhythm, normal heart sounds Gastrointestinal/Abdomen Exam: soft, No tenderness, No mass OBJECTIVE DATA Vital Signs: Vital Signs - 24 hr Temp Pulse Resp BP Pulse Ox 08/12/22 08:00 97.7 F 61 27 H 124/56 84 L 08/12/22 07:28 64 18 90 L 08/12/22 04:00 97.5 F 61 17 116/54 98 08/11/22 23:50 97.7 F 60 16 122/57 95 08/11/22 20:19 60 18 98 08/11/22 19:41 97.5 F 63 18 116/54 98 08/11/22 16:45 62 22 95 08/11/22 16:00 97.5 F 64 21 173/70 84 L 08/11/22 12:38 97.7 F 60 19 131/58 92 L 08/11/22 12:00 97.7 F 60 19 131/58 92 L 08/11/22 11:05 61 22 92 L Pain Assessment - Last Documented Pain Intensity 0 Pain Scale Used 0-10 Pain Scale Intake and Output: Intake & Output 08/09/22 08/10/22 08/11/22 08/12/22 11:59 11:59 11:59 11:59 Intake Total 5140 481 Output Total 500 600 Balance 4640 -119 Weight 109.4 kg 110 kg 109.4 kg Lab Results: Lab Results-Last 24 Hours 08/11/22 08/11/22 08/11/22 Range/Units 11:50 16:26 21:01 WBC (4.0-10.5) x10^3/uL RBC (4.1-5.6) x10^6/uL Hgb (12.5-18.0) g/dL Hct (42-50) % MCV (78-100) fL MCH (26-32) pg MCHC (32-36) g/dL RDW (11.5-14.0) % Plt Count (150-450) x10^3/uL MPV (7.5-11.0) fL Gran % (36.0-66.0) % Immature Gran % (Auto) (0.00-0.4) % Nucleat RBC Rel Count (0.00-0.1) % Eos # (Auto) (0-0.5) x10^3/uL Immature Gran # (Auto) (0.00-0.03) x10^3u/L Absolute Lymphs (auto) (1.0-4.6) x10^3/uL Absolute Monos (auto) (0.0-1.3) x10^3/uL Absolute Nucleated RBC (0.00-0.01) x10^3u/L Lymphocytes % (24.0-44.0) % Monocytes % (0.0-12.0) % Eosinophils % (0.00-5.0) % Basophils % (0.0-0.4) % Absolute Granulocytes (1.4-6.9) x10^3/uL Basophils # (0-0.4) x10^3/uL POC Glucometer 124 H 85 132 H (74 to 106) mg/dL Slides for Path Review 08/12/22 Range/Units 04:55 WBC 7.0 (4.0-10.5) x10^3/uL RBC 3.72 L (4.1-5.6) x10^6/uL Hgb 8.7 L (12.5-18.0) g/dL Hct 30.9 L (42-50) % MCV 83.1 (78-100) fL MCH 23.4 L (26-32) pg MCHC 28.2 L (32-36) g/dL RDW 18.2 H (11.5-14.0) % Plt Count 297 (150-450) x10^3/uL MPV 10.4 (7.5-11.0) fL Gran % 65.8 (36.0-66.0) % Immature Gran % (Auto) 0.4 (0.00-0.4) % Nucleat RBC Rel Count 0.0 (0.00-0.1) % Eos # (Auto) 0.16 (0-0.5) x10^3/uL Immature Gran # (Auto) 0.03 (0.00-0.03) x10^3u/L Absolute Lymphs (auto) 1.05 (1.0-4.6) x10^3/uL Absolute Monos (auto) 1.07 (0.0-1.3) x10^3/uL Absolute Nucleated RBC 0.00 (0.00-0.01) x10^3u/L Lymphocytes % 15.1 L (24.0-44.0) % Monocytes % 15.4 H (0.0-12.0) % Eosinophils % 2.3 (0.00-5.0) % Basophils % 1.0 (0.0-0.4) % Absolute Granulocytes 4.57 (1.4-6.9) x10^3/uL Basophils # 0.07 (0-0.4) x10^3/uL POC Glucometer (74 to 106) mg/dL Slides for Path Review YES Multi-Disciplinary Progress Notes: Multi-Disciplinary Progress Notes 08/11/22 12:19 Physical Therapy Note by Dong(L#[id number]),Mehreen SPENCE HAD APPLIED A DRESSING TO [facility] PRIOR TO P.T. ARRIVING TO FLOOR. TO HAVE EGD AND COLONOSCOPY LATE THIS AFTERNOON. WILL LOOK AT WOUND IN THE A.M. TO DETERMINE NEED FOR SKILLED SERVICES. Initialized on 08/11/22 12:19 - END OF NOTE 08/11/22 11:35 Case Management Note by Angela Clemons [facility] WERE NOTIFIED PATIENT IS HERE OBS. THEY WILL NEED NOTIFIED AT TIME OF DC AT [phone]. THEY WILL NEED FAXED THE DC INSTRUCTIONS, DC MED LIST AND DC SUMMARY ( IF AVAILABLE) TO [phone] Initialized on 08/11/22 11:35 - END OF NOTE Assessment/Plan (1) Pneumonia Current Visit: Yes Status: Acute Qualifiers: Pneumonia type: due to unspecified organism Laterality: bilateral Lung location: lower lobe of lung Qualified Code(s): J18.9 - Pneumonia, unspecified organism Assessment & Plan: on room air, afebrile wbc normal. currently on rocephin and doxy, doing well and could treat this as outpatient now with po abx Code(s): J18.9 - PNEUMONIA, UNSPECIFIED ORGANISM (2) Anemia Current Visit: Yes Status: Acute Qualifiers: Anemia type: unspecified type Qualified Code(s): D64.9 - Anemia, unspecified Assessment & Plan: scope revealed PUD in gastric cardia, aspirin and xarelto are on hold and carafate started, continue PPI. transverse colon polyp path pending. when ok with surgery will advance diet, home when tolerating po and h/h are stable Code(s): D64.9 - ANEMIA, UNSPECIFIED (3) Congestive heart failure Current Visit: Yes Status: Acute Qualifiers: Heart failure type: unspecified Heart failure chronicity: acute on chronic Qualified Code(s): I50.9 - Heart failure, unspecified Assessment & Plan: stable, currently euvolemic Code(s): I50.9 - HEART FAILURE, UNSPECIFIED
[2022-08-12 10:13] LABS: Appearance CLEAR (CLEAR); Bilirubin NEGATIVE (NEGATIVE); Glucose NEGATIVE (NEGATIVE); Ketones NEGATIVE (NEGATIVE)
[2022-08-12 10:14] LABS: Dipstick done @ ? MAIN LAB; Nitrite NEGATIVE (NEGATIVE); Ph 6.5 (5-6); Protein,Urine Dip 30 (Negative); RBC NEGATIVE Ery/ul (0-5); Urobilinogen 0.2 mg/dL (0-1)
[2022-08-12 10:15] LABS: Bacteria MODERATE /HPF (NEGATIVE); Epithelial Cells RARE /HPF (FEW); WBC 0-2 /HPF (0-5)
[2022-08-12 10:19] LABS: Urine Cultured Indicated? YES
[2022-08-12] MEDS: Coreg PO SCH ×2 (10:37→21:53)
[2022-08-12] MEDS: Klor Con PO SCH ×2 (10:37→21:57)
[2022-08-12] MEDS: Betapace 80 MG PO SCH ×2 (10:37→21:54)
[2022-08-12] MEDS: Maxzide-25MG Tablet PO SCH (10:38)
[2022-08-12] MEDS: ROCEPHIN 1 Gm-D5w 50 ml Bag** 1 G/50 ML IVPB IV SCH (10:38)
[2022-08-12] MEDS: Artificial Tears 15 ML OP SCH ×4 (10:38→22:15)
[2022-08-12] MEDS: Pepcid 20 MG VIAL IV SCH ×2 (10:38→21:53)
[2022-08-12] MEDS: Protonix 40MG Tablet PO SCH ×2 (10:38→21:54)
[2022-08-12] MEDS: LOPID PO SCH ×2 (10:39→21:54)
--- NOTE | 2022-08-12 15:41 | XRAY ---
Exam: Duplex Doppler Ultrasound of the right and left lower extremity. Comparison: None. Indication: 81-year-old male with bilateral lower extremity edema; rule out DVT. Findings: The examination of the right and left lower extremity was carried out in the usual manner imaging safety representative sections of the common femoral vein through the popliteal vein. The posterior tibial veins were also evaluated. Normal color flow was seen throughout. Normal spontaneous and phasic flow was seen at all safety representative sections. There was normal transducer compression and doppler signal augmentation at all levels. The greater saphenous vein demonstrated normal transducer compression, color blood flow, and Doppler signal within both proximal thighs.. Impression: 1. No evidence of deep venous thrombosis within the right and left lower extremity. 2. No superficial venous thrombosis was seen within the greater saphenous veins withln both proximal thighs.
[2022-08-12] MEDS: PROZAC 10 MG PO SCH (21:53)
[2022-08-12] MEDS: ECOTRIN 81 MG PO SCH (21:53)
[2022-08-12] MEDS: ZOCOR 20MG PO SCH (21:54)
[2022-08-12] MEDS: Lantus Insulin SQ SCH (21:55)
[2022-08-13] MEDS ORDERED: Ativan 0.5 MG PO ONE (01:12)
[2022-08-13] MEDS ORDERED: Lasix 20 MG/2 ML IV ONE (01:13)
[2022-08-13 05:58] LABS: Absolute Neutrophil Ct (ANC) 4.26 x10^3/uL (1.4-6.9); Basophil (Absolute #) 0.04 x10^3/uL (0-0.4); Eosinophil % 2.7 % (0.00-5.0); Eosinophil (Absolute #) 0.18 x10^3/uL (0-0.5); Hematocrit 29.1 % (42-50); Hemoglobin 8.1 g/dL (12.5-18.0); Lymphocytes % 16.4 % (24.0-44.0); Mean Cell Volume 84.8 fL (78-100); Mean Corpuscular Hemoglobin 23.6 pg (26-32); Mean Corpuscular Hgb Concent. 27.8 g/dL (32-36); Mean Platelet Volume 10.4 fL (7.5-11.0); Monocyte (Absolute #) 1.09 x10^3/uL (0.0-1.3); Monocytes % 16.3 % (0.0-12.0); Neutrophil % 63.6 % (36.0-66.0); Platelet Count 256 x10^3/uL (150-450); Red Blood Count 3.43 x10^6/uL (4.1-5.6); Red Cell Distribution Width 18.2 % (11.5-14.0); White Blood Count 6.7 x10^3/uL (4.0-10.5)
[2022-08-13] MEDS: Carafate 1 GM PO SCH (05:59)
[2022-08-13] MEDS: VIBRAMYCIN 100 MG*** 100 MG in Dextrose 5%/Water IV Soln. 100ML PLUS BAG 100 ML IV SCH (05:59)
[2022-08-13] MEDS: VENTOLIN COMMON CANISTER IH SCH ×2 (06:50→11:30)
[2022-08-13] MEDS ORDERED: Sodium Chloride 0.9% 10 ML FLUSH Syringe IJ PRN (07:02)
[2022-08-13 07:10] LABS: ALBUMIN 3.2 g/dL (3.5-5.0); ALKALINE PHOSPHATASE 138 U/L (38-126); ANION GAP 8.2 MEQ/L (5-15); BLOOD UREA NITROGEN 25 mg/dL (9-20); CHLORIDE 94 mmol/L (98-107); Calcium 8.2 mg/dL (8.4-10.2); Carbon Dioxide 34 mmol/L (22-30); Creatinine 1 1.11 mg/dL (0.66-1.25); EST GLOMERULAR FILTRATION RATE > 60.0 ML/MIN; Glucose 140 mg/dL (74-106); Potassium 3.6 mmol/L (3.5-5.1); SGOT/AST 28 U/L (17-59); SGPT/ALT 11 U/L (0-50); SODIUM 133 mmol/L (137-145); Total Protein 6.3 g/dL (6.3-8.2)
[2022-08-13 07:25] LABS: Slide Review 1 YES
--- NOTE | 2022-08-13 08:43 | XRAY ---
Exam: AP portable chest film from 08/13/2022. Comparison: AP portable chest film from 08/10/2022. Indication: 81-year-old male with shortness of breath. Findings: The lungs appear hypoventilated representing no significant interval change. Bibasilar airspace opacities are seen, right greater than left, consistent with infiltrates as well as probable small bilateral pleural effusions. The findings on the right have worsened compared to 08/10/2022. The findings on the left are about the same. The upper two thirds of each lung remain clear. The transverse heart size again appears mildly enlarged with left ventricular prominence. No pneumothorax is seen. Some granulomatous calcifications are seen within the AP window and left hilum representing no change. Left-sided cardiac pacemaker is seen with 2 transvenous leads in unchanged position. A tracheostomy cannula is again noted in place. Lateral osteophyte formation is seen within the thoracic spine. Impression: 1. Bibasilar airspace opacities are seen, right greater than left. The right lung base has worsened as compared to 08/10/2022. There are also probable small bibasilar pleural effusions. This is likely due to pneumonia. 2. The upper two thirds of each lung remain clear. 3. Other findings are unchanged, as discussed above.
--- NOTE | 2022-08-13 10:12 | PCM.DS ---
Discharge Summary Date of Admission: 08/10/22 09:12 Admitting Physician: MARIELOS SMALL Consults: Consults on Case 08/11/22 08:00 Consult Surgery ROUTINE Primary Care Provider: MARIELOS SMALL Allergies Allergies gabapentin Allergy (Mild, Verified 08/10/22 06:12) Penicillins Allergy (Mild, Verified 08/10/22 06:12) Antihistamines - Alkylamine Allergy (Verified 08/10/22 06:12) pt unsure what antihistaine name was Antihistamines - Ethanolamine Allergy (Verified 08/10/22 06:12) pt unsure of name of antihistamine Antihistamines - Ethylenediamine Allergy (Verified 08/10/22 06:12) pt unsure of name of antihistamine Antihistamines - Piperazine Allergy (Verified 08/10/22 06:12) pt unsure of name of antihistamine Antihistamines - Piperidine Allergy (Verified 08/10/22 06:12) pt unsure of name of antihistamine Hospital Summary - Hospital Course Hospital Course: patient brought from [facility] with cough and shortness of breath as well as anemia. required transfusion, had egd/colonoscopy by surgery and large transverse colon polyp removed and ulcer discovered in gastric cavity, getting PPI and carafate, no further bleeding with xarelto and aspirin currently on hold. he is stable and tolerating regular diet, respiratory status is currently at baseline. - Vitals & Intake/Output Vital Signs: Vital Signs Temperature 97.5 F 08/13/22 08:00 Pulse Rate 61 08/13/22 08:00 Respiratory Rate 17 08/13/22 08:00 Blood Pressure 117/56 08/13/22 08:00 O2 Sat by Pulse Oximetry 98 08/13/22 08:00 Intake & Output: Intake & Output 08/10/22 08/11/22 08/12/22 08/13/22 11:59 11:59 11:59 11:59 Intake Total 5140 841 860 Output Total 105 949 8339 Balance 4640 -59 -140 Weight 109.4 kg 110 kg 109.4 kg - Lab Result Diagrams: 08/13/22 06:02 08/13/22 06:02 Lab Results-Last 24 Hrs: Lab Results-Last 24 Hours 08/11/22 08/12/22 08/12/22 Range/Units 15:25 10:13 11:36 WBC (4.0-10.5) x10^3/uL RBC (4.1-5.6) x10^6/uL Hgb (12.5-18.0) g/dL Hct (42-50) % MCV (78-100) fL MCH (26-32) pg MCHC (32-36) g/dL RDW (11.5-14.0) % Plt Count (150-450) x10^3/uL MPV (7.5-11.0) fL Gran % (36.0-66.0) % Immature Gran % (Auto) (0.00-0.4) % Nucleat RBC Rel Count (0.00-0.1) % Eos # (Auto) (0-0.5) x10^3/uL Immature Gran # (Auto) (0.00-0.03) x10^3u/L Absolute Lymphs (auto) (1.0-4.6) x10^3/uL Absolute Monos (auto) (0.0-1.3) x10^3/uL Absolute Nucleated RBC (0.00-0.01) x10^3u/L Lymphocytes % (24.0-44.0) % Monocytes % (0.0-12.0) % Eosinophils % (0.00-5.0) % Basophils % (0.0-0.4) % Absolute Granulocytes (1.4-6.9) x10^3/uL Basophils # (0-0.4) x10^3/uL Sodium (137-145) mmol/L Potassium (3.5-5.1) mmol/L Chloride (98-107) mmol/L Carbon Dioxide (22-30) mmol/L Anion Gap (5-15) MEQ/L BUN (9-20) mg/dL Creatinine (0.66-1.25) mg/dL Estimated GFR ML/MIN Glucose (74-106) mg/dL POC Glucometer 133 H (74 to 106) mg/dL Calcium (8.4-10.2) mg/dL Magnesium (1.6-2.3) mg/dL Total Bilirubin (0.2-1.3) mg/dL AST (17-59) U/L ALT (0-50) U/L Alkaline Phosphatase (38-126) U/L Serum Total Protein (6.3-8.2) g/dL Albumin (3.5-5.0) g/dL Urinalys Dipstick Clnc MAIN LAB Urine Color YELLOW (YELLOW) Urine Appearance CLEAR (CLEAR) Urine pH 6.5 (5-6) Ur Specific Petros 1.020 (1.005-1.025) POC Urine Protein Conf 30 (Negative) Urine Ketones NEGATIVE (NEGATIVE) Urine Nitrite NEGATIVE (NEGATIVE) Urine Bilirubin NEGATIVE (NEGATIVE) Urine Urobilinogen 0.2 (0-1) mg/dL Urine Leukocytes NEGATIVE (NEGATIVE) Urine WBC (Auto) 0-2 (0-5) /HPF Urine RBC (Auto) NONE (0-2) /HPF U Epithel Cells (Auto) RARE (FEW) /HPF Urine Bacteria (Auto) MODERATE (NEGATIVE) /HPF Urine RBC NEGATIVE (0-5) Andrew/ul Ur Culture Indicated? YES Urine Glucose NEGATIVE (NEGATIVE) mg/dL Surg PTH Specimen SEE COMMENTS Slides for Path Review 08/12/22 08/12/22 08/13/22 Range/Units 16:28 21:06 06:02 WBC 6.7 (4.0-10.5) x10^3/uL RBC 3.43 L (4.1-5.6) x10^6/uL Hgb 8.1 L (12.5-18.0) g/dL Hct 29.1 L (42-50) % MCV 84.8 (78-100) fL MCH 23.6 L (26-32) pg MCHC 27.8 L (32-36) g/dL RDW 18.2 H (11.5-14.0) % Plt Count 256 (150-450) x10^3/uL MPV 10.4 (7.5-11.0) fL Gran % 63.6 (36.0-66.0) % Immature Gran % (Auto) 0.4 (0.00-0.4) % Nucleat RBC Rel Count 0.0 (0.00-0.1) % Eos # (Auto) 0.18 (0-0.5) x10^3/uL Immature Gran # (Auto) 0.03 (0.00-0.03) x10^3u/L Absolute Lymphs (auto) 1.10 (1.0-4.6) x10^3/uL Absolute Monos (auto) 1.09 (0.0-1.3) x10^3/uL Absolute Nucleated RBC 0.00 (0.00-0.01) x10^3u/L Lymphocytes % 16.4 L (24.0-44.0) % Monocytes % 16.3 H (0.0-12.0) % Eosinophils % 2.7 (0.00-5.0) % Basophils % 0.6 (0.0-0.4) % Absolute Granulocytes 4.26 (1.4-6.9) x10^3/uL Basophils # 0.04 (0-0.4) x10^3/uL Sodium (137-145) mmol/L Potassium (3.5-5.1) mmol/L Chloride (98-107) mmol/L Carbon Dioxide (22-30) mmol/L Anion Gap (5-15) MEQ/L BUN (9-20) mg/dL Creatinine (0.66-1.25) mg/dL Estimated GFR ML/MIN Glucose (74-106) mg/dL POC Glucometer 151 H 175 H (74 to 106) mg/dL Calcium (8.4-10.2) mg/dL Magnesium (1.6-2.3) mg/dL Total Bilirubin (0.2-1.3) mg/dL AST (17-59) U/L ALT (0-50) U/L Alkaline Phosphatase (38-126) U/L Serum Total Protein (6.3-8.2) g/dL Albumin (3.5-5.0) g/dL Urinalys Dipstick Clnc Urine Color (YELLOW) Urine Appearance (CLEAR) Urine pH (5-6) Ur Specific Petros (1.005-1.025) POC Urine Protein Conf (Negative) Urine Ketones (NEGATIVE) Urine Nitrite (NEGATIVE) Urine Bilirubin (NEGATIVE) Urine Urobilinogen (0-1) mg/dL Urine Leukocytes (NEGATIVE) Urine WBC (Auto) (0-5) /HPF Urine RBC (Auto) (0-2) /HPF U Epithel Cells (Auto) (FEW) /HPF Urine Bacteria (Auto) (NEGATIVE) /HPF Urine RBC (0-5) Andrew/ul Ur Culture Indicated? Urine Glucose (NEGATIVE) mg/dL Surg PTH Specimen Slides for Path Review YES 08/13/22 08/13/22 08/13/22 Range/Units 06:02 06:02 07:23 WBC (4.0-10.5) x10^3/uL RBC (4.1-5.6) x10^6/uL Hgb (12.5-18.0) g/dL Hct (42-50) % MCV (78-100) fL MCH (26-32) pg MCHC (32-36) g/dL RDW (11.5-14.0) % Plt Count (150-450) x10^3/uL MPV (7.5-11.0) fL Gran % (36.0-66.0) % Immature Gran % (Auto) (0.00-0.4) % Nucleat RBC Rel Count (0.00-0.1) % Eos # (Auto) (0-0.5) x10^3/uL Immature Gran # (Auto) (0.00-0.03) x10^3u/L Absolute Lymphs (auto) (1.0-4.6) x10^3/uL Absolute Monos (auto) (0.0-1.3) x10^3/uL Absolute Nucleated RBC (0.00-0.01) x10^3u/L Lymphocytes % (24.0-44.0) % Monocytes % (0.0-12.0) % Eosinophils % (0.00-5.0) % Basophils % (0.0-0.4) % Absolute Granulocytes (1.4-6.9) x10^3/uL Basophils # (0-0.4) x10^3/uL Sodium 133 L (137-145) mmol/L Potassium 3.6 (3.5-5.1) mmol/L Chloride 94 L (98-107) mmol/L Carbon Dioxide 34 H (22-30) mmol/L Anion Gap 8.2 (5-15) MEQ/L BUN 25 H (9-20) mg/dL Creatinine 1.11 (0.66-1.25) mg/dL Estimated GFR > 60.0 ML/MIN Glucose 140 H (74-106) mg/dL POC Glucometer 141 H (74 to 106) mg/dL Calcium 8.2 L (8.4-10.2) mg/dL Magnesium 1.5 L (1.6-2.3) mg/dL Total Bilirubin 0.60 (0.2-1.3) mg/dL AST 28 (17-59) U/L ALT 11 (0-50) U/L Alkaline Phosphatase 138 H (38-126) U/L Serum Total Protein 6.3 (6.3-8.2) g/dL Albumin 3.2 L (3.5-5.0) g/dL Urinalys Dipstick Clnc Urine Color (YELLOW) Urine Appearance (CLEAR) Urine pH (5-6) Ur Specific Petros (1.005-1.025) POC Urine Protein Conf (Negative) Urine Ketones (NEGATIVE) Urine Nitrite (NEGATIVE) Urine Bilirubin (NEGATIVE) Urine Urobilinogen (0-1) mg/dL Urine Leukocytes (NEGATIVE) Urine WBC (Auto) (0-5) /HPF Urine RBC (Auto) (0-2) /HPF U Epithel Cells (Auto) (FEW) /HPF Urine Bacteria (Auto) (NEGATIVE) /HPF Urine RBC (0-5) Andrew/ul Ur Culture Indicated? Urine Glucose (NEGATIVE) mg/dL Surg PTH Specimen Slides for Path Review Micro Results-Entire Visit: Microbiology 08/12/22 10:13 Urine Culture - Preliminary Urine, Void NO GROWTH TO DATE Accuchecks Date 08/13/22 Date 08/12/22 Time 12:20 - Radiology Exams Ordered Rad Exams-Entire Visit: Radiology Procedures Category Date Time Status CHEST 1 VIEW (PORTABLE) Stat Exams 08/13/22 01:12 Completed VENOUS BILATERAL EXTREMITY [US] Urgent Exams 08/12/22 14:32 Completed - Procedures and Test Procedures and Tests throughout Hospitalization: Therapy Orders & Screens 08/10/22 10:08 Respiratory Therapy Assessment DAILY Comment: Diagnosis: anemia, hpokalemia, pneumonia, 08/10/22 21:07 Oxygen NASAL CANNULA 2 lpm Comment: Diagnosis: anemia, hpokalemia, pneumonia, 08/11/22 00:01 PT Eval & Treat ( Order) ONCE Reason for Eval:: RLE has a blister, was wrapped 08/09/22 Diagnosis: anemia, hpokalemia, pneumonia, Discharge Exam General Appearance: no apparent distress Neurologic Exam: alert, oriented x 3 Respiratory Exam: normal breath sounds, lungs clear, No respiratory distress Cardiovascular Exam: regular rate/rhythm, normal heart sounds Gastrointestinal/Abdomen Exam: soft, No tenderness, No mass Final Diagnosis/Problem List - Final Discharge Diagnosis/Problem (1) Pneumonia Current Visit: Yes Status: Acute Assessment & Plan: continue doxycycline on discharge x 5 more days, doing better. Code(s): J18.9 - PNEUMONIA, UNSPECIFIED ORGANISM (2) Anemia Current Visit: Yes Status: Acute Assessment & Plan: upper gi bleed from ulcer, tolerating po and h/h are stable. Code(s): D64.9 - ANEMIA, UNSPECIFIED (3) Congestive heart failure Current Visit: Yes Status: Acute Code(s): I50.9 - HEART FAILURE, UNSPECIFIED - Discharge Disposition: DC TO [facility] Condition: Stable Prescriptions: New Sucralfate 1 gm [Carafate 1 GM] 1 g PO 0600,1600 #60 tablet Continue Pantoprazole Sodium [Protonix] 40 mg PO DAILY Insulin Glargine [Lantus Insulin] 20 unit SQ HS Gemfibrozil [Lopid] 600 mg PO BID Sotalol HCl [Betapace] 120 mg PO BID Insulin Aspart [NovoLOG Insulin] 0 unit SQ TID Albuterol 2.5 mg/3 ml Neb [Proventil 2.5 mg/3 ml Neb] 2.5 mg IH Q6HPRN PRN PRN Reason: Shortness Of Breath Triamterene/Hydrochlorothiazid [Triamterene-Hctz 37.5-25 mg Tb] 37.5 mg PO DAILY Glipizide 5 mg [Glucotrol 5 MG] 5 mg PO DAILY Atorvastatin Calcium 80 mg PO HS Ipratropium/Albuterol Sulfate [Combivent Inhaler] 1 gm IH QID Potassium Chloride [Klor-Con 10] 10 meq PO QHS Propylene Glycol/Peg 400 [Systane 0.3-0.4% Eye Drops] 1 drop OP QID Furosemide 40 mg [Lasix 40 MG] 40 mg PO DAILY Potassium Chloride 20 meq PO DAILY Fluoxetine HCl 10 mg [Prozac 10 mg] 10 mg PO HS Carvedilol 3.125 mg [Coreg 3.125 MG] 6.25 mg PO BID Discontinued Rivaroxaban [Xarelto] 20 mg PO HS Aspirin EC 81 mg [Ecotrin 81 mg] 81 mg PO BID Additional Instructions: hold xarelto and aspirin, check CBC on Thursday. primary MD can resume xarelto when hemoglobin improved and no further bleeding. Follow up with: KRISS MARAVILLA MD [ACTIVE STAFF] - Call for Appointment
[2022-08-13] MEDS: Artificial Tears 15 ML OP SCH (10:41)
[2022-08-13] MEDS: Coreg PO SCH (10:42)
[2022-08-13] MEDS: Maxzide-25MG Tablet PO SCH (10:42)
[2022-08-13] MEDS: Klor Con PO SCH (10:42)
[2022-08-13] MEDS: ROCEPHIN 1 Gm-D5w 50 ml Bag** 1 G/50 ML IVPB IV SCH (10:42)
[2022-08-13] MEDS: Protonix 40MG Tablet PO SCH (10:42)
[2022-08-13] MEDS: Betapace 80 MG PO SCH (10:42)
[2022-08-13] MEDS: ECOTRIN 81 MG PO SCH (10:42)
[2022-08-13] MEDS: Pepcid 20 MG VIAL IV SCH (10:42)
[2022-08-13] MEDS: LOPID PO SCH (11:30)
[2022-08-13 13:39] VITALS: BP 150/80; PULSE 63; O2SAT 98
--- NOTE | 2022-09-09 14:10 | OP ---
SURGERY DATE: 08/11/2022 SURGERY TIME: 1348 PREOPERATIVE DIAGNOSIS: 1. GASTROINTESTINAL BLEED. 2. ANEMIA. POSTOPERATIVE DIAGNOSIS: 1. GASTRITIS. 2. 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 3. GASTRIC POLYPS. 4. REFLUX ESOPHAGITIS. 5. PARTIALLY OBSTRUCTIVE TRANSVERSE COLON MASS CONCERNING FOR CANCER. 6. RECTOSIGMOID POLYP. 7. DIVERTICULOSIS. 8. HEMORRHOID DISEASE. PROCEDURE: 1. EGD with biopsies. 2. Colonoscopy with hot snare polypectomy, cold biopsies, and tattoo placement. SURGEON: Dr. Rani Whyte. ANESTHESIA: MAC. SPECIMENS: 1. Antral biopsy. 2. Rectosigmoid polyp. 3. Transverse colon mass. ESTIMATED BLOOD LOSS: Minimal. COMPLICATIONS: None. PROCEDURE DETAILS: This is a gentleman who is an inpatient consult for a colonoscopy. The case was initially discussed by the hospital with my partner who has set-up the patient's prep. I discussed the procedure with the patient and he has been set-up already for colonoscopy as well as EGD for an acute gastrointestinal bleed as well as anemia and he would like to proceed. Consent has also been obtained and this was confirmed. Please see my notes for further details. Essentially, the patient's entire chart has been reviewed. His medical and surgical history have been reviewed as well. He has some findings concerning for a potential mass as well as potential partial obstruction. After reviewing the CT scan, labs, and clinical findings, the patient was then brought back to the endoscopy suite. He understands the risks, benefits, and alternatives of the procedure. He would like to proceed. All questions have been answered appropriately. The patient also is appropriate for the procedure. He is a higher risk due to his medical comorbidities and he understands this and he would like to proceed. All alternatives were discussed with him. His blood thinners have been held as well. Anesthesia was then induced after doing a complete time-out. We then introduced the scope into the mouth, oropharynx, down into the esophagus, stomach, duodenum. The duodenum was normal. The scope was withdrawn back into the stomach. There was gastritis patchy throughout the stomach including the antrum and body. The scope was retroflexed. He did have some small peptic ulcers in the gastric cardia. The scope was then unretroflexed. We took biopsies in the antrum to rule out H-pylori. There were also some benign-appearing gastric polyps. There was no concern for cancer within the stomach. All biopsy sites were hemostatic. We withdrew the scope back to the distal esophagus. There was some mild reflux esophagitis changes. No signs of Eason's disease here. The scope was then completely withdrawn. The patient tolerated this part of the procedure well. We then repositioned him for colonoscopy. First, a rectal exam was done. The patient has internal and external hemorrhoids. No rectal mass. The scope was then introduced and gently advanced to the level of cecum. The prep was fair in some places and it was satisfactory in some places, patchy throughout his colon. We did clearly identify a partially obstructive transverse colon mass which we were able to scope beyond this and the cecum appeared normal with the ileocecal valve and appendix appearing normal and then the scope was carefully withdrawn taking a circumferential view. We looked at everything we could. Again, the prep was fair. The partially obstructive mass appears to be in the transverse colon. This looks to take up over half of the circumference of the colon. It is fungating. It bleeds easily. I do think this is the culprit for his gastrointestinal bleed and his anemia. Of course, his peptic ulcers could be contributing to this as well, but this mass appears to be the most significant culprit. We took significant numbers of biopsies of this mass. The tissue felt and looked consistent with cancer and these were all sent to pathology. Stool is able to get around this mass. It is not fully obstructing, but I do believe it is partially obstructing. We placed a tattoo immediately distal and proximal to the mass for identification should surgery be performed and these tattoos took well using the spot dye. We then withdrew the scope after ensuring hemostasis. There was another polyp in the rectosigmoid region which was about 5-6 mm which was taken with the hot snare in entirety and sent to pathology and then the scope was fully withdrawn. I did not see any other masses or areas of concern. PLAN: Due to the patient's complex medical history given his respiratory, cardiac, and other comorbidities, his case is more complex. He also has partial obstruction from this. At a minimum, I would recommend treating him with proton pump inhibitor therapy and conservatively managing his partial obstruction. He has been able to take the prep. He does pass gas and he does have stool flowing which is good. He does not need any emergent surgery. I did call his granddaughter who is listed as his contact and we did have a long discussion regarding all of these concerns including the potential surgical options for an attempt to cure, surgical options in an attempt to divert as well as other conservative options. She states that the patient was considering a potential Hospice type approach given his other comorbidities and so they will discuss as a family and let us know what his wishes are and I did discuss this with the patient as well. Pending the family discussion, we will make a final plan. I did call my partner who will be caring for him to convey all of this information and we will be following up with him closely.
== END 2022-08-13 14:22 | disposition home health service (06) ==
LOC: ED 05:42 → MED SURG 09:12
PROVIDERS: ADMIT Family Medicine; ATTEND Family Medicine
DX: J18.9 Pneumonia, unspecified organism (principal); D64.9 Anemia, unspecified; E11.22 Type 2 diabetes mellitus with diabetic chronic kidney disease; I13.0 Hypertensive heart and chronic kidney disease with heart failure and stage 1 through stage 4 chronic kidney disease, or unspecified chronic kidney disease; I50.9 Heart failure, unspecified; N18.31 Chronic kidney disease, stage 3a; I48.91 Unspecified atrial fibrillation; E78.00 Pure hypercholesterolemia, unspecified; R77.8 Other specified abnormalities of plasma proteins; E87.6 Hypokalemia; D12.7 Benign neoplasm of rectosigmoid junction; D12.3 Benign neoplasm of transverse colon; K29.70 Gastritis, unspecified, without bleeding; K31.7 Polyp of stomach and duodenum; K21.00 Gastro-esophageal reflux disease with esophagitis, without bleeding; K57.30 Diverticulosis of large intestine without perforation or abscess without bleeding; K64.8 Other hemorrhoids; K64.4 Residual hemorrhoidal skin tags; Z79.899 Other long term (current) drug therapy; Z20.828 Contact with and (suspected) exposure to other viral communicable diseases
CPT/HCPCS: 0241U; 36000; 36415; 36430; 71045; 80053; 81015; 82274; 82947; 83036; 83735; 83880; 84134; 84484; 85014; 85018; 85025; 85379; 86850; 86900; 86901; 86922; 87040; 87086; 88305; 93005; 93041; 93268; 93970; 94640; 94760; 96365; 99100; 99284; A6457; J0696; J1817; J1940; J2704; P9016; A9270-GY; G0378

== ENCOUNTER 2022-08-20 05:23 | Emergency (ER) | payer OTHER ==
--- NOTE | 2022-08-20 05:59 | ERPHSYRPT ---
- History of Present Illness Source: patient, family Exam Limitations: no limitations Timing/Duration: today Activities at Onset: activity (Attempting to move from a chair to a love seat) Severity of Dyspnea-Max: mild Severity of Dyspnea-Current: none Possible Cause: frequent episodes Modifying Factors: Improves With: activity Associated Symptoms: anxiety, weakness (Chronic), No cough, No chest pain/discomfort, No fever, No productive cough Hx Tetanus, Diphtheria Vaccination/Date Given: No Hx Influenza Vaccination/Date Given: Yes Hx Pneumococcal Vaccination/Date Given: No - History of Present Illness Time Seen by Provider: 08/20/22 05:30 Physician History: This is a 81-year-old white male patient of Dr. Rosa who was recently diagnosed with the following: Anemia status post blood transfusion, gastric ulcer, and COVID-19 infection. Patient was brought in by the ambulance service after they were called out for lift assist. Patient denied chest pain. He denied falling. However, patient states that he was trying to transfer himself from a chair to a love seat which he thought would be more comfortable. However he felt weak and decided to sit down on the ground. He is adamant that he did not fall. He does not have any complaints of injury. When EMS arrived, he was, per his report, a little short of breath and felt that maybe the trachea needed suctioning out. He denies chest pain. He denies abdominal pain he has no significant cough or fever. Patient has multiple medical problems including peripheral neuropathy, TIAs, arrhythmia, CHF, coronary artery disease with cardiac stents, hyperlipidemia, hypertension, COPD, gastroesophageal reflux disease and insulin-dependent diabetes. He was on Xarelto but this was stopped once he was diagnosed with anemia and the gastric ulcer. Patient states he did take his medication this morning. He is on 2 L of oxygen at home. Patient arrives to the emergency room with the 2 L oxygen nasal cannula in place and has an oxygen level of 100%. Again, he states he has no chest pain. Since he has a COVID-19 infection he cannot be seen at his doctor's office on 08/22/2022. We have both agreed that we would order a BMP to look at his sodium and potassium, perform a chest x-ray, and also perform a CBC. (TULIO GUPTA) Allergies/Adverse Reactions: gabapentin Allergy (Mild, Verified 08/20/22 06:18) Penicillins Allergy (Mild, Verified 08/20/22 06:18) Antihistamines - Alkylamine Allergy (Verified 08/20/22 06:18) pt unsure what antihistaine name was Antihistamines - Ethanolamine Allergy (Verified 08/20/22 06:18) pt unsure of name of antihistamine Antihistamines - Ethylenediamine Allergy (Verified 08/20/22 06:18) pt unsure of name of antihistamine Antihistamines - Piperazine Allergy (Verified 08/20/22 06:18) pt unsure of name of antihistamine Antihistamines - Piperidine Allergy (Verified 08/20/22 06:18) pt unsure of name of antihistamine Home Medications: Albuterol 2.5 mg/3 ml Neb [Proventil 2.5 mg/3 ml Neb] 2.5 mg IH Q6HPRN PRN 07/11/13 [History] Gemfibrozil [Lopid] 600 mg PO BID 07/11/13 [History] Insulin Aspart [NovoLOG Insulin] 0 unit SQ TID 07/11/13 [History] Insulin Glargine [Lantus Insulin] 20 unit SQ HS 07/11/13 [History] Pantoprazole Sodium [Protonix] 40 mg PO DAILY 07/11/13 [History] Sotalol HCl [Betapace] 120 mg PO BID 07/11/13 [History] Atorvastatin Calcium 80 mg PO HS 12/04/16 [History] Glipizide 5 mg [Glucotrol 5 MG] 5 mg PO DAILY 12/04/16 [History] Triamterene/Hydrochlorothiazid [Triamterene-Hctz 37.5-25 mg Tb] 37.5 mg PO DAILY 12/04/16 [History] Ipratropium/Albuterol Sulfate [Combivent Inhaler] 1 gm IH QID 03/25/19 [History] Potassium Chloride [Klor-Con 10] 10 meq PO QHS 11/25/21 [History] Propylene Glycol/Peg 400 [Systane 0.3-0.4% Eye Drops] 1 drop OP QID 11/25/21 [History] Furosemide 40 mg [Lasix 40 MG] 40 mg PO DAILY 03/27/22 [History] Potassium Chloride 20 meq PO DAILY 03/27/22 [History] Carvedilol 3.125 mg [Coreg 3.125 MG] 6.25 mg PO BID 08/10/22 [History] Fluoxetine HCl 10 mg [Prozac 10 mg] 10 mg PO HS 08/10/22 [History] Travel Risk - International Travel Have you traveled outside of the country in past 3 weeks: No - Coronavirus Screening Are you exhibiting any of the following symptoms?: No Close contact with a COVID-19 positive Pt in past 14-21 Days: Yes - Vaccine Status Have you recieved a Covid-19 vaccination: Yes [employer]: [employer] - Vaccination Dates Date of 2cond Vaccination (if applicable): unknown - Review of Systems Constitutional: Weakness Eyes: No Symptoms (Chronic) Ears, Nose, & Throat: No Symptoms Respiratory: No Symptoms Cardiac: No Symptoms Abdominal/Gastrointestinal: No Symptoms Genitourinary Symptoms: No Symptoms Musculoskeletal: No Symptoms Skin: No Symptoms Neurological: No Symptoms Psychological: No Symptoms Endocrine: No Symptoms Hematologic/Lymphatic: No Symptoms Immunological/Allergic: No Symptoms All Other Systems: Reviewed and Negative - Past Medical History Pertinent Past Medical History: Yes Neurological History: Peripheral Neuropathy, TIA ENT History: No Pertinent History Cardiac History: Arrhythmia, Congestive Heart Failure, Coronary Artery Disease, High Cholesterol, Hypertension Respiratory History: CHF, COPD, Sleep Apnea Endocrine Medical History: Diabetes Type II Musculoskeletal History: No Pertinent History GI Medical History: GERD History: No Pertinent History Psycho-Social History: No Pertinent History Male Reproductive Disorders: No Pertinent History Other Medical History: GERD. SX HX: PACEMAKER 2010, CARDIAC STENTS X 2 1996 AND 2007. USES BIPAP - Past Surgical History Past Surgical History: Yes Neuro Surgical History: No Pertinent History Cardiac: Cardiac Catheterization, Cardiac Stent, Pacemaker Respiratory: No Pertinent History Gastrointestinal: No Pertinent History Genitourinary: No Pertinent History Musculoskeletal: Orthopedic Surgery Male Surgical History: No Pertinent History Other Surgical History: toe reattached, lip cancer removed, 6 teeth extracted 12/03/2016 - Social History Smoking Status: Former smoker How long have you smoked: 30 yrs Exposure to second hand smoke: No Drug Use: none Patient Lives Alone: No Significant Family History: heart disease - Physical Exam General Appearance: no apparent distress, alert, obese Eye Exam: PERRL/EOMI, eyes nml inspection Ears, Nose, Throat Exam: hearing grossly normal, normal ENT inspection, normal pharynx Neck Exam: non-tender, supple, full range of motion, other (Trach in place. No evidence of infection. Is functioning normally. There is no bleeding present) Respiratory Exam: normal breath sounds, lungs clear, airway intact, No chest tenderness, No respiratory distress Cardiovascular/Chest Exam: normal heart sounds, regular rate/rhythm Abdominal/Gastrointestinal Exam: soft, normal bowel sounds, No tenderness Rectal Exam: not done Extremity Exam: non-tender, normal range of motion, normal inspection, normal capillary refill, no calf tenderness, no pedal edema, pelvis stable Neurologic Exam: alert, oriented x 3, cooperative, supervisor refining II-XII nml as tested, normal mood/affect Skin Exam: warm, dry, pale (Mildly) Lymphatic Exam: No adenopathy SpO2 Interpretation: normal O2 Delivery: Room Air - Nursing Vital Signs Nursing Vital Signs: Initial Vital Signs Temperature 97.1 F 08/20/22 05:36 Pulse Rate 60 08/20/22 05:36 Respiratory Rate 18 08/20/22 05:36 Blood Pressure 119/44 08/20/22 05:36 O2 Sat by Pulse Oximetry 100 08/20/22 05:36 Pain Scale Pain Intensity 6 - Course Nursing assessment & vital signs reviewed: Yes EKG Interpreted by Me: RATE (61), Other (Ventricular paced rhythm. No evidence of any acute ischemic changes.) Ordered Tests: Active Orders 24 hr Category Date Time Status CHEST 1 VIEW (PORTABLE) Stat Exams 08/20/22 06:16 Completed ABG [ARTERIAL BLOOD GASES] Stat Lab 08/20/22 07:25 Completed BMP Stat Lab 08/20/22 07:25 Completed CBC W DIFF Stat Lab 08/20/22 06:30 Completed NT PRO BNP Stat Lab 08/20/22 07:53 Completed TROPONIN Q4H Lab 08/20/22 07:53 Completed TROPONIN Q4H Lab 08/20/22 08:26 Completed TROPONIN Q4H Lab 08/20/22 16:00 Ordered Medication Summary Discontinued Medications Generic Name Dose Route Start Last Admin Trade Name Freq PRN Reason Stop Dose Admin Furosemide 40 mg 08/20/22 09:07 08/20/22 09:14 Furosemide 40 Mg Tablet PO 08/20/22 09:08 40 mg STAT ONE Administration Lab/Rad Data: Laboratory Result Diagrams 08/20/22 06:30 08/20/22 07:25 Laboratory Results 08/20/22 08/20/22 08/20/22 Range/Units 08:26 07:53 07:53 WBC (4.0-10.5) x10^3/uL RBC (4.1-5.6) x10^6/uL Hgb (12.5-18.0) g/dL Hct (42-50) % MCV (78-100) fL MCH (26-32) pg MCHC (32-36) g/dL RDW (11.5-14.0) % Plt Count (150-450) x10^3/uL MPV (7.5-11.0) fL Gran % (36.0-66.0) % Immature Gran % (Auto) (0.00-0.4) % Nucleat RBC Rel Count (0.00-0.1) % Eos # (Auto) (0-0.5) x10^3/uL Immature Gran # (Auto) (0.00-0.03) x10^3u/L Absolute Lymphs (auto) (1.0-4.6) x10^3/uL Absolute Monos (auto) (0.0-1.3) x10^3/uL Absolute Nucleated RBC (0.00-0.01) x10^3u/L Lymphocytes % (24.0-44.0) % Monocytes % (0.0-12.0) % Eosinophils % (0.00-5.0) % Basophils % (0.0-0.4) % Absolute Granulocytes (1.4-6.9) x10^3/uL Basophils # (0-0.4) x10^3/uL Puncture Site pCO2 (35-45) mmHg pO2 (75-100) mmHg Base Excess (-2.0-2.0) O2 Saturation (94-100) g/dF ABG pH (7.35-7.45) ABG HCO3 (22-28) ABG O2 Sat (Measured) (95-100) % Jose Test A-a Gradient a/A Ratio Hemoglobin Carboxyhemoglobin (0.0-6.9) % THgb Methemoglobin (1.4-1.5) % Potassium (3.5-5.1) Temperature C POC O2 Flow Rate % Sodium (137-145) mmol/L Chloride (98-107) mmol/L Carbon Dioxide (22-30) mmol/L Anion Gap (5-15) MEQ/L BUN (9-20) mg/dL Creatinine (0.66-1.25) mg/dL Estimated GFR ML/MIN Glucose (74-106) mg/dL Calcium (8.4-10.2) mg/dL Troponin I 0.062 H* 0.058 H* (0.000-0.034) ng/mL NT-Pro-B Natriuret Pep 1910 H (0-1800) pg/mL 08/20/22 08/20/22 08/20/22 Range/Units 07:25 07:25 06:30 WBC 6.7 (4.0-10.5) x10^3/uL RBC 3.53 L (4.1-5.6) x10^6/uL Hgb 8.6 L (12.5-18.0) g/dL Hct 30.8 L (42-50) % MCV 87.3 (78-100) fL MCH 24.4 L (26-32) pg MCHC 27.9 L (32-36) g/dL RDW 19.6 H (11.5-14.0) % Plt Count 240 (150-450) x10^3/uL MPV 11.2 H (7.5-11.0) fL Gran % 66.4 H (36.0-66.0) % Immature Gran % (Auto) 0.3 (0.00-0.4) % Nucleat RBC Rel Count 0.0 (0.00-0.1) % Eos # (Auto) 0.11 (0-0.5) x10^3/uL Immature Gran # (Auto) 0.02 (0.00-0.03) x10^3u/L Absolute Lymphs (auto) 1.09 (1.0-4.6) x10^3/uL Absolute Monos (auto) 0.99 (0.0-1.3) x10^3/uL Absolute Nucleated RBC 0.00 (0.00-0.01) x10^3u/L Lymphocytes % 16.3 L (24.0-44.0) % Monocytes % 14.8 H (0.0-12.0) % Eosinophils % 1.6 (0.00-5.0) % Basophils % 0.6 (0.0-0.4) % Absolute Granulocytes 4.42 (1.4-6.9) x10^3/uL Basophils # 0.04 (0-0.4) x10^3/uL Puncture Site LEFT RADIAL pCO2 50 H (35-45) mmHg pO2 68 L (75-100) mmHg Base Excess 10.9 H (-2.0-2.0) O2 Saturation 92.5 L (94-100) g/dF ABG pH 7.47 H (7.35-7.45) ABG HCO3 36.4 H* (22-28) ABG O2 Sat (Measured) 96.6 (95-100) % Jose Test yes A-a Gradient 19 a/A Ratio 0.78 Hemoglobin 9.1 Carboxyhemoglobin 3.6 (0.0-6.9) % THgb Methemoglobin 0.7 L (1.4-1.5) % Potassium 3.5 3.7 (3.5-5.1) Temperature 37.0 C POC O2 Flow Rate 21 % Sodium 137 (137-145) mmol/L Chloride 94 L (98-107) mmol/L Carbon Dioxide 37 H (22-30) mmol/L Anion Gap 9.0 (5-15) MEQ/L BUN 33 H (9-20) mg/dL Creatinine 1.21 (0.66-1.25) mg/dL Estimated GFR > 60.0 ML/MIN Glucose 115 H (74-106) mg/dL Calcium 8.1 L (8.4-10.2) mg/dL Troponin I (0.000-0.034) ng/mL NT-Pro-B Natriuret Pep (0-1800) pg/mL - Progress Progress: improved, re-examined Air Movement: good Blood Culture(s) Obtained: No Antibiotics given: No Counseled pt/family regarding: lab results, diagnosis, need for follow-up, rad results - Progress Progress Note: 08/20/22 06:39 Chest x-ray shows cardiomegaly. No evidence of right pleural effusion. Difficult to determine if there is a small left pleural effusion versus the enlarged heart secondary to cardiomegaly obscuring the left diaphragmatic angle 08/20/22 06:50 Patient care transferred to Dr. Smith at shift change. He will follow-up with the results of the patient's blood work and make final disposition. (TULIO GUPTA) 08/20/22 08:00 Assumed care of pt w multiple medical problems at 7:00AM. Pt has a trach and is 2L O2 dependent. He is currently CV19+. Pt called ambulance for lift assist and was convinced to come to the ER for evaluation. He states that he is back to his baseline and denies chest pain. Lungs rales at bases B/Heart RRR woM/Abdomen obese, soft NTTP/1-2+ pretibial edema w chronic R pre-tibial ulcer. 08/20/22 09:12 Dr. Carpenter later called and stated that CXR looked like increasing pulmonary vascular congestion. Reviewed CXR on 08/10 and 08/13 and 08/20 CXR appears improved compared to 08/13. Pt has rales at bases and was told to increase Lasix to 40mg bid x3 days before phone call. He was given 40mg po Lasix before discharge. Pt started on Paxlovid due to +CV19 test per pt/ambulance service 08/20/22 09:20 Pt states that he is at his baseline and ready to go home. He is not hypoxic and sats mid-90's on 2L O2. 08/20/22 09:24 (ARMIN SMITH) - Departure Departure Disposition: Home Critical Care Time: No - Departure Clinical Impression: Encounter for medical screening examination, Well adult health check, COVID-19, CHF (congestive heart failure) Condition: Stable Referrals: MARIELOS ROSA MD [Primary Care Provider] - Follow up/PCP as directed Instructions: Heart Failure, COVID-19 (DC) Additional Instructions: Continue medication as prescribed. Quarantine yourself for 1 week. Contact your primary care provider for further evaluation and management once your quarantine period has been completed Start Paxlovid-3 tabs twice a day Follow up with your family MD Take an extra dose of Lasix for 3 days Return to ER for increasing shortness of breath or temperature greater than 100.5 Prescriptions: Nirmatrelvir/Ritonavir [Paxlovid 300-100 mg Pack (Eua)] 1 each PO BID 5 Days #30
[2022-08-20 06:04] VITALS: PULSE 60
[2022-08-20 06:48] LABS: Absolute Neutrophil Ct (ANC) 4.42 x10^3/uL (1.4-6.9); Basophil (Absolute #) 0.04 x10^3/uL (0-0.4); Eosinophil % 1.6 % (0.00-5.0); Eosinophil (Absolute #) 0.11 x10^3/uL (0-0.5); Hematocrit 30.8 % (42-50); Hemoglobin 8.6 g/dL (12.5-18.0); Lymphocyte (Absolute #) 1.09 x10^3/uL (1.0-4.6); Lymphocytes % 16.3 % (24.0-44.0); Mean Cell Volume 87.3 fL (78-100); Mean Corpuscular Hemoglobin 24.4 pg (26-32); Mean Corpuscular Hgb Concent. 27.9 g/dL (32-36); Mean Platelet Volume 11.2 fL (7.5-11.0); Monocyte (Absolute #) 0.99 x10^3/uL (0.0-1.3); Monocytes % 14.8 % (0.0-12.0); Neutrophil % 66.4 % (36.0-66.0); Platelet Count 240 x10^3/uL (150-450); Red Blood Count 3.53 x10^6/uL (4.1-5.6); Red Cell Distribution Width 19.6 % (11.5-14.0); White Blood Count 6.7 x10^3/uL (4.0-10.5)
[2022-08-20 07:24] VITALS: BP 126/48; O2SAT 90
[2022-08-20 07:32] LABS: A-aADO2 19; ABG HEMOGLOBIN 9.1; ABG POTASSIUM 3.5 (3.5-5.1); ARTERIAL BLD GAS O2 SATURATION 96.6 % (95-100); ARTERIAL BLOOD GAS BASE EXCESS 10.9 (-2.0-2.0); ARTERIAL BLOOD GAS FIO2 21 %; ARTERIAL BLOOD GAS PCO2 50 mmHg (35-45); ARTERIAL BLOOD GAS PO2 68 mmHg (75-100); ARTERIAL BLOOD GAS pH 7.47 (7.35-7.45); CARBOXYHEMOGLOBIN 3.6 % THgb (0.0-6.9); HCO3- 36.4 (22-28); HGB O2 SAT 92.5 g/dF (94-100); Methhemoglobin 0.7 % (1.4-1.5)
[2022-08-20 07:33] LABS: ABG SITE LEFT RADIAL; ALLEN TEST OK? yes
[2022-08-20 07:45] LABS: BLOOD UREA NITROGEN 33 mg/dL (9-20); CHLORIDE 94 mmol/L (98-107); Calcium 8.1 mg/dL (8.4-10.2); Carbon Dioxide 37 mmol/L (22-30); Creatinine 1 1.21 mg/dL (0.66-1.25); EST GLOMERULAR FILTRATION RATE > 60.0 ML/MIN; Glucose 115 mg/dL (74-106); Potassium 3.7 mmol/L (3.5-5.1); SODIUM 137 mmol/L (137-145)
[2022-08-20] MEDS ORDERED: Lasix 40 MG PO ONE (09:07)
--- NOTE | 2022-08-20 09:12 | XRAY ---
Indication: Short of breath and wheezing. Comparison: August 13, 2022 Portable chest again demonstrates bibasilar infiltrates/atelectasis worsened on the left with new small effusion. Heart not enlarged again with left pacemaker and tracheostomy cannula. Bony thorax intact. Comment: Lung findings not reported by interpreting ER clinician. Telephone report was given to Dr. Carr at 0906 hrs. on August 20, 2022.
[2022-08-20 10:36] LABS: Slide Review 1 YES
== END 2022-08-20 09:45 | disposition home or self-care (01) ==
LOC: ED 05:23
DX: U07.1 COVID-19 (principal); I11.0 Hypertensive heart disease with heart failure; I50.9 Heart failure, unspecified; R06.02 Shortness of breath; R53.1 Weakness; E78.5 Hyperlipidemia, unspecified; J44.9 Chronic obstructive pulmonary disease, unspecified; E11.42 Type 2 diabetes mellitus with diabetic polyneuropathy; Z79.4 Long term (current) use of insulin; Z79.84 Long term (current) use of oral hypoglycemic drugs; Z79.899 Other long term (current) drug therapy; Z99.81 Dependence on supplemental oxygen
CPT/HCPCS: 36415; 36600; 71045; 80048; 82375; 82803; 83880; 84484; 85025; 99283; A9270-GY

== ENCOUNTER 2022-08-26 08:10 | Observation (INO) | payer OTHER ==
[2022-08-26] MEDS ORDERED: D50W 50 ml Abboject IV ONE ×4 (08:15→11:22)
[2022-08-26 08:28] LABS: Basophil (Absolute #) 0.05 x10^3/uL (0-0.4); Eosinophil % 1.3 % (0.00-5.0); Eosinophil (Absolute #) 0.11 x10^3/uL (0-0.5); Hematocrit 29.8 % (42-50); Hemoglobin 8.5 g/dL (12.5-18.0); Lymphocyte (Absolute #) 0.83 x10^3/uL (1.0-4.6); Lymphocytes % 9.4 % (24.0-44.0); Mean Cell Volume 84.9 fL (78-100); Mean Corpuscular Hemoglobin 24.2 pg (26-32); Mean Corpuscular Hgb Concent. 28.5 g/dL (32-36); Mean Platelet Volume 10.2 fL (7.5-11.0); Monocyte (Absolute #) 1.38 x10^3/uL (0.0-1.3); Monocytes % 15.7 % (0.0-12.0); Neutrophil % 72.7 % (36.0-66.0); Platelet Count 252 x10^3/uL (150-450); Red Blood Count 3.51 x10^6/uL (4.1-5.6); Red Cell Distribution Width 19.2 % (11.5-14.0); White Blood Count 8.8 x10^3/uL (4.0-10.5)
[2022-08-26 08:52] LABS: A-aADO2 52; ABG HEMOGLOBIN 8.9; ARTERIAL BLD GAS O2 SATURATION 95.2 % (95-100); ARTERIAL BLOOD GAS BASE EXCESS 11.5 (-2.0-2.0); ARTERIAL BLOOD GAS FIO2 28 %; ARTERIAL BLOOD GAS PO2 69 mmHg (75-100); CARBOXYHEMOGLOBIN 1.5 % THgb (0.0-6.9); HGB O2 SAT 92.8 g/dF (94-100)
[2022-08-26 08:53] LABS: ABG POTASSIUM 2.8 (3.5-5.1); ARTERIAL BLOOD GAS PCO2 63 mmHg (35-45)
[2022-08-26 08:54] LABS: ABG SITE LEFT RADIAL; ALLEN TEST OK? YES
--- NOTE | 2022-08-26 08:57 | ERPHSYRPT ---
- History of Present Illness Source: EMS Exam Limitations: clinical condition Patient Subjective Stated Complaint: Pt is not very responsive Triage Nursing Assessment: Pt presents to ER by EMS for Altered Mental Status. Upon EMS arrival, they state that patient has a low blood glucose reading in the 40s. EMS started an IV and started administering D10. Pt was altered and unresponsive. D50 IVP administered upon arrival by [facility] per Dr. Carr order. Pt skin is pale, pupils PERRL. Respirations are shallow but clear. Dressings noted to right lower extremity. Large hematoma to right chest. Skin tear noted to left arm. Pt becomes more alert and oriented after administration of D50. Pt was reported to be Covid+, was recently at [facility]. Pt is on 2L O2 via NC wears O2 at home. Has chronic trach in place, no issues noted. Physician History: 81yo wm w multiple medical problems presents per EMS w altered LOC, most likely due to hypoglycemia. EMS stated that glucose low 40's and gave 350ml D10W w mild improvement. Pt lethargic upon arrival, so 1amp D50 given immediately w improvement in sensorium. Pt oriented x3 after D50 and oriented x3. He states that he does not know what happened to him and currently denies dyspnea/chest pain/focal weakness/fever. He tested + for CV19 on 08/20/22. There was no focal weakness during initial and subsequent physical exams. Timing/Duration: other (Improving prior to arrival/Time frame of symptoms unknown) Severity: moderate Character of Deficits: other (Lethargyu) Deficits: unable to stand Baseline/Normal Cognition: alert oriented x 3 Current Cognition: poor alertness (Lethargic upon arrival but oriented x3 after D50) Baseline Gait: uses walker Associated Symptoms: confusion, weakness, No fatigue, No fever, No chills, No loss of consciousness, No nausea, No vomiting, No insomnia, No muscle spasms, No numbness/tingling in legs/feet, No paresthesia, No ringing in ears, No seizures, No slurred speech, No trouble walking, No vision changes, No chest pain, No headache Allergies/Adverse Reactions: gabapentin Allergy (Mild, Verified 08/20/22 06:18) Penicillins Allergy (Mild, Verified 08/20/22 06:18) Antihistamines - Alkylamine Allergy (Verified 08/20/22 06:18) pt unsure what antihistaine name was Antihistamines - Ethanolamine Allergy (Verified 08/20/22 06:18) pt unsure of name of antihistamine Antihistamines - Ethylenediamine Allergy (Verified 08/20/22 06:18) pt unsure of name of antihistamine Antihistamines - Piperazine Allergy (Verified 08/20/22 06:18) pt unsure of name of antihistamine Antihistamines - Piperidine Allergy (Verified 08/20/22 06:18) pt unsure of name of antihistamine Home Medications: Albuterol 2.5 mg/3 ml Neb [Proventil 2.5 mg/3 ml Neb] 2.5 mg IH Q6HPRN PRN 07/11/13 [History] Gemfibrozil [Lopid] 600 mg PO BID 07/11/13 [History] Insulin Aspart [NovoLOG Insulin] 0 unit SQ TID 07/11/13 [History] Insulin Glargine [Lantus Insulin] 20 unit SQ HS 07/11/13 [History] Pantoprazole Sodium [Protonix] 40 mg PO DAILY 07/11/13 [History] Sotalol HCl [Betapace] 120 mg PO BID 07/11/13 [History] Atorvastatin Calcium 80 mg PO HS 12/04/16 [History] Glipizide 5 mg [Glucotrol 5 MG] 5 mg PO DAILY 12/04/16 [History] Triamterene/Hydrochlorothiazid [Triamterene-Hctz 37.5-25 mg Tb] 37.5 mg PO DAILY 12/04/16 [History] Ipratropium/Albuterol Sulfate [Combivent Inhaler] 1 gm IH QID 03/25/19 [History] Potassium Chloride [Klor-Con 10] 10 meq PO QHS 11/25/21 [History] Propylene Glycol/Peg 400 [Systane 0.3-0.4% Eye Drops] 1 drop OP QID 11/25/21 [History] Furosemide 40 mg [Lasix 40 MG] 40 mg PO DAILY 03/27/22 [History] Potassium Chloride 20 meq PO DAILY 03/27/22 [History] Carvedilol 3.125 mg [Coreg 3.125 MG] 6.25 mg PO BID 08/10/22 [History] Fluoxetine HCl 10 mg [Prozac 10 mg] 10 mg PO HS 08/10/22 [History] Hx Tetanus, Diphtheria Vaccination/Date Given: No (unknown) Hx Influenza Vaccination/Date Given: No (unknown) Hx Pneumococcal Vaccination/Date Given: No (unknown) Immunizations Up to Date: No (unknown) Travel Risk - International Travel Have you traveled outside of the country in past 3 weeks: No - Coronavirus Screening Are you exhibiting any of the following symptoms?: No - Vaccine Status Have you recieved a Covid-19 vaccination: Yes Analysis Lead: [id number] - Vaccination Dates Date of 2cond Vaccination (if applicable): unknown - Review of Systems Constitutional: No Symptoms Eyes: No Symptoms Ears, Nose, & Throat: No Symptoms Respiratory: No Symptoms Cardiac: No Symptoms Genitourinary Symptoms: No Symptoms Musculoskeletal: No Symptoms Skin: No Symptoms Neurological: No Symptoms, Lethargy Psychological: No Symptoms Endocrine: No Symptoms Hematologic/Lymphatic: No Symptoms Immunological/Allergic: No Symptoms - Past Medical History Pertinent Past Medical History: Yes Neurological History: Peripheral Neuropathy, TIA ENT History: No Pertinent History Cardiac History: Arrhythmia, Congestive Heart Failure, Coronary Artery Disease, High Cholesterol, Hypertension Respiratory History: CHF, COPD, Sleep Apnea Endocrine Medical History: Diabetes Type II Musculoskeletal History: No Pertinent History GI Medical History: GERD History: No Pertinent History Psycho-Social History: No Pertinent History Male Reproductive Disorders: No Pertinent History Other Medical History: GERD. SX HX: PACEMAKER 2010, CARDIAC STENTS X 2 1996 AND 2007. USES BIPAP - Past Surgical History Past Surgical History: Yes Neuro Surgical History: No Pertinent History Cardiac: Cardiac Catheterization, Cardiac Stent, Pacemaker Respiratory: No Pertinent History Gastrointestinal: No Pertinent History Genitourinary: No Pertinent History Musculoskeletal: Orthopedic Surgery Male Surgical History: No Pertinent History Other Surgical History: toe reattached, lip cancer removed, 6 teeth extracted 12/03/2016 - Social History Smoking Status: Former smoker How long have you smoked: 30 yrs Exposure to second hand smoke: No Drug Use: none Patient Lives Alone: No Significant Family History: heart disease - Nursing Vital Signs Nursing Vital Signs: Initial Vital Signs Temperature 96.3 F 08/26/22 08:18 Pulse Rate 60 09/27/22 08:18 Respiratory Rate 14 08/26/22 08:18 O2 Sat by Pulse Oximetry 95 08/26/22 08:18 Pain Scale Pain Intensity 0 Pt - Lauren Coma Scale Best Eye Response (Lauren): (3) open to voice Best Verbal Response ([place]): (5) oriented Best Motor Response (Lauren): (6) obeys commands [place] Total: 14 - Physical Exam General Appearance: mild distress Eye Exam: bilateral eye: normal inspection, PERRL, EOMI Ears, Nose, Throat Exam: normal ENT inspection, TMs normal, pharynx normal Neck Exam: other (+trach) Respiratory: crackles/rales (Rales L base/Very faint R base) Cardiovascular: regular rate/rhythm, normal heart sounds, capillary refill <2 sec, No murmur Gastrointestinal: soft, normal bowel sounds, No tenderness Back Exam: normal inspection, normal range of motion Extremity Exam: pedal edema (2-3+B) Peripheral Pulses: carotid (R): 2+, carotid (L): 2+ Mental Status: oriented x 3 (Lethargic, but oriented x3 when asked/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 Exam: normal hearing, normal speech, PERRL Motor/Sensory: no motor deficit, no sensory deficit, no pronator drift DTR: bicep (R): 2+, bicep (L): 2+ Skin Exam: normal color SpO2 Interpretation: normal SpO2: 95 O2 Delivery: Nasal Cannula (2.5L NC) - Course Nursing assessment & vital signs reviewed: Yes EKG Interpreted by Me: RATE (Rate60/Paced/IVCD/Prolonged QT-QTc) - Radiology Exams Chest X-ray Interpretation: Discussed w/ radiologist (Portable CXR-Minimal bibasilar atelectasis-infiltrates/Nothing acute) - CT Exams Head CT Interpretation: Discussed w/radiologist (CT head-nothing acute/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) Chest CT Interpretation: Discussed w/radiologist (Cardiomegaly/pulmonary edema/Tiny B effusions) Ordered Tests: Active Orders 24 hr Category Date Time Status Bedrest TOLERATED Activity 08/26/22 11:52 Active EKG-ER Only STAT Care 08/26/22 08:20 Active IV Care Q6H Care 08/26/22 11:51 Active IV Insertion STAT Care 08/26/22 08:20 Active Implement CHF Pathway ROUTINE Care 08/26/22 11:51 Active POCT Glucose Check Q1H Care 08/26/22 11:[address] in Observation ROUTINE Care 08/26/22 11:51 Active Vital Signs Q2H Care 08/26/22 11:51 Active Weight,Daily 0600 Care 08/26/22 11:51 Active Consistent Carbohydrate Diet 2000 Calorie Diet 08/26/22 Dinner Active Nutritional Consult ROUTINE Diet 08/26/22 11:51 Active CHEST 1 VIEW (PORTABLE) Stat Exams 08/26/22 08:20 Completed CHEST WITHOUT CONTRAST [CT] Stat Exams 08/26/22 09:11 Completed HEAD WITHOUT CONTRAST [CT] Stat Exams 08/26/22 09:10 Completed ABG [ARTERIAL BLOOD GASES] Stat Lab 08/26/22 08:48 Completed CBC W DIFF Stat Lab 08/26/22 08:20 Completed CMP Stat Lab 08/26/22 08:22 Completed Lactic Acid Stat Lab 08/26/22 08:43 Completed Lactic Acid Stat Lab 08/26/22 12:19 Completed NT PRO BNP Stat Lab 08/26/22 08:22 Completed POCT GLUCOSE Stat Lab 08/26/22 09:06 Completed POCT GLUCOSE Stat Lab 08/26/22 10:49 Completed POCT GLUCOSE Stat Lab 08/26/22 11:20 Received POCT GLUCOSE Stat Lab 08/26/22 11:21 Completed POCT GLUCOSE Stat Lab 08/26/22 12:34 Completed PROTIME WITH INR Stat Lab 08/26/22 08:40 Completed PTT Stat Lab 08/26/22 08:40 Completed TROPONIN Q4H Lab 08/26/22 08:22 Completed TROPONIN Q4H Lab 08/26/22 10:20 Completed TROPONIN Q4H Lab 08/26/22 16:30 Ordered Urine Triage Profile Stat Lab 08/26/22 10:08 Completed Oxygen NASAL CANNULA 2 lpm RT 08/26/22 11:51 Active Pulse Oximetry OVERNIGHT RT 08/26/22 11:51 Active Transfer Order Routine Transfer 08/26/22 Ordered Medication Summary Generic Name Dose Route Start Last Admin Trade Name Freq PRN Reason Stop Dose Admin Furosemide 40 mg 08/26/22 17:00 Furosemide 40 Mg/4 Ml Vial IV 09/25/22 16:59 BID DIURETIC HONEY Dextrose 250 mls @ 50 mls/hr 08/26/22 09:00 08/26/22 08:59 Dextrose 10% 250 Ml IV 09/25/22 08:59 50 mls/hr .Q5H HONEY Administration Discontinued Medications Generic Name Dose Route Start Last Admin Trade Name Terrance PRN Reason Stop Dose Admin Dextrose Confirm 08/26/22 08:15 Dextrose 50%-Water 50 Ml Abboject Administered 08/26/22 08:16 Dose 50 ml IV .STK-MED ONE Dextrose 50 ml 08/26/22 08:34 08/26/22 08:10 Dextrose 50%-Water 50 Ml Abboject IV 08/26/22 08:35 50 ml STAT ONE Administration Dextrose 50 ml 08/26/22 11:21 08/26/22 11:27 Dextrose 50%-Water 50 Ml Abboject IV 08/26/22 11:22 50 ml STAT ONE Administration Dextrose Confirm 08/26/22 11:22 Dextrose 50%-Water 50 Ml Abboject Administered 08/26/22 11:23 Dose 50 ml IV .STK-MED ONE Furosemide 40 mg 08/26/22 11:19 08/26/22 12:40 Furosemide 40 Mg/4 Ml Vial IV 08/26/22 11:20 40 mg STAT ONE Administration Lab/Rad Data: Laboratory Result Diagrams 08/26/22 08:20 08/26/22 08:22 Laboratory Results 08/26/22 08/26/22 08/26/22 Range/Units 12:34 12:19 11:21 WBC (4.0-10.5) x10^3/uL RBC (4.1-5.6) x10^6/uL Hgb (12.5-18.0) g/dL Hct (42-50) % MCV (78-100) fL MCH (26-32) pg MCHC (32-36) g/dL RDW (11.5-14.0) % Plt Count (150-450) x10^3/uL MPV (7.5-11.0) fL Gran % (36.0-66.0) % Immature Gran % (Auto) (0.00-0.4) % Nucleat RBC Rel Count (0.00-0.1) % Eos # (Auto) (0-0.5) x10^3/uL Immature Gran # (Auto) (0.00-0.03) x10^3u/L Absolute Lymphs (auto) (1.0-4.6) x10^3/uL Absolute Monos (auto) (0.0-1.3) x10^3/uL Absolute Nucleated RBC (0.00-0.01) x10^3u/L Lymphocytes % (24.0-44.0) % Monocytes % (0.0-12.0) % Eosinophils % (0.00-5.0) % Basophils % (0.0-0.4) % Absolute Granulocytes (1.4-6.9) x10^3/uL Basophils # (0-0.4) x10^3/uL PT (9.4-12.5) SECONDS INR (0.8-3.0) APTT (25.1-36.5) SECONDS Puncture Site pCO2 (35-45) mmHg pO2 (75-100) mmHg Base Excess (-2.0-2.0) O2 Saturation (94-100) g/dF ABG pH (7.35-7.45) ABG HCO3 (22-28) ABG O2 Sat (Measured) (95-100) % Jose Test A-a Gradient a/A Ratio Hemoglobin Carboxyhemoglobin (0.0-6.9) % THgb Methemoglobin (1.4-1.5) % Temperature C POC O2 Flow Rate % Sodium (137-145) mmol/L Potassium (3.5-5.1) mmol/L Chloride (98-107) mmol/L Carbon Dioxide (22-30) mmol/L Anion Gap (5-15) MEQ/L BUN (9-20) mg/dL Creatinine (0.66-1.25) mg/dL Estimated GFR ML/MIN Glucose (74-106) mg/dL POC Glucometer 123 H 47 L* (74 to 106) mg/dL Lactic Acid 0.7 (0.4-2.0) Calcium (8.4-10.2) mg/dL Total Bilirubin (0.2-1.3) mg/dL AST (17-59) U/L ALT (0-50) U/L Alkaline Phosphatase (38-126) U/L Troponin I (0.000-0.034) ng/mL NT-Pro-B Natriuret Pep (0-1800) pg/mL Serum Total Protein (6.3-8.2) g/dL Albumin (3.5-5.0) g/dL Urine Opiates Level (NEGATIVE) Ur Methadone (NEGATIVE) Urine Barbiturates (NEGATIVE) Ur Phencyclidine (PCP) (NEGATIVE) Urine Amphetamine (NEGATIVE) U Benzodiazepine Level (NEGATIVE) Urine Cocaine (NEGATIVE) Urine Marijuana (THC) (NEGATIVE) Influenza Type A Ag (NEGATIVE) Influenza Type B Ag (NEGATIVE) RSV (PCR) (Negative) SARS-CoV-2 (PCR) (NEGATIVE) Slides for Path Review 08/26/22 08/26/22 08/26/22 Range/Units 11:20 10:49 10:20 WBC (4.0-10.5) x10^3/uL RBC (4.1-5.6) x10^6/uL Hgb (12.5-18.0) g/dL Hct (42-50) % MCV (78-100) fL MCH (26-32) pg MCHC (32-36) g/dL RDW (11.5-14.0) % Plt Count (150-450) x10^3/uL MPV (7.5-11.0) fL Gran % (36.0-66.0) % Immature Gran % (Auto) (0.00-0.4) % Nucleat RBC Rel Count (0.00-0.1) % Eos # (Auto) (0-0.5) x10^3/uL Immature Gran # (Auto) (0.00-0.03) x10^3u/L Absolute Lymphs (auto) (1.0-4.6) x10^3/uL Absolute Monos (auto) (0.0-1.3) x10^3/uL Absolute Nucleated RBC (0.00-0.01) x10^3u/L Lymphocytes % (24.0-44.0) % Monocytes % (0.0-12.0) % Eosinophils % (0.00-5.0) % Basophils % (0.0-0.4) % Absolute Granulocytes (1.4-6.9) x10^3/uL Basophils # (0-0.4) x10^3/uL PT (9.4-12.5) SECONDS INR (0.8-3.0) APTT (25.1-36.5) SECONDS Puncture Site pCO2 (35-45) mmHg pO2 (75-100) mmHg Base Excess (-2.0-2.0) O2 Saturation (94-100) g/dF ABG pH (7.35-7.45) ABG HCO3 (22-28) ABG O2 Sat (Measured) (95-100) % Jose Test A-a Gradient a/A Ratio Hemoglobin Carboxyhemoglobin (0.0-6.9) % THgb Methemoglobin (1.4-1.5) % Temperature C POC O2 Flow Rate % Sodium (137-145) mmol/L Potassium (3.5-5.1) mmol/L Chloride (98-107) mmol/L Carbon Dioxide (22-30) mmol/L Anion Gap (5-15) MEQ/L BUN (9-20) mg/dL Creatinine (0.66-1.25) mg/dL Estimated GFR ML/MIN Glucose (74-106) mg/dL POC Glucometer 70 L (74 to 106) mg/dL Lactic Acid (0.4-2.0) Calcium (8.4-10.2) mg/dL Total Bilirubin (0.2-1.3) mg/dL AST (17-59) U/L ALT (0-50) U/L Alkaline Phosphatase (38-126) U/L Troponin I 0.054 H* (0.000-0.034) ng/mL NT-Pro-B Natriuret Pep (0-1800) pg/mL Serum Total Protein (6.3-8.2) g/dL Albumin (3.5-5.0) g/dL Urine Opiates Level (NEGATIVE) Ur Methadone (NEGATIVE) Urine Barbiturates (NEGATIVE) Ur Phencyclidine (PCP) (NEGATIVE) Urine Amphetamine (NEGATIVE) U Benzodiazepine Level (NEGATIVE) Urine Cocaine (NEGATIVE) Urine Marijuana (THC) (NEGATIVE) Influenza Type A Ag NEGATIVE (NEGATIVE) Influenza Type B Ag NEGATIVE (NEGATIVE) RSV (PCR) NEGATIVE (Negative) SARS-CoV-2 (PCR) POSITIVE A (NEGATIVE) Slides for Path Review 08/26/22 08/26/22 08/26/22 Range/Units 10:08 09:06 08:48 WBC (4.0-10.5) x10^3/uL RBC (4.1-5.6) x10^6/uL Hgb (12.5-18.0) g/dL Hct (42-50) % MCV (78-100) fL MCH (26-32) pg MCHC (32-36) g/dL RDW (11.5-14.0) % Plt Count (150-450) x10^3/uL MPV (7.5-11.0) fL Gran % (36.0-66.0) % Immature Gran % (Auto) (0.00-0.4) % Nucleat RBC Rel Count (0.00-0.1) % Eos # (Auto) (0-0.5) x10^3/uL Immature Gran # (Auto) (0.00-0.03) x10^3u/L Absolute Lymphs (auto) (1.0-4.6) x10^3/uL Absolute Monos (auto) (0.0-1.3) x10^3/uL Absolute Nucleated RBC (0.00-0.01) x10^3u/L Lymphocytes % (24.0-44.0) % Monocytes % (0.0-12.0) % Eosinophils % (0.00-5.0) % Basophils % (0.0-0.4) % Absolute Granulocytes (1.4-6.9) x10^3/uL Basophils # (0-0.4) x10^3/uL PT (9.4-12.5) SECONDS INR (0.8-3.0) APTT (25.1-36.5) SECONDS Puncture Site LEFT RADIAL pCO2 63 H* (35-45) mmHg pO2 69 L (75-100) mmHg Base Excess 11.5 H (-2.0-2.0) O2 Saturation 92.8 L (94-100) g/dF ABG pH 7.40 (7.35-7.45) ABG HCO3 39.0 H* (22-28) ABG O2 Sat (Measured) 95.2 (95-100) % Jose Test YES A-a Gradient 52 a/A Ratio 0.57 Hemoglobin 8.9 Carboxyhemoglobin 1.5 (0.0-6.9) % THgb Methemoglobin 1.0 L (1.4-1.5) % Temperature 37.0 C POC O2 Flow Rate 28 % Sodium (137-145) mmol/L Potassium 2.8 L* (3.5-5.1) mmol/L Chloride (98-107) mmol/L Carbon Dioxide (22-30) mmol/L Anion Gap (5-15) MEQ/L BUN (9-20) mg/dL Creatinine (0.66-1.25) mg/dL Estimated GFR ML/MIN Glucose (74-106) mg/dL POC Glucometer 95 (74 to 106) mg/dL Lactic Acid (0.4-2.0) Calcium (8.4-10.2) mg/dL Total Bilirubin (0.2-1.3) mg/dL AST (17-59) U/L ALT (0-50) U/L Alkaline Phosphatase (38-126) U/L Troponin I (0.000-0.034) ng/mL NT-Pro-B Natriuret Pep (0-1800) pg/mL Serum Total Protein (6.3-8.2) g/dL Albumin (3.5-5.0) g/dL Urine Opiates Level NEGATIVE (NEGATIVE) Ur Methadone NEGATIVE (NEGATIVE) Urine Barbiturates NEGATIVE (NEGATIVE) Ur Phencyclidine (PCP) NEGATIVE (NEGATIVE) Urine Amphetamine NEGATIVE (NEGATIVE) U Benzodiazepine Level NEGATIVE (NEGATIVE) Urine Cocaine NEGATIVE (NEGATIVE) Urine Marijuana (THC) NEGATIVE (NEGATIVE) Influenza Type A Ag (NEGATIVE) Influenza Type B Ag (NEGATIVE) RSV (PCR) (Negative) SARS-CoV-2 (PCR) (NEGATIVE) Slides for Path Review 08/26/22 08/26/22 08/26/22 Range/Units 08:43 08:40 08:22 WBC (4.0-10.5) x10^3/uL RBC (4.1-5.6) x10^6/uL Hgb (12.5-18.0) g/dL Hct (42-50) % MCV (78-100) fL MCH (26-32) pg MCHC (32-36) g/dL RDW (11.5-14.0) % Plt Count (150-450) x10^3/uL MPV (7.5-11.0) fL Gran % (36.0-66.0) % Immature Gran % (Auto) (0.00-0.4) % Nucleat RBC Rel Count (0.00-0.1) % Eos # (Auto) (0-0.5) x10^3/uL Immature Gran # (Auto) (0.00-0.03) x10^3u/L Absolute Lymphs (auto) (1.0-4.6) x10^3/uL Absolute Monos (auto) (0.0-1.3) x10^3/uL Absolute Nucleated RBC (0.00-0.01) x10^3u/L Lymphocytes % (24.0-44.0) % Monocytes % (0.0-12.0) % Eosinophils % (0.00-5.0) % Basophils % (0.0-0.4) % Absolute Granulocytes (1.4-6.9) x10^3/uL Basophils # (0-0.4) x10^3/uL PT 11.8 (9.4-12.5) SECONDS INR 1.13 (0.8-3.0) APTT 28.2 (25.1-36.5) SECONDS Puncture Site pCO2 (35-45) mmHg pO2 (75-100) mmHg Base Excess (-2.0-2.0) O2 Saturation (94-100) g/dF ABG pH (7.35-7.45) ABG HCO3 (22-28) ABG O2 Sat (Measured) (95-100) % Joes Test A-a Gradient a/A Ratio Hemoglobin Carboxyhemoglobin (0.0-6.9) % THgb Methemoglobin (1.4-1.5) % Temperature C POC O2 Flow Rate % Sodium (137-145) mmol/L Potassium (3.5-5.1) mmol/L Chloride (98-107) mmol/L Carbon Dioxide (22-30) mmol/L Anion Gap (5-15) MEQ/L BUN (9-20) mg/dL Creatinine (0.66-1.25) mg/dL Estimated GFR ML/MIN Glucose (74-106) mg/dL POC Glucometer (74 to 106) mg/dL Lactic Acid 0.6 (0.4-2.0) Calcium (8.4-10.2) mg/dL Total Bilirubin (0.2-1.3) mg/dL AST (17-59) U/L ALT (0-50) U/L Alkaline Phosphatase (38-126) U/L Troponin I 0.057 H* (0.000-0.034) ng/mL NT-Pro-B Natriuret Pep (0-1800) pg/mL Serum Total Protein (6.3-8.2) g/dL Albumin (3.5-5.0) g/dL Urine Opiates Level (NEGATIVE) Ur Methadone (NEGATIVE) Urine Barbiturates (NEGATIVE) Ur Phencyclidine (PCP) (NEGATIVE) Urine Amphetamine (NEGATIVE) U Benzodiazepine Level (NEGATIVE) Urine Cocaine (NEGATIVE) Urine Marijuana (THC) (NEGATIVE) Influenza Type A Ag (NEGATIVE) Influenza Type B Ag (NEGATIVE) RSV (PCR) (Negative) SARS-CoV-2 (PCR) (NEGATIVE) Slides for Path Review 08/26/22 08/26/22 Range/Units 08:22 08:20 WBC 8.8 (4.0-10.5) x10^3/uL RBC 3.51 L (4.1-5.6) x10^6/uL Hgb 8.5 L (12.5-18.0) g/dL Hct 29.8 L (42-50) % MCV 84.9 (78-100) fL MCH 24.2 L (26-32) pg MCHC 28.5 L (32-36) g/dL RDW 19.2 H (11.5-14.0) % Plt Count 252 (150-450) x10^3/uL MPV 10.2 (7.5-11.0) fL Gran % 72.7 H (36.0-66.0) % Immature Gran % (Auto) 0.3 (0.00-0.4) % Nucleat RBC Rel Count 0.0 (0.00-0.1) % Eos # (Auto) 0.11 (0-0.5) x10^3/uL Immature Gran # (Auto) 0.03 (0.00-0.03) x10^3u/L Absolute Lymphs (auto) 0.83 L (1.0-4.6) x10^3/uL Absolute Monos (auto) 1.38 H (0.0-1.3) x10^3/uL Absolute Nucleated RBC 0.00 (0.00-0.01) x10^3u/L Lymphocytes % 9.4 L (24.0-44.0) % Monocytes % 15.7 H (0.0-12.0) % Eosinophils % 1.3 (0.00-5.0) % Basophils % 0.6 (0.0-0.4) % Absolute Granulocytes 6.40 (1.4-6.9) x10^3/uL Basophils # 0.05 (0-0.4) x10^3/uL PT (9.4-12.5) SECONDS INR (0.8-3.0) APTT (25.1-36.5) SECONDS Puncture Site pCO2 (35-45) mmHg pO2 (75-100) mmHg Base Excess (-2.0-2.0) O2 Saturation (94-100) g/dF ABG pH (7.35-7.45) ABG HCO3 (22-28) ABG O2 Sat (Measured) (95-100) % Jose Test A-a Gradient a/A Ratio Hemoglobin Carboxyhemoglobin (0.0-6.9) % THgb Methemoglobin (1.4-1.5) % Temperature C POC O2 Flow Rate % Sodium 131 L (137-145) mmol/L Potassium 3.3 L (3.5-5.1) mmol/L Chloride 89 L (98-107) mmol/L Carbon Dioxide 39 H (22-30) mmol/L Anion Gap 5.2 (5-15) MEQ/L BUN 39 H (9-20) mg/dL Creatinine 1.30 H (0.66-1.25) mg/dL Estimated GFR 56.6 ML/MIN Glucose 40 L* (74-106) mg/dL POC Glucometer (74 to 106) mg/dL Lactic Acid (0.4-2.0) Calcium 8.4 (8.4-10.2) mg/dL Total Bilirubin 0.50 (0.2-1.3) mg/dL AST 31 (17-59) U/L ALT 14 (0-50) U/L Alkaline Phosphatase 110 (38-126) U/L Troponin I (0.000-0.034) ng/mL NT-Pro-B Natriuret Pep 1840 H (0-1800) pg/mL Serum Total Protein 6.5 (6.3-8.2) g/dL Albumin 3.4 L (3.5-5.0) g/dL Urine Opiates Level (NEGATIVE) Ur Methadone (NEGATIVE) Urine Barbiturates (NEGATIVE) Ur Phencyclidine (PCP) (NEGATIVE) Urine Amphetamine (NEGATIVE) U Benzodiazepine Level (NEGATIVE) Urine Cocaine (NEGATIVE) Urine Marijuana (THC) (NEGATIVE) Influenza Type A Ag (NEGATIVE) Influenza Type B Ag (NEGATIVE) RSV (PCR) (Negative) SARS-CoV-2 (PCR) (NEGATIVE) Slides for Path Review YES - Progress Progress: improved Progress Note: 08/26/22 11:[address] Pena 08/26/22 13:01 Initial D50 w improvement in sensorium Glucose started to drift down, so D10W started at 50ml/Hr Glucose dropped again, so 1amp D50 given w improvement in Glucose/sensorium Glucose greater than 100 when transferred to floor Pt oriented x3 after initial hypoglycemia wo focal weakness during entire stay 40mg IV Lasix for worsening/chronic CHF before transfer to floor Pt still CV19+ 08/26/22 13:[address] Pena to ICU Discussed with Dr.: Parris Counseled pt/family regarding: lab results, diagnosis, rad results - Departure Departure Disposition: Observation Clinical Impression: Hypoglycemia, CHF (congestive heart failure), COVID-19 Condition: Stable Critical Care Time: Yes Critical Care Time(excluding separately billable procedures): Critical 30-74 mins Referrals: MARIELOS SMALL MD [Primary Care Provider] - Follow up/PCP as directed Instructions: Heart Failure
[2022-08-26] MEDS: DEXTROSE 10% 250 ML 250 ML IV SCH ×3 (08:59→22:58)
[2022-08-26 09:01] LABS: ALBUMIN 3.4 g/dL (3.5-5.0); ANION GAP 5.2 MEQ/L (5-15); BILIRUBIN,TOTAL 0.5 mg/dL (0.2-1.3); Calcium 8.4 mg/dL (8.4-10.2); Creatinine 1 1.3 mg/dL (0.66-1.25); EST GLOMERULAR FILTRATION RATE 56.6 ML/MIN; Potassium 3.3 mmol/L (3.5-5.1); Total Protein 6.5 g/dL (6.3-8.2)
[2022-08-26 09:28] LABS: INR 1.13 (0.8-3.0); PROTIME 11.8 SECONDS (9.4-12.5); PTT 28.2 SECONDS (25.1-36.5)
--- NOTE | 2022-08-26 09:30 | XRAY ---
Indication: Lethargy. Positive Covid 19. Comparison: August 20, 2022 Portable chest unchanged again demonstrating minimal bibasilar infiltrates/atelectasis, small left effusion, scattered calcified granulomas, and tracheostomy cannula. Heart again borderline enlarged with left pacemaker and mitral valve calcifications. No new cardiopulmonary findings.
[2022-08-26 10:03] LABS: Slide Review 1 YES
[2022-08-26 10:57] LABS: Amphetamine,Urine NEGATIVE (NEGATIVE); Barbiturate,Urine NEGATIVE (NEGATIVE); Benzodiazepine,Urine NEGATIVE (NEGATIVE); Cocaine,Urine NEGATIVE (NEGATIVE); Methadone,Urine NEGATIVE (NEGATIVE); Opiate,Urine NEGATIVE (NEGATIVE); THC,Urine NEGATIVE (NEGATIVE)
--- NOTE | 2022-08-26 10:58 | XRAY ---
Indication: Altered mental status. Multiple contiguous axial images obtained through the head without contrast. Comparison: July 20, 2022 Again age-appropriate global atrophy, moderate periventricular degenerative micro-ischemia bilaterally, and small old bilateral frontal lobe infarcts. No acute intracranial hemorrhage, abnormal extra-axial fluid collection, or mass effect. Fourth ventricle is midline without hydrocephalus. Bony calvarium intact. Grossly stable near-complete opacification right maxillary sinus with fluid leveling and minimal mucosal thickening of remaining paranasal sinuses. Mastoid air cells are clear. Impression: 1. Continued nonacute senile brain with small old bifrontal lobe infarcts. 2. Again incidental paranasal sinus disease.
--- NOTE | 2022-08-26 11:02 | XRAY ---
Indication: Short of breath 2 weeks. Multiple contiguous axial images obtained through the chest without contrast. Comparison: March 25, 2019 Heart remains enlarged again with mitral valve calcifications and left dual-lead pacemaker. Aorta remains mildly arteriosclerotic without aneurysm. Stable small mediastinal and left hilar calcified nodes. No pathologic mediastinal lymphadenopathy. Lungs again demonstrates mild bilateral dependent atelectasis more than before. New mild pulmonary edema and tiny bilateral effusions. No suspicious pulmonary mass/nodule, focal infiltrate, or pneumothorax. Bony thorax intact again with mild degenerative changes to the spine. Limited upper abdomen again demonstrates fatty liver, small hepatic cyst/hemangioma, tiny gallstones, hepatic calcified granuloma, and bilateral renal cysts. Impression: 1. Again cardiomegaly with new pulmonary edema and new tiny bilateral effusions. Rule out cardiac decompensation/CHF. 2. Again chronic findings including arteriosclerotic disease, mitral valve calcifications, degenerative spondylosis, fatty liver, hepatic cyst/hemangioma, gallstones, bilateral renal cysts, and old granulomatous disease.
[2022-08-26 11:06] LABS: PCP,Urine NEGATIVE (NEGATIVE)
[2022-08-26] MEDS ORDERED: Lasix 40 MG/4 ML IV ONE (11:19)
[2022-08-26 12:05] LABS: INFLUENZA A NEGATIVE (NEGATIVE); INFLUENZA B NEGATIVE (NEGATIVE); RESPIRATORY SYNCTIAL VIRUS NEGATIVE (Negative)
[2022-08-26 12:12] LABS: SARS-CoV-2 Xpert Express POSITIVE (NEGATIVE)
[2022-08-26] MEDS ORDERED: Lasix 40 MG/4 ML ONE (12:39)
[2022-08-26] MEDS ORDERED: PROVENTIL 2.5 MG/3 ML NEB IH PRN (17:02)
[2022-08-26] MEDS ORDERED: NON-FORMULARY ITEM (Propylene Glycol/Peg 400 [Systane 0.3-0.4% Eye Drops] 15 ML Drops) OP PRN (17:02)
[2022-08-26] MEDS ORDERED: Artificial Tears 15 ML OP PRN (17:14)
[2022-08-26] MEDS: Lasix 40 MG/4 ML IV SCH (17:37)
[2022-08-26] MEDS: Klor Con PO SCH (17:37)
[2022-08-26] MEDS: Carafate 1 GM PO SCH (17:40)
[2022-08-26] MEDS ORDERED: VENTOLIN COMMON CANISTER IH PRN (17:53)
[2022-08-26] MEDS ORDERED: DUONEB 0.5-3 MG/3 ml Neb IH SCH (19:00)
[2022-08-26] MEDS: Betapace 80 MG PO SCH (21:54)
[2022-08-26] MEDS: PROZAC 10 MG PO SCH (21:54)
[2022-08-26] MEDS: Coreg PO SCH (21:54)
[2022-08-26] MEDS: LOPID PO SCH (21:55)
[2022-08-26] MEDS: ZOCOR 20MG PO SCH (21:56)
[2022-08-26] MEDS: NYSTOP 30 GM CREAM TOP SCH (21:56)
[2022-08-26] MEDS ORDERED: SOTALOL HCL 120 MG PO SCH (22:00)
[2022-08-26] MEDS ORDERED: NON-FORMULARY ITEM (Insulin Aspart** [Novolog Insulin**] 1 UNIT Unit) SQ SCH (22:00)
[2022-08-26] MEDS ORDERED: NON-FORMULARY ITEM (Ipratropium/Albuterol Sulfate [Combivent Inhaler] 14.7 GM Aer.W.Adap) IH SCH (22:00)
[2022-08-26] MEDS ORDERED: NON-FORMULARY ITEM (Atorvastatin Calcium [Atorvastatin Calcium] 80 MG Tablet) PO SCH (22:00)
[2022-08-27] MEDS: TYLENOL 325 MG PO PRN (00:06)
[2022-08-27] MEDS ORDERED: HUMALOG ONE (00:06)
[2022-08-27] MEDS: HUMALOG SQ SCH ×5 (00:13→22:14)
[2022-08-27] MEDS ORDERED: Ativan 2 MG/1 ML VIAL IV ONE (02:04)
[2022-08-27] MEDS: DEXTROSE 10% 250 ML 250 ML IV SCH (03:57)
[2022-08-27] MEDS: Carafate 1 GM PO SCH ×2 (06:31→17:09)
--- NOTE | 2022-08-27 09:36 | PCM.HP ---
History of Present Illness - Chief Complaint Chief Complaint: Hypoglycemia, CHF History of Present Illness: is a 81 year old male who presented to the ER with altered mental status, he was seen 1 week ago with cough and diagnosed with covid, treated with po paxlovid and released from ER. 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 He is sleepy this morning but arousable (was given ativan last night per nursing). He has some swelling, mild cough and s hortness of breath. - Review of Systems Constitutional: No Fever, No Chills Respiratory: Cough, Short Of Breath Cardiac: Edema Abdominal/Gastrointestinal: No Abdominal Pain, No Nausea, No Vomiting, No Diarrhea Genitourinary Symptoms: No Dysuria All Other Systems: Reviewed and Negative Medications & Allergies Home Medications: Home Medication List Albuterol 2.5 mg/3 ml Neb [Proventil 2.5 mg/3 ml Neb] 2.5 mg IH Q6HPRN PRN 07/11/13 [History Confirmed 08/26/22] Gemfibrozil [Lopid] 600 mg PO BID 07/11/13 [History Confirmed 08/26/22] Insulin Aspart [NovoLOG Insulin] 0 unit SQ TID 07/11/13 [History Confirmed 08/26/22] Insulin Glargine [Lantus Insulin] 20 unit SQ HS 07/11/13 [History Confirmed 08/26/22] Pantoprazole Sodium [Protonix] 40 mg PO DAILY 07/11/13 [History Confirmed 08/26/22] Sotalol HCl [Betapace] 120 mg PO BID 07/11/13 [History Confirmed 08/26/22] Atorvastatin Calcium 80 mg PO HS 12/04/16 [History Confirmed 08/26/22] Glipizide 5 mg [Glucotrol 5 MG] 5 mg PO DAILY 12/04/16 [History Confirmed 08/26/22] Triamterene/Hydrochlorothiazid [Triamterene-Hctz 37.5-25 mg Tb] 37.5 mg PO DAILY 12/04/16 [History Confirmed 08/26/22] Ipratropium/Albuterol Sulfate [Combivent Inhaler] 1 gm IH QID 03/25/19 [History Confirmed 08/26/22] Propylene Glycol/Peg 400 [Systane 0.3-0.4% Eye Drops] 1 drop OP QIDPRN PRN 11/25/21 [History Confirmed 08/26/22] Furosemide 40 mg [Lasix 40 MG] 40 mg PO DAILY 03/27/22 [History Confirmed 08/26/22] Potassium Chloride 20 meq PO DAILY 03/27/22 [History Confirmed 08/26/22] Carvedilol 3.125 mg [Coreg 3.125 MG] 6.25 mg PO BID 08/10/22 [History Confirmed 08/26/22] Fluoxetine HCl 10 mg [Prozac 10 mg] 10 mg PO HS 08/10/22 [History Confirmed 08/26/22] Sucralfate 1 gm [Carafate 1 GM] 1 g PO 0600,1600 #60 tablet 08/13/22 [Rx Confirmed 08/26/22] Allergies/Adverse Reactions: Allergies Allergy/AdvReac Type Severity Reaction Status Date / Time gabapentin Allergy Mild Verified 08/26/22 13:57 Penicillins Allergy Mild Verified 08/26/22 13:57 Antihistamines - Alkylamine Allergy Verified 08/26/22 13:57 Antihistamines - Ethanolamine Allergy Verified 08/26/22 13:57 Antihistamines - Allergy Verified 08/26/22 13:57 Ethylenediamine Antihistamines - Piperazine Allergy Verified 08/26/22 13:57 Antihistamines - Piperidine Allergy Verified 08/26/22 13:57 - Past Medical History Past Medical History: Yes Neurological History: Peripheral Neuropathy, TIA ENT History: No Pertinent History Cardiac History: Arrhythmia, Congestive Heart Failure, Coronary Artery Disease, High Cholesterol, Hypertension Respiratory History: CHF, COPD, Sleep Apnea Endocrine Medical History: Diabetes Type II Musculoskelatal History: No Pertinent History GI Medical History: GERD History: No Pertinent History Pyscho-Social History: No Pertinent History Male Reproductive Disorders: No Pertinent History Comment: GERD. SX HX: PACEMAKER 2010, CARDIAC STENTS X 2 1996 AND 2007. USES BIPAP. - no changes from last admit - Past Surgical History Past Surgical History: Yes Neuro Surgical History: No Pertinent History Cardiac History: Cardiac Catheterization, Cardiac Stent, Pacemaker Respiratory Surgery: No Pertinent History GI Surgical History: No Pertinent History Genitourinary Surgical Hx: No Pertinent History Musculskeletal Surgical Hx: Orthopedic Surgery Male Surgical History: No Pertinent History Other Surgical History: toe reattached, lip cancer removed, 6 teeth extracted 12/03/2016- no changes from last admit - Social History Smoking Status: Former smoker How long have you smoked: 30 yrs Exposure to second hand smoke: No Alcohol: None Drug Use: none Significant Family History: heart disease - Physical Exam Vital Signs: Vital Signs - 24 hr Temp Pulse Resp BP Pulse Ox 08/27/22 08:33 61 18 98 08/27/22 08:00 61 08/27/22 05:46 96.0 F 63 24 116/93 90 L 08/27/22 04:56 97.5 F 63 24 104/63 08/27/22 04:00 63 08/27/22 03:00 97.5 F 63 24 104/63 98 08/27/22 01:25 66 24 99 08/27/22 00:01 68 08/26/22 23:19 98.0 F 68 17 113/42 99 08/26/22 22:00 98.1 F 68 19 139/64 97 08/26/22 20:00 63 08/26/22 19:57 97.8 F 63 17 139/64 97 08/26/22 18:50 67 22 98 08/26/22 18:00 97.8 F 66 18 118/74 96 08/26/22 17:54 62 18 95 08/26/22 16:00 98.2 F 67 17 129/60 92 L 08/26/22 15:00 98.2 F 67 17 129/60 92 L 08/26/22 14:00 95 08/26/22 13:07 95 08/26/22 12:17 60 14 150/57 95 08/26/22 11:05 62 18 141/64 94 L 08/26/22 10:08 63 12 141/101 94 L General Appearance: no apparent distress Neurologic Exam: alert, cooperative Respiratory Exam: crackles/rales, rhonchi Cardiovascular Exam: regular rate/rhythm, normal heart sounds, normal peripheral pulses Gastrointestinal/Abdomen Exam: soft, normal bowel sounds, No tenderness, No mass Extremity Exam: pedal edema, swelling Skin Exam: normal color Results - Labs Lab/Micro Results: Lab Results-Last 24 Hours 08/26/22 08/26/22 08/26/22 Range/Units 08:20 10:08 10:20 POC Glucometer (74 to 106) mg/dL Lactic Acid (0.4-2.0) Troponin I 0.054 H* (0.000-0.034) ng/mL Urine Opiates Level NEGATIVE (NEGATIVE) Ur Methadone NEGATIVE (NEGATIVE) Urine Barbiturates NEGATIVE (NEGATIVE) Ur Phencyclidine (PCP) NEGATIVE (NEGATIVE) Urine Amphetamine NEGATIVE (NEGATIVE) U Benzodiazepine Level NEGATIVE (NEGATIVE) Urine Cocaine NEGATIVE (NEGATIVE) Urine Marijuana (THC) NEGATIVE (NEGATIVE) Influenza Type A Ag (NEGATIVE) Influenza Type B Ag (NEGATIVE) RSV (PCR) (Negative) SARS-CoV-2 (PCR) (NEGATIVE) Slides for Path Review YES 08/26/22 08/26/22 08/26/22 Range/Units 10:49 11:20 11:21 POC Glucometer 70 L 47 L* (74 to 106) mg/dL Lactic Acid (0.4-2.0) Troponin I (0.000-0.034) ng/mL Urine Opiates Level (NEGATIVE) Ur Methadone (NEGATIVE) Urine Barbiturates (NEGATIVE) Ur Phencyclidine (PCP) (NEGATIVE) Urine Amphetamine (NEGATIVE) U Benzodiazepine Level (NEGATIVE) Urine Cocaine (NEGATIVE) Urine Marijuana (THC) (NEGATIVE) Influenza Type A Ag NEGATIVE (NEGATIVE) Influenza Type B Ag NEGATIVE (NEGATIVE) RSV (PCR) NEGATIVE (Negative) SARS-CoV-2 (PCR) POSITIVE A (NEGATIVE) Slides for Path Review 08/26/22 08/26/22 08/26/22 Range/Units 12:19 12:34 13:20 POC Glucometer 123 H 96 (74 to 106) mg/dL Lactic Acid 0.7 (0.4-2.0) Troponin I (0.000-0.034) ng/mL Urine Opiates Level (NEGATIVE) Ur Methadone (NEGATIVE) Urine Barbiturates (NEGATIVE) Ur Phencyclidine (PCP) (NEGATIVE) Urine Amphetamine (NEGATIVE) U Benzodiazepine Level (NEGATIVE) Urine Cocaine (NEGATIVE) Urine Marijuana (THC) (NEGATIVE) Influenza Type A Ag (NEGATIVE) Influenza Type B Ag (NEGATIVE) RSV (PCR) (Negative) SARS-CoV-2 (PCR) (NEGATIVE) Slides for Path Review 08/26/22 08/26/22 08/26/22 Range/Units 15:03 16:22 17:44 POC Glucometer 181 H 114 H 113 H (74 to 106) mg/dL Lactic Acid (0.4-2.0) Troponin I (0.000-0.034) ng/mL Urine Opiates Level (NEGATIVE) Ur Methadone (NEGATIVE) Urine Barbiturates (NEGATIVE) Ur Phencyclidine (PCP) (NEGATIVE) Urine Amphetamine (NEGATIVE) U Benzodiazepine Level (NEGATIVE) Urine Cocaine (NEGATIVE) Urine Marijuana (THC) (NEGATIVE) Influenza Type A Ag (NEGATIVE) Influenza Type B Ag (NEGATIVE) RSV (PCR) (Negative) SARS-CoV-2 (PCR) (NEGATIVE) Slides for Path Review 08/26/22 08/26/22 08/26/22 Range/Units 18:55 19:17 21:28 POC Glucometer 114 H 218 H (74 to 106) mg/dL Lactic Acid (0.4-2.0) Troponin I 0.062 H* (0.000-0.034) ng/mL Urine Opiates Level (NEGATIVE) Ur Methadone (NEGATIVE) Urine Barbiturates (NEGATIVE) Ur Phencyclidine (PCP) (NEGATIVE) Urine Amphetamine (NEGATIVE) U Benzodiazepine Level (NEGATIVE) Urine Cocaine (NEGATIVE) Urine Marijuana (THC) (NEGATIVE) Influenza Type A Ag (NEGATIVE) Influenza Type B Ag (NEGATIVE) RSV (PCR) (Negative) SARS-CoV-2 (PCR) (NEGATIVE) Slides for Path Review 08/26/22 08/27/22 08/27/22 Range/Units 23:50 02:50 04:23 POC Glucometer 364 H 253 H 257 H (74 to 106) mg/dL Lactic Acid (0.4-2.0) Troponin I (0.000-0.034) ng/mL Urine Opiates Level (NEGATIVE) Ur Methadone (NEGATIVE) Urine Barbiturates (NEGATIVE) Ur Phencyclidine (PCP) (NEGATIVE) Urine Amphetamine (NEGATIVE) U Benzodiazepine Level (NEGATIVE) Urine Cocaine (NEGATIVE) Urine Marijuana (THC) (NEGATIVE) Influenza Type A Ag (NEGATIVE) Influenza Type B Ag (NEGATIVE) RSV (PCR) (Negative) SARS-CoV-2 (PCR) (NEGATIVE) Slides for Path Review 08/27/22 08/27/22 Range/Units 06:20 07:53 POC Glucometer 251 H 213 H (74 to 106) mg/dL Lactic Acid (0.4-2.0) Troponin I (0.000-0.034) ng/mL Urine Opiates Level (NEGATIVE) Ur Methadone (NEGATIVE) Urine Barbiturates (NEGATIVE) Ur Phencyclidine (PCP) (NEGATIVE) Urine Amphetamine (NEGATIVE) U Benzodiazepine Level (NEGATIVE) Urine Cocaine (NEGATIVE) Urine Marijuana (THC) (NEGATIVE) Influenza Type A Ag (NEGATIVE) Influenza Type B Ag (NEGATIVE) RSV (PCR) (Negative) SARS-CoV-2 (PCR) (NEGATIVE) Slides for Path Review Accuchecks Date 08/27/22 Date 08/27/22 Date 08/26/22 Date 08/26/22 Date 08/26/22 Time 18:07 Time 16:29 Time 15:04 - Radiology Impressions Radiology Exams & Impressions: Radiology Procedures Category Date Time Status CHEST 1 VIEW (PORTABLE) Stat Exams 08/26/22 08:20 Completed CHEST WITHOUT CONTRAST [CT] Stat Exams 08/26/22 09:11 Completed HEAD WITHOUT CONTRAST [CT] Stat Exams 08/26/22 09:10 Completed - Other Procedures and Tests Respiratory Therapy 08/26/22 11:51 Oxygen NASAL CANNULA 2 lpm 08/26/22 17:18 Respiratory Therapy Assessment DAILY Assessment/Plan (1) COVID-19 Current Visit: Yes Status: Acute Assessment & Plan: recommend remdesivir and IV decadron at this time, supportive care otherwise. will d/c IV fluids as hypoglycemia is currently resolved Code(s): U07.1 - COVID-19 (2) Congestive heart failure Current Visit: Yes Status: Acute Qualifiers: Assessment & Plan: IV lasix, needs diuresed Code(s): I50.9 - HEART FAILURE, UNSPECIFIED (3) Hypoglycemia Current Visit: Yes Status: Acute Assessment & Plan: resolved/blood sugar >200 this am, disctoninue D10 fluids at this time, will monitor Code(s): E16.2 - HYPOGLYCEMIA, UNSPECIFIED (4) COPD (chronic obstructive pulmonary disease) Current Visit: No Status: Acute (5) Chronic renal insufficiency Current Visit: No Status: Acute Qualifiers: Code(s): N18.9 - CHRONIC KIDNEY DISEASE, UNSPECIFIED
[2022-08-27] MEDS ORDERED: NON-FORMULARY ITEM (Potassium Chloride [Potassium Chloride] 20 MEQ Tab.Er.Prt) PO SCH (10:00)
[2022-08-27] MEDS ORDERED: REMDESIVIR 200 MG in Sodium Chloride 0.9% 250 ML 250 ML IV ONE (10:00)
[2022-08-27] MEDS: Decadron 4 MG INJ IV SCH (10:21)
[2022-08-27] MEDS: Lasix 40 MG/4 ML IV SCH ×2 (10:23→16:53)
[2022-08-27] MEDS: Coreg PO SCH ×3 (11:05→22:00)
[2022-08-27] MEDS: NYSTOP 30 GM CREAM TOP SCH ×2 (11:05→21:27)
[2022-08-27] MEDS: Protonix 40MG Tablet PO SCH (11:40)
[2022-08-27] MEDS: Klor Con PO SCH (11:40)
[2022-08-27] MEDS: LOPID PO SCH ×2 (11:40→21:26)
[2022-08-27] MEDS: Maxzide-25MG Tablet PO SCH (11:40)
[2022-08-27] MEDS: Betapace 80 MG PO SCH ×2 (11:50→21:25)
[2022-08-27] MEDS: ZOCOR 20MG PO SCH (21:26)
[2022-08-27] MEDS: PROZAC 10 MG PO SCH (21:26)
[2022-08-28] MEDS: HUMALOG SQ SCH ×5 (05:06→23:38)
[2022-08-28 05:42] LABS: Absolute Neutrophil Ct (ANC) 8.43 x10^3/uL (1.4-6.9); Basophil (Absolute #) 0 x10^3/uL (0-0.4); Eosinophil (Absolute #) 0 x10^3/uL (0-0.5); Hemoglobin 8.7 g/dL (12.5-18.0); Lymphocytes % 4.1 % (24.0-44.0); Mean Cell Volume 83.3 fL (78-100); Mean Corpuscular Hemoglobin 24.2 pg (26-32); Mean Platelet Volume 10.3 fL (7.5-11.0); Monocyte (Absolute #) 0.84 x10^3/uL (0.0-1.3); Monocytes % 8.7 % (0.0-12.0); Neutrophil % 86.8 % (36.0-66.0); Platelet Count 259 x10^3/uL (150-450); Red Cell Distribution Width 18.9 % (11.5-14.0); White Blood Count 9.7 x10^3/uL (4.0-10.5)
[2022-08-28] MEDS: Carafate 1 GM PO SCH ×2 (05:52→17:10)
[2022-08-28 06:00] LABS: Slide Review 1 YES
[2022-08-28 06:02] LABS: BLOOD UREA NITROGEN 30 mg/dL (9-20); CHLORIDE 87 mmol/L (98-107); Calcium 8.2 mg/dL (8.4-10.2); Carbon Dioxide 38 mmol/L (22-30); Creatinine 1 0.96 mg/dL (0.66-1.25); EST GLOMERULAR FILTRATION RATE > 60.0 ML/MIN; Glucose 364 mg/dL (74-106); MAGNESIUM 1.9 mg/dL (1.6-2.3); NT PRO BNP 3190 pg/mL (0-1800); SODIUM 133 mmol/L (137-145)
--- NOTE | 2022-08-28 08:46 | PCM.NOTE ---
Date and Time: 08/28/22 0844 Subjective Assessment: no low blood sugars, patient is alert and eating breakfast today, currently on 2L nasal cannula. has diuresed well. Objective Exam General Appearance: no apparent distress, obese Neurologic Exam: alert, oriented x 3 Respiratory Exam: crackles/rales Cardiovascular Exam: regular rate/rhythm, normal heart sounds Gastrointestinal/Abdomen Exam: soft, No tenderness, No mass OBJECTIVE DATA Vital Signs: Vital Signs - 24 hr Temp Pulse Resp BP Pulse Ox 08/28/22 08:00 97.5 F 64 19 137/48 99 08/28/22 04:00 97.7 F 67 19 124/40 96 08/27/22 23:17 97.0 F 107 H 24 106/87 97 08/27/22 20:00 65 08/27/22 19:41 97.0 F 69 18 136/54 97 08/27/22 18:50 65 18 99 08/27/22 16:00 97.8 F 60 16 138/57 100 08/27/22 12:00 98.5 F 60 16 153/50 98 08/27/22 11:00 60 17 97 08/27/22 09:00 64 22 138/63 99 Pain Assessment - Last Documented Pain Intensity 4 Pain Scale Used 0-10 Pain Scale Intake and Output: Intake & Output 08/25/22 08/26/22 08/27/22 08/28/22 11:59 11:59 11:59 11:59 Intake Total 1227 1118 Output Total 1150 3250 Balance 77 -2132 Weight 113.398 kg 108.1 kg 108.1 kg Lab Results: Lab Results-Last 24 Hours 08/27/22 08/27/22 08/27/22 Range/Units 09:54 11:41 14:44 WBC (4.0-10.5) x10^3/uL RBC (4.1-5.6) x10^6/uL Hgb (12.5-18.0) g/dL Hct (42-50) % MCV (78-100) fL MCH (26-32) pg MCHC (32-36) g/dL RDW (11.5-14.0) % Plt Count (150-450) x10^3/uL MPV (7.5-11.0) fL Gran % (36.0-66.0) % Immature Gran % (Auto) (0.00-0.4) % Nucleat RBC Rel Count (0.00-0.1) % Eos # (Auto) (0-0.5) x10^3/uL Immature Gran # (Auto) (0.00-0.03) x10^3u/L Absolute Lymphs (auto) (1.0-4.6) x10^3/uL Absolute Monos (auto) (0.0-1.3) x10^3/uL Absolute Nucleated RBC (0.00-0.01) x10^3u/L Lymphocytes % (24.0-44.0) % Monocytes % (0.0-12.0) % Eosinophils % (0.00-5.0) % Basophils % (0.0-0.4) % Absolute Granulocytes (1.4-6.9) x10^3/uL Basophils # (0-0.4) x10^3/uL Sodium (137-145) mmol/L Potassium (3.5-5.1) mmol/L Chloride (98-107) mmol/L Carbon Dioxide (22-30) mmol/L Anion Gap (5-15) MEQ/L BUN (9-20) mg/dL Creatinine (0.66-1.25) mg/dL Estimated GFR ML/MIN Glucose (74-106) mg/dL POC Glucometer 211 H 218 H 256 H (74 to 106) mg/dL Calcium (8.4-10.2) mg/dL Magnesium (1.6-2.3) mg/dL NT-Pro-B Natriuret Pep (0-1800) pg/mL Slides for Path Review 08/27/22 08/27/22 08/28/22 Range/Units 17:38 21:55 04:15 WBC (4.0-10.5) x10^3/uL RBC (4.1-5.6) x10^6/uL Hgb (12.5-18.0) g/dL Hct (42-50) % MCV (78-100) fL MCH (26-32) pg MCHC (32-36) g/dL RDW (11.5-14.0) % Plt Count (150-450) x10^3/uL MPV (7.5-11.0) fL Gran % (36.0-66.0) % Immature Gran % (Auto) (0.00-0.4) % Nucleat RBC Rel Count (0.00-0.1) % Eos # (Auto) (0-0.5) x10^3/uL Immature Gran # (Auto) (0.00-0.03) x10^3u/L Absolute Lymphs (auto) (1.0-4.6) x10^3/uL Absolute Monos (auto) (0.0-1.3) x10^3/uL Absolute Nucleated RBC (0.00-0.01) x10^3u/L Lymphocytes % (24.0-44.0) % Monocytes % (0.0-12.0) % Eosinophils % (0.00-5.0) % Basophils % (0.0-0.4) % Absolute Granulocytes (1.4-6.9) x10^3/uL Basophils # (0-0.4) x10^3/uL Sodium (137-145) mmol/L Potassium (3.5-5.1) mmol/L Chloride (98-107) mmol/L Carbon Dioxide (22-30) mmol/L Anion Gap (5-15) MEQ/L BUN (9-20) mg/dL Creatinine (0.66-1.25) mg/dL Estimated GFR ML/MIN Glucose (74-106) mg/dL POC Glucometer 223 H 349 H 346 H (74 to 106) mg/dL Calcium (8.4-10.2) mg/dL Magnesium (1.6-2.3) mg/dL NT-Pro-B Natriuret Pep (0-1800) pg/mL Slides for Path Review 08/28/22 08/28/22 08/28/22 Range/Units 05:25 05:25 08:22 WBC 9.7 (4.0-10.5) x10^3/uL RBC 3.60 L (4.1-5.6) x10^6/uL Hgb 8.7 L (12.5-18.0) g/dL Hct 30.0 L (42-50) % MCV 83.3 (78-100) fL MCH 24.2 L (26-32) pg MCHC 29.0 L (32-36) g/dL RDW 18.9 H (11.5-14.0) % Plt Count 259 (150-450) x10^3/uL MPV 10.3 (7.5-11.0) fL Gran % 86.8 H (36.0-66.0) % Immature Gran % (Auto) 0.4 (0.00-0.4) % Nucleat RBC Rel Count 0.0 (0.00-0.1) % Eos # (Auto) 0 (0-0.5) x10^3/uL Immature Gran # (Auto) 0.04 H (0.00-0.03) x10^3u/L Absolute Lymphs (auto) 0.40 L (1.0-4.6) x10^3/uL Absolute Monos (auto) 0.84 (0.0-1.3) x10^3/uL Absolute Nucleated RBC 0.00 (0.00-0.01) x10^3u/L Lymphocytes % 4.1 L (24.0-44.0) % Monocytes % 8.7 (0.0-12.0) % Eosinophils % 0.0 (0.00-5.0) % Basophils % 0.0 (0.0-0.4) % Absolute Granulocytes 8.43 H (1.4-6.9) x10^3/uL Basophils # 0 (0-0.4) x10^3/uL Sodium 133 L (137-145) mmol/L Potassium 4.0 D (3.5-5.1) mmol/L Chloride 87 L (98-107) mmol/L Carbon Dioxide 38 H (22-30) mmol/L Anion Gap 12.0 (5-15) MEQ/L BUN 30 H (9-20) mg/dL Creatinine 0.96 (0.66-1.25) mg/dL Estimated GFR > 60.0 ML/MIN Glucose 364 H (74-106) mg/dL POC Glucometer 321 H (74 to 106) mg/dL Calcium 8.2 L (8.4-10.2) mg/dL Magnesium 1.9 (1.6-2.3) mg/dL NT-Pro-B Natriuret Pep 3190 H (0-1800) pg/mL Slides for Path Review YES Radiology Exams: Radiology Procedures Category Date Time Status CHEST 1 VIEW (PORTABLE) Stat Exams 08/26/22 08:20 Completed CHEST WITHOUT CONTRAST [CT] Stat Exams 08/26/22 09:11 Completed HEAD WITHOUT CONTRAST [CT] Stat Exams 08/26/22 09:10 Completed Multi-Disciplinary Progress Notes: Multi-Disciplinary Progress Notes 08/27/22 09:35 Case Management Note by Angela Clemons PATIENT HAS [facility]. THEY WERE NOTIFIED HE IS HERE OBS. THEY WILL NEED NOTIFIED AT TIME OF DC AT [phone]. THEY WILL NEED FAXED THE DC INSTRUCTION S, DC MED LIST AND DC SUMMARY ( IF AVAILABLE) TO [phone] Initialized on 08/27/22 09:35 - END OF NOTE Assessment/Plan (1) COVID-19 Current Visit: Yes Status: Acute Assessment & Plan: continue remdesivir and decadron, clincally improving. Code(s): U07.1 - COVID-19 (2) Congestive heart failure Current Visit: Yes Status: Acute Qualifiers: Assessment & Plan: diuresing great, >3L urine output documented, clinically looks much better today. Code(s): I50.9 - HEART FAILURE, UNSPECIFIED (3) Hypoglycemia Current Visit: Yes Status: Acute Code(s): E16.2 - HYPOGLYCEMIA, UNSPECIFIED (4) COPD (chronic obstructive pulmonary disease) Current Visit: No Status: Acute (5) Chronic renal insufficiency Current Visit: No Status: Acute Qualifiers: Code(s): N18.9 - CHRONIC KIDNEY DISEASE, UNSPECIFIED
[2022-08-28] MEDS ORDERED: REMDESIVIR 100 MG in Sodium Chloride 100ML MINI-BAG PLUS 100 ML IV SCH (10:00)
[2022-08-28] MEDS: Lasix 40 MG/4 ML IV SCH ×2 (10:49→17:10)
[2022-08-28] MEDS: Decadron 4 MG INJ IV SCH (10:49)
[2022-08-28] MEDS: Maxzide-25MG Tablet PO SCH (10:50)
[2022-08-28] MEDS: Betapace 80 MG PO SCH ×2 (10:50→22:07)
[2022-08-28] MEDS: Protonix 40MG Tablet PO SCH (10:50)
[2022-08-28] MEDS: NYSTOP 30 GM CREAM TOP SCH ×2 (10:50→23:39)
[2022-08-28] MEDS: Klor Con PO SCH (10:50)
[2022-08-28] MEDS: Coreg PO SCH ×2 (10:51→23:39)
[2022-08-28] MEDS: LOPID PO SCH ×2 (10:51→22:09)
[2022-08-28] MEDS ORDERED: Xylocaine-Mpf 2% 5 Ml Vial ONE (11:01)
[2022-08-28] MEDS: DEXTROSE 10% 250 ML 250 ML IV SCH (20:29)
[2022-08-28] MEDS: ZOCOR 20MG PO SCH (22:09)
[2022-08-28] MEDS: PROZAC 10 MG PO SCH (22:10)
[2022-08-28] MEDS: TYLENOL 325 MG PO PRN (22:15)
[2022-08-29 05:05] LABS: Basophil (Absolute #) 0.01 x10^3/uL (0-0.4); Eosinophil (Absolute #) 0 x10^3/uL (0-0.5); Hematocrit 29.5 % (42-50); Hemoglobin 8.5 g/dL (12.5-18.0); Lymphocytes % 3.4 % (24.0-44.0); Mean Cell Volume 82.6 fL (78-100); Mean Corpuscular Hemoglobin 23.8 pg (26-32); Mean Corpuscular Hgb Concent. 28.8 g/dL (32-36); Mean Platelet Volume 10.3 fL (7.5-11.0); Monocyte (Absolute #) 1.31 x10^3/uL (0.0-1.3); Neutrophil % 86.9 % (36.0-66.0); Platelet Count 262 x10^3/uL (150-450); Red Blood Count 3.57 x10^6/uL (4.1-5.6); Red Cell Distribution Width 18.7 % (11.5-14.0); White Blood Count 14.6 x10^3/uL (4.0-10.5)
[2022-08-29 05:33] LABS: BLOOD UREA NITROGEN 33 mg/dL (9-20); CHLORIDE 83 mmol/L (98-107); Calcium 8.2 mg/dL (8.4-10.2); Creatinine 1 1.22 mg/dL (0.66-1.25); EST GLOMERULAR FILTRATION RATE > 60.0 ML/MIN; Glucose 341 mg/dL (74-106); MAGNESIUM 1.8 mg/dL (1.6-2.3); Potassium 4.2 mmol/L (3.5-5.1); SODIUM 132 mmol/L (137-145)
[2022-08-29 05:46] LABS: Slide Review 1 YES
[2022-08-29 05:48] LABS: ANION GAP 11.2 MEQ/L (5-15); Carbon Dioxide 42 mmol/L (22-30)
[2022-08-29] MEDS: Carafate 1 GM PO SCH (06:12)
[2022-08-29] MEDS: HUMALOG SQ SCH (07:46)
[2022-08-29 07:51] VITALS: BP 134/65
[2022-08-29 08:01] VITALS: PULSE 63; O2SAT 96
--- NOTE | 2022-08-29 08:28 | PCM.DS ---
Discharge Summary Date of Admission: 08/26/22 12:53 Admitting Physician: STEVIE EPSINOSA Consults: Consults on Case 08/26/22 11:51 Nutritional Consult ROUTINE Primary Care Provider: MARIELOS SMALL Allergies Allergies gabapentin Allergy (Mild, Verified 08/26/22 13:57) Penicillins Allergy (Mild, Verified 08/26/22 13:57) Antihistamines - Alkylamine Allergy (Verified 08/26/22 13:57) pt unsure what antihistaine name was Antihistamines - Ethanolamine Allergy (Verified 08/26/22 13:57) pt unsure of name of antihistamine Antihistamines - Ethylenediamine Allergy (Verified 08/26/22 13:57) pt unsure of name of antihistamine Antihistamines - Piperazine Allergy (Verified 08/26/22 13:57) pt unsure of name of antihistamine Antihistamines - Piperidine Allergy (Verified 08/26/22 13:57) pt unsure of name of antihistamine Hospital Summary - Hospital Course Hospital Course: zully admitted with hypoglycemia, hx recent covid 1 week prior to admission, treated with IV remdesivir and steroids. he is back to his baseline, also longstanding chf, has diuresed great and back to his baseline. looks good on exam today and wants to go home - Vitals & Intake/Output Vital Signs: Vital Signs Temperature 97.8 F 08/29/22 07:48 Pulse Rate 63 08/29/22 07:58 Respiratory Rate 18 08/29/22 07:58 Blood Pressure 134/65 08/29/22 07:48 O2 Sat by Pulse Oximetry 96 08/29/22 07:58 Intake & Output: Intake & Output 08/26/22 08/27/22 08/28/22 08/29/22 11:59 11:59 11:59 11:59 Intake Total 1227 1118 1186 Output Total 1150 5980 1645 Balance 88 -1809 -0065 Weight 113.398 kg 108.1 kg 108.1 kg 107.3 kg - Lab Result Diagrams: 08/29/22 04:15 08/29/22 04:15 Lab Results-Last 24 Hrs: Lab Results-Last 24 Hours 08/28/22 08/28/22 08/28/22 Range/Units 08:22 11:02 17:11 WBC (4.0-10.5) x10^3/uL RBC (4.1-5.6) x10^6/uL Hgb (12.5-18.0) g/dL Hct (42-50) % MCV (78-100) fL MCH (26-32) pg MCHC (32-36) g/dL RDW (11.5-14.0) % Plt Count (150-450) x10^3/uL MPV (7.5-11.0) fL Gran % (36.0-66.0) % Immature Gran % (Auto) (0.00-0.4) % Nucleat RBC Rel Count (0.00-0.1) % Eos # (Auto) (0-0.5) x10^3/uL Immature Gran # (Auto) (0.00-0.03) x10^3u/L Absolute Lymphs (auto) (1.0-4.6) x10^3/uL Absolute Monos (auto) (0.0-1.3) x10^3/uL Absolute Nucleated RBC (0.00-0.01) x10^3u/L Lymphocytes % (24.0-44.0) % Monocytes % (0.0-12.0) % Eosinophils % (0.00-5.0) % Basophils % (0.0-0.4) % Absolute Granulocytes (1.4-6.9) x10^3/uL Basophils # (0-0.4) x10^3/uL Sodium (137-145) mmol/L Potassium (3.5-5.1) mmol/L Chloride (98-107) mmol/L Carbon Dioxide (22-30) mmol/L Anion Gap (5-15) MEQ/L BUN (9-20) mg/dL Creatinine (0.66-1.25) mg/dL Estimated GFR ML/MIN Glucose (74-106) mg/dL POC Glucometer 321 H 351 H 257 H (74 to 106) mg/dL Calcium (8.4-10.2) mg/dL Magnesium (1.6-2.3) mg/dL Slides for Path Review 08/28/22 08/29/22 08/29/22 Range/Units 21:07 04:15 04:15 WBC 14.6 H (4.0-10.5) x10^3/uL RBC 3.57 L (4.1-5.6) x10^6/uL Hgb 8.5 L (12.5-18.0) g/dL Hct 29.5 L (42-50) % MCV 82.6 (78-100) fL MCH 23.8 L (26-32) pg MCHC 28.8 L (32-36) g/dL RDW 18.7 H (11.5-14.0) % Plt Count 262 (150-450) x10^3/uL MPV 10.3 (7.5-11.0) fL Gran % 86.9 H (36.0-66.0) % Immature Gran % (Auto) 0.6 H (0.00-0.4) % Nucleat RBC Rel Count 0.0 (0.00-0.1) % Eos # (Auto) 0 (0-0.5) x10^3/uL Immature Gran # (Auto) 0.09 H (0.00-0.03) x10^3u/L Absolute Lymphs (auto) 0.50 L (1.0-4.6) x10^3/uL Absolute Monos (auto) 1.31 H (0.0-1.3) x10^3/uL Absolute Nucleated RBC 0.00 (0.00-0.01) x10^3u/L Lymphocytes % 3.4 L (24.0-44.0) % Monocytes % 9.0 (0.0-12.0) % Eosinophils % 0.0 (0.00-5.0) % Basophils % 0.1 (0.0-0.4) % Absolute Granulocytes 12.70 H (1.4-6.9) x10^3/uL Basophils # 0.01 (0-0.4) x10^3/uL Sodium 132 L (137-145) mmol/L Potassium 4.2 (3.5-5.1) mmol/L Chloride 83 L (98-107) mmol/L Carbon Dioxide 42 H (22-30) mmol/L Anion Gap 11.2 (5-15) MEQ/L BUN 33 H (9-20) mg/dL Creatinine 1.22 (0.66-1.25) mg/dL Estimated GFR > 60.0 ML/MIN Glucose 341 H (74-106) mg/dL POC Glucometer 279 H (74 to 106) mg/dL Calcium 8.2 L (8.4-10.2) mg/dL Magnesium 1.8 (1.6-2.3) mg/dL Slides for Path Review YES Micro Results-Entire Visit: Accuchecks Date 08/28/22 - Procedures and Test Procedures and Tests throughout Hospitalization: Therapy Orders & Screens 08/26/22 11:51 Oxygen NASAL CANNULA 2 lpm Comment: Diagnosis: CHF 08/26/22 17:18 Respiratory Therapy Assessment DAILY Comment: Diagnosis: Hypoglycemia, CHF 08/27/22 08:00 OT Screen per Nursing Assess ONCE Comment: Protocol Order Physician Instructions: Greater than 3 points order OT Admission Screening Reason For Exam: Triggered on Admission Diagnosis: Hypoglycemia, CHF Open Wound/Cellutlitis/Pressure Ulcers: Yes Acute Fx/ORIF/Change in wt bearing status: Yes Severe MUSCULOSKELETAL pain: No ADL Dysfunction: Yes Acute CVA w/Hemiparesis/Hemiplegia: No Decreased Functional Mobility/Strength: Yes Sprain/Strain: No Acute Post-op Mobility Dysfunction: No Total Points: 14 PT Screen per Nursing Assess ONCE Comment: Protocol Order Physician Instructions: Greater than 3 points order PT Admission Screenin Reason For Exam: Triggered on Admission Diagnosis: Hypoglycemia, CHF Open Wound/Cellutlitis/Pressure Ulcers: Yes Acute Fx/ORIF/Change in wt bearing status: Yes Severe MUSCULOSKELETAL pain: No ADL Dysfunction: Yes Acute CVA w/Hemiparesis/Hemiplegia: No Decreased Functional Mobility/Strength: Yes Sprain/Strain: No Acute Post-op Mobility Dysfunction: No Total Points: 14 Discharge Exam General Appearance: no apparent distress, obese Neurologic Exam: alert, oriented x 3 Respiratory Exam: normal breath sounds, lungs clear, No respiratory distress Cardiovascular Exam: regular rate/rhythm, normal heart sounds Gastrointestinal/Abdomen Exam: soft, No tenderness, No mass Final Diagnosis/Problem List - Final Discharge Diagnosis/Problem (1) COVID-19 Current Visit: Yes Status: Acute Code(s): U07.1 - COVID-19 (2) Congestive heart failure Current Visit: Yes Status: Acute Code(s): I50.9 - HEART FAILURE, UNSPECIFIED (3) Hypoglycemia Current Visit: Yes Status: Acute Code(s): E16.2 - HYPOGLYCEMIA, UNSPECIFIED (4) COPD (chronic obstructive pulmonary disease) Current Visit: No Status: Acute (5) Chronic renal insufficiency Current Visit: No Status: Acute Code(s): N18.9 - CHRONIC KIDNEY DISEASE, UNSPECIFIED - Discharge Disposition: Home, Self-Care Condition: Good Prescriptions: New Dexamethasone 4 mg [Decadron 4 MG] 4 mg PO DAILY #5 tablet Continue Pantoprazole Sodium [Protonix] 40 mg PO DAILY Insulin Glargine [Lantus Insulin] 20 unit SQ HS Gemfibrozil [Lopid] 600 mg PO BID Sotalol HCl [Betapace] 120 mg PO BID Insulin Aspart [NovoLOG Insulin] 0 unit SQ TID Albuterol 2.5 mg/3 ml Neb [Proventil 2.5 mg/3 ml Neb] 2.5 mg IH Q6HPRN PRN PRN Reason: Shortness Of Breath Triamterene/Hydrochlorothiazid [Triamterene-Hctz 37.5-25 mg Tb] 37.5 mg PO DAILY Atorvastatin Calcium 80 mg PO HS Ipratropium/Albuterol Sulfate [Combivent Inhaler] 1 gm IH QID Propylene Glycol/Peg 400 [Systane 0.3-0.4% Eye Drops] 1 drop OP QIDPRN PRN PRN Reason: Allergies Furosemide 40 mg [Lasix 40 MG] 40 mg PO DAILY Potassium Chloride 20 meq PO DAILY Fluoxetine HCl 10 mg [Prozac 10 mg] 10 mg PO HS Carvedilol 3.125 mg [Coreg 3.125 MG] 6.25 mg PO BID Sucralfate 1 gm [Carafate 1 GM] 1 g PO 0600,1600 #60 tablet Discontinued Glipizide 5 mg [Glucotrol 5 MG] 5 mg PO DAILY Instructions: Low Blood Sugar, Adult (DC) Follow up with: MARIELOS SMALL MD [Primary Care Provider] -
== END 2022-08-29 09:45 | disposition home health service (06) ==
LOC: ED 08:10 → ICU 12:53
PROVIDERS: ADMIT Family Medicine; ATTEND Family Medicine
DX: U07.1 COVID-19 (principal); I11.0 Hypertensive heart disease with heart failure; I50.9 Heart failure, unspecified; E11.649 Type 2 diabetes mellitus with hypoglycemia without coma; J44.9 Chronic obstructive pulmonary disease, unspecified; E11.22 Type 2 diabetes mellitus with diabetic chronic kidney disease; I13.0 Hypertensive heart and chronic kidney disease with heart failure and stage 1 through stage 4 chronic kidney disease, or unspecified chronic kidney disease; N18.9 Chronic kidney disease, unspecified; R41.82 Altered mental status, unspecified; I25.10 Atherosclerotic heart disease of native coronary artery without angina pectoris; E78.00 Pure hypercholesterolemia, unspecified; Z79.899 Other long term (current) drug therapy; Z20.828 Contact with and (suspected) exposure to other viral communicable diseases; Z85.819 Personal history of malignant neoplasm of unspecified site of lip, oral cavity, and pharynx
CPT/HCPCS: 0241U; 36000; 36415; 36600; 70450; 71045; 71250; 80048; 80053; 80307; 82375; 82803; 82947; 83605; 83735; 83880; 84484; 85025; 85610; 85730; 93005; 94640; 94760; 96374; 96375; 96376; 99285; 93268; J0248; J1100; J1817; J1940; J2060; J7609; A9270-GY; G0378

== ENCOUNTER 2022-09-10 14:49 | Inpatient (IN) | payer OTHER ==
[2022-09-10] MEDS ORDERED: BABY ASPIRIN 81 MG CHEW PO ONE (14:53)
[2022-09-10] MEDS ORDERED: PROVENTIL 2.5 MG/3 ML NEB IH ONE ×2 (14:56→15:06)
[2022-09-10 15:25] LABS: Absolute Neutrophil Ct (ANC) 5.92 x10^3/uL (1.4-6.9); Basophil (Absolute #) 0.03 x10^3/uL (0-0.4); Eosinophil % 1.3 % (0.00-5.0); Hematocrit 28.7 % (42-50); Hemoglobin 8.4 g/dL (12.5-18.0); Lymphocyte (Absolute #) 0.83 x10^3/uL (1.0-4.6); Lymphocytes % 10.6 % (24.0-44.0); Mean Cell Volume 84.7 fL (78-100); Mean Corpuscular Hemoglobin 24.8 pg (26-32); Mean Corpuscular Hgb Concent. 29.3 g/dL (32-36); Monocyte (Absolute #) 0.91 x10^3/uL (0.0-1.3); Monocytes % 11.6 % (0.0-12.0); Neutrophil % 75.6 % (36.0-66.0); Platelet Count 220 x10^3/uL (150-450); Red Blood Count 3.39 x10^6/uL (4.1-5.6); Red Cell Distribution Width 19.5 % (11.5-14.0); White Blood Count 7.8 x10^3/uL (4.0-10.5)
--- NOTE | 2022-09-10 15:26 | XRAY ---
Indication: CHF. Comparison: August 26, 2022 Portable chest unchanged again demonstrating cardiomegaly with left pacemaker, minimal bibasilar infiltrates/atelectasis, and tracheostomy cannula. No new cardiopulmonary abnormalities.
--- NOTE | 2022-09-10 15:32 | ERPHSYRPT ---
- History of Present Illness Time Seen by Provider: 09/10/22 14:52 Source: patient, aerial photograph interpreter Patient Subjective Stated Complaint: shortness of breath due to cogestive heart failure Triage Nursing Assessment: Pt brought to the ER by his , hypertensive, denies pain, was wheezing upon admittance but after treatment he sounds better, lungs diminshed, edema to shanon lower extremeties with large water filled blisters, scattered bruising over body due to blood thinner, skin n/w/d, pulses normal Physician History: Patient here with wheezing, shortness of breath. Patient does have a trach in place. History of COPD and CHF. Patient has 2+ lower extremity edema. Complaining of worsening shortness of breath. Patient recently admitted here for anemia with potential GI bleed. States he feels volume overloaded today. Timing/Duration: day(s) (2-3 days, worsening ) Severity: moderate Modifying Factors: Improves With: other Associated Symptoms: other (SOB) Allergies/Adverse Reactions: gabapentin Allergy (Mild, Verified 09/10/22 15:13) Penicillins Allergy (Mild, Verified 09/10/22 15:13) Antihistamines - Alkylamine Allergy (Verified 09/10/22 15:13) pt unsure what antihistaine name was Antihistamines - Ethanolamine Allergy (Verified 09/10/22 15:13) pt unsure of name of antihistamine Antihistamines - Ethylenediamine Allergy (Verified 09/10/22 15:13) pt unsure of name of antihistamine Antihistamines - Piperazine Allergy (Verified 09/10/22 15:13) pt unsure of name of antihistamine Antihistamines - Piperidine Allergy (Verified 09/10/22 15:13) pt unsure of name of antihistamine Home Medications: Albuterol 2.5 mg/3 ml Neb [Proventil 2.5 mg/3 ml Neb] 2.5 mg IH Q6HPRN PRN 07/11/13 [History] Gemfibrozil [Lopid] 600 mg PO BID 07/11/13 [History] Insulin Aspart [NovoLOG Insulin] 0 unit SQ TID 07/11/13 [History] Insulin Glargine [Lantus Insulin] 20 unit SQ HS 07/11/13 [History] Pantoprazole Sodium [Protonix] 40 mg PO DAILY 07/11/13 [History] Sotalol HCl [Betapace] 120 mg PO BID 07/11/13 [History] Atorvastatin Calcium 80 mg PO HS 12/04/16 [History] Triamterene/Hydrochlorothiazid [Triamterene-Hctz 37.5-25 mg Tb] 37.5 mg PO DAILY 12/04/16 [History] Ipratropium/Albuterol Sulfate [Combivent Inhaler] 1 gm IH QID 03/25/19 [History] Propylene Glycol/Peg 400 [Systane 0.3-0.4% Eye Drops] 1 drop OP QIDPRN PRN 11/25/21 [History] Furosemide 40 mg [Lasix 40 MG] 40 mg PO DAILY 03/27/22 [History] Potassium Chloride 20 meq PO DAILY 03/27/22 [History] Carvedilol 3.125 mg [Coreg 3.125 MG] 6.25 mg PO BID 08/10/22 [History] Fluoxetine HCl 10 mg [Prozac 10 mg] 10 mg PO HS 08/10/22 [History] Glipizide 5 mg [Glucotrol 5 MG] 5 mg PO DAILY 09/10/22 [History] Potassium Chloride [Klor-Con 10] 10 meq PO DAILY 09/10/22 [History] Hx Tetanus, Diphtheria Vaccination/Date Given: No (unknown) Hx Influenza Vaccination/Date Given: No (unknown) Hx Pneumococcal Vaccination/Date Given: No (unknown) Travel Risk - International Travel Have you traveled outside of the country in past 3 weeks: No - Coronavirus Screening Are you exhibiting any of the following symptoms?: No - Vaccine Status Have you recieved a Covid-19 vaccination: Yes 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: [employer] - Vaccination Dates Date of 2cond Vaccination (if applicable): unknown - Review of Systems Constitutional: No Fever, No Chills Eyes: No Symptoms Ears, Nose, & Throat: No Symptoms Respiratory: Cough, Dyspnea, Wheezing (Shortness of breath, wheezing, lower extremity edema), Other Cardiac: Other (Pitting lower extremity edema), No Chest Pain, No Edema, No Syncope Abdominal/Gastrointestinal: No Abdominal Pain, No Nausea, No Vomiting, No Diarrhea Genitourinary Symptoms: No Dysuria Musculoskeletal: No Back Pain, No Neck Pain Skin: No Rash Neurological: No Dizziness, No Focal Weakness, No Sensory Changes Psychological: No Symptoms Endocrine: No Symptoms All Other Systems: Reviewed and Negative - Past Medical History Pertinent Past Medical History: Yes Neurological History: Peripheral Neuropathy, TIA ENT History: No Pertinent History Cardiac History: Arrhythmia, Congestive Heart Failure, Coronary Artery Disease, High Cholesterol, Hypertension Respiratory History: CHF, COPD, Sleep Apnea Endocrine Medical History: Diabetes Type II Musculoskeletal History: No Pertinent History GI Medical History: GERD History: No Pertinent History Psycho-Social History: No Pertinent History Male Reproductive Disorders: No Pertinent History Other Medical History: GERD. SX HX: PACEMAKER 2010, CARDIAC STENTS X 2 1996 AND 2007. USES BIPAP. - no changes from last admit - Past Surgical History Past Surgical History: Yes Neuro Surgical History: No Pertinent History Cardiac: Cardiac Catheterization, Cardiac Stent, Pacemaker Respiratory: No Pertinent History Gastrointestinal: No Pertinent History Genitourinary: No Pertinent History Musculoskeletal: Orthopedic Surgery Male Surgical History: No Pertinent History Other Surgical History: toe reattached, lip cancer removed, 6 teeth extracted 12/03/2016- no changes from last admit - Social History Smoking Status: Former smoker How long have you smoked: 30 yrs Exposure to second hand smoke: No Drug Use: none Patient Lives Alone: No Significant Family History: heart disease - Nursing Vital Signs Nursing Vital Signs: Initial Vital Signs Temperature 97.0 F 09/10/22 14:51 Pulse Rate 65 09/10/22 14:51 Respiratory Rate 26 H 09/10/22 14:51 Blood Pressure 142/57 09/10/22 14:51 O2 Sat by Pulse Oximetry 94 L 09/10/22 14:51 Pain Scale Pain Intensity 0 - Physical Exam General Appearance: no apparent distress, alert Eye Exam: PERRL/EOMI, eyes nml inspection Ears, Nose, Throat Exam: normal ENT inspection, TMs normal, pharynx normal, moist mucous membranes, other (Trach in place) Neck Exam: normal inspection, non-tender, supple, full range of motion Respiratory Exam: crackles/rales, other (Wheezing, crackles at the bases) Cardiovascular Exam: regular rate/rhythm, normal heart sounds, normal peripheral pulses, edema Gastrointestinal/Abdomen Exam: soft, normal bowel sounds, No tenderness, No mass Back Exam: normal inspection, normal range of motion, No CVA tenderness, No vertebral tenderness Extremity Exam: normal inspection, normal range of motion, pelvis stable Neurologic Exam: alert, oriented x 3, cooperative, normal mood/affect, nml cerebellar function, nml station & gait, sensation nml, No motor deficits Skin Exam: normal color, warm, dry, No rash Lymphatic Exam: No adenopathy SpO2: 96 - Course Nursing assessment & vital signs reviewed: Yes EKG Interpreted by Me: A-fib Ordered Tests: Active Orders 24 hr Category Date Time Status Code Status Order ROUTINE Care 09/10/22 16:31 Active EKG-ER Only STAT Care 09/10/22 14:53 Active IV Care Q6H Care 09/10/22 16:31 Active IV Insertion STAT Care 09/10/22 14:53 Active Implement CHF Pathway ROUTINE Care 09/10/22 16:31 Active POCT Glucose Check Q6H Care 09/10/22 16:[address] in Observation ROUTINE Care 09/10/22 16:31 Active Weight,Daily 0600 Care 09/10/22 16:31 Active Low Sodium (1.5-2gram Sodium) Diet 09/11/22 Breakfast Active CHEST 1 VIEW (PORTABLE) Stat Exams 09/10/22 14:54 Completed BMP AM.LAB Lab 09/11/22 04:00 Ordered CBC AM.LAB Lab 09/11/22 04:00 Ordered CBC W DIFF Stat Lab 09/10/22 15:21 Completed CMP Stat Lab 09/10/22 15:21 Completed Hepatic Function Panel Stat Lab 09/10/22 15:21 Completed NT PRO BNP AM.LAB Lab 09/11/22 04:00 Ordered NT PRO BNP Stat Lab 09/10/22 15:21 Completed PROTIME WITH INR Stat Lab 09/10/22 15:21 Completed PTT Stat Lab 09/10/22 15:21 Completed TROPONIN Q4H Lab 09/10/22 15:21 Completed TROPONIN Q4H Lab 09/10/22 19:00 Ordered TROPONIN Q4H Lab 09/10/22 23:00 Ordered Oxygen NASAL CANNULA 2 lpm RT 09/10/22 16:31 Active Respiratory Therapy Assessment DAILY RT 09/10/22 15:12 Active Medication Summary Discontinued Medications Generic Name Dose Route Start Last Admin Trade Name Freq PRN Reason Stop Dose Admin Albuterol Sulfate 2.5 mg 09/10/22 14:56 09/10/22 15:10 Albuterol Sulfate 2.5 Mg/3 Ml Neb IH 09/10/22 14:57 2.5 mg STAT ONE Administration Albuterol Sulfate Confirm 09/10/22 15:06 Albuterol Sulfate 2.5 Mg/3 Ml Neb Administered 09/10/22 15:07 Dose 2.5 mg IH .STK-MED ONE Aspirin 324 mg 09/10/22 14:53 09/10/22 15:09 Aspirin 81 Mg Tab.Chew PO 09/10/22 14:54 324 mg STAT ONE Administration Furosemide 80 mg 09/10/22 16:28 09/10/22 16:43 Furosemide 40 Mg/4 Ml Vial IV 09/10/22 16:29 80 mg STAT ONE Administration Furosemide Confirm 09/10/22 16:36 Furosemide 40 Mg/4 Ml Vial Administered 09/10/22 16:37 Dose 80 mg .ROUTE .STK-MED ONE Lab/Rad Data: Laboratory Result Diagrams 09/10/22 15:21 09/10/22 15:21 Laboratory Results 09/10/22 09/10/22 09/10/22 Range/Units 15:21 15:21 15:21 WBC (4.0-10.5) x10^3/uL RBC (4.1-5.6) x10^6/uL Hgb (12.5-18.0) g/dL Hct (42-50) % MCV (78-100) fL MCH (26-32) pg MCHC (32-36) g/dL RDW (11.5-14.0) % Plt Count (150-450) x10^3/uL MPV (7.5-11.0) fL Gran % (36.0-66.0) % Immature Gran % (Auto) (0.00-0.4) % Nucleat RBC Rel Count (0.00-0.1) % Eos # (Auto) (0-0.5) x10^3/uL Immature Gran # (Auto) (0.00-0.03) x10^3u/L Absolute Lymphs (auto) (1.0-4.6) x10^3/uL Absolute Monos (auto) (0.0-1.3) x10^3/uL Absolute Nucleated RBC (0.00-0.01) x10^3u/L Lymphocytes % (24.0-44.0) % Monocytes % (0.0-12.0) % Eosinophils % (0.00-5.0) % Basophils % (0.0-0.4) % Absolute Granulocytes (1.4-6.9) x10^3/uL Basophils # (0-0.4) x10^3/uL PT 11.2 (9.4-12.5) SECONDS INR 1.06 (0.8-3.0) APTT 27.1 (25.1-36.5) SECONDS Sodium 131 L (137-145) mmol/L Potassium 3.9 (3.5-5.1) mmol/L Chloride 89 L (98-107) mmol/L Carbon Dioxide 37 H (22-30) mmol/L Anion Gap 9.7 (5-15) MEQ/L BUN 33 H (9-20) mg/dL Creatinine 1.30 H (0.66-1.25) mg/dL Estimated GFR 56.6 ML/MIN Glucose 200 H (74-106) mg/dL Calcium 8.2 L (8.4-10.2) mg/dL Total Bilirubin 0.70 (0.2-1.3) mg/dL Direct Bilirubin 0.6 H (0.0-0.4) mg/dL AST 25 (17-59) U/L ALT 17 (0-50) U/L Alkaline Phosphatase 122 (38-126) U/L Troponin I 0.052 H* (0.000-0.034) ng/mL NT-Pro-B Natriuret Pep 2620 H (0-1800) pg/mL Serum Total Protein 6.9 (6.3-8.2) g/dL Albumin 3.5 (3.5-5.0) g/dL 09/10/22 Range/Units 15:21 WBC 7.8 (4.0-10.5) x10^3/uL RBC 3.39 L (4.1-5.6) x10^6/uL Hgb 8.4 L (12.5-18.0) g/dL Hct 28.7 L (42-50) % MCV 84.7 (78-100) fL MCH 24.8 L (26-32) pg MCHC 29.3 L (32-36) g/dL RDW 19.5 H (11.5-14.0) % Plt Count 220 (150-450) x10^3/uL MPV 10.0 (7.5-11.0) fL Gran % 75.6 H (36.0-66.0) % Immature Gran % (Auto) 0.5 H (0.00-0.4) % Nucleat RBC Rel Count 0.0 (0.00-0.1) % Eos # (Auto) 0.10 (0-0.5) x10^3/uL Immature Gran # (Auto) 0.04 H (0.00-0.03) x10^3u/L Absolute Lymphs (auto) 0.83 L (1.0-4.6) x10^3/uL Absolute Monos (auto) 0.91 (0.0-1.3) x10^3/uL Absolute Nucleated RBC 0.00 (0.00-0.01) x10^3u/L Lymphocytes % 10.6 L (24.0-44.0) % Monocytes % 11.6 (0.0-12.0) % Eosinophils % 1.3 (0.00-5.0) % Basophils % 0.4 (0.0-0.4) % Absolute Granulocytes 5.92 (1.4-6.9) x10^3/uL Basophils # 0.03 (0-0.4) x10^3/uL PT (9.4-12.5) SECONDS INR (0.8-3.0) APTT (25.1-36.5) SECONDS Sodium (137-145) mmol/L Potassium (3.5-5.1) mmol/L Chloride (98-107) mmol/L Carbon Dioxide (22-30) mmol/L Anion Gap (5-15) MEQ/L BUN (9-20) mg/dL Creatinine (0.66-1.25) mg/dL Estimated GFR ML/MIN Glucose (74-106) mg/dL Calcium (8.4-10.2) mg/dL Total Bilirubin (0.2-1.3) mg/dL Direct Bilirubin (0.0-0.4) mg/dL AST (17-59) U/L ALT (0-50) U/L Alkaline Phosphatase (38-126) U/L Troponin I (0.000-0.034) ng/mL NT-Pro-B Natriuret Pep (0-1800) pg/mL Serum Total Protein (6.3-8.2) g/dL Albumin (3.5-5.0) g/dL - Progress Progress: unchanged Progress Note: 09/10/22 15:31 Plan to work patient up as COPD versus CHF. Will place IV, basic labs, chest x- ray, breathing treatment, consider Lasix based on chest x-ray and BMP. 09/10/22 17:48 Ultimately patient does appear to be volume overload. I do believe patient would benefit from admission to the hospital, diuresis. Spoke with on-call physician, Dr. Pena. We did discuss troponin, EKG. These do appear to be near his baseline. Plan for Lasix in the emergency department, admission to the hospital. Further management per them. Did discuss all this with the patient and his . They are in agreement. Will see patient in: hospital (observation) Counseled pt/family regarding: lab results, diagnosis, need for follow-up, rad results - Departure Departure Disposition: Observation Clinical Impression: CHF exacerbation Condition: Stable Critical Care Time: No Referrals: MARIELOS SMALL MD [Primary Care Provider] - Follow up/PCP as directed Instructions: Heart Failure
[2022-09-10 15:42] LABS: INR 1.06 (0.8-3.0); PROTIME 11.2 SECONDS (9.4-12.5); PTT 27.1 SECONDS (25.1-36.5)
[2022-09-10 15:49] LABS: ALBUMIN 3.5 g/dL (3.5-5.0); ANION GAP 9.7 MEQ/L (5-15); BILIRUBIN,TOTAL 0.7 mg/dL (0.2-1.3); Calcium 8.2 mg/dL (8.4-10.2); Creatinine 1 1.3 mg/dL (0.66-1.25); Direct Bilirubin 0.6 mg/dL (0.0-0.4); EST GLOMERULAR FILTRATION RATE 56.6 ML/MIN; Potassium 3.9 mmol/L (3.5-5.1); Total Protein 6.9 g/dL (6.3-8.2)
[2022-09-10] MEDS ORDERED: Lasix 40 MG/4 ML IV ONE (16:28)
[2022-09-10] MEDS ORDERED: Lasix 40 MG/4 ML ONE (16:36)
[2022-09-10 20:25] LABS: INFLUENZA A NEGATIVE (NEGATIVE); INFLUENZA B NEGATIVE (NEGATIVE); RESPIRATORY SYNCTIAL VIRUS NEGATIVE (Negative)
[2022-09-10 20:39] LABS: SARS-CoV-2 Xpert Express POSITIVE (NEGATIVE)
[2022-09-10] MEDS ORDERED: PEROXIDE 3% ONE (20:41)
[2022-09-10] MEDS ORDERED: Coreg 3.125 MG PO SCH (22:00)
[2022-09-11] MEDS ORDERED: Protonix 20MG Tablet PO ONE (00:14)
[2022-09-11] MEDS: Lantus Insulin SQ SCH ×2 (00:18→21:37)
[2022-09-11] MEDS ORDERED: Coreg ONE (00:27)
[2022-09-11] MEDS: LOPID PO SCH ×3 (00:33→21:36)
[2022-09-11] MEDS: PROZAC 10 MG PO SCH ×2 (00:34→21:36)
[2022-09-11] MEDS: TYLENOL 325 MG PO PRN ×2 (01:21→21:36)
[2022-09-11] MEDS ORDERED: DUONEB 0.5-3 MG/3 ml Neb IH SCH (07:00)
[2022-09-11 07:34] LABS: Absolute Neutrophil Ct (ANC) 6.09 x10^3/uL (1.4-6.9); Basophil (Absolute #) 0.03 x10^3/uL (0-0.4); Eosinophil (Absolute #) 0.16 x10^3/uL (0-0.5); Hemoglobin 8.3 g/dL (12.5-18.0); Lymphocyte (Absolute #) 0.74 x10^3/uL (1.0-4.6); Lymphocytes % 9.3 % (24.0-44.0); Mean Cell Volume 83.8 fL (78-100); Mean Corpuscular Hgb Concent. 28.6 g/dL (32-36); Mean Platelet Volume 10.2 fL (7.5-11.0); Monocyte (Absolute #) 0.91 x10^3/uL (0.0-1.3); Monocytes % 11.4 % (0.0-12.0); Neutrophil % 76.4 % (36.0-66.0); Platelet Count 226 x10^3/uL (150-450); Red Blood Count 3.46 x10^6/uL (4.1-5.6); Red Cell Distribution Width 19.7 % (11.5-14.0)
[2022-09-11] MEDS ORDERED: PEROXIDE 3% TOP SCH (10:00)
[2022-09-11 10:03] LABS: ALKALINE PHOSPHATASE 115 U/L (38-126); BLOOD UREA NITROGEN 33 mg/dL (9-20); CHLORIDE 89 mmol/L (98-107); Calcium 8.1 mg/dL (8.4-10.2); Creatinine 1 1.19 mg/dL (0.66-1.25); EST GLOMERULAR FILTRATION RATE > 60.0 ML/MIN; Glucose 128 mg/dL (74-106); Potassium 3.5 mmol/L (3.5-5.1); SGOT/AST 25 U/L (17-59); SGPT/ALT 17 U/L (0-50); SODIUM 133 mmol/L (137-145)
[2022-09-11 10:10] LABS: Carbon Dioxide 38 mmol/L (22-30)
[2022-09-11 10:12] LABS: ANION GAP 9.04 MEQ/L (5-15)
--- NOTE | 2022-09-11 10:28 | PCM.HP ---
History of Present Illness - Chief Complaint Chief Complaint: CHF History of Present Illness: is a 81 year old male pt of Dr. Rosa with PMHx tracheostomy, recent GI bleed, chronic elevated troponin, htn, copd, tia, peripheral neuropathy, DM II, REBECCA (uses BiPAp), GERD, CAD (stents in 1996, 2007), Pacer (2010), hyperlipidemia, and hx TOB who was admitted through ER with CHF exacerbation. Also found to be anemic, hgb of 8.4. He had increased SOB x 2d with cough and increased LE edema with blistering. No fever. Had 80mg IV lasix yesterday in ER and decreased edema (though still present) since admission. - Review of Systems Respiratory: Cough, Short Of Breath Cardiac: Edema Musculoskeletal: Arthralgias (R hip pain) All Other Systems: Reviewed and Negative Medications & Allergies Home Medications: Home Medication List Albuterol 2.5 mg/3 ml Neb [Proventil 2.5 mg/3 ml Neb] 2.5 mg IH Q6HPRN PRN 07/11/13 [History Confirmed 09/10/22] Gemfibrozil [Lopid] 600 mg PO BID 07/11/13 [History Confirmed 09/10/22] Insulin Aspart [NovoLOG Insulin] 0 unit SQ TID 07/11/13 [History Confirmed 09/10/22] Insulin Glargine [Lantus Insulin] 20 unit SQ HS 07/11/13 [History Confirmed 09/10/22] Pantoprazole Sodium [Protonix] 40 mg PO DAILY 07/11/13 [History Confirmed 09/10/22] Sotalol HCl [Betapace] 120 mg PO BID 07/11/13 [History Confirmed 09/10/22] Atorvastatin Calcium 80 mg PO HS 12/04/16 [History Confirmed 09/10/22] Triamterene/Hydrochlorothiazid [Triamterene-Hctz 37.5-25 mg Tb] 37.5 mg PO DAILY 12/04/16 [History Confirmed 09/10/22] Ipratropium/Albuterol Sulfate [Combivent Inhaler] 1 gm IH QID 03/25/19 [History Confirmed 09/10/22] Propylene Glycol/Peg 400 [Systane 0.3-0.4% Eye Drops] 1 drop OP QIDPRN PRN 10/31 06/19 [History Confirmed 09/10/22] Furosemide 40 mg [Lasix 40 MG] 40 mg PO DAILY 03/27/22 [History Confirmed 09/10/22] Potassium Chloride 20 meq PO DAILY 03/27/22 [History Confirmed 09/10/22] Carvedilol 3.125 mg [Coreg 3.125 MG] 6.25 mg PO BID 08/10/22 [History Confirmed 09/10/22] Fluoxetine HCl 10 mg [Prozac 10 mg] 10 mg PO HS 08/10/22 [History Confirmed 09/10/22] Sucralfate 1 gm [Carafate 1 GM] 1 g PO 0600,1600 #60 tablet 08/13/22 [Rx Confirmed 09/10/22] Glipizide 5 mg [Glucotrol 5 MG] 5 mg PO DAILY 09/10/22 [History Confirmed 09/10/22] Potassium Chloride [Klor-Con 10] 10 meq PO DAILY 09/10/22 [History Confirmed 09/10/22] Allergies/Adverse Reactions: Allergies Allergy/AdvReac Type Severity Reaction Status Date / Time gabapentin Allergy Mild Verified 09/10/22 15:13 Penicillins Allergy Mild Verified 09/10/22 15:13 Antihistamines - Alkylamine Allergy Verified 09/10/22 15:13 Antihistamines - Ethanolamine Allergy Verified 09/10/22 15:13 Antihistamines - Allergy Verified 09/10/22 15:13 Ethylenediamine Antihistamines - Piperazine Allergy Verified 09/10/22 15:13 Antihistamines - Piperidine Allergy Verified 09/10/22 15:13 - Past Medical History Past Medical History: Yes Neurological History: Peripheral Neuropathy, TIA ENT History: No Pertinent History Cardiac History: Arrhythmia, Congestive Heart Failure, Coronary Artery Disease, High Cholesterol, Hypertension Respiratory History: CHF, COPD, Sleep Apnea Endocrine Medical History: Diabetes Type II Musculoskelatal History: No Pertinent History GI Medical History: GERD History: No Pertinent History Pyscho-Social History: No Pertinent History Male Reproductive Disorders: No Pertinent History Comment: GERD. SX HX: PACEMAKER 2010, CARDIAC STENTS X 2 1996 AND 2007. USES BIPAP. - no changes from last admit - Past Surgical History Past Surgical History: Yes Neuro Surgical History: No Pertinent History Cardiac History: Cardiac Catheterization, Cardiac Stent, Pacemaker Respiratory Surgery: No Pertinent History GI Surgical History: No Pertinent History Genitourinary Surgical Hx: No Pertinent History Musculskeletal Surgical Hx: Orthopedic Surgery Male Surgical History: No Pertinent History Other Surgical History: toe reattached, lip cancer removed, 6 teeth extracted 12/03/2016- no changes from last admit - Social History Smoking Status: Former smoker How long have you smoked: 30 yrs Exposure to second hand smoke: No Alcohol: None Drug Use: none Significant Family History: heart disease - Physical Exam Vital Signs: Vital Signs - 24 hr Temp Pulse Resp BP Pulse Ox 09/11/22 08:00 97.3 F 61 21 129/58 99 09/11/22 05:34 60 24 100 09/11/22 04:00 97.5 F 61 24 139/63 100 09/11/22 00:00 97.0 F 67 20 93/43 95 09/10/22 22:50 67 20 95 09/10/22 20:00 93/43 09/10/22 19:19 60 118/44 95 09/10/22 17:49 96 09/10/22 16:13 62 122/63 94 L 09/10/22 15:50 60 16 122/63 93 L 09/10/22 15:13 18 96 09/10/22 14:51 97.0 F 65 22 142/57 96 General Appearance: no apparent distress, obese Neurologic Exam: oriented x 3, cooperative Eye Exam: eyes nml inspection Ears, Nose, Throat Exam: moist mucous membranes Neck Exam: non-tender, other (tracheostomy present), No subcutaneous emphysema Respiratory Exam: normal breath sounds, crackles/rales (bases bilat), No rhonchi, No wheezing Cardiovascular Exam: regular rate/rhythm, normal heart sounds, No murmur Gastrointestinal/Abdomen Exam: soft, No normal bowel sounds (diminished but present), No tenderness, No distention, No mass, No guarding, No rebound Skin Exam: other (LE, 1+ edema to knees bilat. Anterior R>L lower legs with healing vesicles.) Results - Labs Lab/Micro Results: Lab Results-Last 24 Hours 10/11/2009/10/22 09/10/22 Range/Units 15:21 15:21 15:21 WBC 7.8 (4.0-10.5) x10^3/uL RBC 3.39 L (4.1-5.6) x10^6/uL Hgb 8.4 L (12.5-18.0) g/dL Hct 28.7 L (42-50) % MCV 84.7 (78-100) fL MCH 24.8 L (26-32) pg MCHC 29.3 L (32-36) g/dL RDW 19.5 H (11.5-14.0) % Plt Count 220 (150-450) x10^3/uL MPV 10.0 (7.5-11.0) fL Gran % 75.6 H (36.0-66.0) % Immature Gran % (Auto) 0.5 H (0.00-0.4) % Nucleat RBC Rel Count 0.0 (0.00-0.1) % Eos # (Auto) 0.10 (0-0.5) x10^3/uL Immature Gran # (Auto) 0.04 H (0.00-0.03) x10^3u/L Absolute Lymphs (auto) 0.83 L (1.0-4.6) x10^3/uL Absolute Monos (auto) 0.91 (0.0-1.3) x10^3/uL Absolute Nucleated RBC 0.00 (0.00-0.01) x10^3u/L Lymphocytes % 10.6 L (24.0-44.0) % Monocytes % 11.6 (0.0-12.0) % Eosinophils % 1.3 (0.00-5.0) % Basophils % 0.4 (0.0-0.4) % Absolute Granulocytes 5.92 (1.4-6.9) x10^3/uL Basophils # 0.03 (0-0.4) x10^3/uL PT 11.2 (9.4-12.5) SECONDS INR 1.06 (0.8-3.0) APTT 27.1 (25.1-36.5) SECONDS Sodium 131 L (137-145) mmol/L Potassium 3.9 (3.5-5.1) mmol/L Chloride 89 L (98-107) mmol/L Carbon Dioxide 37 H (22-30) mmol/L Anion Gap 9.7 (5-15) MEQ/L BUN 33 H (9-20) mg/dL Creatinine 1.30 H (0.66-1.25) mg/dL Estimated GFR 56.6 ML/MIN Glucose 200 H (74-106) mg/dL POC Glucometer (74 to 106) mg/dL Calcium 8.2 L (8.4-10.2) mg/dL Total Bilirubin 0.70 (0.2-1.3) mg/dL Direct Bilirubin 0.6 H (0.0-0.4) mg/dL AST 25 (17-59) U/L ALT 17 (0-50) U/L Alkaline Phosphatase 122 (38-126) U/L Troponin I (0.000-0.034) ng/mL NT-Pro-B Natriuret Pep 2620 H (0-1800) pg/mL Serum Total Protein 6.9 (6.3-8.2) g/dL Albumin 3.5 (3.5-5.0) g/dL Influenza Type A Ag (NEGATIVE) Influenza Type B Ag (NEGATIVE) RSV (PCR) (Negative) SARS-CoV-2 (PCR) (NEGATIVE) 09/10/22 09/10/22 09/10/22 Range/Units 15:21 19:00 19:45 WBC (4.0-10.5) x10^3/uL RBC (4.1-5.6) x10^6/uL Hgb (12.5-18.0) g/dL Hct (42-50) % MCV (78-100) fL MCH (26-32) pg MCHC (32-36) g/dL RDW (11.5-14.0) % Plt Count (150-450) x10^3/uL MPV (7.5-11.0) fL Gran % (36.0-66.0) % Immature Gran % (Auto) (0.00-0.4) % Nucleat RBC Rel Count (0.00-0.1) % Eos # (Auto) (0-0.5) x10^3/uL Immature Gran # (Auto) (0.00-0.03) x10^3u/L Absolute Lymphs (auto) (1.0-4.6) x10^3/uL Absolute Monos (auto) (0.0-1.3) x10^3/uL Absolute Nucleated RBC (0.00-0.01) x10^3u/L Lymphocytes % (24.0-44.0) % Monocytes % (0.0-12.0) % Eosinophils % (0.00-5.0) % Basophils % (0.0-0.4) % Absolute Granulocytes (1.4-6.9) x10^3/uL Basophils # (0-0.4) x10^3/uL PT (9.4-12.5) SECONDS INR (0.8-3.0) APTT (25.1-36.5) SECONDS Sodium (137-145) mmol/L Potassium (3.5-5.1) mmol/L Chloride (98-107) mmol/L Carbon Dioxide (22-30) mmol/L Anion Gap (5-15) MEQ/L BUN (9-20) mg/dL Creatinine (0.66-1.25) mg/dL Estimated GFR ML/MIN Glucose (74-106) mg/dL POC Glucometer (74 to 106) mg/dL Calcium (8.4-10.2) mg/dL Total Bilirubin (0.2-1.3) mg/dL Direct Bilirubin (0.0-0.4) mg/dL AST (17-59) U/L ALT (0-50) U/L Alkaline Phosphatase (38-126) U/L Troponin I 0.052 H* 0.060 H* (0.000-0.034) ng/mL NT-Pro-B Natriuret Pep (0-1800) pg/mL Serum Total Protein (6.3-8.2) g/dL Albumin (3.5-5.0) g/dL Influenza Type A Ag NEGATIVE (NEGATIVE) Influenza Type B Ag NEGATIVE (NEGATIVE) RSV (PCR) NEGATIVE (Negative) SARS-CoV-2 (PCR) POSITIVE A (NEGATIVE) 09/10/22 09/11/22 09/11/22 Range/Units 23:25 07:24 07:24 WBC 8.0 (4.0-10.5) x10^3/uL RBC 3.46 L (4.1-5.6) x10^6/uL Hgb 8.3 L (12.5-18.0) g/dL Hct 29.0 L (42-50) % MCV 83.8 (78-100) fL MCH 24.0 L (26-32) pg MCHC 28.6 L (32-36) g/dL RDW 19.7 H (11.5-14.0) % Plt Count 226 (150-450) x10^3/uL MPV 10.2 (7.5-11.0) fL Gran % 76.4 H (36.0-66.0) % Immature Gran % (Auto) 0.5 H (0.00-0.4) % Nucleat RBC Rel Count 0.0 (0.00-0.1) % Eos # (Auto) 0.16 (0-0.5) x10^3/uL Immature Gran # (Auto) 0.04 H (0.00-0.03) x10^3u/L Absolute Lymphs (auto) 0.74 L (1.0-4.6) x10^3/uL Absolute Monos (auto) 0.91 (0.0-1.3) x10^3/uL Absolute Nucleated RBC 0.00 (0.00-0.01) x10^3u/L Lymphocytes % 9.3 L (24.0-44.0) % Monocytes % 11.4 (0.0-12.0) % Eosinophils % 2.0 (0.00-5.0) % Basophils % 0.4 (0.0-0.4) % Absolute Granulocytes 6.09 (1.4-6.9) x10^3/uL Basophils # 0.03 (0-0.4) x10^3/uL PT (9.4-12.5) SECONDS INR (0.8-3.0) APTT (25.1-36.5) SECONDS Sodium 133 L (137-145) mmol/L Potassium 3.5 (3.5-5.1) mmol/L Chloride 89 L (98-107) mmol/L Carbon Dioxide 38 H (22-30) mmol/L Anion Gap 9.04 (5-15) MEQ/L BUN 33 H (9-20) mg/dL Creatinine 1.19 (0.66-1.25) mg/dL Estimated GFR > 60.0 ML/MIN Glucose 128 H (74-106) mg/dL POC Glucometer (74 to 106) mg/dL Calcium 8.1 L (8.4-10.2) mg/dL Total Bilirubin 0.60 (0.2-1.3) mg/dL Direct Bilirubin (0.0-0.4) mg/dL AST 25 (17-59) U/L ALT 17 (0-50) U/L Alkaline Phosphatase 115 (38-126) U/L Troponin I 0.069 H* (0.000-0.034) ng/mL NT-Pro-B Natriuret Pep (0-1800) pg/mL Serum Total Protein 6.0 L (6.3-8.2) g/dL Albumin 3.0 L (3.5-5.0) g/dL Influenza Type A Ag (NEGATIVE) Influenza Type B Ag (NEGATIVE) RSV (PCR) (Negative) SARS-CoV-2 (PCR) (NEGATIVE) 09/11/22 Range/Units 07:37 WBC (4.0-10.5) x10^3/uL RBC (4.1-5.6) x10^6/uL Hgb (12.5-18.0) g/dL Hct (42-50) % MCV (78-100) fL MCH (26-32) pg MCHC (32-36) g/dL RDW (11.5-14.0) % Plt Count (150-450) x10^3/uL MPV (7.5-11.0) fL Gran % (36.0-66.0) % Immature Gran % (Auto) (0.00-0.4) % Nucleat RBC Rel Count (0.00-0.1) % Eos # (Auto) (0-0.5) x10^3/uL Immature Gran # (Auto) (0.00-0.03) x10^3u/L Absolute Lymphs (auto) (1.0-4.6) x10^3/uL Absolute Monos (auto) (0.0-1.3) x10^3/uL Absolute Nucleated RBC (0.00-0.01) x10^3u/L Lymphocytes % (24.0-44.0) % Monocytes % (0.0-12.0) % Eosinophils % (0.00-5.0) % Basophils % (0.0-0.4) % Absolute Granulocytes (1.4-6.9) x10^3/uL Basophils # (0-0.4) x10^3/uL PT (9.4-12.5) SECONDS INR (0.8-3.0) APTT (25.1-36.5) SECONDS Sodium (137-145) mmol/L Potassium (3.5-5.1) mmol/L Chloride (98-107) mmol/L Carbon Dioxide (22-30) mmol/L Anion Gap (5-15) MEQ/L BUN (9-20) mg/dL Creatinine (0.66-1.25) mg/dL Estimated GFR ML/MIN Glucose (74-106) mg/dL POC Glucometer 124 H (74 to 106) mg/dL Calcium (8.4-10.2) mg/dL Total Bilirubin (0.2-1.3) mg/dL Direct Bilirubin (0.0-0.4) mg/dL AST (17-59) U/L ALT (0-50) U/L Alkaline Phosphatase (38-126) U/L Troponin I (0.000-0.034) ng/mL NT-Pro-B Natriuret Pep (0-1800) pg/mL Serum Total Protein (6.3-8.2) g/dL Albumin (3.5-5.0) g/dL Influenza Type A Ag (NEGATIVE) Influenza Type B Ag (NEGATIVE) RSV (PCR) (Negative) SARS-CoV-2 (PCR) (NEGATIVE) Accuchecks Date 09/11/22 - Radiology Impressions Radiology Exams & Impressions: Radiology Procedures Category Date Time Status CHEST 1 VIEW (PORTABLE) Stat Exams 09/10/22 14:54 Completed - Other Procedures and Tests Respiratory Therapy 09/10/22 15:12 Respiratory Therapy Assessment DAILY 09/10/22 16:31 Oxygen NASAL CANNULA 2 lpm Assessment/Plan (1) CHF exacerbation Current Visit: Yes Status: Acute Assessment & Plan: continue 80IV lasix daily Code(s): I50.9 - HEART FAILURE, UNSPECIFIED (2) Urinary incontinence Current Visit: Yes Status: Acute Qualifiers: Urinary Incontinence type: unspecified incontinence Qualified Code(s): R32 - Unspecified urinary incontinence Assessment & Plan: apparently was sitting in his own urine in ER and requested [place] cath Code(s): R32 - UNSPECIFIED URINARY INCONTINENCE (3) Leg wound, left Current Visit: Yes Status: Acute Qualifiers: Encounter type: initial encounter Qualified Code(s): S81.802A - Unspecified open wound, left lower leg, initial encounter Assessment & Plan: consult PT. from vesicles from recent swelling. 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
[2022-09-11] MEDS: Coreg PO SCH ×2 (11:00→21:36)
[2022-09-11] MEDS: Furosemide 100mg/10 ml Vial IV SCH (11:09)
[2022-09-11 14:07] LABS: Slide Review 1 YES
[2022-09-11] MEDS: ZOCOR 20MG PO SCH (21:36)
[2022-09-11] MEDS: Ativan 1 MG PO PRN (22:40)
[2022-09-12 05:42] LABS: Absolute Neutrophil Ct (ANC) 4.81 x10^3/uL (1.4-6.9); Basophil (Absolute #) 0.03 x10^3/uL (0-0.4); Eosinophil % 2.3 % (0.00-5.0); Eosinophil (Absolute #) 0.15 x10^3/uL (0-0.5); Hematocrit 29.5 % (42-50); Hemoglobin 8.6 g/dL (12.5-18.0); Lymphocyte (Absolute #) 0.74 x10^3/uL (1.0-4.6); Lymphocytes % 11.4 % (24.0-44.0); Mean Cell Volume 82.6 fL (78-100); Mean Corpuscular Hemoglobin 24.1 pg (26-32); Mean Corpuscular Hgb Concent. 29.2 g/dL (32-36); Monocyte (Absolute #) 0.72 x10^3/uL (0.0-1.3); Monocytes % 11.1 % (0.0-12.0); Neutrophil % 74.4 % (36.0-66.0); Platelet Count 229 x10^3/uL (150-450); Red Blood Count 3.57 x10^6/uL (4.1-5.6); Red Cell Distribution Width 19.8 % (11.5-14.0); White Blood Count 6.5 x10^3/uL (4.0-10.5)
[2022-09-12 05:56] LABS: BLOOD UREA NITROGEN 32 mg/dL (9-20); CHLORIDE 91 mmol/L (98-107); Calcium 8.2 mg/dL (8.4-10.2); Creatinine 1 0.95 mg/dL (0.66-1.25); EST GLOMERULAR FILTRATION RATE > 60.0 ML/MIN; Glucose 156 mg/dL (74-106); Potassium 3.2 mmol/L (3.5-5.1); SODIUM 135 mmol/L (137-145)
[2022-09-12 06:17] LABS: Carbon Dioxide 36 mmol/L (22-30)
[2022-09-12 06:19] LABS: ANION GAP 11.2 MEQ/L (5-15)
[2022-09-12] MEDS ORDERED: PROVENTIL 2.5 MG/3 ML NEB IH PRN (10:06)
--- NOTE | 2022-09-12 10:06 | PCM.NOTE ---
Date and Time: 09/12/22 1002 Subjective Assessment: Feeling better than yesterday with respect to breathing, but not back to baseline. - Review of Systems Constitutional: No Fever Respiratory: Short Of Breath Objective Exam General Appearance: no apparent distress, obese Neurologic Exam: oriented x 3, cooperative Skin Exam: normal color, warm, dry, No rash Wound Assessment: Skin/Wound Assessment Wound/Incision Assessment Start: 09/11/22 11:33 Text: Status: Active Freq: Q6H Protocol: Document 09/12/22 02:00 RB (Rec: 09/12/22 05:17 RB [id number]) Wound/Incision Assessment Right Anterior Other Wound Assessment Shift Assessment Wound Type Stasis Ulcer Drainage Amount None General Appearance Open to air Surrounding Tissue Edematous-pitting Comment right anterior leg venous stasis ulcer; not open or draining at this time; PT assessed wound today Wound Photo Photo Taken Yes Comment: previous shift took picture and placed in chart Eye Exam: eyes nml inspection Ears, Nose, Throat Exam: moist mucous membranes Neck Exam: normal inspection Respiratory Exam: diminished breath sounds (good air exchange), wheezing (faint expiratory, scattered), No crackles/rales, No rhonchi Cardiovascular Exam: regular rate/rhythm, normal heart sounds, No murmur Gastrointestinal/Abdomen Exam: soft, normal bowel sounds, No tenderness, No distention, No mass, No guarding, No rebound Extremity Exam: swelling (1+ pretibial edema bilat to approx 5 cm inferior to the knees) Back Exam: normal inspection, No rash OBJECTIVE DATA Vital Signs: Vital Signs - 24 hr Temp Pulse Resp BP Pulse Ox 09/12/22 07:10 97.7 F 72 15 166/67 100 09/12/22 05:45 60 18 94 L 09/12/22 04:00 97.3 F 61 16 149/67 99 09/12/22 00:00 97.3 F 61 16 149/67 99 09/11/22 20:00 97.9 F 60 20 128/74 93 L 09/11/22 18:55 64 18 93 L 09/11/22 16:00 97.5 F 66 20 127/58 95 09/11/22 12:00 97.1 F 58 L 20 134/62 94 L Pain Assessment - Last Documented Pain Intensity 3 Pain Scale Used 0-10 Pain Scale Intake and Output: Intake & Output 09/09/22 09/10/22 09/11/22 09/12/22 11:59 11:59 11:59 11:59 Intake Total 600 1020 Output Total 1550 4050 Balance -950 -3030 Weight 113.7 kg Lab Results: Lab Results-Last 24 Hours 09/11/22 09/11/22 09/11/22 Range/Units 04:00 07:24 07:24 WBC (4.0-10.5) x10^3/uL RBC (4.1-5.6) x10^6/uL Hgb (12.5-18.0) g/dL Hct (42-50) % MCV (78-100) fL MCH (26-32) pg MCHC (32-36) g/dL RDW (11.5-14.0) % Plt Count (150-450) x10^3/uL MPV (7.5-11.0) fL Gran % (36.0-66.0) % Immature Gran % (Auto) (0.00-0.4) % Nucleat RBC Rel Count (0.00-0.1) % Eos # (Auto) (0-0.5) x10^3/uL Immature Gran # (Auto) (0.00-0.03) x10^3u/L Absolute Lymphs (auto) (1.0-4.6) x10^3/uL Absolute Monos (auto) (0.0-1.3) x10^3/uL Absolute Nucleated RBC (0.00-0.01) x10^3u/L Lymphocytes % (24.0-44.0) % Monocytes % (0.0-12.0) % Eosinophils % (0.00-5.0) % Basophils % (0.0-0.4) % Absolute Granulocytes (1.4-6.9) x10^3/uL Basophils # (0-0.4) x10^3/uL Sodium 133 L (137-145) mmol/L Potassium 3.5 (3.5-5.1) mmol/L Chloride 89 L (98-107) mmol/L Carbon Dioxide 38 H (22-30) mmol/L Anion Gap 9.04 (5-15) MEQ/L BUN 33 H (9-20) mg/dL Creatinine 1.19 (0.66-1.25) mg/dL Estimated GFR > 60.0 ML/MIN Glucose 128 H (74-106) mg/dL POC Glucometer (74 to 106) mg/dL Calcium 8.1 L (8.4-10.2) mg/dL Total Bilirubin 0.60 (0.2-1.3) mg/dL AST 25 (17-59) U/L ALT 17 (0-50) U/L Alkaline Phosphatase 115 (38-126) U/L NT-Pro-B Natriuret Pep 2730 H (0-1800) pg/mL Serum Total Protein 6.0 L (6.3-8.2) g/dL Albumin 3.0 L (3.5-5.0) g/dL Slides for Path Review YES 09/11/22 09/11/22 09/11/22 Range/Units 11:51 16:50 21:26 WBC (4.0-10.5) x10^3/uL RBC (4.1-5.6) x10^6/uL Hgb (12.5-18.0) g/dL Hct (42-50) % MCV (78-100) fL MCH (26-32) pg MCHC (32-36) g/dL RDW (11.5-14.0) % Plt Count (150-450) x10^3/uL MPV (7.5-11.0) fL Gran % (36.0-66.0) % Immature Gran % (Auto) (0.00-0.4) % Nucleat RBC Rel Count (0.00-0.1) % Eos # (Auto) (0-0.5) x10^3/uL Immature Gran # (Auto) (0.00-0.03) x10^3u/L Absolute Lymphs (auto) (1.0-4.6) x10^3/uL Absolute Monos (auto) (0.0-1.3) x10^3/uL Absolute Nucleated RBC (0.00-0.01) x10^3u/L Lymphocytes % (24.0-44.0) % Monocytes % (0.0-12.0) % Eosinophils % (0.00-5.0) % Basophils % (0.0-0.4) % Absolute Granulocytes (1.4-6.9) x10^3/uL Basophils # (0-0.4) x10^3/uL Sodium (137-145) mmol/L Potassium (3.5-5.1) mmol/L Chloride (98-107) mmol/L Carbon Dioxide (22-30) mmol/L Anion Gap (5-15) MEQ/L BUN (9-20) mg/dL Creatinine (0.66-1.25) mg/dL Estimated GFR ML/MIN Glucose (74-106) mg/dL POC Glucometer 153 H 219 H 222 H (74 to 106) mg/dL Calcium (8.4-10.2) mg/dL Total Bilirubin (0.2-1.3) mg/dL AST (17-59) U/L ALT (0-50) U/L Alkaline Phosphatase (38-126) U/L NT-Pro-B Natriuret Pep (0-1800) pg/mL Serum Total Protein (6.3-8.2) g/dL Albumin (3.5-5.0) g/dL Slides for Path Review 09/12/22 09/12/22 09/12/22 Range/Units 05:35 05:35 07:15 WBC 6.5 (4.0-10.5) x10^3/uL RBC 3.57 L (4.1-5.6) x10^6/uL Hgb 8.6 L (12.5-18.0) g/dL Hct 29.5 L (42-50) % MCV 82.6 (78-100) fL MCH 24.1 L (26-32) pg MCHC 29.2 L (32-36) g/dL RDW 19.8 H (11.5-14.0) % Plt Count 229 (150-450) x10^3/uL MPV 10.0 (7.5-11.0) fL Gran % 74.4 H (36.0-66.0) % Immature Gran % (Auto) 0.3 (0.00-0.4) % Nucleat RBC Rel Count 0.0 (0.00-0.1) % Eos # (Auto) 0.15 (0-0.5) x10^3/uL Immature Gran # (Auto) 0.02 (0.00-0.03) x10^3u/L Absolute Lymphs (auto) 0.74 L (1.0-4.6) x10^3/uL Absolute Monos (auto) 0.72 (0.0-1.3) x10^3/uL Absolute Nucleated RBC 0.00 (0.00-0.01) x10^3u/L Lymphocytes % 11.4 L (24.0-44.0) % Monocytes % 11.1 (0.0-12.0) % Eosinophils % 2.3 (0.00-5.0) % Basophils % 0.5 (0.0-0.4) % Absolute Granulocytes 4.81 (1.4-6.9) x10^3/uL Basophils # 0.03 (0-0.4) x10^3/uL Sodium 135 L (137-145) mmol/L Potassium 3.2 L (3.5-5.1) mmol/L Chloride 91 L (98-107) mmol/L Carbon Dioxide 36 H (22-30) mmol/L Anion Gap 11.2 (5-15) MEQ/L BUN 32 H (9-20) mg/dL Creatinine 0.95 (0.66-1.25) mg/dL Estimated GFR > 60.0 ML/MIN Glucose 156 H (74-106) mg/dL POC Glucometer 135 H (74 to 106) mg/dL Calcium 8.2 L (8.4-10.2) mg/dL Total Bilirubin (0.2-1.3) mg/dL AST (17-59) U/L ALT (0-50) U/L Alkaline Phosphatase (38-126) U/L NT-Pro-B Natriuret Pep (0-1800) pg/mL Serum Total Protein (6.3-8.2) g/dL Albumin (3.5-5.0) g/dL Slides for Path Review Radiology Exams: Radiology Procedures Category Date Time Status CHEST 1 VIEW (PORTABLE) Stat Exams 09/10/22 14:54 Completed Multi-Disciplinary Progress Notes: Multi-Disciplinary Progress Notes 09/12/22 03:26 Respiratory Note by Lana Sebastian Trach care performed with hydrogen peroxide and sterile water solution. Inner cannula cleaned. At that time, this RT noticed that it has two cracks. Instructed patient that he needs to have family bring in a new inner cannula. Drainage sponge changed, which had green, thick drainage. Stoma site cleaned. Tracheal suction performed without complications. Suctioned small, thick, green mucus. Initialized on 09/12/22 03:26 - END OF NOTE 09/11/22 14:54 Case Management Note by Angela Clemons PATIENT HAS [facility]. THEY WERE NOTIFIED HE IS HERE OBS. THEY WILL NEED NOTIFIED AT TIME OF DC AT [phone]. THEY WILL NEED FAXED THE DC INSTRUCTIONS, DC MED LIST AND DC SUMMARY ( IF AVAILABLE) TO [phone] Initialized on 09/11/22 14:54 - END OF NOTE Assessment/Plan (1) CHF exacerbation Current Visit: Yes Status: Acute Assessment & Plan: Improved. Will get an echo unless he got one at outside facility in last 6 mo. Code(s): I50.9 - HEART FAILURE, UNSPECIFIED (2) Urinary incontinence Current Visit: Yes Status: Acute Qualifiers: Urinary Incontinence type: unspecified incontinence Qualified Code(s): R32 - Unspecified urinary incontinence Assessment & Plan: Pt had requested loera cath in ER. Code(s): R32 - UNSPECIFIED URINARY INCONTINENCE (3) Leg wound, left Current Visit: Yes Status: Acute Qualifiers: Encounter type: initial encounter Qualified Code(s): S81.802A - Unspecified open wound, left lower leg, initial encounter Assessment & Plan: dressed today. Code(s): S81.802A - UNSPECIFIED OPEN WOUND, LEFT LOWER LEG, INITIAL ENCOUNTER (4) Leg wound, right Current Visit: Yes Status: Acute Qualifiers: Encounter type: initial encounter Qualified Code(s): S81.801A - Unspecified open wound, right lower leg, initial encounter Code(s): S81.801A - UNSPECIFIED OPEN WOUND, RIGHT LOWER LEG, INITIAL ENCOUNTER (5) Chronic renal insufficiency Current Visit: No Status: Chronic Qualifiers: Code(s): N18.9 - CHRONIC KIDNEY DISEASE, UNSPECIFIED (6) DM type 2 (diabetes mellitus, type 2) Current Visit: No Status: Chronic Qualifiers: Diabetes mellitus exterminator helper insulin use: with alf use Diabetes mellitus complication status: with kidney complications Diabetes mellitus complication detail: with chronic kidney disease (7) Wheezes Current Visit: Yes Status: Acute Assessment & Plan: faint - will add nebs prn Code(s): R06.2 - WHEEZING
[2022-09-12] MEDS: Coreg PO SCH ×2 (11:26→22:54)
[2022-09-12] MEDS: TYLENOL 325 MG PO PRN (11:26)
[2022-09-12] MEDS: Furosemide 100mg/10 ml Vial IV SCH (11:27)
[2022-09-12] MEDS: LOPID PO SCH ×2 (11:27→22:54)
[2022-09-12] MEDS: ZOCOR 20MG PO SCH (22:54)
[2022-09-12] MEDS: PROZAC 10 MG PO SCH (22:54)
[2022-09-12] MEDS: Lantus Insulin SQ SCH (22:58)
[2022-09-13] MEDS: DUONEB 0.5-3 MG/3 ml Neb IH PRN (02:50)
[2022-09-13 06:03] LABS: Absolute Neutrophil Ct (ANC) 5.23 x10^3/uL (1.4-6.9); Basophil (Absolute #) 0.03 x10^3/uL (0-0.4); Eosinophil % 2.5 % (0.00-5.0); Eosinophil (Absolute #) 0.17 x10^3/uL (0-0.5); Hematocrit 27.4 % (42-50); Lymphocyte (Absolute #) 0.83 x10^3/uL (1.0-4.6); Mean Cell Volume 83.3 fL (78-100); Mean Corpuscular Hemoglobin 24.3 pg (26-32); Mean Corpuscular Hgb Concent. 29.2 g/dL (32-36); Mean Platelet Volume 9.8 fL (7.5-11.0); Monocyte (Absolute #) 0.64 x10^3/uL (0.0-1.3); Monocytes % 9.2 % (0.0-12.0); Neutrophil % 75.5 % (36.0-66.0); Platelet Count 213 x10^3/uL (150-450); Red Blood Count 3.29 x10^6/uL (4.1-5.6); Red Cell Distribution Width 19.9 % (11.5-14.0); White Blood Count 6.9 x10^3/uL (4.0-10.5)
[2022-09-13 06:40] LABS: BLOOD UREA NITROGEN 30 mg/dL (9-20); CHLORIDE 89 mmol/L (98-107); Calcium 7.8 mg/dL (8.4-10.2); Creatinine 1 0.88 mg/dL (0.66-1.25); EST GLOMERULAR FILTRATION RATE > 60.0 ML/MIN; Glucose 207 mg/dL (74-106); SODIUM 133 mmol/L (137-145)
[2022-09-13 06:47] LABS: Carbon Dioxide 39 mmol/L (22-30)
[2022-09-13 06:52] LABS: ANION GAP 7.9 MEQ/L (5-15); Potassium 2.9 mmol/L (3.5-5.1)
[2022-09-13] MEDS ORDERED: K-LYTE PO ONE (07:08)
[2022-09-13] MEDS ORDERED: POTASSIUM CHLORIDE 20 mEq IN WATER 100ML 20 MEQ/100 ML BAG IV SCH (07:15)
[2022-09-13] MEDS ORDERED: Potassium Chloride 40 MEQ/20 ML VIAL 40 MEQ, XYLOCAINE 1% HCL 20 ML MDV*** 2 ML in Sodi... IV ONE (08:00)
[2022-09-13] MEDS: Coreg PO SCH ×2 (10:16→22:27)
[2022-09-13] MEDS: LOPID PO SCH ×2 (10:16→22:28)
[2022-09-13] MEDS: Furosemide 100mg/10 ml Vial IV SCH (10:18)
--- NOTE | 2022-09-13 12:21 | PCM.NOTE ---
Date and Time: 09/13/22 1219 Subjective Assessment: Patient is sitting up at the bedside nodding off to sleep,nurse giving IV lasix . Objective Exam Wound Assessment: Skin/Wound Assessment Wound/Incision Assessment Start: 09/11/22 11:33 Text: Status: Active Freq: Q6H Protocol: Document 09/13/22 02:00 LB (Rec: 09/13/22 03:15 LB [id number]) Wound/Incision Assessment Right Anterior Other Wound Assessment Shift Assessment Wound Type Stasis Ulcer Drainage Amount None General Appearance Open to air Surrounding Tissue Edematous-pitting Comment dressing in place CDI Wound Photo Photo Taken Yes Comment: photo in chart OBJECTIVE DATA Vital Signs: Vital Signs - 24 hr Temp Pulse Resp BP Pulse Ox 09/13/22 11:39 98.0 F 69 16 162/63 97 09/13/22 07:59 98 F 63 22 145/63 97 09/13/22 07:26 65 22 95 09/13/22 04:00 97.9 F 70 22 105/54 98 09/13/22 02:50 69 16 99 09/12/22 23:45 97.5 F 68 19 136/61 100 09/12/22 19:55 97.5 F 73 20 146/66 100 09/12/22 18:59 68 20 97 09/12/22 16:00 98.0 F 68 16 118/56 96 Pain Assessment - Last Documented Pain Intensity 0 Pain Scale Used 0-10 Pain Scale Intake and Output: Intake & Output 09/11/22 09/12/22 09/13/22 09/14/22 11:59 11:59 11:59 11:59 Intake Total 600 1020 1800 Output Total 1550 4050 1200 Balance -950 -3030 600 Weight 113.7 kg Lab Results: Lab Results-Last 24 Hours 09/12/22 09/12/22 09/13/22 Range/Units 16:21 20:33 05:30 WBC 6.9 (4.0-10.5) x10^3/uL RBC 3.29 L (4.1-5.6) x10^6/uL Hgb 8.0 L (12.5-18.0) g/dL Hct 27.4 L (42-50) % MCV 83.3 (78-100) fL MCH 24.3 L (26-32) pg MCHC 29.2 L (32-36) g/dL RDW 19.9 H (11.5-14.0) % Plt Count 213 (150-450) x10^3/uL MPV 9.8 (7.5-11.0) fL Gran % 75.5 H (36.0-66.0) % Immature Gran % (Auto) 0.4 (0.00-0.4) % Nucleat RBC Rel Count 0.0 (0.00-0.1) % Eos # (Auto) 0.17 (0-0.5) x10^3/uL Immature Gran # (Auto) 0.03 (0.00-0.03) x10^3u/L Absolute Lymphs (auto) 0.83 L (1.0-4.6) x10^3/uL Absolute Monos (auto) 0.64 (0.0-1.3) x10^3/uL Absolute Nucleated RBC 0.00 (0.00-0.01) x10^3u/L Lymphocytes % 12.0 L (24.0-44.0) % Monocytes % 9.2 (0.0-12.0) % Eosinophils % 2.5 (0.00-5.0) % Basophils % 0.4 (0.0-0.4) % Absolute Granulocytes 5.23 (1.4-6.9) x10^3/uL Basophils # 0.03 (0-0.4) x10^3/uL Sodium (137-145) mmol/L Potassium (3.5-5.1) mmol/L Chloride (98-107) mmol/L Carbon Dioxide (22-30) mmol/L Anion Gap (5-15) MEQ/L BUN (9-20) mg/dL Creatinine (0.66-1.25) mg/dL Estimated GFR ML/MIN Glucose (74-106) mg/dL POC Glucometer 200 H 281 H (74 to 106) mg/dL Calcium (8.4-10.2) mg/dL 09/13/22 09/13/22 09/13/22 Range/Units 05:30 06:35 07:17 WBC (4.0-10.5) x10^3/uL RBC (4.1-5.6) x10^6/uL Hgb (12.5-18.0) g/dL Hct (42-50) % MCV (78-100) fL MCH (26-32) pg MCHC (32-36) g/dL RDW (11.5-14.0) % Plt Count (150-450) x10^3/uL MPV (7.5-11.0) fL Gran % (36.0-66.0) % Immature Gran % (Auto) (0.00-0.4) % Nucleat RBC Rel Count (0.00-0.1) % Eos # (Auto) (0-0.5) x10^3/uL Immature Gran # (Auto) (0.00-0.03) x10^3u/L Absolute Lymphs (auto) (1.0-4.6) x10^3/uL Absolute Monos (auto) (0.0-1.3) x10^3/uL Absolute Nucleated RBC (0.00-0.01) x10^3u/L Lymphocytes % (24.0-44.0) % Monocytes % (0.0-12.0) % Eosinophils % (0.00-5.0) % Basophils % (0.0-0.4) % Absolute Granulocytes (1.4-6.9) x10^3/uL Basophils # (0-0.4) x10^3/uL Sodium 133 L (137-145) mmol/L Potassium 2.9 L* (3.5-5.1) mmol/L Chloride 89 L (98-107) mmol/L Carbon Dioxide 39 H (22-30) mmol/L Anion Gap 7.9 (5-15) MEQ/L BUN 30 H (9-20) mg/dL Creatinine 0.88 (0.66-1.25) mg/dL Estimated GFR > 60.0 ML/MIN Glucose 207 H (74-106) mg/dL POC Glucometer 206 H 90 (74 to 106) mg/dL Calcium 7.8 L (8.4-10.2) mg/dL 09/13/22 Range/Units 11:20 WBC (4.0-10.5) x10^3/uL RBC (4.1-5.6) x10^6/uL Hgb (12.5-18.0) g/dL Hct (42-50) % MCV (78-100) fL MCH (26-32) pg MCHC (32-36) g/dL RDW (11.5-14.0) % Plt Count (150-450) x10^3/uL MPV (7.5-11.0) fL Gran % (36.0-66.0) % Immature Gran % (Auto) (0.00-0.4) % Nucleat RBC Rel Count (0.00-0.1) % Eos # (Auto) (0-0.5) x10^3/uL Immature Gran # (Auto) (0.00-0.03) x10^3u/L Absolute Lymphs (auto) (1.0-4.6) x10^3/uL Absolute Monos (auto) (0.0-1.3) x10^3/uL Absolute Nucleated RBC (0.00-0.01) x10^3u/L Lymphocytes % (24.0-44.0) % Monocytes % (0.0-12.0) % Eosinophils % (0.00-5.0) % Basophils % (0.0-0.4) % Absolute Granulocytes (1.4-6.9) x10^3/uL Basophils # (0-0.4) x10^3/uL Sodium (137-145) mmol/L Potassium (3.5-5.1) mmol/L Chloride (98-107) mmol/L Carbon Dioxide (22-30) mmol/L Anion Gap (5-15) MEQ/L BUN (9-20) mg/dL Creatinine (0.66-1.25) mg/dL Estimated GFR ML/MIN Glucose (74-106) mg/dL POC Glucometer 320 H (74 to 106) mg/dL Calcium (8.4-10.2) mg/dL Multi-Disciplinary Progress Notes: Multi-Disciplinary Progress Notes 09/13/22 03:03 Respiratory Note by Clotilde Enriquez RT called to patient bedside to evaluate patient. Upon arrival patient was complaining of SOB. Inner cannula was checked, it was clear and clean. Pt was suctioned via tracheal suctioning at pt request. No sputum obtained from suctioning. Pt was given duoneb treatment upon pt request. Pt states that he is less SOB post treatment. Breathsounds were clear upon arrival to patient's room and remained clear post treatment. SpO2 ranged from 97% to 99%. Initialized on 09/13/22 03:03 - END OF NOTE 09/12/22 16:03 Respiratory Note by Yaneth Alcantar pts trach cleaned with peroxide and sterile water. pts trach site very clean. pt suctioned but nothing was retrieved. pts inner cannula cleaned. pts inner cannula has some broken areas. pts was asked to bring some more, but she didnt bring the correct items. Rt showed her what the package looked like and what size trach we needed them for and she was sure she has some at home and would bring them tomorrow. Initialized on 09/12/22 16:03 - END OF NOTE
[2022-09-13] MEDS: HUMALOG SQ PRN (12:39)
[2022-09-13 15:47] LABS: BLOOD UREA NITROGEN 28 mg/dL (9-20); CHLORIDE 89 mmol/L (98-107); Calcium 7.8 mg/dL (8.4-10.2); Creatinine 1 0.85 mg/dL (0.66-1.25); EST GLOMERULAR FILTRATION RATE > 60.0 ML/MIN; Glucose 234 mg/dL (74-106); Potassium 3.6 mmol/L (3.5-5.1); SODIUM 132 mmol/L (137-145)
[2022-09-13 15:53] LABS: Carbon Dioxide 35 mmol/L (22-30)
[2022-09-13 16:35] LABS: NT PRO BNP 2000 pg/mL (0-1800); Vitamin B12 453 pg/mL (239-931)
[2022-09-13 16:42] LABS: ANION GAP 11.6 MEQ/L (5-15)
[2022-09-13] MEDS: Ativan 1 MG PO PRN (22:27)
[2022-09-13] MEDS: TYLENOL 325 MG PO PRN (22:27)
[2022-09-13] MEDS: ZOCOR 20MG PO SCH (22:27)
[2022-09-13] MEDS: Lantus Insulin SQ SCH (22:27)
[2022-09-13] MEDS: PROZAC 10 MG PO SCH (22:28)
[2022-09-14 06:11] LABS: Absolute Neutrophil Ct (ANC) 4.94 x10^3/uL (1.4-6.9); Basophil (Absolute #) 0.04 x10^3/uL (0-0.4); Eosinophil % 2.7 % (0.00-5.0); Eosinophil (Absolute #) 0.18 x10^3/uL (0-0.5); Hematocrit 29.3 % (42-50); Hemoglobin 8.2 g/dL (12.5-18.0); Lymphocyte (Absolute #) 0.89 x10^3/uL (1.0-4.6); Lymphocytes % 13.2 % (24.0-44.0); Mean Cell Volume 85.2 fL (78-100); Mean Corpuscular Hemoglobin 23.8 pg (26-32); Monocyte (Absolute #) 0.66 x10^3/uL (0.0-1.3); Monocytes % 9.8 % (0.0-12.0); Neutrophil % 73.4 % (36.0-66.0); Platelet Count 227 x10^3/uL (150-450); Red Blood Count 3.44 x10^6/uL (4.1-5.6); Red Cell Distribution Width 19.7 % (11.5-14.0); White Blood Count 6.7 x10^3/uL (4.0-10.5)
[2022-09-14] MEDS: NYSTOP 30 GM CREAM TOP SCH ×3 (06:32→23:20)
[2022-09-14 06:46] LABS: BLOOD UREA NITROGEN 25 mg/dL (9-20); CHLORIDE 89 mmol/L (98-107); Creatinine 1 0.93 mg/dL (0.66-1.25); EST GLOMERULAR FILTRATION RATE > 60.0 ML/MIN; Glucose 126 mg/dL (74-106); Potassium 3.4 mmol/L (3.5-5.1); SODIUM 131 mmol/L (137-145)
[2022-09-14 07:04] LABS: Carbon Dioxide 41 mmol/L (22-30)
[2022-09-14 07:05] LABS: ANION GAP 4.4 MEQ/L (5-15)
[2022-09-14] MEDS: Coreg PO SCH ×2 (09:00→21:21)
[2022-09-14] MEDS: LOPID PO SCH ×2 (09:00→21:31)
[2022-09-14] MEDS: Furosemide 100mg/10 ml Vial IV SCH (09:00)
[2022-09-14 09:56] LABS: Slide Review 1 YES
[2022-09-14] MEDS: HUMALOG SQ PRN ×2 (12:24→16:38)
--- NOTE | 2022-09-14 14:10 | PCM.NOTE ---
Date and Time: 09/14/22 1400 Subjective Assessment: Patient is up in chair ,more alert today. Legs are still very edematous and there is a new vesicular eruption on the right lower extremity.Redness has improved. Nursing states he does not sleep at night just short naps and gets out of bed to sit on side of bed then up in chair and this goes on all night. RT states" he does not wear his Bipap anymore." Will ask PT to wrap his legs. Hgb remains low but stable . Objective Exam General Appearance: no apparent distress, lethargy Neurologic Exam: oriented x 3 Skin Exam: warm, dry, pale Wound Assessment: Skin/Wound Assessment Wound/Incision Assessment Start: 09/11/22 11:33 Text: Status: Active Freq: Q6H Protocol: Document 09/14/22 08:00 AW (Rec: 09/14/22 08:59 AW [id number]) Wound/Incision Assessment Right Medial Buttock Wound Assessment Shift Assessment Wound Type Pressure Ulcer Wound Stage Stage II Drainage Amount None Drainage Odor None/Absent General Appearance Open to air Length (cm) (cm) 1 Width (cm) (cm) 1 Wound Bed Greatest Portion Red (Granulation) Surrounding Tissue [place] Comment open to air, barrier cream applied, picture in chart. Left Lower Lateral Calf Wound Assessment Shift Assessment Wound Type Stasis Ulcer Wound Stage Non Pressure Wound Dressing Status Changed Drainage Amount Large Drainage Description Serous Drainage Odor None/Absent General Appearance Clean/Dry Surrounding Tissue [place] Topical Solution/Irrigant Saline Irrigant Primary Dressing mepilex Right Anterior Other Wound Assessment Shift Assessment Wound Type Stasis Ulcer Drainage Amount Minimal Drainage Description Serous General Appearance Open to air Surrounding Tissue Edematous-pitting Comment lower leg - open to air Wound Photo Photo Taken Yes Comment: in chart Lymphatic Exam: axilla node tender (R) Respiratory Exam: airway intact (traech), diminished breath sounds, crackles/rales (left base-fine crackles) Cardiovascular Exam: bradycardia (paced rythm on telemetry) Gastrointestinal/Abdomen Exam: soft (nontender) Extremity Exam: other (3+pitting BLE to knee ,LLE with hydrogel dressing,RLE with new vesicular eruption proximal to the ankle) OBJECTIVE DATA Vital Signs: Vital Signs - 24 hr Temp Pulse Resp BP Pulse Ox 09/14/22 12:00 97.7 F 73 18 140/64 99 09/14/22 08:05 71 20 98 09/14/22 08:00 97.7 F 71 20 130/64 100 09/14/22 04:00 97.5 F 66 20 124/58 98 09/13/22 23:53 97.7 F 71 21 118/57 98 09/13/22 19:28 97.7 F 69 20 126/58 100 09/13/22 18:39 75 18 99 09/13/22 16:00 98 F 66 18 120/57 96 Pain Assessment - Last Documented Pain Intensity 0 Pain Scale Used [facility] Intake and Output: Intake & Output 09/12/22 09/13/22 09/14/22 09/15/22 11:59 11:59 11:59 11:59 Intake Total 1020 1800 2475 600 Output Total 4050 1200 2400 950 Balance -3030 600 75 -350 Weight 110.8 kg Lab Results: Lab Results-Last 24 Hours 09/13/22 09/13/22 09/13/22 Range/Units 05:30 15:17 16:50 WBC (4.0-10.5) x10^3/uL RBC (4.1-5.6) x10^6/uL Hgb (12.5-18.0) g/dL Hct (42-50) % MCV (78-100) fL MCH (26-32) pg MCHC (32-36) g/dL RDW (11.5-14.0) % Plt Count (150-450) x10^3/uL MPV (7.5-11.0) fL Gran % (36.0-66.0) % Immature Gran % (Auto) (0.00-0.4) % Nucleat RBC Rel Count (0.00-0.1) % Eos # (Auto) (0-0.5) x10^3/uL Immature Gran # (Auto) (0.00-0.03) x10^3u/L Absolute Lymphs (auto) (1.0-4.6) x10^3/uL Absolute Monos (auto) (0.0-1.3) x10^3/uL Absolute Nucleated RBC (0.00-0.01) x10^3u/L Lymphocytes % (24.0-44.0) % Monocytes % (0.0-12.0) % Eosinophils % (0.00-5.0) % Basophils % (0.0-0.4) % Absolute Granulocytes (1.4-6.9) x10^3/uL Basophils # (0-0.4) x10^3/uL Sodium 132 L (137-145) mmol/L Potassium 3.6 D (3.5-5.1) mmol/L Chloride 89 L (98-107) mmol/L Carbon Dioxide 35 H (22-30) mmol/L Anion Gap 11.6 (5-15) MEQ/L BUN 28 H (9-20) mg/dL Creatinine 0.85 (0.66-1.25) mg/dL Estimated GFR > 60.0 ML/MIN Glucose 234 H (74-106) mg/dL POC Glucometer 199 H (74 to 106) mg/dL Calcium 7.8 L (8.4-10.2) mg/dL NT-Pro-B Natriuret Pep 2000 H (0-1800) pg/mL Vitamin B12 453 (239-931) pg/mL TSH 3rd Generation 0.728 (0.47-4.68) mIU/L Slides for Path Review 09/13/22 09/14/22 09/14/22 Range/Units 21:02 05:55 05:55 WBC 6.7 (4.0-10.5) x10^3/uL RBC 3.44 L (4.1-5.6) x10^6/uL Hgb 8.2 L (12.5-18.0) g/dL Hct 29.3 L (42-50) % MCV 85.2 (78-100) fL MCH 23.8 L (26-32) pg MCHC 28.0 L (32-36) g/dL RDW 19.7 H (11.5-14.0) % Plt Count 227 (150-450) x10^3/uL MPV 10.0 (7.5-11.0) fL Gran % 73.4 H (36.0-66.0) % Immature Gran % (Auto) 0.3 (0.00-0.4) % Nucleat RBC Rel Count 0.0 (0.00-0.1) % Eos # (Auto) 0.18 (0-0.5) x10^3/uL Immature Gran # (Auto) 0.02 (0.00-0.03) x10^3u/L Absolute Lymphs (auto) 0.89 L (1.0-4.6) x10^3/uL Absolute Monos (auto) 0.66 (0.0-1.3) x10^3/uL Absolute Nucleated RBC 0.00 (0.00-0.01) x10^3u/L Lymphocytes % 13.2 L (24.0-44.0) % Monocytes % 9.8 (0.0-12.0) % Eosinophils % 2.7 (0.00-5.0) % Basophils % 0.6 (0.0-0.4) % Absolute Granulocytes 4.94 (1.4-6.9) x10^3/uL Basophils # 0.04 (0-0.4) x10^3/uL Sodium 131 L (137-145) mmol/L Potassium 3.4 L (3.5-5.1) mmol/L Chloride 89 L (98-107) mmol/L Carbon Dioxide 41 H (22-30) mmol/L Anion Gap 4.4 L (5-15) MEQ/L BUN 25 H (9-20) mg/dL Creatinine 0.93 (0.66-1.25) mg/dL Estimated GFR > 60.0 ML/MIN Glucose 126 H (74-106) mg/dL POC Glucometer 214 H (74 to 106) mg/dL Calcium 8.0 L (8.4-10.2) mg/dL NT-Pro-B Natriuret Pep (0-1800) pg/mL Vitamin B12 (239-931) pg/mL TSH 3rd Generation (0.47-4.68) mIU/L Slides for Path Review YES 09/14/22 09/14/22 Range/Units 07:51 11:30 WBC (4.0-10.5) x10^3/uL RBC (4.1-5.6) x10^6/uL Hgb (12.5-18.0) g/dL Hct (42-50) % MCV (78-100) fL MCH (26-32) pg MCHC (32-36) g/dL RDW (11.5-14.0) % Plt Count (150-450) x10^3/uL MPV (7.5-11.0) fL Gran % (36.0-66.0) % Immature Gran % (Auto) (0.00-0.4) % Nucleat RBC Rel Count (0.00-0.1) % Eos # (Auto) (0-0.5) x10^3/uL Immature Gran # (Auto) (0.00-0.03) x10^3u/L Absolute Lymphs (auto) (1.0-4.6) x10^3/uL Absolute Monos (auto) (0.0-1.3) x10^3/uL Absolute Nucleated RBC (0.00-0.01) x10^3u/L Lymphocytes % (24.0-44.0) % Monocytes % (0.0-12.0) % Eosinophils % (0.00-5.0) % Basophils % (0.0-0.4) % Absolute Granulocytes (1.4-6.9) x10^3/uL Basophils # (0-0.4) x10^3/uL Sodium (137-145) mmol/L Potassium (3.5-5.1) mmol/L Chloride (98-107) mmol/L Carbon Dioxide (22-30) mmol/L Anion Gap (5-15) MEQ/L BUN (9-20) mg/dL Creatinine (0.66-1.25) mg/dL Estimated GFR ML/MIN Glucose (74-106) mg/dL POC Glucometer 100 209 H (74 to 106) mg/dL Calcium (8.4-10.2) mg/dL NT-Pro-B Natriuret Pep (0-1800) pg/mL Vitamin B12 (239-931) pg/mL TSH 3rd Generation (0.47-4.68) mIU/L Slides for Path Review Assessment/Plan (1) Edema, lower extremity Current Visit: Yes Status: Chronic Assessment & Plan: not improving- is not using Bipap and is not sleeping but naps more in the day and is awake at night. Code(s): R60.0 - LOCALIZED EDEMA (2) Pulmonary HTN Current Visit: Yes Status: Chronic Assessment & Plan: see ECHO MAY 2022-consider Viagra/consult [employer]er Code(s): I27.20 - PULMONARY HYPERTENSION, UNSPECIFIED (3) Mitral valve disease Current Visit: Yes Status: Chronic Code(s): I05.9 - RHEUMATIC MITRAL VALVE DISEASE, UNSPECIFIED (4) Anemia Current Visit: No Status: Chronic Qualifiers: Anemia type: unspecified type Qualified Code(s): D64.9 - Anemia, unspecified Code(s): D64.9 - ANEMIA, UNSPECIFIED
[2022-09-14] MEDS: TYLENOL 325 MG PO PRN ×2 (16:38→21:21)
[2022-09-14] MEDS ORDERED: Lasix 40 MG/4 ML IV ONE (21:10)
[2022-09-14] MEDS ORDERED: K-LYTE PO ONE (21:11)
[2022-09-14] MEDS: ZOCOR 20MG PO SCH (21:21)
[2022-09-14] MEDS: Ativan 1 MG PO PRN (21:21)
[2022-09-14] MEDS: Lantus Insulin SQ SCH (21:29)
[2022-09-14] MEDS: PROZAC 10 MG PO SCH (21:31)
[2022-09-15 04:50] LABS: Basophil (Absolute #) 0.04 x10^3/uL (0-0.4); Eosinophil % 3.4 % (0.00-5.0); Eosinophil (Absolute #) 0.23 x10^3/uL (0-0.5); Hematocrit 27.9 % (42-50); Hemoglobin 8.2 g/dL (12.5-18.0); Lymphocyte (Absolute #) 0.97 x10^3/uL (1.0-4.6); Lymphocytes % 14.5 % (24.0-44.0); Mean Cell Volume 83.5 fL (78-100); Mean Corpuscular Hemoglobin 24.6 pg (26-32); Mean Corpuscular Hgb Concent. 29.4 g/dL (32-36); Mean Platelet Volume 9.9 fL (7.5-11.0); Monocyte (Absolute #) 0.62 x10^3/uL (0.0-1.3); Monocytes % 9.3 % (0.0-12.0); Neutrophil % 71.9 % (36.0-66.0); Platelet Count 224 x10^3/uL (150-450); Red Blood Count 3.34 x10^6/uL (4.1-5.6); Red Cell Distribution Width 19.6 % (11.5-14.0); White Blood Count 6.7 x10^3/uL (4.0-10.5)
[2022-09-15 05:57] LABS: BLOOD UREA NITROGEN 25 mg/dL (9-20); CHLORIDE 84 mmol/L (98-107); Creatinine 1 0.96 mg/dL (0.66-1.25); EST GLOMERULAR FILTRATION RATE > 60.0 ML/MIN; Glucose 193 mg/dL (74-106); Potassium 3.4 mmol/L (3.5-5.1); SODIUM 128 mmol/L (137-145)
[2022-09-15 06:04] LABS: Carbon Dioxide 39 mmol/L (22-30)
[2022-09-15 06:11] LABS: ANION GAP 8.4 MEQ/L (5-15)
[2022-09-15] MEDS: HUMALOG SQ PRN ×4 (08:32→21:07)
--- NOTE | 2022-09-15 08:48 | PCM.NOTE ---
Date and Time: 09/15/22 0842 Subjective Assessment: patient reports he is feeling some better, shortness of breath is improved. no new complaints Objective Exam General Appearance: no apparent distress, obese Neurologic Exam: alert Wound Assessment: Skin/Wound Assessment Wound/Incision Assessment Start: 09/11/22 11:33 Text: Status: Active Freq: Q6H Protocol: Document 09/15/22 02:00 LB (Rec: 09/15/22 04:29 LB [id number]) Wound/Incision Assessment Right Medial Buttock Wound Assessment Shift Assessment Wound Type Pressure Ulcer Wound Stage Stage II Drainage Amount None Drainage Odor None/Absent General Appearance Open to air Length (cm) (cm) 1 Width (cm) (cm) 1 Wound Bed Greatest Portion Red (Granulation) Surrounding Tissue [place] Comment open to air, barrier cream applied PRN Left Lower Lateral Calf Wound Assessment Shift Assessment Wound Type Stasis Ulcer Wound Stage Non Pressure Wound Dressing Status Changed Drainage Amount Large Drainage Description Serous Drainage Odor None/Absent General Appearance Clean/Dry Surrounding Tissue [place] Topical Solution/Irrigant Saline Irrigant Primary Dressing mepilex Right Anterior Other Wound Assessment Shift Assessment Wound Type Stasis Ulcer Drainage Amount Minimal Drainage Description Serous General Appearance Open to air Surrounding Tissue Edematous-pitting Comment lower leg - open to air Wound Photo Photo Taken Yes Comment: in chart Respiratory Exam: crackles/rales Cardiovascular Exam: regular rate/rhythm, normal heart sounds Gastrointestinal/Abdomen Exam: soft, No tenderness, No mass Extremity Exam: pedal edema, swelling OBJECTIVE DATA Vital Signs: Vital Signs - 24 hr Temp Pulse Resp BP Pulse Ox 09/15/22 07:47 97.8 F 70 14 99/46 98 09/15/22 07:02 67 20 99 09/15/22 04:00 96 09/14/22 23:50 97.8 F 70 20 110/54 98 09/14/22 20:58 70 22 99 09/14/22 19:42 97.8 F 70 19 112/49 99 09/14/22 16:00 97.8 F 67 20 139/62 100 09/14/22 12:00 97.7 F 73 18 140/64 99 Pain Assessment - Last Documented Pain Intensity 0 Pain Scale Used 0-10 Pain Scale Intake and Output: Intake & Output 09/12/22 09/13/22 09/14/22 09/15/22 11:59 11:59 11:59 11:59 Intake Total 1020 1800 2475 2720 Output Total 4050 1200 2400 3450 Balance -3030 600 75 -730 Weight 110.8 kg 109.8 kg Lab Results: Lab Results-Last 24 Hours 09/14/22 09/14/22 09/14/22 Range/Units 05:55 11:30 16:03 WBC (4.0-10.5) x10^3/uL RBC (4.1-5.6) x10^6/uL Hgb (12.5-18.0) g/dL Hct (42-50) % MCV (78-100) fL MCH (26-32) pg MCHC (32-36) g/dL RDW (11.5-14.0) % Plt Count (150-450) x10^3/uL MPV (7.5-11.0) fL Gran % (36.0-66.0) % Immature Gran % (Auto) (0.00-0.4) % Nucleat RBC Rel Count (0.00-0.1) % Eos # (Auto) (0-0.5) x10^3/uL Immature Gran # (Auto) (0.00-0.03) x10^3u/L Absolute Lymphs (auto) (1.0-4.6) x10^3/uL Absolute Monos (auto) (0.0-1.3) x10^3/uL Absolute Nucleated RBC (0.00-0.01) x10^3u/L Lymphocytes % (24.0-44.0) % Monocytes % (0.0-12.0) % Eosinophils % (0.00-5.0) % Basophils % (0.0-0.4) % Absolute Granulocytes (1.4-6.9) x10^3/uL Basophils # (0-0.4) x10^3/uL Sodium (137-145) mmol/L Potassium (3.5-5.1) mmol/L Chloride (98-107) mmol/L Carbon Dioxide (22-30) mmol/L Anion Gap (5-15) MEQ/L BUN (9-20) mg/dL Creatinine (0.66-1.25) mg/dL Estimated GFR ML/MIN Glucose (74-106) mg/dL POC Glucometer 209 H 220 H (74 to 106) mg/dL Calcium (8.4-10.2) mg/dL NT-Pro-B Natriuret Pep (0-1800) pg/mL Slides for Path Review YES 09/14/22 09/15/22 09/15/22 Range/Units 20:29 04:40 04:40 WBC 6.7 (4.0-10.5) x10^3/uL RBC 3.34 L (4.1-5.6) x10^6/uL Hgb 8.2 L (12.5-18.0) g/dL Hct 27.9 L (42-50) % MCV 83.5 (78-100) fL MCH 24.6 L (26-32) pg MCHC 29.4 L (32-36) g/dL RDW 19.6 H (11.5-14.0) % Plt Count 224 (150-450) x10^3/uL MPV 9.9 (7.5-11.0) fL Gran % 71.9 H (36.0-66.0) % Immature Gran % (Auto) 0.3 (0.00-0.4) % Nucleat RBC Rel Count 0.0 (0.00-0.1) % Eos # (Auto) 0.23 (0-0.5) x10^3/uL Immature Gran # (Auto) 0.02 (0.00-0.03) x10^3u/L Absolute Lymphs (auto) 0.97 L (1.0-4.6) x10^3/uL Absolute Monos (auto) 0.62 (0.0-1.3) x10^3/uL Absolute Nucleated RBC 0.00 (0.00-0.01) x10^3u/L Lymphocytes % 14.5 L (24.0-44.0) % Monocytes % 9.3 (0.0-12.0) % Eosinophils % 3.4 (0.00-5.0) % Basophils % 0.6 (0.0-0.4) % Absolute Granulocytes 4.80 (1.4-6.9) x10^3/uL Basophils # 0.04 (0-0.4) x10^3/uL Sodium 128 L (137-145) mmol/L Potassium 3.4 L (3.5-5.1) mmol/L Chloride 84 L (98-107) mmol/L Carbon Dioxide 39 H (22-30) mmol/L Anion Gap 8.4 (5-15) MEQ/L BUN 25 H (9-20) mg/dL Creatinine 0.96 (0.66-1.25) mg/dL Estimated GFR > 60.0 ML/MIN Glucose 193 H (74-106) mg/dL POC Glucometer 179 H (74 to 106) mg/dL Calcium 8.0 L (8.4-10.2) mg/dL NT-Pro-B Natriuret Pep (0-1800) pg/mL Slides for Path Review 09/15/22 09/15/22 Range/Units 04:40 06:59 WBC (4.0-10.5) x10^3/uL RBC (4.1-5.6) x10^6/uL Hgb (12.5-18.0) g/dL Hct (42-50) % MCV (78-100) fL MCH (26-32) pg MCHC (32-36) g/dL RDW (11.5-14.0) % Plt Count (150-450) x10^3/uL MPV (7.5-11.0) fL Gran % (36.0-66.0) % Immature Gran % (Auto) (0.00-0.4) % Nucleat RBC Rel Count (0.00-0.1) % Eos # (Auto) (0-0.5) x10^3/uL Immature Gran # (Auto) (0.00-0.03) x10^3u/L Absolute Lymphs (auto) (1.0-4.6) x10^3/uL Absolute Monos (auto) (0.0-1.3) x10^3/uL Absolute Nucleated RBC (0.00-0.01) x10^3u/L Lymphocytes % (24.0-44.0) % Monocytes % (0.0-12.0) % Eosinophils % (0.00-5.0) % Basophils % (0.0-0.4) % Absolute Granulocytes (1.4-6.9) x10^3/uL Basophils # (0-0.4) x10^3/uL Sodium (137-145) mmol/L Potassium (3.5-5.1) mmol/L Chloride (98-107) mmol/L Carbon Dioxide (22-30) mmol/L Anion Gap (5-15) MEQ/L BUN (9-20) mg/dL Creatinine (0.66-1.25) mg/dL Estimated GFR ML/MIN Glucose (74-106) mg/dL POC Glucometer 168 H (74 to 106) mg/dL Calcium (8.4-10.2) mg/dL NT-Pro-B Natriuret Pep 1980 H (0-1800) pg/mL Slides for Path Review Radiology Exams: Radiology Procedures Category Date Time Status CHEST 2 VIEWS (PA AND LAT) Stat Exams 09/14/22 21:09 Taken Assessment/Plan (1) CHF exacerbation Current Visit: Yes Status: Acute Assessment & Plan: continue IV lasix, improving at this time. patient would benefit from hospice referral vs establishment with a local reliability engineer Code(s): I50.9 - HEART FAILURE, UNSPECIFIED (2) Congestive heart failure Current Visit: No Status: Acute Qualifiers: Code(s): I50.9 - HEART FAILURE, UNSPECIFIED (3) A-fib Current Visit: No Status: Chronic Code(s): I48.91 - UNSPECIFIED ATRIAL FIBRILLATION (4) DM type 2 (diabetes mellitus, type 2) Current Visit: No Status: Chronic Qualifiers: Diabetes mellitus terminal superintendent insulin use: with terminal superintendent use Diabetes mellitus complication status: with kidney complications Diabetes mellitus complication detail: with chronic kidney disease
--- NOTE | 2022-09-15 08:51 | XRAY ---
Indication: CHF. History Covid 19. Comparison: September 10, 2022 AP/lateral chest obtained in wheelchair demonstrates new small bibasilar effusions. Stable bibasilar infiltrates/atelectasis, hilar calcified nodes, borderline cardiomegaly, left pacemaker, and tracheostomy cannula. Comment: Preliminary interpretation made by C. No critical discrepancy.
[2022-09-15] MEDS: TYLENOL 325 MG PO PRN ×2 (11:00→20:58)
[2022-09-15] MEDS: Furosemide 100mg/10 ml Vial IV SCH (11:00)
[2022-09-15] MEDS: Coreg PO SCH ×2 (11:00→20:57)
[2022-09-15] MEDS: LOPID PO SCH ×2 (11:00→20:57)
[2022-09-15] MEDS: NYSTOP 30 GM CREAM TOP SCH ×2 (17:23→20:58)
[2022-09-15] MEDS: ZOCOR 20MG PO SCH (20:57)
[2022-09-15] MEDS: PROZAC 10 MG PO SCH (20:58)
[2022-09-15] MEDS: Lantus Insulin SQ SCH (21:04)
[2022-09-15] MEDS: Ativan 1 MG PO PRN (23:24)
[2022-09-15] MEDS: DUONEB 0.5-3 MG/3 ml Neb IH PRN (23:40)
[2022-09-16 05:14] LABS: Absolute Neutrophil Ct (ANC) 3.69 x10^3/uL (1.4-6.9); Basophil (Absolute #) 0.03 x10^3/uL (0-0.4); Eosinophil % 3.1 % (0.00-5.0); Eosinophil (Absolute #) 0.17 x10^3/uL (0-0.5); Hematocrit 26.3 % (42-50); Hemoglobin 7.5 g/dL (12.5-18.0); Lymphocyte (Absolute #) 0.89 x10^3/uL (1.0-4.6); Lymphocytes % 16.5 % (24.0-44.0); Mean Cell Volume 83.8 fL (78-100); Mean Corpuscular Hemoglobin 23.9 pg (26-32); Mean Corpuscular Hgb Concent. 28.5 g/dL (32-36); Mean Platelet Volume 10.4 fL (7.5-11.0); Monocytes % 11.1 % (0.0-12.0); Neutrophil % 68.3 % (36.0-66.0); Platelet Count 204 x10^3/uL (150-450); Red Blood Count 3.14 x10^6/uL (4.1-5.6); Red Cell Distribution Width 19.2 % (11.5-14.0); White Blood Count 5.4 x10^3/uL (4.0-10.5)
[2022-09-16 05:36] LABS: BLOOD UREA NITROGEN 25 mg/dL (9-20); CHLORIDE 87 mmol/L (98-107); Calcium 7.9 mg/dL (8.4-10.2); Creatinine 1 0.83 mg/dL (0.66-1.25); EST GLOMERULAR FILTRATION RATE > 60.0 ML/MIN; Glucose 170 mg/dL (74-106); Potassium 3.2 mmol/L (3.5-5.1); SODIUM 129 mmol/L (137-145)
[2022-09-16 05:44] LABS: Carbon Dioxide 39 mmol/L (22-30)
[2022-09-16 06:31] LABS: ANION GAP 6.2 MEQ/L (5-15)
[2022-09-16] MEDS ORDERED: NON-FORMULARY ITEM (Propylene Glycol/Peg 400 [Systane 0.3-0.4% Eye Drops] 15 ML Drops) OP PRN (07:11)
[2022-09-16] MEDS ORDERED: Artificial Tears 15 ML OP PRN (07:20)
[2022-09-16 09:12] LABS: Slide Review 1 YES
[2022-09-16] MEDS ORDERED: NON-FORMULARY ITEM (Potassium Chloride [Klor-Con 10] 10 MEQ Tablet.Er) PO SCH (10:00)
[2022-09-16] MEDS ORDERED: Klor Con PO SCH (10:00)
[2022-09-16] MEDS ORDERED: SOTALOL HCL 120 MG PO SCH (10:00)
[2022-09-16] MEDS ORDERED: NON-FORMULARY ITEM (Potassium Chloride [Potassium Chloride] 20 MEQ Tab.Er.Prt) PO SCH (10:00)
[2022-09-16] MEDS: Betapace 80 MG PO SCH ×2 (10:28→21:36)
[2022-09-16] MEDS: Lasix 40 MG PO SCH (10:28)
[2022-09-16] MEDS: Coreg PO SCH ×2 (10:29→21:37)
[2022-09-16] MEDS: Maxzide-25MG Tablet PO SCH (10:29)
[2022-09-16] MEDS: LOPID PO SCH ×2 (10:30→21:37)
[2022-09-16] MEDS: NYSTOP 30 GM CREAM TOP SCH ×2 (10:30→21:38)
[2022-09-16] MEDS: Protonix 40MG Tablet PO SCH (10:31)
[2022-09-16] MEDS: HUMALOG SQ PRN ×2 (11:46→16:31)
[2022-09-16] MEDS: Glucotrol 5 MG PO SCH (11:47)
--- NOTE | 2022-09-16 13:06 | PCM.NOTE ---
Date and Time: 09/16/22 1302 Subjective Assessment: Pt is sleeping, a little difficult to awake but finally wakes to touch and answers questions. Thinks he may be close to baseline regarding breathing. - Review of Systems Constitutional: No Fever Respiratory: Short Of Breath Objective Exam General Appearance: no apparent distress, other (somnolent, but wakes to voice. Has to be woken several times during the interview.) Neurologic Exam: cooperative, No motor deficits Skin Exam: warm, dry, No rash Wound Assessment: Skin/Wound Assessment Wound/Incision Assessment Start: 09/11/22 11:33 Text: Status: Active Freq: Q6H Protocol: Document 09/16/22 02:00 CURTIS (Rec: 09/16/22 02:19 CURTIS [id number]) Wound/Incision Assessment Right Medial Buttock Wound Assessment Shift Assessment Wound Type Pressure Ulcer Wound Stage Stage II Drainage Amount None Drainage Odor None/Absent General Appearance Open to air Wound Bed Greatest Portion Red (Granulation) Surrounding Tissue [place] Comment BRRIER CREAM APPLIED Left Lower Lateral Calf Wound Assessment Shift Assessment Wound Type Stasis Ulcer Wound Stage Non Pressure Wound General Appearance Clean/Dry Surrounding Tissue [place] Primary Dressing MEPILEX Comment DRESSING CLEAN, DRY AND INTACT , TUBI GRIEF COUNSELOR ON ALSO Right Anterior Other Wound Assessment Shift Assessment Wound Type Stasis Ulcer Drainage Amount Minimal Drainage Description Serous General Appearance Open to air Surrounding Tissue Edematous-pitting Comment DRESSING CLEAN, DRY AND INTACT . TUBIGRIP ON ALSO Eye Exam: eyes nml inspection Ears, Nose, Throat Exam: moist mucous membranes Neck Exam: normal inspection Respiratory Exam: diminished breath sounds (good air exchange), crackles/rales (bibasilar, faint), No rhonchi, No wheezing Cardiovascular Exam: regular rate/rhythm, normal heart sounds, No murmur Gastrointestinal/Abdomen Exam: soft, normal bowel sounds, No tenderness, No distention, No mass, No guarding, No rebound Extremity Exam: other (bilat lower legs wrapped. 1+ LE edema distally) Back Exam: normal inspection, No rash OBJECTIVE DATA Vital Signs: Vital Signs - 24 hr Temp Pulse Resp BP Pulse Ox 09/16/22 11:37 97.9 F 68 16 126/59 96 09/16/22 07:26 98.1 F 68 16 108/53 93 L 09/16/22 04:00 97.0 F 71 18 121/49 96 10/17/22 23:40 96.6 F 77 18 121/50 96 09/15/22 19:39 78 20 94 L 09/15/22 19:02 97.7 F 83 18 167/72 99 09/15/22 16:00 97.7 F 78 22 120/58 98 Pain Assessment - Last Documented Pain Intensity 0 Pain Scale Used 0-10 Pain Scale Intake and Output: Intake & Output 09/14/22 09/15/22 09/16/22 09/17/22 11:59 11:59 11:59 11:59 Intake Total 2475 7300 1840 480 Output Total 2400 3750 2550 Balance 51 -488 -026 480 Weight 110.8 kg 110.2 kg 109.4 kg Lab Results: Lab Results-Last 24 Hours 09/15/22 09/15/22 09/16/22 Range/Units 16:23 21:03 04:50 WBC 5.4 (4.0-10.5) x10^3/uL RBC 3.14 L (4.1-5.6) x10^6/uL Hgb 7.5 L (12.5-18.0) g/dL Hct 26.3 L (42-50) % MCV 83.8 (78-100) fL MCH 23.9 L (26-32) pg MCHC 28.5 L (32-36) g/dL RDW 19.2 H (11.5-14.0) % Plt Count 204 (150-450) x10^3/uL MPV 10.4 (7.5-11.0) fL Gran % 68.3 H (36.0-66.0) % Immature Gran % (Auto) 0.4 (0.00-0.4) % Nucleat RBC Rel Count 0.0 (0.00-0.1) % Eos # (Auto) 0.17 (0-0.5) x10^3/uL Immature Gran # (Auto) 0.02 (0.00-0.03) x10^3u/L Absolute Lymphs (auto) 0.89 L (1.0-4.6) x10^3/uL Absolute Monos (auto) 0.60 (0.0-1.3) x10^3/uL Absolute Nucleated RBC 0.00 (0.00-0.01) x10^3u/L Lymphocytes % 16.5 L (24.0-44.0) % Monocytes % 11.1 (0.0-12.0) % Eosinophils % 3.1 (0.00-5.0) % Basophils % 0.6 (0.0-0.4) % Absolute Granulocytes 3.69 (1.4-6.9) x10^3/uL Basophils # 0.03 (0-0.4) x10^3/uL Sodium (137-145) mmol/L Potassium (3.5-5.1) mmol/L Chloride (98-107) mmol/L Carbon Dioxide (22-30) mmol/L Anion Gap (5-15) MEQ/L BUN (9-20) mg/dL Creatinine (0.66-1.25) mg/dL Estimated GFR ML/MIN Glucose (74-106) mg/dL POC Glucometer 162 H 232 H (74 to 106) mg/dL Calcium (8.4-10.2) mg/dL Slides for Path Review YES 09/16/22 09/16/22 09/16/22 Range/Units 04:50 07:16 11:30 WBC (4.0-10.5) x10^3/uL RBC (4.1-5.6) x10^6/uL Hgb (12.5-18.0) g/dL Hct (42-50) % MCV (78-100) fL MCH (26-32) pg MCHC (32-36) g/dL RDW (11.5-14.0) % Plt Count (150-450) x10^3/uL MPV (7.5-11.0) fL Gran % (36.0-66.0) % Immature Gran % (Auto) (0.00-0.4) % Nucleat RBC Rel Count (0.00-0.1) % Eos # (Auto) (0-0.5) x10^3/uL Immature Gran # (Auto) (0.00-0.03) x10^3u/L Absolute Lymphs (auto) (1.0-4.6) x10^3/uL Absolute Monos (auto) (0.0-1.3) x10^3/uL Absolute Nucleated RBC (0.00-0.01) x10^3u/L Lymphocytes % (24.0-44.0) % Monocytes % (0.0-12.0) % Eosinophils % (0.00-5.0) % Basophils % (0.0-0.4) % Absolute Granulocytes (1.4-6.9) x10^3/uL Basophils # (0-0.4) x10^3/uL Sodium 129 L (137-145) mmol/L Potassium 3.2 L (3.5-5.1) mmol/L Chloride 87 L (98-107) mmol/L Carbon Dioxide 39 H (22-30) mmol/L Anion Gap 6.2 (5-15) MEQ/L BUN 25 H (9-20) mg/dL Creatinine 0.83 (0.66-1.25) mg/dL Estimated GFR > 60.0 ML/MIN Glucose 170 H (74-106) mg/dL POC Glucometer 147 H 251 H (74 to 106) mg/dL Calcium 7.9 L (8.4-10.2) mg/dL Slides for Path Review Radiology Exams: Radiology Procedures Category Date Time Status CHEST 2 VIEWS (PA AND LAT) Stat Exams 09/14/22 21:09 Completed Multi-Disciplinary Progress Notes: Multi-Disciplinary Progress Notes 09/16/22 09:24 Case Management Note by Angela Clemons NO CHANGE IN DC PLANS AT THIS TIME- FAMILY HAS PLANS TO MEET WITH HOSPICE FOR INFORMATIONAL MTG LATER THIS WEEK Initialized on 09/16/22 09:24 - END OF NOTE 09/15/22 18:01 Respiratory Note by Yaneth Alcantar [phone] pts trach cleaned with peroxide and sterile water. drain sponge changed. pt b/s clear. inner cannula cleaned. trach site very clean. Initialized on 09/15/22 18:01 - END OF NOTE Assessment/Plan (1) CHF exacerbation Current Visit: Yes Status: Acute Assessment & Plan: Steady improvement. Now on po lasix, although still has some edema (much decreased) and faint crackles. Would start moving toward discharge; may be ready to go home tomorrow. He agrees to local outdoor guide. Hospice is going to do an informational session. Code(s): I50.9 - HEART FAILURE, UNSPECIFIED (2) A-fib Current Visit: No Status: Chronic Code(s): I48.91 - UNSPECIFIED ATRIAL FIBRILLATION (3) Urinary incontinence Current Visit: Yes Status: Acute Qualifiers: Urinary Incontinence type: unspecified incontinence Qualified Code(s): R32 - Unspecified urinary incontinence Code(s): R32 - UNSPECIFIED URINARY INCONTINENCE (4) Leg wound, left Current Visit: Yes Status: Acute Qualifiers: Encounter type: initial encounter Qualified Code(s): S81.802A - Unspecified open wound, left lower leg, initial encounter Code(s): S81.802A - UNSPECIFIED OPEN WOUND, LEFT LOWER LEG, INITIAL ENCOUNTER (5) Leg wound, right Current Visit: Yes Status: Acute Qualifiers: Encounter type: initial encounter Qualified Code(s): S81.801A - Unspecified open wound, right lower leg, initial encounter Code(s): S81.801A - UNSPECIFIED OPEN WOUND, RIGHT LOWER LEG, INITIAL ENCOUNTER (6) Chronic renal insufficiency Current Visit: No Status: Chronic Qualifiers: Code(s): N18.9 - CHRONIC KIDNEY DISEASE, UNSPECIFIED (7) DM type 2 (diabetes mellitus, type 2) Current Visit: No Status: Chronic Qualifiers: Diabetes mellitus bench assembler battery insulin use: with bench assembler battery use Diabetes mellitus complication status: with kidney complications Diabetes mellitus complication detail: with chronic kidney disease
--- NOTE | 2022-09-16 13:06 | PCM.NOTE ---
Date and Time: 09/16/22 1302 Subjective Assessment: Pt is sleeping, a little difficult to awake but finally wakes to touch and answers questions. Thinks he may be close to baseline regarding breathing. - Review of Systems Constitutional: No Fever Respiratory: Short Of Breath Objective Exam General Appearance: no apparent distress, other (somnolent, but wakes to voice. Has to be woken several times during the interview.) Neurologic Exam: cooperative, No motor deficits Skin Exam: warm, dry, No rash Wound Assessment: Skin/Wound Assessment Wound/Incision Assessment Start: 09/11/22 11:33 Text: Status: Active Freq: Q6H Protocol: Document 09/16/22 02:00 CURTIS (Rec: 09/16/22 02:19 CURTIS [id number]) Wound/Incision Assessment Right Medial Buttock Wound Assessment Shift Assessment Wound Type Pressure Ulcer Wound Stage Stage II Drainage Amount None Drainage Odor None/Absent General Appearance Open to air Wound Bed Greatest Portion Red (Granulation) Surrounding Tissue [place] Comment BRRIER CREAM APPLIED Left Lower Lateral Calf Wound Assessment Shift Assessment Wound Type Stasis Ulcer Wound Stage Non Pressure Wound General Appearance Clean/Dry Surrounding Tissue [place] Primary Dressing MEPILEX Comment DRESSING CLEAN, DRY AND INTACT , TUBI FACILITY COORDINATOR ON ALSO Right Anterior Other Wound Assessment Shift Assessment Wound Type Stasis Ulcer Drainage Amount Minimal Drainage Description Serous General Appearance Open to air Surrounding Tissue Edematous-pitting Comment DRESSING CLEAN, DRY AND INTACT . TUBIGRIP ON ALSO Eye Exam: eyes nml inspection Ears, Nose, Throat Exam: moist mucous membranes Neck Exam: normal inspection Respiratory Exam: diminished breath sounds (good air exchange), crackles/rales (bibasilar, faint), No rhonchi, No wheezing Cardiovascular Exam: regular rate/rhythm, normal heart sounds, No murmur Gastrointestinal/Abdomen Exam: soft, normal bowel sounds, No tenderness, No distention, No mass, No guarding, No rebound Extremity Exam: other (bilat lower legs wrapped. 1+ LE edema distally) Back Exam: normal inspection, No rash OBJECTIVE DATA Vital Signs: Vital Signs - 24 hr Temp Pulse Resp BP Pulse Ox 09/16/22 11:37 97.9 F 68 16 126/59 96 09/16/22 07:26 98.1 F 68 16 108/53 93 L 09/16/22 04:00 97.0 F 71 18 121/49 96 10/17/22 23:40 96.6 F 77 18 121/50 96 09/15/22 19:39 78 20 94 L 09/15/22 19:02 97.7 F 83 18 167/72 99 09/15/22 16:00 97.7 F 78 22 120/58 98 Pain Assessment - Last Documented Pain Intensity 0 Pain Scale Used 0-10 Pain Scale Intake and Output: Intake & Output 09/14/22 09/15/22 09/16/22 09/17/22 11:59 11:59 11:59 11:59 Intake Total 2475 7020 1840 480 Output Total 2400 3750 2550 Balance 37 -681 -589 480 Weight 110.8 kg 110.2 kg 109.4 kg Lab Results: Lab Results-Last 24 Hours 09/15/22 09/15/22 09/16/22 Range/Units 16:23 21:03 04:50 WBC 5.4 (4.0-10.5) x10^3/uL RBC 3.14 L (4.1-5.6) x10^6/uL Hgb 7.5 L (12.5-18.0) g/dL Hct 26.3 L (42-50) % MCV 83.8 (78-100) fL MCH 23.9 L (26-32) pg MCHC 28.5 L (32-36) g/dL RDW 19.2 H (11.5-14.0) % Plt Count 204 (150-450) x10^3/uL MPV 10.4 (7.5-11.0) fL Gran % 68.3 H (36.0-66.0) % Immature Gran % (Auto) 0.4 (0.00-0.4) % Nucleat RBC Rel Count 0.0 (0.00-0.1) % Eos # (Auto) 0.17 (0-0.5) x10^3/uL Immature Gran # (Auto) 0.02 (0.00-0.03) x10^3u/L Absolute Lymphs (auto) 0.89 L (1.0-4.6) x10^3/uL Absolute Monos (auto) 0.60 (0.0-1.3) x10^3/uL Absolute Nucleated RBC 0.00 (0.00-0.01) x10^3u/L Lymphocytes % 16.5 L (24.0-44.0) % Monocytes % 11.1 (0.0-12.0) % Eosinophils % 3.1 (0.00-5.0) % Basophils % 0.6 (0.0-0.4) % Absolute Granulocytes 3.69 (1.4-6.9) x10^3/uL Basophils # 0.03 (0-0.4) x10^3/uL Sodium (137-145) mmol/L Potassium (3.5-5.1) mmol/L Chloride (98-107) mmol/L Carbon Dioxide (22-30) mmol/L Anion Gap (5-15) MEQ/L BUN (9-20) mg/dL Creatinine (0.66-1.25) mg/dL Estimated GFR ML/MIN Glucose (74-106) mg/dL POC Glucometer 162 H 232 H (74 to 106) mg/dL Calcium (8.4-10.2) mg/dL Slides for Path Review YES 09/16/22 09/16/22 09/16/22 Range/Units 04:50 07:16 11:30 WBC (4.0-10.5) x10^3/uL RBC (4.1-5.6) x10^6/uL Hgb (12.5-18.0) g/dL Hct (42-50) % MCV (78-100) fL MCH (26-32) pg MCHC (32-36) g/dL RDW (11.5-14.0) % Plt Count (150-450) x10^3/uL MPV (7.5-11.0) fL Gran % (36.0-66.0) % Immature Gran % (Auto) (0.00-0.4) % Nucleat RBC Rel Count (0.00-0.1) % Eos # (Auto) (0-0.5) x10^3/uL Immature Gran # (Auto) (0.00-0.03) x10^3u/L Absolute Lymphs (auto) (1.0-4.6) x10^3/uL Absolute Monos (auto) (0.0-1.3) x10^3/uL Absolute Nucleated RBC (0.00-0.01) x10^3u/L Lymphocytes % (24.0-44.0) % Monocytes % (0.0-12.0) % Eosinophils % (0.00-5.0) % Basophils % (0.0-0.4) % Absolute Granulocytes (1.4-6.9) x10^3/uL Basophils # (0-0.4) x10^3/uL Sodium 129 L (137-145) mmol/L Potassium 3.2 L (3.5-5.1) mmol/L Chloride 87 L (98-107) mmol/L Carbon Dioxide 39 H (22-30) mmol/L Anion Gap 6.2 (5-15) MEQ/L BUN 25 H (9-20) mg/dL Creatinine 0.83 (0.66-1.25) mg/dL Estimated GFR > 60.0 ML/MIN Glucose 170 H (74-106) mg/dL POC Glucometer 147 H 251 H (74 to 106) mg/dL Calcium 7.9 L (8.4-10.2) mg/dL Slides for Path Review Radiology Exams: Radiology Procedures Category Date Time Status CHEST 2 VIEWS (PA AND LAT) Stat Exams 09/14/22 21:09 Completed Multi-Disciplinary Progress Notes: Multi-Disciplinary Progress Notes 09/16/22 09:24 Case Management Note by Angela Clemons NO CHANGE IN DC PLANS AT THIS TIME- FAMILY HAS PLANS TO MEET WITH HOSPICE FOR INFORMATIONAL MTG LATER THIS WEEK Initialized on 09/16/22 09:24 - END OF NOTE 09/15/22 18:01 Respiratory Note by Yaneth Alcantar 4390 pts trach cleaned with peroxide and sterile water. drain sponge changed. pt b/s clear. inner cannula cleaned. trach site very clean. Initialized on 09/15/22 18:01 - END OF NOTE Assessment/Plan (1) CHF exacerbation Current Visit: Yes Status: Acute Assessment & Plan: Steady improvement. Now on po lasix, although still has some edema (much decreased) and faint crackles. Would start moving toward discharge; may be ready to go home tomorrow. He agrees to local architectural inspector. Hospice is going to do an informational session. Code(s): I50.9 - HEART FAILURE, UNSPECIFIED (2) A-fib Current Visit: No Status: Chronic Code(s): I48.91 - UNSPECIFIED ATRIAL FIBRILLATION (3) Urinary incontinence Current Visit: Yes Status: Acute Qualifiers: Urinary Incontinence type: unspecified incontinence Qualified Code(s): R32 - Unspecified urinary incontinence Code(s): R32 - UNSPECIFIED URINARY INCONTINENCE (4) Leg wound, left Current Visit: Yes Status: Acute Qualifiers: Encounter type: initial encounter Qualified Code(s): S81.802A - Unspecified open wound, left lower leg, initial encounter Code(s): S81.802A - UNSPECIFIED OPEN WOUND, LEFT LOWER LEG, INITIAL ENCOUNTER (5) Leg wound, right Current Visit: Yes Status: Acute Qualifiers: Encounter type: initial encounter Qualified Code(s): S81.801A - Unspecified open wound, right lower leg, initial encounter Code(s): S81.801A - UNSPECIFIED OPEN WOUND, RIGHT LOWER LEG, INITIAL ENCOUNTER (6) Chronic renal insufficiency Current Visit: No Status: Chronic Qualifiers: Code(s): N18.9 - CHRONIC KIDNEY DISEASE, UNSPECIFIED (7) DM type 2 (diabetes mellitus, type 2) Current Visit: No Status: Chronic Qualifiers: Diabetes mellitus bed bug exterminator insulin use: with bed bug exterminator use Diabetes mellitus complication status: with kidney complications Diabetes mellitus complication detail: with chronic kidney disease
[2022-09-16] MEDS ORDERED: Klor Con PO ONE ×2 (13:07→15:27)
[2022-09-16] MEDS ORDERED: LASIX 20 MG PO ONE (13:30)
[2022-09-16] MEDS: TYLENOL 325 MG PO PRN ×2 (15:20→21:36)
[2022-09-16] MEDS: Carafate 1 GM PO SCH (16:31)
[2022-09-16] MEDS: Ativan 1 MG PO PRN (21:36)
[2022-09-16] MEDS: PROZAC 10 MG PO SCH (21:37)
[2022-09-16] MEDS: ZOCOR 20MG PO SCH (21:37)
[2022-09-16] MEDS: Lantus Insulin SQ SCH (21:37)
[2022-09-17] MEDS: Carafate 1 GM PO SCH (06:56)
[2022-09-17] MEDS: TYLENOL 325 MG PO PRN (06:57)
[2022-09-17 07:14] VITALS: BP 136/58
[2022-09-17 07:20] VITALS: PULSE 60; O2SAT 94
--- NOTE | 2022-09-17 08:53 | PCM.DS ---
Discharge Summary Date of Admission: 09/13/22 12:19 Admitting Physician: MARIELOS SMALL Primary Care Provider: MARIELOS SMALL Allergies Allergies gabapentin Allergy (Mild, Verified 09/10/22 15:13) Penicillins Allergy (Mild, Verified 09/10/22 15:13) Antihistamines - Alkylamine Allergy (Verified 09/10/22 15:13) pt unsure what antihistaine name was Antihistamines - Ethanolamine Allergy (Verified 09/10/22 15:13) pt unsure of name of antihistamine Antihistamines - Ethylenediamine Allergy (Verified 09/10/22 15:13) pt unsure of name of antihistamine Antihistamines - Piperazine Allergy (Verified 09/10/22 15:13) pt unsure of name of antihistamine Antihistamines - Piperidine Allergy (Verified 09/10/22 15:13) pt unsure of name of antihistamine Hospital Summary - Hospital Course Hospital Course: patient admitted with chf exacerbation, longstanding history of cardiomyopathy with recurrent admissions. - Vitals & Intake/Output Vital Signs: Vital Signs Temperature 97.9 F 09/17/22 07:12 Pulse Rate 60 09/17/22 07:18 Respiratory Rate 16 09/17/22 07:18 Blood Pressure 136/58 09/17/22 07:12 O2 Sat by Pulse Oximetry 94 L 09/17/22 07:18 Intake & Output: Intake & Output 09/14/22 09/15/22 09/16/22 09/17/22 11:59 11:59 11:59 11:59 Intake Total 2475 3170 1840 1540 Output Total 2400 3750 2550 2250 Balance 70 -376 -205 -787 Weight 110.8 kg 110.2 kg 109.4 kg 109.4 kg - Lab Result Diagrams: 09/16/22 04:50 09/16/22 04:50 Lab Results-Last 24 Hrs: Lab Results-Last 24 Hours 09/16/22 09/16/22 09/16/22 Range/Units 04:50 11:30 16:08 POC Glucometer 251 H 184 H (74 to 106) mg/dL Slides for Path Review YES 09/16/22 09/17/22 Range/Units 21:37 06:42 POC Glucometer 255 H 165 H (74 to 106) mg/dL Slides for Path Review Micro Results-Entire Visit: Accuchecks Date 09/17/22 Date 09/16/22 Date 09/16/22 Time 07:12 Time 16:15 Time 11:35 - Procedures and Test Procedures and Tests throughout Hospitalization: Therapy Orders & Screens 09/10/22 15:12 Respiratory Therapy Assessment DAILY Comment: 09/10/22 16:31 Oxygen NASAL CANNULA 2 lpm Comment: Diagnosis: CHF 09/11/22 10:30 PT Eval & Treat (MD Order) ONCE Reason for Eval:: leg wounds Diagnosis: CHF 09/12/22 12:06 PT Eval & Treat (MD Order) ONCE Reason for Eval:: GENERALIZED WEAKNESS Diagnosis: [facility] 09/14/22 08:44 PT Eval & Treat (MD Order) ONCE Reason for Eval:: Patient has wounds to bilat lower ext and Stage II Buttocks DR. order to wrap BLE due to pitting edema Diagnosis: CHF Discharge Exam General Appearance: no apparent distress, obese Neurologic Exam: alert, oriented x 3 Respiratory Exam: diminished breath sounds, prolonged expirations, other (trach present) Cardiovascular Exam: regular rate/rhythm, normal heart sounds Gastrointestinal/Abdomen Exam: soft, No tenderness, No mass Extremity Exam: pedal edema, swelling Wound Assessment: Skin/Wound Assessment Wound/Incision Assessment Start: 09/11/22 1 1:33 Text: Status: Active Freq: Q6H Protocol: Document 09/17/22 02:00 LB (Rec: 09/17/22 02:21 LB [id number]) Wound/Incision Assessment Right Medial Buttock Wound Assessment Shift Assessment Wound Type Pressure Ulcer Wound Stage Stage II Drainage Amount None Drainage Odor None/Absent General Appearance Open to air Wound Bed Greatest Portion Red (Granulation) Surrounding Tissue [place] Comment barrier cream applied PRN. Left Lower Lateral Calf Wound Assessment Shift Assessment Wound Type Stasis Ulcer Wound Stage Non Pressure Wound Dressing Status Dry & Intact Surrounding Tissue Edematous-pitting Primary Dressing MEPILEX Comment BLE wrapped per PT. Right Anterior Other Wound Assessment Shift Assessment Wound Type Stasis Ulcer Surrounding Tissue Edematous-pitting Comment dressing CDI. Wound Photo Photo Taken Yes Final Diagnosis/Problem List - Final Discharge Diagnosis/Problem (1) CHF exacerbation Current Visit: Yes Status: Acute Assessment & Plan: recurrent admissions, has home health. discussed hospice and local assessment manager. he would like to see someone in [place] so will refer to Dr Mike Han after discharge. family and patient to discuss hospice with his home health agency which also provides hospice. plan to increase home lasix from 40mg daily to bid Code(s): I50.9 - HEART FAILURE, UNSPECIFIED (2) Congestive heart failure Current Visit: No Status: Acute Code(s): I50.9 - HEART FAILURE, UNSPECIFIED (3) A-fib Current Visit: No Status: Chronic Code(s): I48.91 - UNSPECIFIED ATRIAL FIBRILLATION (4) DM type 2 (diabetes mellitus, type 2) Current Visit: No Status: Chronic - Discharge Disposition: Home, Self-Care Condition: Stable Prescriptions: New Furosemide 40 mg [Lasix 40 MG] 40 mg PO BID #60 tablet Potassium Chloride 20 meq PO BID #60 tablet Continue Pantoprazole Sodium [Protonix] 40 mg PO DAILY Insulin Glargine [Lantus Insulin] 20 unit SQ HS Gemfibrozil [Lopid] 600 mg PO BID Sotalol HCl [Betapace] 120 mg PO BID Insulin Aspart [NovoLOG Insulin] 0 unit SQ TID Albuterol 2.5 mg/3 ml Neb [Proventil 2.5 mg/3 ml Neb] 2.5 mg IH Q6HPRN PRN PRN Reason: Shortness Of Breath Triamterene/Hydrochlorothiazid [Triamterene-Hctz 37.5-25 mg Tb] 37.5 mg PO DAILY Atorvastatin Calcium 80 mg PO HS Ipratropium/Albuterol Sulfate [Combivent Inhaler] 1 gm IH QID Propylene Glycol/Peg 400 [Systane 0.3-0.4% Eye Drops] 1 drop OP QIDPRN PRN PRN Reason: Allergies Furosemide 40 mg [Lasix 40 MG] 40 mg PO DAILY Fluoxetine HCl 10 mg [Prozac 10 mg] 10 mg PO HS Carvedilol 3.125 mg [Coreg 3.125 MG] 6.25 mg PO BID Sucralfate 1 gm [Carafate 1 GM] 1 g PO 0600,1600 #60 tablet Glipizide 5 mg [Glucotrol 5 MG] 5 mg PO DAILY Discontinued Potassium Chloride 20 meq PO DAILY Potassium Chloride [Klor-Con 10] 10 meq PO DAILY Instructions: Heart Failure, Adult (DC) Follow up with: MIKE HAN MD [CONSULTING PHYSICIAN] - Call for Appointment MARIELOS SMALL MD [Primary Care Provider] - 2 weeks
--- NOTE | 2022-09-17 08:53 | PCM.DS ---
Discharge Summary Date of Admission: 09/13/22 12:19 Admitting Physician: MARIELOS SMALL Primary Care Provider: MARIELOS SMALL Allergies Allergies gabapentin Allergy (Mild, Verified 09/10/22 15:13) Penicillins Allergy (Mild, Verified 09/10/22 15:13) Antihistamines - Alkylamine Allergy (Verified 09/10/22 15:13) pt unsure what antihistaine name was Antihistamines - Ethanolamine Allergy (Verified 09/10/22 15:13) pt unsure of name of antihistamine Antihistamines - Ethylenediamine Allergy (Verified 09/10/22 15:13) pt unsure of name of antihistamine Antihistamines - Piperazine Allergy (Verified 09/10/22 15:13) pt unsure of name of antihistamine Antihistamines - Piperidine Allergy (Verified 09/10/22 15:13) pt unsure of name of antihistamine Hospital Summary - Hospital Course Hospital Course: patient admitted with chf exacerbation, longstanding history of cardiomyopathy with recurrent admissions. - Vitals & Intake/Output Vital Signs: Vital Signs Temperature 97.9 F 09/17/22 07:12 Pulse Rate 60 09/17/22 07:18 Respiratory Rate 16 09/17/22 07:18 Blood Pressure 136/58 09/17/22 07:12 O2 Sat by Pulse Oximetry 94 L 09/17/22 07:18 Intake & Output: Intake & Output 09/14/22 09/15/22 09/16/22 09/17/22 11:59 11:59 11:59 11:59 Intake Total 2475 3170 1840 1540 Output Total 2400 3750 2550 2250 Balance 02 -002 -655 -702 Weight 110.8 kg 110.2 kg 109.4 kg 109.4 kg - Lab Result Diagrams: 09/16/22 04:50 09/16/22 04:50 Lab Results-Last 24 Hrs: Lab Results-Last 24 Hours 09/16/22 09/16/22 09/16/22 Range/Units 04:50 11:30 16:08 POC Glucometer 251 H 184 H (74 to 106) mg/dL Slides for Path Review YES 09/16/22 09/17/22 Range/Units 21:37 06:42 POC Glucometer 255 H 165 H (74 to 106) mg/dL Slides for Path Review Micro Results-Entire Visit: Accuchecks Date 09/17/22 Date 09/16/22 Date 09/16/22 Time 07:12 Time 16:15 Time 11:35 - Procedures and Test Procedures and Tests throughout Hospitalization: Therapy Orders & Screens 09/10/22 15:12 Respiratory Therapy Assessment DAILY Comment: 09/10/22 16:31 Oxygen NASAL CANNULA 2 lpm Comment: Diagnosis: CHF 09/11/22 10:30 PT Eval & Treat (MD Order) ONCE Reason for Eval:: leg wounds Diagnosis: CHF 09/12/22 12:06 PT Eval & Treat (MD Order) ONCE Reason for Eval:: GENERALIZED WEAKNESS Diagnosis: [facility] 09/14/22 08:44 PT Eval & Treat (MD Order) ONCE Reason for Eval:: Patient has wounds to bilat lower ext and Stage II Buttocks DR. order to wrap BLE due to pitting edema Diagnosis: CHF Discharge Exam General Appearance: no apparent distress, obese Neurologic Exam: alert, oriented x 3 Respiratory Exam: diminished breath sounds, prolonged expirations, other (trach present) Cardiovascular Exam: regular rate/rhythm, normal heart sounds Gastrointestinal/Abdomen Exam: soft, No tenderness, No mass Extremity Exam: pedal edema, swelling Wound Assessment: Skin/Wound Assessment Wound/Incision Assessment Start: 09/11/22 1 1:33 Text: Status: Active Freq: Q6H Protocol: Document 09/17/22 02:00 LB (Rec: 09/17/22 02:21 LB [id number]) Wound/Incision Assessment Right Medial Buttock Wound Assessment Shift Assessment Wound Type Pressure Ulcer Wound Stage Stage II Drainage Amount None Drainage Odor None/Absent General Appearance Open to air Wound Bed Greatest Portion Red (Granulation) Surrounding Tissue Summerset Comment barrier cream applied PRN. Left Lower Lateral Calf Wound Assessment Shift Assessment Wound Type Stasis Ulcer Wound Stage Non Pressure Wound Dressing Status Dry & Intact Surrounding Tissue Edematous-pitting Primary Dressing MEPILEX Comment BLE wrapped per PT. Right Anterior Other Wound Assessment Shift Assessment Wound Type Stasis Ulcer Surrounding Tissue Edematous-pitting Comment dressing CDI. Wound Photo Photo Taken Yes Final Diagnosis/Problem List - Final Discharge Diagnosis/Problem (1) CHF exacerbation Current Visit: Yes Status: Acute Assessment & Plan: recurrent admissions, has home health. discussed hospice and local smudger. he would like to see someone in [place] so will refer to Dr Mike Han after discharge. family and patient to discuss hospice with his home health agency which also provides hospice. plan to increase home lasix from 40mg daily to bid Code(s): I50.9 - HEART FAILURE, UNSPECIFIED (2) Congestive heart failure Current Visit: No Status: Acute Code(s): I50.9 - HEART FAILURE, UNSPECIFIED (3) A-fib Current Visit: No Status: Chronic Code(s): I48.91 - UNSPECIFIED ATRIAL FIBRILLATION (4) DM type 2 (diabetes mellitus, type 2) Current Visit: No Status: Chronic - Discharge Disposition: Home, Self-Care Condition: Stable Prescriptions: New Furosemide 40 mg [Lasix 40 MG] 40 mg PO BID #60 tablet Potassium Chloride 20 meq PO BID #60 tablet Continue Pantoprazole Sodium [Protonix] 40 mg PO DAILY Insulin Glargine [Lantus Insulin] 20 unit SQ HS Gemfibrozil [Lopid] 600 mg PO BID Sotalol HCl [Betapace] 120 mg PO BID Insulin Aspart [NovoLOG Insulin] 0 unit SQ TID Albuterol 2.5 mg/3 ml Neb [Proventil 2.5 mg/3 ml Neb] 2.5 mg IH Q6HPRN PRN PRN Reason: Shortness Of Breath Triamterene/Hydrochlorothiazid [Triamterene-Hctz 37.5-25 mg Tb] 37.5 mg PO DAILY Atorvastatin Calcium 80 mg PO HS Ipratropium/Albuterol Sulfate [Combivent Inhaler] 1 gm IH QID Propylene Glycol/Peg 400 [Systane 0.3-0.4% Eye Drops] 1 drop OP QIDPRN PRN PRN Reason: Allergies Furosemide 40 mg [Lasix 40 MG] 40 mg PO DAILY Fluoxetine HCl 10 mg [Prozac 10 mg] 10 mg PO HS Carvedilol 3.125 mg [Coreg 3.125 MG] 6.25 mg PO BID Sucralfate 1 gm [Carafate 1 GM] 1 g PO 0600,1600 #60 tablet Glipizide 5 mg [Glucotrol 5 MG] 5 mg PO DAILY Discontinued Potassium Chloride 20 meq PO DAILY Potassium Chloride [Klor-Con 10] 10 meq PO DAILY Instructions: Heart Failure, Adult (DC) Follow up with: MIKE HAN MD [CONSULTING PHYSICIAN] - Call for Appointment MARIELOS SMALL MD [Primary Care Provider] - 2 weeks
[2022-09-17] MEDS: Protonix 40MG Tablet PO SCH (09:10)
[2022-09-17] MEDS: Betapace 80 MG PO SCH (09:11)
[2022-09-17] MEDS: Maxzide-25MG Tablet PO SCH (09:11)
[2022-09-17] MEDS: Coreg PO SCH (09:11)
[2022-09-17] MEDS: Lasix 40 MG PO SCH (09:11)
[2022-09-17] MEDS: Glucotrol 5 MG PO SCH (09:11)
[2022-09-17] MEDS: LOPID PO SCH (09:13)
[2022-09-17] MEDS: NYSTOP 30 GM CREAM TOP SCH (09:13)
[2022-09-17] MEDS ORDERED: Klor Con PO SCH (10:00)
== END 2022-09-17 09:52 | disposition home or self-care (01) | DRG 293 ==
LOC: ED 14:49 → MED SURG 21:27 → OBSVTOIN 09-13 12:19
PROVIDERS: ADMIT Family Medicine; ATTEND Family Medicine
DX: I13.0 Hypertensive heart and chronic kidney disease with heart failure and stage 1 through stage 4 chronic kidney disease, or unspecified chronic kidney disease (principal); I50.9 Heart failure, unspecified; I48.91 Unspecified atrial fibrillation; E11.22 Type 2 diabetes mellitus with diabetic chronic kidney disease; N18.9 Chronic kidney disease, unspecified; J44.9 Chronic obstructive pulmonary disease, unspecified; E78.5 Hyperlipidemia, unspecified; R60.0 Localized edema; I25.10 Atherosclerotic heart disease of native coronary artery without angina pectoris; R32 Unspecified urinary incontinence; S81.802A Unspecified open wound, left lower leg, initial encounter; S81.801A Unspecified open wound, right lower leg, initial encounter; I05.9 Rheumatic mitral valve disease, unspecified; D64.9 Anemia, unspecified; L89.312 Pressure ulcer of right buttock, stage 2; Z79.01 Long term (current) use of anticoagulants; Z79.899 Other long term (current) drug therapy; Z20.828 Contact with and (suspected) exposure to other viral communicable diseases; Z85.828 Personal history of other malignant neoplasm of skin
CPT/HCPCS: 0241U; 36000; 36415; 71045; 71046; 80048; 80053; 80076; 82607; 82947; 83880; 84443; 84484; 85025; 85610; 85730; 93005; 93268; 94640; 94760; 94762; 96374; 97110; 97161; 97530; 99285; J1817; J1940; J3480; J7609; A9270-GY; G0378

== ENCOUNTER 2022-10-10 21:04 | Emergency (ER) | payer MEDICARE ==
[2022-10-10 21:22] VITALS: O2SAT 100
[2022-10-10] MEDS ORDERED: DUONEB 0.5-3 MG/3 ml Neb IH ONE ×2 (21:25→21:36)
[2022-10-10 21:49] LABS: Absolute Neutrophil Ct (ANC) 6.92 x10^3/uL (1.4-6.9); Basophil (Absolute #) 0.08 x10^3/uL (0-0.4); Eosinophil % 3.4 % (0.00-5.0); Eosinophil (Absolute #) 0.33 x10^3/uL (0-0.5); Hematocrit 29.3 % (42-50); Hemoglobin 8.3 g/dL (12.5-18.0); Lymphocytes % 11.2 % (24.0-44.0); Mean Cell Volume 85.2 fL (78-100); Mean Corpuscular Hemoglobin 24.1 pg (26-32); Mean Corpuscular Hgb Concent. 28.3 g/dL (32-36); Mean Platelet Volume 10.3 fL (7.5-11.0); Monocyte (Absolute #) 1.32 x10^3/uL (0.0-1.3); Monocytes % 13.5 % (0.0-12.0); Neutrophil % 70.7 % (36.0-66.0); Platelet Count 291 x10^3/uL (150-450); Red Blood Count 3.44 x10^6/uL (4.1-5.6); White Blood Count 9.8 x10^3/uL (4.0-10.5)
--- NOTE | 2022-10-10 22:00 | ERPHSYRPT ---
- History of Present Illness Time Seen by Provider: 10/10/22 21:57 Source: patient Exam Limitations: no limitations Patient Subjective Stated Complaint: Patient has had increased congestion for the past 6 hours and has become short of breath. Feels like sinus drainage is b locking his tracheostomy. Triage Nursing Assessment: Pt arrived EMS. A&O X 3. Has audible wheezing, but lung sounds diminished and clear throughout. Pt is pursed lip breathing intermittently. Can complete phrases but difficulty carrying a conversation. Nonproductive cough. Skin color WNL for race. Physician History: Patient has had increased congestion for the past 6 hours and has become short of breath. Feels like sinus drainage is blocking his tracheostomy. Timing/Duration: today Activities at Onset: none Severity of Dyspnea-Max: none Severity of Dyspnea-Current: none Possible Cause: occasional episodes Associated Symptoms: denies symptoms Allergies/Adverse Reactions: gabapentin Allergy (Mild, Verified 10/10/22 21:06) Penicillins Allergy (Mild, Verified 10/10/22 21:06) Antihistamines - Alkylamine Allergy (Verified 10/10/22 21:06) pt unsure what antihistaine name was Antihistamines - Ethanolamine Allergy (Verified 10/10/22 21:06) pt unsure of name of antihistamine Antihistamines - Ethylenediamine Allergy (Verified 10/10/22 21:06) pt unsure of name of antihistamine Antihistamines - Piperazine Allergy (Verified 10/10/22 21:06) pt unsure of name of antihistamine Antihistamines - Piperidine Allergy (Verified 10/10/22 21:06) pt unsure of name of antihistamine Home Medications: Albuterol 2.5 mg/3 ml Neb [Proventil 2.5 mg/3 ml Neb] 2.5 mg IH Q6HPRN PRN 07/11/13 [History] Gemfibrozil [Lopid] 600 mg PO BID 07/11/13 [History] Insulin Aspart [NovoLOG Insulin] 0 unit SQ TID 07/11/13 [History] Insulin Glargine [Lantus Insulin] 20 unit SQ HS 07/11/13 [History] Pantoprazole Sodium [Protonix] 40 mg PO DAILY 07/11/13 [History] Sotalol HCl [Betapace] 120 mg PO BID 07/11/13 [History] Atorvastatin Calcium 80 mg PO HS 12/04/16 [History] Triamterene/Hydrochlorothiazid [Triamterene-Hctz 37.5-25 mg Tb] 37.5 mg PO DAILY 12/04/16 [History] Ipratropium/Albuterol Sulfate [Combivent Inhaler] 1 gm IH QID 03/25/19 [History] Propylene Glycol/Peg 400 [Systane 0.3-0.4% Eye Drops] 1 drop OP QIDPRN PRN 11/25/21 [History] Furosemide 40 mg [Lasix 40 MG] 40 mg PO DAILY 03/27/22 [History] Carvedilol 3.125 mg [Coreg 3.125 MG] 6.25 mg PO BID 08/10/22 [History] Fluoxetine HCl 10 mg [Prozac 10 mg] 10 mg PO HS 08/10/22 [History] Glipizide 5 mg [Glucotrol 5 MG] 5 mg PO DAILY 09/10/22 [History] Hx Tetanus, Diphtheria Vaccination/Date Given: No (unknown) Hx Influenza Vaccination/Date Given: Yes Hx Pneumococcal Vaccination/Date Given: No (unknown) Immunizations Up to Date: Yes Travel Risk - International Travel Have you traveled outside of the country in past 3 weeks: No - Coronavirus Screening Are you exhibiting any of the following symptoms?: Yes Symptoms: Shortness of Breath - Vaccine Status Have you recieved a Covid-19 vaccination: Yes Scale 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: [employer] - Vaccination Dates Date of 2cond Vaccination (if applicable): unknown Comment: [place] - Review of Systems Constitutional: No Symptoms Eyes: No Symptoms Ears, Nose, & Throat: Other (tracheostomy discharge) Respiratory: Dyspnea Cardiac: No Symptoms Abdominal/Gastrointestinal: No Symptoms Genitourinary Symptoms: No Symptoms Musculoskeletal: No Symptoms Skin: No Symptoms - Past Medical History Pertinent Past Medical History: Yes Neurological History: Peripheral Neuropathy, TIA ENT History: No Pertinent History Cardiac History: Arrhythmia, Congestive Heart Failure, Coronary Artery Disease, High Cholesterol, Hypertension Respiratory History: CHF, COPD, Sleep Apnea Endocrine Medical History: Diabetes Type II Musculoskeletal History: No Pertinent History GI Medical History: GERD History: No Pertinent History Psycho-Social History: No Pertinent History Male Reproductive Disorders: No Pertinent History Other Medical History: GERD. SX HX: PACEMAKER 2010, CARDIAC STENTS X 2 1996 AND 2007. USES BIPAP. - no changes from last admit - Past Surgical History Past Surgical History: Yes Neuro Surgical History: No Pertinent History Cardiac: Cardiac Catheterization, Cardiac Stent, Pacemaker Respiratory: Tracheostomy Gastrointestinal: No Pertinent History Genitourinary: No Pertinent History Musculoskeletal: Orthopedic Surgery Male Surgical History: No Pertinent History Other Surgical History: toe reattached, lip cancer removed, 6 teeth extracted 12/03/2016, cardiac ablation for afib - Social History Smoking Status: Former smoker How long have you smoked: 30 yrs Exposure to second hand smoke: No Drug Use: none Patient Lives Alone: No Significant Family History: heart disease - Nursing Vital Signs Nursing Vital Signs: Initial Vital Signs Temperature 98.3 F 10/10/22 21:07 Pulse Rate 64 10/10/22 21:07 Respiratory Rate 24 10/10/22 21:07 Blood Pressure 121/50 10/10/22 21:07 O2 Sat by Pulse Oximetry 100 10/10/22 21:07 Pain Scale Pain Intensity 0 - Physical Exam General Appearance: no apparent distress, alert Eye Exam: PERRL/EOMI Neck Exam: normal inspection, supple Respiratory Exam: diminished breath sounds, crackles/rales Cardiovascular/Chest Exam: normal heart sounds, regular rate/rhythm Abdominal/Gastrointestinal Exam: soft, No tenderness, No distention, No mass Extremity Exam: non-tender, normal range of motion, normal inspection, no calf tenderness, no pedal edema Neurologic Exam: alert, oriented x 3, cooperative, security compliance engineer II-XII nml as tested, sensation nml, No motor deficits Skin Exam: normal color, warm, No dry SpO2 Interpretation: normal SpO2: 100 O2 Delivery: Room Air - Course Nursing assessment & vital signs reviewed: Yes - Radiology Exams Chest X-ray Interpretation: Reviewed by me Ordered Tests: Active Orders 24 hr Category Date Time Status CHEST 1 VIEW (PORTABLE) Stat Exams 10/10/22 21:27 Taken CBC W DIFF Stat Lab 10/10/22 21:47 Completed CMP Stat Lab 10/10/22 21:47 Completed MAGNESIUM Stat Lab 10/10/22 21:47 Completed NT PRO BNP Stat Lab 10/10/22 21:47 Completed Respiratory Therapy Assessment DAILY RT 10/10/22 21:52 Active Medication Summary Discontinued Medications Generic Name Dose Route Start Last Admin Trade Name Terrance PRN Reason Stop Dose Admin Albuterol/Ipratropium 3 ml 10/10/22 21:25 10/10/22 21:51 Ipratropium/Albuterol Sulfate 3 Ml Ampul.Neb IH 10/10/22 21:26 3 ml STAT ONE Administration Albuterol/Ipratropium Confirm 10/10/22 21:36 Ipratropium/Albuterol Sulfate 3 Ml Ampul.Neb Administered 10/10/22 21:37 Dose 3 ml IH .STK-MED ONE Methylprednisolone Sodium 0 mg 10/10/22 22:04 Succinate 125 mg/ Sterile IM 10/10/22 22:05 Water 2 ml STAT ONE Methylprednisolone Sodium Succinate Confirm 10/10/22 22:14 Methylprednis Sod Succ 125 Mg/2 Ml Vial Administered 10/10/22 22:15 Dose 125 mg .ROUTE .STK-MED ONE Sterile Water Confirm 10/10/22 22:14 Water For Injection,Sterile 10 Ml Vial Administered 10/10/22 22:15 Dose 10 ml IJ .STK-MED ONE Lab/Rad Data: Laboratory Result Diagrams 10/10/22 21:47 10/10/22 21:47 Laboratory Results 10/10/22 10/10/22 Range/Units 21:47 21:47 WBC 9.8 (4.0-10.5) x10^3/uL RBC 3.44 L (4.1-5.6) x10^6/uL Hgb 8.3 L (12.5-18.0) g/dL Hct 29.3 L (42-50) % MCV 85.2 (78-100) fL MCH 24.1 L (26-32) pg MCHC 28.3 L (32-36) g/dL RDW 19.0 H (11.5-14.0) % Plt Count 291 (150-450) x10^3/uL MPV 10.3 (7.5-11.0) fL Gran % 70.7 H (36.0-66.0) % Immature Gran % (Auto) 0.4 (0.00-0.4) % Nucleat RBC Rel Count 0.0 (0.00-0.1) % Eos # (Auto) 0.33 (0-0.5) x10^3/uL Immature Gran # (Auto) 0.04 H (0.00-0.03) x10^3u/L Absolute Lymphs (auto) 1.10 (1.0-4.6) x10^3/uL Absolute Monos (auto) 1.32 H (0.0-1.3) x10^3/uL Absolute Nucleated RBC 0.00 (0.00-0.01) x10^3u/L Lymphocytes % 11.2 L (24.0-44.0) % Monocytes % 13.5 H (0.0-12.0) % Eosinophils % 3.4 (0.00-5.0) % Basophils % 0.8 (0.0-0.4) % Absolute Granulocytes 6.92 H (1.4-6.9) x10^3/uL Basophils # 0.08 (0-0.4) x10^3/uL Sodium 129 L (137-145) mmol/L Potassium 4.5 (3.5-5.1) mmol/L Chloride 89 L (98-107) mmol/L Carbon Dioxide 35 H (22-30) mmol/L Anion Gap 9.7 (5-15) MEQ/L BUN 33 H (9-20) mg/dL Creatinine 1.24 (0.66-1.25) mg/dL Estimated GFR 59.8 ML/MIN Glucose 162 H (74-106) mg/dL Calcium 8.0 L (8.4-10.2) mg/dL Magnesium 1.9 (1.6-2.3) mg/dL Total Bilirubin 0.50 (0.2-1.3) mg/dL AST 26 (17-59) U/L ALT 13 (0-50) U/L Alkaline Phosphatase 116 (38-126) U/L NT-Pro-B Natriuret Pep 2410 H (0-1800) pg/mL Serum Total Protein 6.6 (6.3-8.2) g/dL Albumin 3.3 L (3.5-5.0) g/dL - Progress Progress: improved, re-examined Air Movement: good Blood Culture(s) Obtained: No Antibiotics given: No Counseled pt/family regarding: lab results, need for follow-up, rad results - Departure Departure Disposition: Home Clinical Impression: Shortness of breath Tracheostomy complication Qualifiers: Tracheostomy complication: unspecified Qualified Code(s): J95.00 - Unspecified tracheostomy complication Condition: Stable Critical Care Time: No Referrals: MARIELOS SMALL MD [Primary Care Provider] - Follow up/PCP as directed Instructions: How to Care for a Tracheostomy Additional Instructions: Discharge/Care Plan LUKE EASON was seen on 10/10/22 in the Emergency Room. The patient was counseled regarding Diagnosis,Lab results, Imaging studies, need for follow up and when to return to the Emergency Room. Prescriptions given: Discharge Note I have spoken with the patient and/or caregivers. I have explained the patient's condition, diagnosis and treatment plan based on the information available to me at this time. I have answered the patient's and/or caregiver's questions and addressed any concerns. The patient and/or caregivers have as good understanding of the patient's diagnosis, condition and treatment plan as can be expected at this point. The vital signs have been stable. The patient's condition is stable and appropriate for discharge from the emergency department. The patient will pursue further outpatient evaluation with the primary care vinicius soriano or other designated or consulting physician as outlined in the discharge instructions. The patient and/or caregivers are agreeable to this plan of care and follow-up instructions have been explained in detail. The patient and/or caregivers have received these instruction. The patient/and or caregivers are aware that any significant change in condition or worsening of symptoms should prompt an immediate return to this or the closest emergency department or call 911. LUKE EASON was seen on 10/10/22 n the Emergency Room. At that time you were treated for an emergent condition, during your visit Laboratory, Radiology and/or other procedures may have been ordered. It is very important that you follow-up with your Primary Care Physician MARIELOS SMALL within the next 24- 48 hours to review your Emergency Room visit and the final results of testing that was ordered. Some test results such as Urine Cultures, Blood Cultures, and other cultures if ordered will not be finalized for 24-48 hours. If you do not have a Primary Care Provider please call the medical records department at [phone] ext [phone] to obtain a copy of your results or you may sign into our patient portal to obtain these results by visiting us @ [email or web address] and completing the following steps: 1. Click on the Patient Portal link 2. Click the Patient Self Enrollment Link to complete the enrollment form and entering your 3. Once the enrollment form is completed you will receive an email with a temporary ID and password at the email address you provided. 4. Next choose a user name and password. Your user name must be at least 4 characters long and your password must be at least 4 characters long. 5. Choose a security question from the list and provide your answer to the qu estion. If you already have signed into the Health Portal you may access your Health C are Information 22/06 by the following steps: 1. Login to our website @ [email or web address] 2. Enter your original user name and password. FAQS The [facility] Health Portal is an online tool that contains your Lab Results, Radiology Reports, Visit History, Discharge Instructions and Health Summary Lab and Radiology Results will not be available for 72 hours on the portal. The Portal is a secure site, passwords are encryted and URLs are re-written so they cannot be copied and pasted. You and authorized family members are the only ones who can access your Portal. Also there is a timeout feature that protects your information if you leave the Portal page open. If you have technical difficulty please use the Contact Us link on the page this will allow you to submit any questions you have regarding the Portal or you may contact the Medical Record Department at [phone] ext [phone].
[2022-10-10] MEDS ORDERED: solu-MEDROL 125 MG, Sterile H2O 10 ml 2 ML IM ONE ×2 (22:04)
[2022-10-10 22:09] LABS: ALBUMIN 3.3 g/dL (3.5-5.0); ANION GAP 9.7 MEQ/L (5-15); BILIRUBIN,TOTAL 0.5 mg/dL (0.2-1.3); Creatinine 1 1.24 mg/dL (0.66-1.25); EST GLOMERULAR FILTRATION RATE 59.8 ML/MIN; MAGNESIUM 1.9 mg/dL (1.6-2.3); Potassium 4.5 mmol/L (3.5-5.1); Total Protein 6.6 g/dL (6.3-8.2)
[2022-10-10] MEDS ORDERED: solu-MEDROL ONE (22:14)
[2022-10-10] MEDS ORDERED: Sterile H2O 10 ml IJ ONE (22:14)
[2022-10-10 22:17] VITALS: BP 141/56; PULSE 63
[2022-10-10 22:50] LABS: Slide Review 1 YES
--- NOTE | 2022-10-10 22:54 | XRAY ---
Indication: Short of breath. Comparison: September 14, 2022 Portable chest demonstrates stable mild bibasilar infiltrates/atelectasis/effusions, borderline cardiomegaly with left pacemaker, and tracheostomy cannula. No new cardiopulmonary abnormalities.
== END 2022-10-10 22:34 | disposition home or self-care (01) ==
LOC: ED 21:04
DX: J95.00 Unspecified tracheostomy complication (principal); R06.02 Shortness of breath; R09.81 Nasal congestion; I11.0 Hypertensive heart disease with heart failure; I50.9 Heart failure, unspecified; E78.5 Hyperlipidemia, unspecified; E11.42 Type 2 diabetes mellitus with diabetic polyneuropathy; J44.9 Chronic obstructive pulmonary disease, unspecified; Z79.4 Long term (current) use of insulin; Z79.84 Long term (current) use of oral hypoglycemic drugs; Z79.899 Other long term (current) drug therapy
CPT/HCPCS: 36415; 71045; 80053; 83735; 83880; 85025; 94640; 96372; 99283; J2930; A9270-GY

== ENCOUNTER 2022-10-19 04:27 | Observation (INO) | payer MEDICARE, OTHER ==
[2022-10-19] MEDS ORDERED: BABY ASPIRIN 81 MG CHEW PO ONE (04:57)
[2022-10-19] MEDS ORDERED: DUONEB 0.5-3 MG/3 ml Neb IH ONE ×2 (05:21→05:27)
[2022-10-19] MEDS ORDERED: Lasix 40 MG/4 ML IV ONE (05:27)
[2022-10-19 05:41] LABS: Absolute Neutrophil Ct (ANC) 5.82 x10^3/uL (1.4-6.9); Basophil (Absolute #) 0.08 x10^3/uL (0-0.4); Eosinophil % 4.3 % (0.00-5.0); Eosinophil (Absolute #) 0.37 x10^3/uL (0-0.5); Hematocrit 29.6 % (42-50); Hemoglobin 8.4 g/dL (12.5-18.0); Lymphocytes % 12.7 % (24.0-44.0); Mean Cell Volume 84.8 fL (78-100); Mean Corpuscular Hemoglobin 24.1 pg (26-32); Mean Corpuscular Hgb Concent. 28.4 g/dL (32-36); Monocyte (Absolute #) 1.26 x10^3/uL (0.0-1.3); Monocytes % 14.5 % (0.0-12.0); Platelet Count 306 x10^3/uL (150-450); Red Blood Count 3.49 x10^6/uL (4.1-5.6); Red Cell Distribution Width 19.3 % (11.5-14.0); White Blood Count 8.7 x10^3/uL (4.0-10.5)
--- NOTE | 2022-10-19 05:53 | ERPHSYRPT ---
- History of Present Illness Time Seen by Provider: 10/19/22 04:36 Source: patient, EMS Exam Limitations: no limitations Patient Subjective Stated Complaint: pt states he has been having shortness of breath for 4 hours, called ambulance to bring him to ER. Triage Nursing Assessment: pt is alert and oriented, able to answer answer questions appropriatly, o2 sats 98% on 3l O2, vpaced HR 62, bp 138/56, does not appear to be in resp distress at this time, pt has trach in place secured with collar that pt as had since february 242021. Physician History: 81-year-old male with history of hypertension, hyperlipidemia, diabetes mellitus, coronary artery disease status post stenting, congestive heart failure, atrial fibrillation status post ablation/pacemaker placement not anticoagulated due to GI bleed presented to the ER with chief complaint of sudden onset shortness of breath almost 4 hours prior to arrival with progressive worsening. Patient reports bilateral lower extremity swelling which is progressively worsening with open sores/vesicles, has gained 6 pounds in the last 2 days. Complaining of chest tightness and pressure all over. Timing/Duration: hour(s) (4), constant, sudden, worse Activities at Onset: rest Severity of Dyspnea-Max: moderate Severity of Dyspnea-Current: moderate Possible Cause: unknown cause Modifying Factors: Improves With: oxygen. Worsens With: coughing Associated Symptoms: edema, heaviness, leg swelling, tightness Allergies/Adverse Reactions: gabapentin Allergy (Mild, Verified 10/19/22 04:40) Penicillins Allergy (Mild, Verified 10/19/22 04:40) Antihistamines - Alkylamine Allergy (Verified 10/19/22 04:40) pt unsure what antihistaine name was Antihistamines - Ethanolamine Allergy (Verified 10/19/22 04:40) pt unsure of name of antihistamine Antihistamines - Ethylenediamine Allergy (Verified 10/19/22 04:40) pt unsure of name of antihistamine Antihistamines - Piperazine Allergy (Verified 10/19/22 04:40) pt unsure of name of antihistamine Antihistamines - Piperidine Allergy (Verified 10/19/22 04:40) pt unsure of name of antihistamine Home Medications: Albuterol 2.5 mg/3 ml Neb [Proventil 2.5 mg/3 ml Neb] 2.5 mg IH Q6HPRN PRN 07/11/13 [History] Gemfibrozil [Lopid] 600 mg PO BID 07/11/13 [History] Insulin Aspart [NovoLOG Insulin] 16 unit SQ TID 07/11/13 [History] Insulin Glargine [Lantus Insulin] 20 unit SQ HS 07/11/13 [History] Pantoprazole Sodium [Protonix] 40 mg PO DAILY 07/11/13 [History] Sotalol HCl [Betapace] 120 mg PO BID 07/11/13 [History] Atorvastatin Calcium 80 mg PO HS 12/04/16 [History] Triamterene/Hydrochlorothiazid [Triamterene-Hctz 37.5-25 mg Tb] 37.5 mg PO DAILY 12/04/16 [History] Propylene Glycol/Peg 400 [Systane 0.3-0.4% Eye Drops] 1 drop OP QIDPRN PRN 11/25/21 [History] Fluoxetine HCl 10 mg [Prozac 10 mg] 10 mg PO HS 08/10/22 [History] Bumetanide 1 mg [Bumex 1 mg] 1 mg PO BID 10/19/22 [History] Hx Tetanus, Diphtheria Vaccination/Date Given: No (unknown) Hx Influenza Vaccination/Date Given: Yes Hx Pneumococcal Vaccination/Date Given: No (unknown) Travel Risk - International Travel Have you traveled outside of the country in past 3 weeks: No - Coronavirus Screening Are you exhibiting any of the following symptoms?: No Close contact with a COVID-19 positive Pt in past 14-21 Days: No - Vaccine Status Have you recieved a Covid-19 vaccination: Yes [employer]: [employer] - Vaccination Dates Date of 2cond Vaccination (if applicable): unknown - Review of Systems Constitutional: No Symptoms Eyes: No Symptoms Ears, Nose, & Throat: No Symptoms Respiratory: Cough, Dyspnea, Dyspnea on Exertion (MANDEL), Wheezing Cardiac: Edema, Orthopnea Abdominal/Gastrointestinal: No Symptoms Genitourinary Symptoms: No Symptoms Musculoskeletal: Arthralgias Skin: Skin Lesions Neurological: No Symptoms Psychological: No Symptoms Endocrine: No Symptoms Hematologic/Lymphatic: No Symptoms Immunological/Allergic: No Symptoms - Past Medical History Pertinent Past Medical History: Yes Neurological History: Peripheral Neuropathy, TIA ENT History: No Pertinent History Cardiac History: Arrhythmia, Congestive Heart Failure, Coronary Artery Disease, High Cholesterol, Hypertension Respiratory History: CHF, COPD, Sleep Apnea Endocrine Medical History: Diabetes Type II Musculoskeletal History: No Pertinent History GI Medical History: GERD History: No Pertinent History Psycho-Social History: No Pertinent History Male Reproductive Disorders: No Pertinent History Other Medical History: GERD. SX HX: PACEMAKER 2010, CARDIAC STENTS X 2 1996 AND 2007. USES BIPAP. - no changes from last admit - Past Surgical History Past Surgical History: Yes Neuro Surgical History: No Pertinent History Cardiac: Cardiac Catheterization, Cardiac Stent, Pacemaker Respiratory: Tracheostomy Gastrointestinal: No Pertinent History Genitourinary: No Pertinent History Musculoskeletal: Orthopedic Surgery Male Surgical History: No Pertinent History Other Surgical History: toe reattached, lip cancer removed, 6 teeth extracted 12/03/2016, cardiac ablation for afib, tached after ablasion on february 24, 2022 - Social History Smoking Status: Former smoker How long have you smoked: 30 yrs Exposure to second hand smoke: No Drug Use: none Patient Lives Alone: No Significant Family History: heart disease - Nursing Vital Signs Nursing Vital Signs: Initial Vital Signs Temperature 97.8 F 10/19/22 04:28 Pulse Rate 62 10/19/22 04:28 Respiratory Rate 20 10/19/22 04:28 Blood Pressure 138/56 10/19/22 04:28 O2 Sat by Pulse Oximetry 99 10/19/22 04:28 Pain Scale Pain Intensity 0 - Physical Exam General Appearance: no apparent distress, alert Eye Exam: PERRL/EOMI Ears, Nose, Throat Exam: hearing grossly normal, normal ENT inspection, normal pharynx Neck Exam: normal inspection, supple, full range of motion Respiratory Exam: diminished breath sounds, crackles/rales, wheezing, No respiratory distress, No accessory muscle use Cardiovascular/Chest Exam: normal heart sounds, regular rate/rhythm, edema Abdominal/Gastrointestinal Exam: soft, normal bowel sounds Extremity Exam: non-tender, normal range of motion Neurologic Exam: alert, oriented x 3, cooperative Skin Exam: normal color SpO2 Interpretation: normal SpO2: 98 O2 Delivery: Room Air - Course EKG Interpreted by Me: RATE (71 paced rhythm), NORMAL AXIS, NORMAL INTERVALS, Non-specific ST Changes, Other (PVCs) Ordered Tests: Active Orders 24 hr Category Date Time Status IV Insertion STAT Care 10/19/22 05:01 Active CHEST 2 VIEWS (PA AND LAT) Stat Exams 10/19/22 04:51 Taken BLOOD CULTURE Stat Lab 10/19/22 06:00 Received CBC W DIFF Stat Lab 10/19/22 04:52 Completed CMP Routine Lab 10/19/22 05:35 Completed Lactic Acid Stat Lab 10/19/22 06:00 Completed MAGNESIUM Stat Lab 10/19/22 06:00 Completed NT PRO BNP Routine Lab 10/19/22 05:35 Completed PROCALCITONIN Stat Lab 10/19/22 06:00 Completed TROPONIN Q4H Lab 10/19/22 05:35 Completed TROPONIN Q4H Lab 10/19/22 09:00 Ordered TROPONIN Q4H Lab 10/19/22 13:00 Ordered TROPONIN Q4H Lab 10/19/22 17:00 Ordered TROPONIN Q4H Lab 10/19/22 21:00 Ordered EKG STAT RT 10/19/22 05:00 Active Respiratory Therapy Assessment DAILY RT 10/19/22 05:36 Active Transfer Order Routine Transfer 10/19/22 Ordered Medication Summary Discontinued Medications Generic Name Dose Route Start Last Admin Trade Name Freq PRN Reason Stop Dose Admin Albuterol/Ipratropium Confirm 10/19/22 05:21 Ipratropium/Albuterol Sulfate 3 Ml Ampul.Neb Administered 10/19/22 05:22 Dose 3 ml IH .STK-MED ONE Albuterol/Ipratropium 3 ml 10/19/22 05:27 10/19/22 05:34 Ipratropium/Albuterol Sulfate 3 Ml Ampul.Neb IH 10/19/22 05:28 3 ml STAT ONE Administration Aspirin 324 mg 10/19/22 04:57 10/19/22 05:15 Aspirin 81 Mg Tab.Chew PO 10/19/22 04:58 324 mg STAT ONE Administration Furosemide 40 mg 10/19/22 05:27 10/19/22 05:57 Furosemide 40 Mg/4 Ml Vial IV 10/19/22 05:28 40 mg STAT ONE Administration Furosemide Confirm 10/19/22 05:56 Furosemide 40 Mg/4 Ml Vial Administered 10/19/22 05:57 Dose 40 mg .ROUTE .STK-MED ONE Furosemide 20 mg 10/19/22 06:47 Furosemide 20 Mg/Vial IV 10/19/22 06:48 ONCE STA Lab/Rad Data: Laboratory Result Diagrams 10/19/22 04:52 10/19/22 05:35 Laboratory Results 10/19/22 10/19/22 10/19/22 Range/Units Unknown 06:00 06:00 WBC (4.0-10.5) x10^3/uL RBC (4.1-5.6) x10^6/uL Hgb (12.5-18.0) g/dL Hct (42-50) % MCV (78-100) fL MCH (26-32) pg MCHC (32-36) g/dL RDW (11.5-14.0) % Plt Count (150-450) x10^3/uL MPV (7.5-11.0) fL Gran % (36.0-66.0) % Immature Gran % (Auto) (0.00-0.4) % Nucleat RBC Rel Count (0.00-0.1) % Eos # (Auto) (0-0.5) x10^3/uL Immature Gran # (Auto) (0.00-0.03) x10^3u/L Absolute Lymphs (auto) (1.0-4.6) x10^3/uL Absolute Monos (auto) (0.0-1.3) x10^3/uL Absolute Nucleated RBC (0.00-0.01) x10^3u/L Lymphocytes % (24.0-44.0) % Monocytes % (0.0-12.0) % Eosinophils % (0.00-5.0) % Basophils % (0.0-0.4) % Absolute Granulocytes (1.4-6.9) x10^3/uL Basophils # (0-0.4) x10^3/uL Sodium (137-145) mmol/L Potassium (3.5-5.1) mmol/L Chloride (98-107) mmol/L Carbon Dioxide (22-30) mmol/L Anion Gap (5-15) MEQ/L BUN (9-20) mg/dL Creatinine (0.66-1.25) mg/dL Estimated GFR ML/MIN Glucose (74-106) mg/dL Lactic Acid 0.7 (0.4-2.0) Calcium (8.4-10.2) mg/dL Magnesium 2.3 (1.6-2.3) mg/dL Total Bilirubin (0.2-1.3) mg/dL AST (17-59) U/L ALT (0-50) U/L Alkaline Phosphatase (38-126) U/L Troponin I (0.000-0.034) ng/mL NT-Pro-B Natriuret Pep (0-1800) pg/mL Serum Total Protein (6.3-8.2) g/dL Albumin (3.5-5.0) g/dL Procalcitonin 0.095 H (0.030-0.080) ng/mL Influenza Type A Ag NEGATIVE (NEGATIVE) Influenza Type B Ag NEGATIVE (NEGATIVE) RSV (PCR) NEGATIVE (Negative) SARS-CoV-2 (PCR) NEGATIVE (NEGATIVE) 10/19/22 10/19/22 Range/Units 05:35 04:52 WBC 8.7 (4.0-10.5) x10^3/uL RBC 3.49 L (4.1-5.6) x10^6/uL Hgb 8.4 L (12.5-18.0) g/dL Hct 29.6 L (42-50) % MCV 84.8 (78-100) fL MCH 24.1 L (26-32) pg MCHC 28.4 L (32-36) g/dL RDW 19.3 H (11.5-14.0) % Plt Count 306 (150-450) x10^3/uL MPV 10.0 (7.5-11.0) fL Gran % 67.0 H (36.0-66.0) % Immature Gran % (Auto) 0.6 H (0.00-0.4) % Nucleat RBC Rel Count 0.0 (0.00-0.1) % Eos # (Auto) 0.37 (0-0.5) x10^3/uL Immature Gran # (Auto) 0.05 H (0.00-0.03) x10^3u/L Absolute Lymphs (auto) 1.10 (1.0-4.6) x10^3/uL Absolute Monos (auto) 1.26 (0.0-1.3) x10^3/uL Absolute Nucleated RBC 0.00 (0.00-0.01) x10^3u/L Lymphocytes % 12.7 L (24.0-44.0) % Monocytes % 14.5 H (0.0-12.0) % Eosinophils % 4.3 (0.00-5.0) % Basophils % 0.9 (0.0-0.4) % Absolute Granulocytes 5.82 (1.4-6.9) x10^3/uL Basophils # 0.08 (0-0.4) x10^3/uL Sodium 137 (137-145) mmol/L Potassium 4.2 (3.5-5.1) mmol/L Chloride 99 (98-107) mmol/L Carbon Dioxide 32 H (22-30) mmol/L Anion Gap 10.7 (5-15) MEQ/L BUN 26 H (9-20) mg/dL Creatinine 1.20 (0.66-1.25) mg/dL Estimated GFR > 60.0 ML/MIN Glucose 140 H (74-106) mg/dL Lactic Acid (0.4-2.0) Calcium 8.2 L (8.4-10.2) mg/dL Magnesium (1.6-2.3) mg/dL Total Bilirubin 0.50 (0.2-1.3) mg/dL AST 23 (17-59) U/L ALT 12 (0-50) U/L Alkaline Phosphatase 110 (38-126) U/L Troponin I 0.052 H* (0.000-0.034) ng/mL NT-Pro-B Natriuret Pep 3550 H (0-1800) pg/mL Serum Total Protein 6.5 (6.3-8.2) g/dL Albumin 3.3 L (3.5-5.0) g/dL Procalcitonin (0.030-0.080) ng/mL Influenza Type A Ag (NEGATIVE) Influenza Type B Ag (NEGATIVE) RSV (PCR) (Negative) SARS-CoV-2 (PCR) (NEGATIVE) - Progress Progress: improved Air Movement: fair Progress Note: 10/19/22 06:49 81-year-old is evaluated for sudden worsening shortness of breath with bilateral lower extremity swelling and crackling bilaterally. Patient is given DuoNeb and Lasix, on reevaluation feeling better. Chest x-ray reviewed by me revealed pulmonary edema consistent with CHF. The EKG showed paced rhythm. Patient has chronic anemia with a stable H&H around 8.4. Chemistries showed mild elevation in troponin 0.052 but review of records showed he always has troponin leak and today is actually better. Discussed with Dr. Rosas and patient is being admitted. Blood Culture(s) Obtained: Yes Antibiotics given: No Discussed with : Martina Will see patient in: hospital (observation) Counseled pt/family regarding: lab results, diagnosis, rad results - Departure Departure Disposition: Observation Clinical Impression: CHF exacerbation Condition: Stable Critical Care Time: No Referrals: MARIELOS SMALL MD [Primary Care Provider] - Follow up/PCP as directed Instructions: Heart Failure
[2022-10-19] MEDS ORDERED: Lasix 40 MG/4 ML ONE (05:56)
[2022-10-19 06:28] LABS: ALBUMIN 3.3 g/dL (3.5-5.0); ALKALINE PHOSPHATASE 110 U/L (38-126); ANION GAP 10.7 MEQ/L (5-15); BLOOD UREA NITROGEN 26 mg/dL (9-20); CHLORIDE 99 mmol/L (98-107); Calcium 8.2 mg/dL (8.4-10.2); Carbon Dioxide 32 mmol/L (22-30); EST GLOMERULAR FILTRATION RATE > 60.0 ML/MIN; Glucose 140 mg/dL (74-106); NT PRO BNP 3550 pg/mL (0-1800); Potassium 4.2 mmol/L (3.5-5.1); SGOT/AST 23 U/L (17-59); SGPT/ALT 12 U/L (0-50); SODIUM 137 mmol/L (137-145); Total Protein 6.5 g/dL (6.3-8.2)
[2022-10-19 06:29] LABS: TROPONIN 0.052 ng/mL (0.000-0.034)
[2022-10-19 06:32] LABS: MAGNESIUM 2.3 mg/dL (1.6-2.3); PROCALCITONIN 0.095 ng/mL (0.030-0.080)
[2022-10-19 06:43] LABS: INFLUENZA A NEGATIVE (NEGATIVE); INFLUENZA B NEGATIVE (NEGATIVE); RESPIRATORY SYNCTIAL VIRUS NEGATIVE (Negative); SARS-CoV-2 Xpert Express NEGATIVE (NEGATIVE)
[2022-10-19] MEDS ORDERED: Lasix 20 MG/2 ML IV STA (06:47)
--- NOTE | 2022-10-19 08:03 | XRAY ---
Indication: Short of breath. Comparison: October 10, 2022 Portable chest unchanged again demonstrating mild bibasilar infiltrates/atelectasis/effusions, borderline cardiomegaly with left pacemaker, and tracheostomy cannula. No new cardiopulmonary abnormalities. Comment: Preliminary interpretation made by [facility]. No critical discrepancy.
[2022-10-19] MEDS ORDERED: Zofran 4 MG/2 ML VIAL IV PRN (08:09)
[2022-10-19] MEDS ORDERED: HUMALOG SQ PRN (08:09)
[2022-10-19] MEDS ORDERED: TYLENOL 325 MG PO PRN (08:09)
[2022-10-19] MEDS ORDERED: DUONEB 0.5-3 MG/3 ml Neb IH SCH (08:09)
[2022-10-19] MEDS ORDERED: MORPHINE SULFATE 2 MG INJ IV PRN (08:09)
[2022-10-19] MEDS ORDERED: PROTONIX 40 MG IV IV SCH (10:00)
[2022-10-19 11:03] LABS: Slide Review 1 YES
--- NOTE | 2022-10-19 11:23 | PCM.HP ---
History of Present Illness - Chief Complaint Chief Complaint: Pulmonary edema, shortness of breath History of Present Illness: is a 81 year old male patient of Dr Rosa who presented to ER with progressive worsening of shortness of breath and worsening of BLE edema now with open sores . PMHx includes HTN,HLD,IDDM2,CAD/stent ,CHF, Afib S/P ablation/pacemaker Washroom Attendant has been Dr Luna [facility] but per Dr Rosa has referred patient to Dr Mike Waggoner for Watchman Implant. Anticoagulant was dc'd because of GI bleed requiring transfusion AUG 2022 . EGD positive for gastric ulcer in the cardia stomach . Colonoscopy positive for transverse colon mass.(Scopes by Dr Rani Whyte09/08/22) Medications & Allergies Home Medications: Home Medication List Albuterol 2.5 mg/3 ml Neb [Proventil 2.5 mg/3 ml Neb] 2.5 mg IH Q6HPRN PRN 07/11/13 [History Confirmed 10/19/22] Gemfibrozil [Lopid] 600 mg PO BID 07/11/13 [History Confirmed 10/19/22] Insulin Aspart [NovoLOG Insulin] 1 unit SQ TIDWMEALS 07/11/13 [History Confirmed 10/19/22] Insulin Glargine [Lantus Insulin] 15 unit SQ HS 07/11/13 [History Confirmed 10/19/22] Pantoprazole Sodium [Protonix] 40 mg PO DAILY 07/11/13 [History Confirmed 10/19/22] Sotalol HCl [Betapace] 120 mg PO BID 07/11/13 [History Confirmed 10/19/22] Atorvastatin Calcium 80 mg PO HS 12/04/16 [History Confirmed 10/19/22] Triamterene/Hydrochlorothiazid [Triamterene-Hctz 37.5-25 mg Tb] 1 each PO DAILY 12/04/16 [History Confirmed 10/19/22] Propylene Glycol/Peg 400 [Systane 0.3-0.4% Eye Drops] 1 drop OP QIDPRN PRN 11/25/21 [History Confirmed 10/19/22] Fluoxetine HCl 10 mg [Prozac 10 mg] 10 mg PO DAILY 08/10/22 [History Confirmed 10/19/22] Sucralfate 1 gm [Carafate 1 GM] 1 g PO 0600,1600 #60 tablet 08/13/22 [Rx Confirmed 10/19/22] Potassium Chloride 20 meq PO BID #60 tablet 09/17/22 [Rx Confirmed 10/19/22] Bumetanide 1 mg [Bumex 1 mg] 1 mg PO BID 10/19/22 [History Confirmed 10/19/22] Empagliflozin [Jardiance] 10 mg PO DAILY 10/19/22 [History Confirmed 10/19/22] Glipizide 5 mg [Glucotrol 5 MG] 5 mg PO DAILY 10/19/22 [History Confirmed 10/19/22] Allergies/Adverse Reactions: Allergies Allergy/AdvReac Type Severity Reaction Status Date / Time gabapentin Allergy Mild Verified 10/19/22 04:40 Penicillins Allergy Mild Verified 10/19/22 04:40 Antihistamines - Alkylamine Allergy Verified 10/19/22 04:40 Antihistamines - Ethanolamine Allergy Verified 10/19/22 04:40 Antihistamines - Allergy Verified 10/19/22 04:40 Ethylenediamine Antihistamines - Piperazine Allergy Verified 10/19/22 04:40 Antihistamines - Piperidine Allergy Verified 10/19/22 04:40 - Past Medical History Past Medical History: Yes Neurological History: Peripheral Neuropathy, TIA ENT History: No Pertinent History Cardiac History: Arrhythmia, Congestive Heart Failure, Coronary Artery Disease, High Cholesterol, Hypertension Respiratory History: CHF, COPD, Sleep Apnea Endocrine Medical History: Diabetes Type II Musculoskelatal History: No Pertinent History GI Medical History: GERD History: No Pertinent History Pyscho-Social History: No Pertinent History Male Reproductive Disorders: No Pertinent History Comment: GERD. SX HX: PACEMAKER 2010, CARDIAC STENTS X 2 1996 AND 2007. USES BIPAP. - no changes from last admit - Past Surgical History Past Surgical History: Yes Neuro Surgical History: No Pertinent History Cardiac History: Cardiac Catheterization, Cardiac Stent, Pacemaker Respiratory Surgery: Tracheostomy GI Surgical History: No Pertinent History Genitourinary Surgical Hx: No Pertinent History Musculskeletal Surgical Hx: Orthopedic Surgery Male Surgical History: No Pertinent History Other Surgical History: toe reattached, lip cancer removed, 6 teeth extracted 12/03/2016, cardiac ablation for afib, tached after ablasion on february 24, 2022 - Social History Smoking Status: Former smoker How long have you smoked: 30 yrs Exposure to second hand smoke: No Alcohol: None Drug Use: none Significant Family History: heart disease - Physical Exam Vital Signs: Vital Signs - 24 hr Temp Pulse Resp BP Pulse Ox 10/19/22 08:21 97.8 F 61 18 143/64 96 10/19/22 06:51 98 10/19/22 06:00 60 139/50 97 10/19/22 05:36 62 25 H 100 10/19/22 05:27 60 18 153/56 100 10/19/22 05:04 62 10/19/22 04:28 97.8 F 62 20 138/56 98 Results - Labs Lab/Micro Results: Lab Results-Last 24 Hours 10/19/22 10/19/22 10/19/22 Range/Units 04:52 05:35 06:00 WBC 8.7 (4.0-10.5) x10^3/uL RBC 3.49 L (4.1-5.6) x10^6/uL Hgb 8.4 L (12.5-18.0) g/dL Hct 29.6 L (42-50) % MCV 84.8 (78-100) fL MCH 24.1 L (26-32) pg MCHC 28.4 L (32-36) g/dL RDW 19.3 H (11.5-14.0) % Plt Count 306 (150-450) x10^3/uL MPV 10.0 (7.5-11.0) fL Gran % 67.0 H (36.0-66.0) % Immature Gran % (Auto) 0.6 H (0.00-0.4) % Nucleat RBC Rel Count 0.0 (0.00-0.1) % Eos # (Auto) 0.37 (0-0.5) x10^3/uL Immature Gran # (Auto) 0.05 H (0.00-0.03) x10^3u/L Absolute Lymphs (auto) 1.10 (1.0-4.6) x10^3/uL Absolute Monos (auto) 1.26 (0.0-1.3) x10^3/uL Absolute Nucleated RBC 0.00 (0.00-0.01) x10^3u/L Lymphocytes % 12.7 L (24.0-44.0) % Monocytes % 14.5 H (0.0-12.0) % Eosinophils % 4.3 (0.00-5.0) % Basophils % 0.9 (0.0-0.4) % Absolute Granulocytes 5.82 (1.4-6.9) x10^3/uL Basophils # 0.08 (0-0.4) x10^3/uL Sodium 137 (137-145) mmol/L Potassium 4.2 (3.5-5.1) mmol/L Chloride 99 (98-107) mmol/L Carbon Dioxide 32 H (22-30) mmol/L Anion Gap 10.7 (5-15) MEQ/L BUN 26 H (9-20) mg/dL Creatinine 1.20 (0.66-1.25) mg/dL Estimated GFR > 60.0 ML/MIN Glucose 140 H (74-106) mg/dL POC Glucometer (74 to 106) mg/dL Lactic Acid 0.7 (0.4-2.0) Calcium 8.2 L (8.4-10.2) mg/dL Magnesium (1.6-2.3) mg/dL Total Bilirubin 0.50 (0.2-1.3) mg/dL AST 23 (17-59) U/L ALT 12 (0-50) U/L Alkaline Phosphatase 110 (38-126) U/L Troponin I 0.052 H* (0.000-0.034) ng/mL NT-Pro-B Natriuret Pep 3550 H (0-1800) pg/mL Serum Total Protein 6.5 (6.3-8.2) g/dL Albumin 3.3 L (3.5-5.0) g/dL Prealbumin (17.6-36.0) mg/dL Procalcitonin (0.030-0.080) ng/mL Influenza Type A Ag (NEGATIVE) Influenza Type B Ag (NEGATIVE) RSV (PCR) (Negative) SARS-CoV-2 (PCR) (NEGATIVE) Slides for Path Review YES 10/19/22 10/19/22 10/19/22 Range/Units 06:00 08:32 08:52 WBC (4.0-10.5) x10^3/uL RBC (4.1-5.6) x10^6/uL Hgb (12.5-18.0) g/dL Hct (42-50) % MCV (78-100) fL MCH (26-32) pg MCHC (32-36) g/dL RDW (11.5-14.0) % Plt Count (150-450) x10^3/uL MPV (7.5-11.0) fL Gran % (36.0-66.0) % Immature Gran % (Auto) (0.00-0.4) % Nucleat RBC Rel Count (0.00-0.1) % Eos # (Auto) (0-0.5) x10^3/uL Immature Gran # (Auto) (0.00-0.03) x10^3u/L Absolute Lymphs (auto) (1.0-4.6) x10^3/uL Absolute Monos (auto) (0.0-1.3) x10^3/uL Absolute Nucleated RBC (0.00-0.01) x10^3u/L Lymphocytes % (24.0-44.0) % Monocytes % (0.0-12.0) % Eosinophils % (0.00-5.0) % Basophils % (0.0-0.4) % Absolute Granulocytes (1.4-6.9) x10^3/uL Basophils # (0-0.4) x10^3/uL Sodium (137-145) mmol/L Potassium (3.5-5.1) mmol/L Chloride (98-107) mmol/L Carbon Dioxide (22-30) mmol/L Anion Gap (5-15) MEQ/L BUN (9-20) mg/dL Creatinine (0.66-1.25) mg/dL Estimated GFR ML/MIN Glucose (74-106) mg/dL POC Glucometer 111 H (74 to 106) mg/dL Lactic Acid (0.4-2.0) Calcium (8.4-10.2) mg/dL Magnesium 2.3 (1.6-2.3) mg/dL Total Bilirubin (0.2-1.3) mg/dL AST (17-59) U/L ALT (0-50) U/L Alkaline Phosphatase (38-126) U/L Troponin I (0.000-0.034) ng/mL NT-Pro-B Natriuret Pep (0-1800) pg/mL Serum Total Protein (6.3-8.2) g/dL Albumin (3.5-5.0) g/dL Prealbumin 15.22 L (17.6-36.0) mg/dL Procalcitonin 0.095 H (0.030-0.080) ng/mL Influenza Type A Ag (NEGATIVE) Influenza Type B Ag (NEGATIVE) RSV (PCR) (Negative) SARS-CoV-2 (PCR) (NEGATIVE) Slides for Path Review 10/19/22 10/19/22 Range/Units 09:09 Unknown WBC (4.0-10.5) x10^3/uL RBC (4.1-5.6) x10^6/uL Hgb (12.5-18.0) g/dL Hct (42-50) % MCV (78-100) fL MCH (26-32) pg MCHC (32-36) g/dL RDW (11.5-14.0) % Plt Count (150-450) x10^3/uL MPV (7.5-11.0) fL Gran % (36.0-66.0) % Immature Gran % (Auto) (0.00-0.4) % Nucleat RBC Rel Count (0.00-0.1) % Eos # (Auto) (0-0.5) x10^3/uL Immature Gran # (Auto) (0.00-0.03) x10^3u/L Absolute Lymphs (auto) (1.0-4.6) x10^3/uL Absolute Monos (auto) (0.0-1.3) x10^3/uL Absolute Nucleated RBC (0.00-0.01) x10^3u/L Lymphocytes % (24.0-44.0) % Monocytes % (0.0-12.0) % Eosinophils % (0.00-5.0) % Basophils % (0.0-0.4) % Absolute Granulocytes (1.4-6.9) x10^3/uL Basophils # (0-0.4) x10^3/uL Sodium (137-145) mmol/L Potassium (3.5-5.1) mmol/L Chloride (98-107) mmol/L Carbon Dioxide (22-30) mmol/L Anion Gap (5-15) MEQ/L BUN (9-20) mg/dL Creatinine (0.66-1.25) mg/dL Estimated GFR ML/MIN Glucose (74-106) mg/dL POC Glucometer (74 to 106) mg/dL Lactic Acid (0.4-2.0) Calcium (8.4-10.2) mg/dL Magnesium (1.6-2.3) mg/dL Total Bilirubin (0.2-1.3) mg/dL AST (17-59) U/L ALT (0-50) U/L Alkaline Phosphatase (38-126) U/L Troponin I 0.055 H* (0.000-0.034) ng/mL NT-Pro-B Natriuret Pep (0-1800) pg/mL Serum Total Protein (6.3-8.2) g/dL Albumin (3.5-5.0) g/dL Prealbumin (17.6-36.0) mg/dL Procalcitonin (0.030-0.080) ng/mL Influenza Type A Ag NEGATIVE (NEGATIVE) Influenza Type B Ag NEGATIVE (NEGATIVE) RSV (PCR) NEGATIVE (Negative) SARS-CoV-2 (PCR) NEGATIVE (NEGATIVE) Slides for Path Review Accuchecks Date 10/19/22 Time 08:30 - Radiology Impressions Radiology Exams & Impressions: Radiology Procedures Category Date Time Status CHEST 2 VIEWS (PA AND LAT) Stat Exams 10/19/22 04:51 Completed - Other Procedures and Tests Respiratory Therapy 10/19/22 08:09 Oxygen Nasal Cannula 3 lpm
[2022-10-19] MEDS ORDERED: VENTOLIN COMMON CANISTER IH SCH (13:00)
[2022-10-19] MEDS ORDERED: DUONEB 0.5-3 MG/3 ml Neb IH PRN (14:32)
[2022-10-19] MEDS ORDERED: NON-FORMULARY ITEM (Propylene Glycol/Peg 400 [Systane 0.3-0.4% Eye Drops] 15 ML Drops) OP PRN (16:22)
[2022-10-19] MEDS ORDERED: Artificial Tears 15 ML OP PRN (16:48)
[2022-10-19] MEDS ORDERED: BUMEX 1 MG PO SCH (17:00)
[2022-10-19] MEDS ORDERED: JARDIANCE PO SCH (17:00)
[2022-10-19] MEDS ORDERED: Protonix 40MG Tablet PO SCH (17:00)
[2022-10-19] MEDS ORDERED: Maxzide-25MG Tablet PO SCH (17:00)
[2022-10-19] MEDS ORDERED: PROZAC 10 MG PO SCH (17:00)
[2022-10-19] MEDS ORDERED: Lasix 40 MG/4 ML IV SCH (17:00)
[2022-10-19] MEDS ORDERED: Carafate 1 GM PO SCH (17:00)
[2022-10-19 17:03] VITALS: BP 136/57; PULSE 62; O2SAT 91
[2022-10-19] MEDS ORDERED: NON-FORMULARY ITEM (Atorvastatin Calcium [Atorvastatin Calcium] 80 MG Tablet) PO SCH (22:00)
[2022-10-19] MEDS ORDERED: ZOCOR 20MG PO SCH (22:00)
[2022-10-19] MEDS ORDERED: Betapace 80 MG PO SCH (22:00)
[2022-10-19] MEDS ORDERED: LOPID PO SCH (22:00)
[2022-10-19] MEDS ORDERED: Klor Con PO SCH (22:00)
[2022-10-19] MEDS ORDERED: SOTALOL HCL 120 MG PO SCH (22:00)
[2022-10-19] MEDS ORDERED: NON-FORMULARY ITEM (Potassium Chloride [Potassium Chloride] 20 MEQ Tab.Er.Prt) PO SCH (22:00)
[2022-10-19] MEDS ORDERED: Lantus Insulin SQ SCH (22:00)
[2022-10-20] MEDS ORDERED: Glucotrol 5 MG PO SCH (07:30)
== END 2022-10-19 19:53 | disposition home or self-care (01) ==
LOC: ED 04:27 → MED SURG 07:47
PROVIDERS: ADMIT Family Medicine; ATTEND Family Medicine
DX: R06.02 Shortness of breath (principal); I11.0 Hypertensive heart disease with heart failure; I50.9 Heart failure, unspecified; J81.1 Chronic pulmonary edema; E11.9 Type 2 diabetes mellitus without complications; E78.5 Hyperlipidemia, unspecified; I48.91 Unspecified atrial fibrillation; I25.10 Atherosclerotic heart disease of native coronary artery without angina pectoris; Z79.899 Other long term (current) drug therapy; Z20.828 Contact with and (suspected) exposure to other viral communicable diseases; Z85.828 Personal history of other malignant neoplasm of skin
CPT/HCPCS: 0241U; 36000; 36415; 71046; 80053; 82947; 83605; 83735; 83880; 84134; 84145; 84484; 85025; 87040; 87086; 93005; 93268; 94640; 94760; 96374; 99285; G0378; J1940; A9270-GY

== ENCOUNTER 2022-12-14 07:53 | Emergency (ER) | payer OTHER ==
[2022-12-14] MEDS ORDERED: PEROXIDE 3% TOP ONE (07:54)
--- NOTE | 2022-12-14 08:11 | ERPHSYRPT ---
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 Co-Morbidities - Had emergent colon resection 3 weeks ago - wound healing well. Todd diet . No abd pain. pt required trach from Covid a few years back. Leg celluitis TX in [place]. UTI Tx in [place] Hx COPD, Diabetes. CAD, CHF. Consulted with Respiratory Therapist in house and discussed also with [facility] staff and family and we will as for the old trach to be brought to hospital and we will clean this up and attempt re-insertion procedure - after discussions this seems to be and all agree to be the most cost effective use of resources. Trach came out and [facility] RN could not replace this after attempts - so he was sent in by EMS transport to ER. . Pt has no SOBreath and has normal mental status neuro and resp exams chest clear. Ht reg . ABd soft and nontender without peritoneal signs or masses. O2 sat is 97% on mask over trach O2. Also on exam, mild superficial cellulitis bilateral shins - treated with topical AB. , nontender, 1 + pitting edema. Timing/Duration: today Severity: mild Associated Symptoms: denies symptoms Allergies/Adverse Reactions: gabapentin Allergy (Mild, Verified 12/14/22 07:55) Penicillins Allergy (Mild, Verified 12/14/22 07:55) Antihistamines - Alkylamine Allergy (Verified 12/14/22 07:55) pt unsure what antihistaine name was Antihistamines - Ethanolamine Allergy (Verified 12/14/22 07:55) pt unsure of name of antihistamine Antihistamines - Ethylenediamine Allergy (Verified 12/14/22 07:55) pt unsure of name of antihistamine Antihistamines - Piperazine Allergy (Verified 12/14/22 07:55) pt unsure of name of antihistamine Antihistamines - Piperidine Allergy (Verified 12/14/22 07:55) pt unsure of name of antihistamine Home Medications: Albuterol 2.5 mg/3 ml Neb [Proventil 2.5 mg/3 ml Neb] 2.5 mg IH Q6HPRN PRN 07/11/13 [History] Gemfibrozil [Lopid] 600 mg PO BID 07/11/13 [History] Insulin Aspart [NovoLOG Insulin] 1 unit SQ TIDWMEALS 07/11/13 [History] Insulin Glargine [Lantus Insulin] 15 unit SQ HS 07/11/13 [History] Pantoprazole Sodium [Protonix] 40 mg PO DAILY 07/11/13 [History] Sotalol HCl [Betapace] 120 mg PO BID 07/11/13 [History] Atorvastatin Calcium 80 mg PO HS 12/04/16 [History] Triamterene/Hydrochlorothiazid [Triamterene-Hctz 37.5-25 mg Tb] 1 each PO DAILY 12/04/16 [History] Propylene Glycol/Peg 400 [Systane 0.3-0.4% Eye Drops] 1 drop OP QIDPRN PRN 11/25/21 [History] Fluoxetine HCl 10 mg [Prozac 10 mg] 10 mg PO DAILY 08/10/22 [History] Bumetanide 1 mg [Bumex 1 mg] 1 mg PO BID 10/19/22 [History] Empagliflozin [Jardiance] 10 mg PO DAILY 10/19/22 [History] Glipizide 5 mg [Glucotrol 5 MG] 5 mg PO DAILY 10/19/22 [History] Hx Tetanus, Diphtheria Vaccination/Date Given: No (unknown) Hx Influenza Vaccination/Date Given: Yes Hx Pneumococcal Vaccination/Date Given: No (unknown) Travel Risk - Vaccine Status Have you recieved a Covid-19 vaccination: Yes Conservation Policy Analyst: [place] - Vaccination Dates Date of 2cond Vaccination (if applicable): unknown - Review of Systems Constitutional: No Fever, No Chills Eyes: No Symptoms Ears, Nose, & Throat: No Symptoms Respiratory: No Cough, No Dyspnea Cardiac: No Chest Pain, No Edema, No Syncope Abdominal/Gastrointestinal: No Abdominal Pain, No Nausea, No Vomiting, No Diarrhea Genitourinary Symptoms: No Dysuria Musculoskeletal: No Back Pain, No Neck Pain Skin: Cellulitis, No Rash Neurological: No Dizziness, No Focal Weakness, No Sensory Changes Psychological: No Symptoms Endocrine: No Symptoms Hematologic/Lymphatic: No Symptoms Immunological/Allergic: No Symptoms All Other Systems: Reviewed and Negative - Past Medical History Pertinent Past Medical History: Yes Neurological History: Peripheral Neuropathy, TIA ENT History: No Pertinent History Cardiac History: Arrhythmia, Congestive Heart Failure, Coronary Artery Disease, High Cholesterol, Hypertension Respiratory History: CHF, COPD, Sleep Apnea Endocrine Medical History: Diabetes Type II Musculoskeletal History: No Pertinent History GI Medical History: GERD History: No Pertinent History Psycho-Social History: No Pertinent History Male Reproductive Disorders: No Pertinent History Other Medical History: GERD. SX HX: PACEMAKER 2010, CARDIAC STENTS X 2 1996 AND 2007. USES BIPAP. - no changes from last admit - Past Surgical History Past Surgical History: Yes Neuro Surgical History: No Pertinent History Cardiac: Cardiac Catheterization, Cardiac Stent, Pacemaker Respiratory: Tracheostomy Gastrointestinal: No Pertinent History Genitourinary: No Pertinent History Musculoskeletal: Orthopedic Surgery Male Surgical History: No Pertinent History Other Surgical History: toe reattached, lip cancer removed, 6 teeth extracted 12/03/2016, cardiac ablation for afib, tached after ablasion on february 24, 2022 - Social History Smoking Status: Former smoker How long have you smoked: 30 yrs Exposure to second hand smoke: No Drug Use: none Patient Lives Alone: No Significant Family History: heart disease - Nursing Vital Signs Nursing Vital Signs: Initial Vital Signs Temperature 97.6 F 12/14/22 07:56 Pulse Rate 82 12/14/22 07:56 Respiratory Rate 20 12/14/22 07:56 Blood Pressure 129/90 12/14/22 07:56 O2 Sat by Pulse Oximetry 96 12/14/22 07:56 Pain Scale Pain Intensity 0 - Physical Exam General Appearance: no apparent distress, alert Eye Exam: PERRL/EOMI, eyes nml inspection Ears, Nose, Throat Exam: TMs normal, pharynx normal, moist mucous membranes, other (mature ttach stoma) Neck Exam: normal inspection, non-tender, supple, full range of motion Respiratory Exam: normal breath sounds, lungs clear, No respiratory distress Cardiovascular Exam: regular rate/rhythm, normal heart sounds, normal peripheral pulses Gastrointestinal/Abdomen Exam: soft, normal bowel sounds, No tenderness, No mass Rectal Exam: deferred Back Exam: normal inspection, normal range of motion, No CVA tenderness, No vertebral tenderness Extremity Exam: normal inspection, normal range of motion, pelvis stable Neurologic Exam: alert, oriented x 3, cooperative, normal mood/affect, nml cerebellar function, nml station & gait, sensation nml, No motor deficits Skin Exam: normal color, warm, dry, other (bilateral LE celluitis), No rash Lymphatic Exam: No adenopathy SpO2 Interpretation: normal SpO2: 97 O2 Delivery: Oxymask Procedures - Additional Procedures Additional Procedures: tracheostomy (Replacement of tube into mature stoma - not initial trach - just replacement - attempt only see notes.) - Course Nursing assessment & vital signs reviewed: Yes Ordered Tests: Active Orders 24 hr Category Date Time Status ABG [ARTERIAL BLOOD GASES] Stat Lab 12/14/22 10:28 Completed Medication Summary Discontinued Medications Generic Name Dose Route Start Last Admin Trade Name Freq PRN Reason Stop Dose Admin Hydrogen Peroxide 236 ml 12/14/22 07:54 Hydrogen Peroxide 3% 236 Ml Solution TOP 12/14/22 07:55 .STK-MED ONE Lidocaine HCl 15 ml 12/14/22 09:32 12/14/22 09:33 Lidocaine Hcl 2% Viscous 15 Ml Udcup PO 12/14/22 09:33 15 ml STAT ONE Administration Lidocaine HCl Confirm 12/14/22 09:30 Lidocaine Hcl 2% Viscous 15 Ml Udcup Administered 12/14/22 09:31 Dose 15 ml .ROUTE .STK-MED ONE Trimethoprim/Sulfamethoxazole 1 tab 12/14/22 08:59 12/14/22 09:16 Smz/Tmp Ds Tablet 1 Tablet PO 12/14/22 09:00 1 tab STAT STA Administration Trimethoprim/Sulfamethoxazole Confirm 12/14/22 09:16 Smz/Tmp Ds Tablet 1 Tablet Administered 12/14/22 09:17 Dose 1 tab PO .STK-MED ONE Lab/Rad Data: Laboratory Results 12/14/22 Range/Units 10:28 Puncture Site RIGHT BRACHIAL pCO2 45 (35-45) mmHg pO2 71 L (75-100) mmHg Base Excess 8.2 H (-2.0-2.0) O2 Saturation 93.6 L (94-100) g/dF ABG pH 7.47 H (7.35-7.45) ABG HCO3 32.8 H* (22-28) ABG O2 Sat (Measured) 95.8 (95-100) % Jose Test NOT APPLICABLE A-a Gradient 72 a/A Ratio 0.50 Hemoglobin 10.7 Carboxyhemoglobin 1.5 (0.0-6.9) % THgb Methemoglobin 0.8 L (1.4-1.5) % Potassium 3.8 (3.5-5.1) Temperature 37.0 C POC O2 Flow Rate 28 % - Progress Progress: improved, re-examined Progress Note: 12/14/22 08:30 reviewed the outside test results from [facility] and found UTi sensitive to Septra - so placing on that also for leg cellulitis since he is Pen allergic - discussed risk.benefits and pt agrees to this prescription. 12/14/22 08:58 adding bactroban/mupiricin for leg cellulitis topical discussed risk/benefit and pt agrees to this prescription. 12/14/22 09:04 12/14/22 09:55 Respiratory unable to replace trach. I tried and was successful in placement of elastic gum bougie and a ET tube uncuffed, but was unable to pass any trach tube over this through the stoma which seems already constricted. No furhter reported resp failure events by , or pt but is on trach mask O2 at [facility]. We are contacting his passenger solicitor Dr. CIPRIANO Hester - Consulted and had discussion with Dr. CIPRIANO Lyman and he advised checking ABG to confirm any elevated CO2 is compensated and could leave trach out and return to [facility] if meets that criteria. 12/14/22 10:29 12/14/22 10:31 Dr. Alton Perez is the surgeon in [place] who placed the trach - [phone] ABG ordered after discussion with Nura Ghosh and family and there is CO2 of 45 with alkalosis ph 7.47 HCO3 32.8 but mild hypoxia at O2 0f 71 93%sat. 12/14/22 11:13 12/14/22 11:34 Dr. Lyman reviewed results with me and agrees should be safe to return to [facility] with continuing oxygen and to followup with his treating surgeon as outpt and to return meantime if any symptoms. Discussed with : Sylvain Lyman Will see patient in: office Counseled pt/family regarding: diagnosis, need for follow-up - Departure Departure Disposition: Extended [facility] Facility (pt lives in [place] and being sent back there.) Clinical Impression: Tracheostomy care, dislodged Trach tube, Cellulitis of both lower extremities, UTI (urinary tract infection) Condition: Good Critical Care Time: No Referrals: MARIELOS SMALL MD [Primary Care Provider] - Follow up/PCP as directed Instructions: Urinary Tract Infection, Adult (DC), How to Care for a Tracheostomy, Cellulitis (Skin Infection), Adult ED Additional Instructions: followup with your Dr. for continued respiratory and trach care. see surgeon to discuss if new trach needed. Apply new ointment for legs twice a day and followup with your Dr. Followup with your Dr. for your Hx of suspected UTI. We are sending a presrciption for both the legs infection and the UTI, but will require recheck on progress and effectiveness of this Tx with your Dr. this week. Return meantime if any symptoms or other concerns. Return if short of breath or any breathing concerns. continue oxygen ( use nasal cannula since stoma is closing) to maintain pulse ox at 90-95% and recheck pulse Ox at least once per hour. Pt is bringing his home Bipap in case he needs this. May use Bipap if needed per Dr. Lyman - but consult him for exact orders.
[2022-12-14] MEDS ORDERED: BACTRIM DS TABLET PO STA (08:59)
[2022-12-14] MEDS ORDERED: BACTRIM DS TABLET PO ONE (09:16)
[2022-12-14] MEDS ORDERED: XYLOCAINE VISCOUS 2% 15 ML CUP ONE (09:30)
[2022-12-14] MEDS ORDERED: XYLOCAINE VISCOUS 2% 15 ML CUP PO ONE (09:32)
[2022-12-14 10:35] LABS: A-aADO2 72; ABG HEMOGLOBIN 10.7; ABG POTASSIUM 3.8 (3.5-5.1); ABG SITE RIGHT BRACHIAL; ARTERIAL BLD GAS O2 SATURATION 95.8 % (95-100); ARTERIAL BLOOD GAS BASE EXCESS 8.2 (-2.0-2.0); ARTERIAL BLOOD GAS FIO2 28 %; ARTERIAL BLOOD GAS PCO2 45 mmHg (35-45); ARTERIAL BLOOD GAS PO2 71 mmHg (75-100); ARTERIAL BLOOD GAS pH 7.47 (7.35-7.45); CARBOXYHEMOGLOBIN 1.5 % THgb (0.0-6.9); HCO3- 32.8 (22-28); HGB O2 SAT 93.6 g/dF (94-100); Methhemoglobin 0.8 % (1.4-1.5)
[2022-12-14 11:23] VITALS: BP 167/77
[2022-12-14 12:22] VITALS: PULSE 80; O2SAT 95
== END 2022-12-14 12:25 | disposition home or self-care (01) ==
LOC: ED 07:53
DX: J95.03 Malfunction of tracheostomy stoma (principal); L03.116 Cellulitis of left lower limb; L03.115 Cellulitis of right lower limb; N39.0 Urinary tract infection, site not specified; E78.5 Hyperlipidemia, unspecified; I11.0 Hypertensive heart disease with heart failure; E11.42 Type 2 diabetes mellitus with diabetic polyneuropathy; Z79.4 Long term (current) use of insulin; Z79.84 Long term (current) use of oral hypoglycemic drugs; Z79.899 Other long term (current) drug therapy
CPT/HCPCS: 36600; 82375; 82803; 82947; 99283; A9270-GY